=== PATIENT | female | born 1945 | race Caucasian/White ===

== ENCOUNTER → 2019-02-19 00:01 | Outpatient (RCR) | payer MEDICARE, MEDICAID, SELFPAY | LOC: ONCMED 01-22 06:12 | PROVIDERS: Family Provider Electrodiagnostic Medicine; Visit Provider Internal Medicine Medical Oncology | DX: Z51.12 Encounter for antineoplastic immunotherapy (principal); C50.812 Malignant neoplasm of overlapping sites of left female breast; C77.3 Secondary and unspecified malignant neoplasm of axilla and upper limb lymph nodes; D64.9 Anemia, unspecified; R91.1 Solitary pulmonary nodule; I26.99 Other pulmonary embolism without acute cor pulmonale; Z17.0 Estrogen receptor positive status [ER+]; I12.9 Hypertensive chronic kidney disease with stage 1 through stage 4 chronic kidney disease, or unspecified chronic kidney disease; N18.9 Chronic kidney disease, unspecified; J44.9 Chronic obstructive pulmonary disease, unspecified; K21.9 Gastro-esophageal reflux disease without esophagitis; E03.9 Hypothyroidism, unspecified; M19.90 Unspecified osteoarthritis, unspecified site; Z79.811 Long term (current) use of aromatase inhibitors; Z79.899 Other long term (current) drug therapy; Z87.442 Personal history of urinary calculi; Z87.891 Personal history of nicotine dependence | CPT/HCPCS: 80053; 85025 ×2; 93308; 96360; 96413 ×2; 99214; J1642 ×5; J7040 ×2; J7050 ×3; J9355 ×2 ==

== ENCOUNTER 2019-02-21 16:30 | Emergency (ER) | payer MEDICARE, MEDICAID, SELFPAY ==
[2019-02-21 17:45] VITALS: BP 145/68; PULSE 74; RESP 18; TEMP 36.8; O2SAT 91; BMI 44.8
[2019-02-21 19:27] VITALS: BP 151/82; PULSE 95; RESP 16; O2SAT 94
== END 2019-02-21 19:29 | disposition home or self-care (01) ==
LOC: ER 17:00
PROVIDERS: Emergency Provider Emergency Medicine; Family Provider Electrodiagnostic Medicine; PCP Electrodiagnostic Medicine
DX: Z53.21 Procedure and treatment not carried out due to patient leaving prior to being seen by health care provider (principal)
CPT/HCPCS: 99281

== ENCOUNTER 2019-03-18 10:00 | Outpatient (RCR) | payer MEDICARE, MEDICAID, SELFPAY ==
[2019-03-11 09:40] LABS: Basophils # 0.1 10^3/uL (0.0-0.1); Basophils % 0.4 %; Eosinophils # 0.5 10^3/uL (0.0-0.8); Eosinophils % 4.5 %; Hematocrit 33.3 % (37.0-47.0); Hemoglobin 10.1 g/dL (11.5-15.3); Lymphocytes % 17.4 %; Mean Corpuscular HGB Conc 30.3 g/dL (30.0-36.0); Mean Corpuscular Hemoglobin 24.8 pg (28.0-34.0); Mean Corpuscular Volume 81.8 fL (81-99); Mean Platelet Volume 9.8 fL (7.4-10.4); Monocytes # 0.8 10^3/uL (0.2-0.9); Monocytes % 6.5 %; Neutrophils # 8.3 10^3/uL (1.8-7.7); Neutrophils % 70.9 %; Nucleated Red Blood Cells % 0 %; Platelet Count 393 10^3/cmm (130-400); Red Blood Count 4.07 10^6/uL (4.1-5.3); Red Cell Distribution Width 16.1 % (12.1-15.1); White Blood Count 11.7 10^3/uL (4.0-10.0)
[2019-03-11 09:47] LABS: Alanine Aminotransferase 8 U/L (0-33); Albumin Level 3.9 g/dL (3.5-5.2); Alkaline Phosphatase 79 IU/L (35-105); Aspartate Amino Transferase 11 U/L (0-32); Blood Urea Nitrogen 27 mg/dL (8-23); Carbon Dioxide 29 mmol/L (22-29); Chloride 98 mmol/L (98-107); Glucose 105 mg/dL (74-106); Sodium 139 mmol/L (136-145); Total Bilirubin 0.4 mg/dL (0.15-1.2); Total Protein 6.9 g/dL (6.6-8.7)
[2019-03-11 10:02] LABS: Ferritin 130 ng/mL (15-150); Iron 52 ug/dL (37-145); Percent Saturation 23.5 % (20-50); Total Iron Binding Capacity 221 mg/dL; Unsaturated Iron Binding 169 ug/dL (112-347)
[2019-03-11] MEDS: diphenhydrAMINE 25 mg Capsule PO (11:05)
[2019-03-11] MEDS: sodium chloride 0.9% 250 ML 999 ML IV (11:05)
[2019-03-11] MEDS: acetaminophen 325 mg Tablet 650 MG PO (11:05)
--- NOTE | 2019-03-18 10:02 | CT_ITS ---
WS: [id number] CT CHEST WITHOUT INTRAVENOUS CONTRAST HISTORY: BREAST CANCER/PULMONARY NODULE TECHNIQUE: Contiguous 5 mm axial imaging performed on the thorax. Coronal and sagittal reformats are submitted. All CT scans at [facility] use at least one of these dose optimization techniq ues: automated exposure control; mA and/or kV adjustment per patient size (includes targeted exams wh ere dose is matched to clinical indication); or iterative reconstruction. CONTRAST: None DLP: 951.58 mGy.cm COMPARISON: 12/03/2018, 04/29/2015 and PET/CT 09/22/2018 Lungs and central airway: Continued increase in size of the part solid mass in the RIGHT upper lobe. The solid component is lobulated measuring 3.3 x 2.9 cm, increased from 2.3 x 2.2 cm on the prior fabio dy. There is adjacent groundglass and subsolid attenuation. Mass extends to abut the pleura and there is some spiculation and satellite nodules. There are additional scattered groundglass opacification within both lungs which have been present on prior studies. Pleura: No pleural effusions. Heart and pericardium: Moderately enlarged cardiac chambers. Mild atherosclerosis aorta and [place] ronary arteries. Mediastinum and oscar: Small mediastinal lymph nodes. No adenopathy or increase in size of lymph nodes . Vessels: Atherosclerosis aorta. No aneurysm. Chest wall and lower neck: Prior LEFT mastectomy. There is a fluid collection at the mastectomy site measuring 8.7 x 3.6 cm. Overlying soft tissue thickening and postsurgical clips. Patient has a Port-A -Cath with tip in the SVC. Upper abdomen: Large lobulated cystic mass associated with the upper pole of the RIGHT kidney. Incomp letely visualized but similar to the prior studies. Patient also has a known lobulated mass with calc ifications centered in the pancreatic head. This mass measures 5.6 x 5.2 cm and has not significantly increased in size. Osseous structures: Degenerative changes in thoracic spine. CT/CT chest wo con [id number] IMPRESSION: 1. Status post LEFT mastectomy. Fluid collection at the mastectomy site is pro bably a post-operative seroma. Post radiation changes at the surgical bed. 2. Continued slow increase in size of the mass in the RIGHT upper lobe and sma ll adjacent satellite lesions. Solid mass now measures 3.3 x 2.9 cm as compared to 2.3 x 2.1 cm on the prior study. Highly suspicious for neoplasm which is in creasing in size. 3. Stable multi lobar groundglass attenuation and no significant adenopathy. 4. Long-term stability of a large pancreatic head mass which is lobulated and contains calcifications. 5. Moderate cardiomegaly.
[2019-03-18] MEDS: alteplase 1 mg/mL SDV 2 mL 2 MG IV (11:35)
[2019-03-18] MEDS: sodium chloride 0.9% 100 ML 75 ML (12:07)
== END 2019-03-22 23:59 | disposition home or self-care (01) ==
LOC: RAD 10:00
PROVIDERS: Family Provider Electrodiagnostic Medicine; PCP Electrodiagnostic Medicine; Visit Provider Internal Medicine Medical Oncology
DX: D50.8 Other iron deficiency anemias (principal); C50.812 Malignant neoplasm of overlapping sites of left female breast; Z90.12 Acquired absence of left breast and nipple; K86.89 Other specified diseases of pancreas; I51.7 Cardiomegaly; R91.1 Solitary pulmonary nodule
CPT/HCPCS: 71250; 80053; 82728; 83540; 83550; 85025; 96365; 96367; 96375; 96413; 99214; J1439; J2997; J7050; J9355

== ENCOUNTER 2019-04-01 05:53 | Outpatient (RCR) | payer MEDICARE, MEDICAID, SELFPAY ==
[2019-04-01] MEDS: alteplase 1 mg/mL SDV 2 mL 2 MG IV ×2 (11:51→13:10)
[2019-04-01 12:10] LABS: Basophils % 0.3 %; Eosinophils # 0.5 10^3/uL (0.0-0.8); Eosinophils % 4.5 %; Hematocrit 34.9 % (37.0-47.0); Hemoglobin 10.6 g/dL (11.5-15.3); Lymphocytes # 2.1 10^3/uL (0.8-4.8); Lymphocytes % 17.9 %; Mean Corpuscular HGB Conc 30.4 g/dL (30.0-36.0); Mean Corpuscular Hemoglobin 26.6 pg (28.0-34.0); Mean Corpuscular Volume 87.7 fL (81-99); Mean Platelet Volume 10.1 fL (7.4-10.4); Monocytes # 0.7 10^3/uL (0.2-0.9); Monocytes % 6.1 %; Neutrophils # 8.4 10^3/uL (1.8-7.7); Neutrophils % 70.8 %; Nucleated Red Blood Cells % 0 %; Platelet Count 359 10^3/cmm (130-400); Red Blood Count 3.98 10^6/uL (4.1-5.3); Red Cell Distribution Width 18.9 % (12.1-15.1); White Blood Count 11.9 10^3/uL (4.0-10.0)
[2019-04-01 12:30] LABS: Alanine Aminotransferase 7 U/L (0-33); Albumin Level 3.6 g/dL (3.5-5.2); Alkaline Phosphatase 84 IU/L (35-105); Anion Gap 16.1 (5-19); Aspartate Amino Transferase 13 U/L (0-32); Blood Urea Nitrogen 21 mg/dL (8-23); Calcium 9.5 mg/dL (8.5-10.5); Carbon Dioxide 29 mmol/L (22-29); Chloride 100 mmol/L (98-107); Globulin 2.7 g/dL (1.3-4.6); Glucose 106 mg/dL (65-115); Potassium 4.1 mmol/L (3.5-5.1); Sodium 141 mmol/L (136-145); Total Bilirubin 0.3 mg/dL (0.15-1.2); Total Protein 6.3 g/dL (6.6-8.7)
[2019-04-01] MEDS: iohexol 300 mg/mL 50 mL Btl IV (14:42)
--- NOTE | 2019-04-01 14:53 | IR_ITS ---
WS: [id number] INDICATION: Right Port-A-Cath flushes but with no blood return. Fluoroscopy time 0.6 minutes TECHNIQUE: Fluoroscopic guided Port-A-Cath injection. 10 cc Omnipaque utilized. FINDINGS: Fluoroscopic guided right Port-A-Cath injection. Normal opacification of the superior vena cava. No filling defects to indicate SVC thrombus. However, there is a small contrast jet at the tip of the catheter on the fluoroscopic cine imaging suggesting a small amount of thrombus or thrombin sh eath at the catheter tip with partial occlusion. Tortuous course of the right central venous catheter in the lower neck is unchanged in appearance sin ce 2019. Notified Hue Vargas NP at 04/01/2019 3:57 PM. IR/[place] [id number] IMPRESSION: 1. Suspected partial thrombus or fibrin sheath at the tip of the catheter wit h partial occlusion with small contrast jet. 2. Normal filling of the superior vena cava. No evidence of SVC thrombus. Cath eter otherwise appears patent.
[2019-04-01] MEDS: diphenhydrAMINE 25 mg Capsule PO (15:53)
[2019-04-01] MEDS: acetaminophen 325 mg Tablet 650 MG PO (15:53)
[2019-04-01] MEDS: sodium chloride 0.9% 250 ML 600 ML IV (16:08)
--- NOTE | 2019-04-05 08:06 | ONC FU_ITS ---
Heidy Vargas Patient Note Patient: Deneen Mendoza Unit #: [id number]: 1945 Dictated By: Eulalio CrookDate of Visit: Apr 01, 2019 Onc MED Follow-Up/Prog Note Chief Complaint: Breast cancer. History of Present Illness: Mrs Mendoza is a 73 year-old woman with multifocal infiltrating ductal carcinoma of the left breast, grade 3, ER positive/OR negative and HER-2/vickie positive. By clinical evaluation her disease appeared to be at least stage IIB (T2, N1, M0). Her PET/CT also showed FDG avid right apical pulmonary nodule, consistent with solitary metastasis, stage IV (M1), versus second primary malignancy. She had presented with a lump in the lateral aspect of the left breast, first noticed in early March. Bilateral diagnostic mammogram on 04/05/2018 showed a large spiculated mass in the upper outer left breast deep to the area of palpable concern. Measured 2.2 x 1.4 cm with associated surrounding architectural distortion and associated pleomorphic calcifications. Also noted was adjacent enlarged pathologic appearing lymph nodes/masses with pleomorphic calcifications measuring 1.7 x 1.7 cm an enlarged partially visualized lymph nodes in the left axilla with microcalcifications measuring 2.8 x 2.1 cm. Ultrasound of the left breast showed numerous hypoechoic irregular lesions at the 2:00 in 3 clock position suspicious for multifocal disease. Also noted were 2 additional hypoechoic irregular masses at the 2:00 position which were suspicious for additional foci of disease. An enlarged axillary lymph node measuring 1.1 cm also appeared suspicious for malignancy. On 04/25/2018 she underwent ultrasound-guided needle biopsies at 3 different sites in the left breast and ultrasound guided needle biopsy of a left axillary lymph node. Pathology of the biopsy at 2:00, 6 cm from the nipple, showed extensive infiltrating ductal carcinoma, grade 3 of 3. Biopsy at the 2:00 position 8 cm from the nipple and at the 3 clock position 5 cm from the nipple both also showed infiltrating ductal carcinoma. The breast prognostic profile showed ER positive at 62% and OR negative at less than 1%. It was positive for overexpression of HER-2/vickie, 3+ by IHC, with amplification ratio by FISH of 2.1 with 7.3 HER-2 copies/cell. The Ki-67 was high at 41%. ]Dr Feldman had seen her initially on 05/21/2018. As her disease appeared to at least locally advanced, she had a staging PET/CT on 05/26/2018. It showed a 1.7 cm soft tissue lesion within the left breast with SUV 6.5. There were several FDG positive axillary lymph nodes, the most prominent being a 1.5 cm node with SUV 14.1. A solid nodule in the right lung apex measured 1.9 x 1.6 cm with SUV 17.7, felt to most likely represent metastatic disease, though primary lung carcinoma was noted to also be possible. Multiple other bilateral pulmonary nodules were either too small to characterize or of groundglass opacity with negligible FDG activity. Given those findings, she was recommended to begin neoadjuvant chemotherapy with TCH-P. Her medical history is also significant that she had previously been evaluated by Dr. Tran for multiple pulmonary nodules which included a more dominant right upper lobe nodule measuring 2.9 x 1.7 cm. Bronchoscopy on 05/27/2013 was unremarkable except for a small polyp at the distal aspect of the posterior trachea. It was removed in entirety. Pathology showed no evidence of malignancy. Bronchial washings from the right upper lobe were also negative for malignancy. A follow-up chest CT on 04/29/2015 showed slight enlargement of an anterior segmental left upper lobe nodule measuring 7.3 mm. Multiple other upper lobe nodules bilaterally as well as right middle lobe and right lower lobe nodules appeared stable. She also has a history of pancreatitis with associated pancreatic cyst. She has had yearly follow-up at [facility] for the cyst, which has been drained on multiple occasions, most recently in February 2017. Her other medical illnesses include hypertension, COPD, GERD, hypothyroidism, and degenerative arthritis. She has a history of nephrolithiasis and she also has renal cysts. She has a history of smoking 1 pack of cigarettes daily for more than 30 years. She quit smoking approximately 1991. She does not drink alcohol. INTERIM HISTORY: She began cycle 1 of TCH-P on 06/12/2018. She had no acute toxicity with the chemotherapy. At approximately day 5 she began having diarrhea. She also had some nausea/vomiting. She required IV hydration on multiple occasions. She had a significant decline in her renal function. She became severely neutropenic, but that resolved uneventfully. She had a very prolonged recovery. She eventually was able to proceed with her 2nd cycle of chemotherapy on 07/17/2018. The Perjeta was omitted from the regimen beginning with that cycle. She tolerated much better, though she continued to have nausea and diarrhea, requiring frequent hydration. Her renal function are fully recovered, but it remained adequate with dehydration. She then proceeded with cycle 3 on 08/07/2018 and with cycle 4 on 08/27/2018. Restaging PET/CT on 09/22/2018 showed resolution of the left breast and axillary lesions. The right upper lobe lung nodule appeared stable at 1.6 cm, but with increased in FDG uptake, SUV 21.1. There were no other areas of abnormal uptake noted. With those findings, her case was reviewed at tumor board, and the decision was made to proceed with resection of the lung nodule first and to then address surgical management of the breast. She was referred to Dr. Camp for the lung surgery. In the meantime, she continued treatment with single agent Herceptin. On 11/20/2018 she underwent left modified radical mastectomy. She tolerated the procedure well. Pathology on the breast showed fibrocystic changes and a 1 mm focus of atypical ductal hyperplasia. There was no malignancy identified. There was no involvement in 14 lymph nodes. Following surgery she continued single agent Herceptin at the 3-week dosing schedule. She completed her 9th cycle of treatment on 03/11/2019. We reviewed her CT of the chest from March 18, 2019. There has been a continued increase in the size of the solid mass in the right upper lobe. The solid component is lobulated measuring 3.3 x 2.9 cm increased from 2.3 x 2.2 cm on the prior study. There is adjacent groundglass and sub-solid attenuation. The mass extends to abut the pleura and there is some spiculation and satellite nodules. There are additional scattered ground glass opacification within both lungs which has been present on prior studies. There are no pleural effusions. She has moderately enlarged cardiac chambers with mild arterial sclerosis aorta and [place] coronary arteries there is a lobulated cystic mass associated with the upper pole of the right kidney incompletely visualized but similar to prior studies she has a known lobulated mass with calcifications centered in the pancreatic head this measures 5.6 x 5.2 and has not significantly increased in size she has degenerative changes in thoracic spine. Dr. Feldman has recommended that we refer her to Dr. Camp for further evaluation of the mass in the right upper lobe. Mrs. Mendoza remains on anticoagulation with Xarelto 20 mg daily for documented nonocclusive pulmonary embolism in the right lung lower lobe segmental branch diagnosed 0n December 03, 2018. Mrs. Mendoza is here today for follow-up. She is due for 3-week Herceptin. She has now completed 2 doses of Injectafer for iron deficiency anemia as well. Her last dose was on March 18, 2019. She states overall she is doing good. She has no new concerns today. She denies any nausea or vomiting. She is had no new shortness of breath orthopnea. She denies any lower extremity edema. She denies fever or chills. She states her energy is fair and her appetite is good. She denies diarrhea or constipation. Her ECOG is 1. Past Medical History: Chronic obstructive pulmonary disease Chronic pancreatitis with pancreatic cyst Gastroesophageal reflux disease Hypertension Hypothyroidism Lung nodules Nephrolithiasis Past Surgical History: Caesarean section Carpal tunnel release on the left Left uretroscopy with stent placement Pancreatic cyst drainage 8 years ago, in 2015, and in February 2017. Tonsillectomy Left mastectomy in 2019 Port placement in 2019 - dr oviedo-left ij Allergies: Codeine Sulfate, egg, NSAIDS, Penicillin G Benzathine, prednisoLONE, and Tetracycline HCl. Medications: Anastrozole 1 Tablet (of 1 mg) Oral daily Atenolol-Chlorthalidone 1 Tablet (of 50-25 mg) Oral daily Cetirizine HCl 1 Tablet (of 10 mg) Oral daily Fluticasone Propionate 2 [place](s) Suspension Nasal daily Levothyroxine Sodium 1 Tablet (of 125 mcg) Oral daily Montelukast Sodium 1 Tablet (of 10 mg) Oral at bedtime Ventolin HFA 1 (108 (90 base) mcg/act) Aerosol, solution Inhalation PRN Xarelto 1 (20 mg) Tablet Oral daily Family History: Family history is unknown, as the patient was adopted. Social History: Ms. Mendoza is and she is retired. Ms. Mendoza quit smoking 26 years ago but had smoked 0.5 packs/day for 35 years. She has no history of drinking. She has a history of smoking 1 pack of cigarettes daily for 34 years. She quit smoking approximately 1991. She does not drink alcohol. Review Of Symptoms: Constitutional Denies fevers, chills, night sweats, excessive fatigue or weight loss. Eyes Denies significant visual changes. No diplopia. No amaurosis. ENMT Denies changes in hearing, sore throat, mouth sores, difficulty or changes in swallowing ability, and/or sinus drainage. Endocrine No diabetes, thyroid disease or hormone replacement. Denies hot flashes or night sweats. Hematologic/Lymphatic Denies easy bruising or bleeding. The patient denies any tender or palpable lymph nodes. Breasts unremarkable-healing well. Respiratory Shortness of breath persistent, but no worse than normal . Cardiovascular Denies anginal chest pain, palpitations or orthopnea. Gastrointestinal Denies nausea, vomiting, diarrhea, GI bleeding, or constipation. Denies change in bowel habits and/or stool color, no heartburn or early satiety. Genitourinary (F) No hematuria, hesitancy, incontinence, vaginal bleeding, discharge or other problems with urination. Musculoskeletal Denies joint pain, swelling or redness. No decreased range of motion. Integumentary Denies chronic rashes, inflammation, ulcerations or skin changes. Neurologic Denies headache, blurred vision, and no areas of focal weakness or numbness. Normal gait. No sensory problems. Psychiatric Denies insomnia, depression, corby or mood swings. Vital Signs: Performed on Apr 01, 2019 13:00 Height - 62.00 in Weight - 251.0 lbs BSA - 2.11 sq.m BMI - 45.91 (HIGH) Temperature - 98.0 F (LOW) Pulse - 65 /min Respiration - 26 /min BP - 162/72 mm(hg) (HIGH) O2 Sat - 95 % (LOW) Pain - 0,1 - No physically strenuous activity, but ambulatory and able to carry out light or sedentary work (e.g. office work, light house work). (ECOG) Physical Examination: Constitutional Alert, oriented, no acute distress. Skin pink, warm and dry. Head Normocephalic; atraumatic. Eyes Conjunctivae and sclerae are clear and without icterus. Pupils are reactive and equal. ENMT No oral exudates, ulcers, masses, thrush or mucositis. Oropharynx clear. Tongue normal. Neck Supple without masses or thyromegaly. No jugular venous distension. Hematologic/Lymphatic No petechiae or purpura. No tender or palpable lymph nodes in the cervical or supraclavicular areas. Respiratory Lungs are clear to auscultation without rhonchi or wheezing. Cardiovascular Regular rate and rhythm of heart without murmurs,clicks, gallops or rubs. Chest Right chest wall venous access device is unremarkable. Breasts Left mastectomy site has healed well. Abdomen Non-tender, non-distended, no masses, ascites. No guarding or rebound tenderness. No pulsatile masses. Back/Spine Non-tender to palpation. Extremities No visible deformities, no cyanosis, clubbing or edema. Musculoskeletal No tenderness or swelling, normal range of motion without obvious weakness. Integumentary No rashes or lesions. Neurologic No sensory or motor deficits, normal cerebellar function, normal gait. Psychiatric Alert and oriented times three. Coherent speech. Verbalizes understanding of our discussions today. Laboratory:Test performed on Apr 01, 2019 11:55 WBC 11.9 10 3/uL RBC 3.98 10 6/uL HGB 10.6 g/dL HCT 34.9 % MCV 87.7 fL MCH 26.6 pg MCHC 30.4 g/dL RDW 18.9 % Platelet Count 359 10 3/cmm MPV 10.1 fL Neutrophils 8.4 10 3/uL Lymphocytes 2.1 10 3/uL Monocytes 0.7 10 3/uL Eosinophils 0.5 10 3/uL Basophils 0.0 10 3/uL Neutrophil % 70.8 % Lymphocyte % 17.9 % Monocyte % 6.1 % Eosinophil % 4.5 % Basophils % 0.3 % Impression: 1. Patient with multifocal infiltrating ductal carcinoma of the left breast, grade 3, ER positive/OR negative and HER-2/vickie positive. By clinical evaluation her disease appears to be at least stage IIB (T2, N1, M0). Her PET/CT also showed FDG avid right apical pulmonary nodule, consistent with solitary metastasis, stage IV (M1), versus second primary malignancy. 2. She has a history of multiple pulmonary nodules with negative bronchoscopy in 2013. 3. She is known to have a pancreatic cyst associated with previous pancreatitis. Her other medical illnesses include: 4. Hypertension. 5. COPD. 6. GERD. 7. Hypothyroidism. 8. Degenerative arthritis. 9. She has a history of nephrolithiasis and history of renal cysts. She began cycle 1 of neoadjuvant TCH-P on 06/12/2018. She had no acute toxicity with the initial infusions. She subsequently developed severe diarrhea, and she also had some nausea/vomiting. She required IV hydration on multiple occasions. During that time she did show significant decline in her renal function. She became severely neutropenic, but that resolved uneventfully. During subsequent follow-up she had gradual recovery, though her renal function still did not return to baseline. She eventually was able to continue with cycle 2 of chemotherapy on 07/17/2018. Beginning with that cycle, the Perjeta was omitted from the regimen. She was able to tolerate it with acceptable toxicity, though she continued to have nausea and diarrhea, and she required frequent IV hydration. She completed her 3rd cycle on 08/07/2018 and her 4th cycle on 08/27/2018. Her restaging PET/CT on 09/22/2018 showed complete resolution of left breast and left axillary lesions. The right upper lobe pulmonary nodule appeared stable in size at 1.6 cm, but with increased FDG activity, SUV 21.1. By PET/CT she has had a very significant response to the neoadjuvant chemotherapy. The increased FDG activity in the right upper lobe pulmonary nodule is worrisome for malignancy, possibly a second primary malignancy. Given those findings, she was recommended to proceed first with resection of the lung nodule and to then address surgical management of the breast. She has seen Dr. Camp for the lung surgery. In the meantime, she has continued treatment with single agent Herceptin, which she tolerated well. At her follow-up visit on 11/05/2018 she appeared to have developed a new nodule in the left breast. There was concern that her disease was progressing locally. As such, she underwent left modified radical mastectomy on 11/20/2018. Pathology showed no residual tumor in the breast and no involvement in 14 axillary lymph nodes, consistent with complete pathologic response to the neoadjuvant therapy. She had no complications with the surgery, and she then continued single agent Herceptin at the 3-week dosing interval. As of her follow-up visit on 01/29/2019, she restarted adjuvant hormonal therapy with anastrozole 1 mg daily. Thus far she has been tolerating the Herceptin very well, and during that time she has been showing gradual improvement in her performance status. She remains mildly anemic with borderline low transferrin saturation. She did receive iron supplementation with Injectafer with two doses-the last one on 03/18/2019. Her followup CT of the chest from March 18, 2019 reported there has been a continued increase in the size of the solid mass in the right upper lobe. The solid component is lobulated measuring 3.3 x 2.9 cm increased from 2.3 x 2.2 cm on the prior study. There is adjacent groundglass and sub-solid attenuation. The mass extends to abut the pleura and there is some spiculation and satellite nodules. There are additional scattered ground glass opacification within both lungs which has been present on prior studies. There are no pleural effusions. She has moderately enlarged cardiac chambers with mild arterial sclerosis aorta and [place] coronary arteries there is a lobulated cystic mass associated with the upper pole of the right kidney incompletely visualized but similar to prior studies she has a known lobulated mass with calcifications centered in the pancreatic head this measures 5.6 x 5.2 and has not significantly increased in size she has degenerative changes in thoracic spine. Dr. Feldman has recommended that we refer her to Dr. Camp for further evaluation of the mass in the right upper lobe. Mrs. Mendoza remains on anticoagulation with Xarelto 20 mg daily for documented nonocclusive pulmonary embolism in the right lung lower lobe segmental branch diagnosed on December 03, 2018. Plan: 1. Proceed with cycle 10 Herceptin. She began TCH-P on 06/12/2018. 2. We reviewed her labs from today in detail and a copy was given to her. WBC 11.9, hemoglobin 10.6, platelets 359,000 ANC is 8400. 3. We will refer her to Dr. Camp for further assessment/management of the right lung mass. 4. She continues on Xarelto 20 mg daily for nonocclusive pulmonary embolism of the right lower lobe segmental branch diagnosed December 03, 2018. She will continue Xarelto for now until we know when she is seen Dr. Camp and what his plan will be. 5. We will plan to see her back in 3 weeks with CBC CMP and followup iron studies for consideration of her next cycle of Herceptin. 6. Mrs. Mendoza was instructed to contact us in the interim should questions or problems arise. 7. Mrs. Mendoza did have a flow study done on reported A day as we are having difficulty obtaining blood return. Dr. Schreiber called to state that there was slight sluggish flow towards the end of the catheter which could indicate slight thrombosis or sheath. There was no occlusive clot within the catheter or vein. We were able to administer her Herceptin without any difficulty. She had 2 doses of Cathflo and the catheter was discharged with heparin within the catheter. She remains on the Xarelto as well. She did not have any discomfort or abnormal findings during the administration of the Herceptin around the Port-A-Cath. Signed By: Eulalio Crook-, AOCNP Wes Feldman MD <<Signature on File>>
== END 2019-04-20 23:59 | disposition home or self-care (01) ==
LOC: ONCMED 05:53
PROVIDERS: Absent Provider Internal Medicine Medical Oncology; Family Provider Electrodiagnostic Medicine; PCP Electrodiagnostic Medicine; Visit Provider Nurse Practitioner
DX: Z51.12 Encounter for antineoplastic immunotherapy (principal); C50.812 Malignant neoplasm of overlapping sites of left female breast; C77.3 Secondary and unspecified malignant neoplasm of axilla and upper limb lymph nodes; T82.594A Other mechanical complication of infusion catheter, initial encounter; Y80.1 Therapeutic (nonsurgical) and rehabilitative physical medicine devices associated with adverse incidents; D64.9 Anemia, unspecified; I10 Essential (primary) hypertension; J44.9 Chronic obstructive pulmonary disease, unspecified; K21.9 Gastro-esophageal reflux disease without esophagitis; E03.9 Hypothyroidism, unspecified; M19.90 Unspecified osteoarthritis, unspecified site; R91.8 Other nonspecific abnormal finding of lung field; Z79.01 Long term (current) use of anticoagulants; Z17.0 Estrogen receptor positive status [ER+]; Z79.811 Long term (current) use of aromatase inhibitors; Z87.442 Personal history of urinary calculi; Z87.891 Personal history of nicotine dependence; Z86.711 Personal history of pulmonary embolism; Z90.12 Acquired absence of left breast and nipple
CPT/HCPCS: 36415; 36593; 36598; 80053; 85025; 96375; 96413; 99214; J2997; J7050; J9355; Q9967

== ENCOUNTER 2019-04-17 10:19 | Outpatient (CLI) | payer MEDICARE, MEDICAID, SELFPAY ==
--- NOTE | 2019-04-17 15:34 | PFTS_ITS ---
Date of Study:04/17/2019 Date of Dictation: MECHANICS: Forced vital capacity (FVC) is reduced. Forced expiratory volume in one second (FEV1) is reduced. FEV1/FVC is normal. FLOW VOLUME LOOP: Narrow with scooping. LUNG VOLUMES: Total lung capacity (TLC) is reduced. Residual volume (RV) is normal. DIFFUSING CAPACITY FOR CARBON MONOXIDE: Normal. INTERPRETATION: The pulmonary function tests are consistent with moderate restriction. There is no significant postbronchodilator response. The total lung capacity is minimally diminished. The combination of preserved inspiratory capacity and significantly reduced expiratory reserve volume is consistent with extrapulmonary restriction. Possibly secondary to obesity. Gas exchange (DLCO) is normal. MTDD
== END 2019-04-17 10:20 | disposition home or self-care (01) ==
LOC: RT 10:23
PROVIDERS: Family Provider Electrodiagnostic Medicine; PCP Electrodiagnostic Medicine; Visit Provider Thoracic Surgery (Cardiothoracic Vascular Surgery)
DX: R91.8 Other nonspecific abnormal finding of lung field (principal)
CPT/HCPCS: 94060; 94726; 94729; J7611

== ENCOUNTER 2019-04-22 05:51 | Outpatient (RCR) | payer MEDICARE, MEDICAID, SELFPAY ==
[2019-04-22 12:04] LABS: Basophils # 0.1 10^3/uL (0.0-0.1); Basophils % 0.4 %; Eosinophils # 0.5 10^3/uL (0.0-0.8); Eosinophils % 3.8 %; Hematocrit 36.7 % (37.0-47.0); Hemoglobin 11.2 g/dL (11.5-15.3); Lymphocytes # 1.8 10^3/uL (0.8-4.8); Lymphocytes % 15.3 %; Mean Corpuscular HGB Conc 30.5 g/dL (30.0-36.0); Mean Corpuscular Hemoglobin 26.6 pg (28.0-34.0); Mean Corpuscular Volume 87.2 fL (81-99); Mean Platelet Volume 10.2 fL (7.4-10.4); Monocytes # 0.6 10^3/uL (0.2-0.9); Monocytes % 5.3 %; Neutrophils % 74.9 %; Nucleated Red Blood Cells % 0 %; Platelet Count 336 10^3/cmm (130-400); Red Blood Count 4.21 10^6/uL (4.1-5.3)
[2019-04-22 12:21] LABS: Alanine Aminotransferase 9 U/L (0-33); Albumin Level 3.8 g/dL (3.5-5.2); Alkaline Phosphatase 84 IU/L (35-105); Anion Gap 17.7 (5-19); Aspartate Amino Transferase 12 U/L (0-32); Blood Urea Nitrogen 31 mg/dL (8-23); Calcium 9.8 mg/dL (8.5-10.5); Carbon Dioxide 26 mmol/L (22-29); Chloride 100 mmol/L (98-107); Globulin 2.9 g/dL (1.3-4.6); Glucose 133 mg/dL (65-115); Potassium 3.7 mmol/L (3.5-5.1); Sodium 140 mmol/L (136-145); Total Bilirubin 0.3 mg/dL (0.15-1.2); Total Protein 6.7 g/dL (6.6-8.7)
[2019-04-22 13:05] LABS: Ferritin 802 ng/mL (15-150); Iron 44 ug/dL (37-145); Percent Saturation 23.6 % (20-50); Total Iron Binding Capacity 186 mcg/dl; Unsaturated Iron Binding 142 ug/dL (112-347)
[2019-04-22] MEDS: sodium chloride 0.9% 250 ML 300 ML IV (13:55)
[2019-04-22] MEDS: acetaminophen 325 mg Tablet 650 MG PO (13:55)
[2019-04-22] MEDS: diphenhydrAMINE 25 mg Capsule PO (13:59)
[2019-04-22 14:21] LABS: Thyroid Stimulating Hormone 0.76 uIU/mL (0.27-4.20)
--- NOTE | 2019-04-27 17:31 | ONC FU_ITS ---
[facility] Patient Note Patient: Deneen Mendoza Unit #: [id number]: 1945 Dictated By: Eulalio CrookDate of Visit: Apr 22, 2019 Onc MED Follow-Up/Prog Note Chief Complaint: Breast cancer. History of Present Illness: Mrs Mendoza is a 73 year-old woman with multifocal infiltrating ductal carcinoma of the left breast, grade 3, ER positive/IN negative and HER-2/vickie positive. By clinical evaluation her disease appeared to be at least stage IIB (T2, N1, M0). Her PET/CT also showed FDG avid right apical pulmonary nodule, consistent with solitary metastasis, stage IV (M1), versus second primary malignancy. She had presented with a lump in the lateral aspect of the left breast, first noticed in early March. Bilateral diagnostic mammogram on 04/05/2018 showed a large spiculated mass in the upper outer left breast deep to the area of palpable concern. Measured 2.2 x 1.4 cm with associated surrounding architectural distortion and associated pleomorphic calcifications. Also noted was adjacent enlarged pathologic appearing lymph nodes/masses with pleomorphic calcifications measuring 1.7 x 1.7 cm an enlarged partially visualized lymph nodes in the left axilla with microcalcifications measuring 2.8 x 2.1 cm. Ultrasound of the left breast showed numerous hypoechoic irregular lesions at the 2:00 in 3 clock position suspicious for multifocal disease. Also noted were 2 additional hypoechoic irregular masses at the 2:00 position which were suspicious for additional foci of disease. An enlarged axillary lymph node measuring 1.1 cm also appeared suspicious for malignancy. On 04/25/2018 she underwent ultrasound-guided needle biopsies at 3 different sites in the left breast and ultrasound guided needle biopsy of a left axillary lymph node. Pathology of the biopsy at 2:00, 6 cm from the nipple, showed extensive infiltrating ductal carcinoma, grade 3 of 3. Biopsy at the 2:00 position 8 cm from the nipple and at the 3 clock position 5 cm from the nipple both also showed infiltrating ductal carcinoma. The breast prognostic profile showed ER positive at 62% and IN negative at less than 1%. It was positive for overexpression of HER-2/vickie, 3+ by IHC, with amplification ratio by FISH of 2.1 with 7.3 HER-2 copies/cell. The Ki-67 was high at 41%. ]Dr Feldman had seen her initially on 05/21/2018. As her disease appeared to at least locally advanced, she had a staging PET/CT on 05/26/2018. It showed a 1.7 cm soft tissue lesion within the left breast with SUV 6.5. There were several FDG positive axillary lymph nodes, the most prominent being a 1.5 cm node with SUV 14.1. A solid nodule in the right lung apex measured 1.9 x 1.6 cm with SUV 17.7, felt to most likely represent metastatic disease, though primary lung carcinoma was noted to also be possible. Multiple other bilateral pulmonary nodules were either too small to characterize or of groundglass opacity with negligible FDG activity. Given those findings, she was recommended to begin neoadjuvant chemotherapy with TCH-P. Her medical history is also significant that she had previously been evaluated by Dr. Tran for multiple pulmonary nodules which included a more dominant right upper lobe nodule measuring 2.9 x 1.7 cm. Bronchoscopy on 05/27/2013 was unremarkable except for a small polyp at the distal aspect of the posterior trachea. It was removed in entirety. Pathology showed no evidence of malignancy. Bronchial washings from the right upper lobe were also negative for malignancy. A follow-up chest CT on 04/29/2015 showed slight enlargement of an anterior segmental left upper lobe nodule measuring 7.3 mm. Multiple other upper lobe nodules bilaterally as well as right middle lobe and right lower lobe nodules appeared stable. She also has a history of pancreatitis with associated pancreatic cyst. She has had yearly follow-up at [facility] for the cyst, which has been drained on multiple occasions, most recently in February 2017. Her other medical illnesses include hypertension, COPD, GERD, hypothyroidism, and degenerative arthritis. She has a history of nephrolithiasis and she also has renal cysts. She has a history of smoking 1 pack of cigarettes daily for more than 30 years. She quit smoking approximately 1991. She does not drink alcohol. INTERIM HISTORY: She began cycle 1 of TCH-P on 06/12/2018. She had no acute toxicity with the chemotherapy. At approximately day 5 she began having diarrhea. She also had some nausea/vomiting. She required IV hydration on multiple occasions. She had a significant decline in her renal function. She became severely neutropenic, but that resolved uneventfully. She had a very prolonged recovery. She eventually was able to proceed with her 2nd cycle of chemotherapy on 07/17/2018. The Perjeta was omitted from the regimen beginning with that cycle. She tolerated much better, though she continued to have nausea and diarrhea, requiring frequent hydration. Her renal function are fully recovered, but it remained adequate with dehydration. She then proceeded with cycle 3 on 08/07/2018 and with cycle 4 on 08/27/2018. Restaging PET/CT on 09/22/2018 showed resolution of the left breast and axillary lesions. The right upper lobe lung nodule appeared stable at 1.6 cm, but with increased in FDG uptake, SUV 21.1. There were no other areas of abnormal uptake noted. With those findings, her case was reviewed at tumor board, and the decision was made to proceed with resection of the lung nodule first and to then address surgical management of the breast. She was referred to Dr. Camp for the lung surgery. In the meantime, she continued treatment with single agent Herceptin. On 11/20/2018 she underwent left modified radical mastectomy. She tolerated the procedure well. Pathology on the breast showed fibrocystic changes and a 1 mm focus of atypical ductal hyperplasia. There was no malignancy identified. There was no involvement in 14 lymph nodes. Following surgery she continued single agent Herceptin at the 3-week dosing schedule. She completed her 9th cycle of treatment on 03/11/2019. We reviewed her CT of the chest from March 18, 2019. There has been a continued increase in the size of the solid mass in the right upper lobe. The solid component is lobulated measuring 3.3 x 2.9 cm increased from 2.3 x 2.2 cm on the prior study. There is adjacent groundglass and sub-solid attenuation. The mass extends to abut the pleura and there is some spiculation and satellite nodules. There are additional scattered ground glass opacification within both lungs which has been present on prior studies. There are no pleural effusions. She has moderately enlarged cardiac chambers with mild arterial sclerosis aorta and [place] coronary arteries there is a lobulated cystic mass associated with the upper pole of the right kidney incompletely visualized but similar to prior studies she has a known lobulated mass with calcifications centered in the pancreatic head this measures 5.6 x 5.2 and has not significantly increased in size she has degenerative changes in thoracic spine. Dr. Feldman has recommended that we refer her to Dr. Camp for further evaluation of the mass in the right upper lobe. Mrs. Mendoza remains on anticoagulation with Xarelto 20 mg daily for documented nonocclusive pulmonary embolism in the right lung lower lobe segmental branch diagnosed 0n December 03, 2018. Mrs Mendoza completed Injectafer for iron deficiency anemia on 03/18/2019. Mrs. Mendoza is here today for follow-up. She is due for 3-week Herceptin. She states overall she is doing good. She states her only complaint today is that she has had a rash on her abdomen. She states it comes and goes and itches like crazy. She states it is better currently. She states when it does come there is really no red raised areas it just cannot itchy. She states is on her abdomen and some on her back. She states again it is gone today but it may be back tomorrow. She states the rash started about 1 week after her last Herceptin. She denies any new medication. She denies any new lotions, soaps or laundry detergents. She states she is tried to think of several things that could cause arrest and thus far is come up with nothing. She states overall she is had a little bit more fatigue and little more draggy today but states it is not bothering her activities of daily living. She states her appetite is good. She denies any fever or chills. She is had no diarrhea or constipation. She denies any mouth sores sore throat or difficulty swallowing. She denies any shortness of breath or lower extremity edema. She states her bowels are normal. She states at times are loose but that is well controlled she states at times her constipated and that is well controlled with stool softeners. Her ECOG is 1. Past Medical History: Chronic obstructive pulmonary disease Chronic pancreatitis with pancreatic cyst Gastroesophageal reflux disease Hypertension Hypothyroidism Lung nodules Nephrolithiasis Past Surgical History: Caesarean section Carpal tunnel release on the left Left uretroscopy with stent placement Pancreatic cyst drainage 8 years ago, in 2016, and in February 2017. Tonsillectomy Left mastectomy in 2019 Port placement in 2019 - dr oviedo-left ij Allergies: Codeine Sulfate, egg, NSAIDS, Penicillin G Benzathine, prednisoLONE, and Tetracycline HCl. Medications: Anastrozole 1 Tablet (of 1 mg) Oral daily Atenolol-Chlorthalidone 1 Tablet (of 50-25 mg) Oral daily Cetirizine HCl 1 Tablet (of 10 mg) Oral daily Fluticasone Propionate 2 Pick[place](s) Suspension Nasal daily Levothyroxine Sodium 1 Tablet (of 125 mcg) Oral daily Montelukast Sodium 1 Tablet (of 10 mg) Oral at bedtime Ventolin HFA 1 (108 (90 base) mcg/act) Aerosol, solution Inhalation PRN Xarelto 1 (20 mg) Tablet Oral daily Family History: Family history is unknown, as the patient was adopted. Social History: Ms. Mendoza is and she is retired. Ms. Mendoza quit smoking 26 years ago but had smoked 0.5 packs/day for 35 years. She has no history of drinking. She has a history of smoking 1 pack of cigarettes daily for 34 years. She quit smoking approximately 1991. She does not drink alcohol. Review Of Symptoms: Constitutional Denies fevers, chills, night sweats, excessive fatigue or weight loss. Allergic/Immunologic intermittent rash-see above. Eyes Denies significant visual changes. No diplopia. No amaurosis. ENMT Denies changes in hearing, sore throat, mouth sores, difficulty or changes in swallowing ability, and/or sinus drainage. Endocrine No diabetes, thyroid disease or hormone replacement. Denies hot flashes or night sweats. Hematologic/Lymphatic Denies easy bruising or bleeding. The patient denies any tender or palpable lymph nodes. Breasts unremarkable-healing well. Respiratory Shortness of breath persistent, but no worse than normal . Cardiovascular Denies anginal chest pain, palpitations or orthopnea. Gastrointestinal Denies nausea, vomiting, diarrhea, GI bleeding, or constipation. Denies change in bowel habits and/or stool color, no heartburn or early satiety. Genitourinary (F) No hematuria, hesitancy, incontinence, vaginal bleeding, discharge or other problems with urination. Musculoskeletal Denies joint pain, swelling or redness. No decreased range of motion. Integumentary Itchy rash that developed about 1 week after last treatment. No rash today. See above. Neurologic Denies headache, blurred vision, and no areas of focal weakness or numbness. Normal gait. No sensory problems. Psychiatric Denies insomnia, depression, corby or mood swings. Vital Signs: Performed on Apr 22, 2019 16:20 Height - 62.00 in Temperature - 96.8 F (LOW) Pulse - 64 /min Respiration - 18 /min BP - 120/79 mm(hg) O2 Sat - 95 % (LOW) Pain - 0 Fatigue - 0 Performed on Apr 22, 2019 13:18 Height - 62.00 in Weight - 251 lbs BSA - 2.11 sq.m BMI - 45.91 (HIGH) Temperature - 98.0 F (LOW) Pulse - 78 /min Respiration - 22 /min BP - 132/86 mm(hg) O2 Sat - 94 % (LOW) Pain - 3,1 - No physically strenuous activity, but ambulatory and able to carry out light or sedentary work (e.g. office work, light house work). (ECOG) Physical Examination: Constitutional Alert, oriented, no acute distress. Skin pink, warm and dry. Head Normocephalic; atraumatic. Eyes Conjunctivae and sclerae are clear and without icterus. Pupils are reactive and equal. Neck Supple without masses or thyromegaly. No jugular venous distension. Hematologic/Lymphatic No petechiae or purpura. No tender or palpable lymph nodes in the cervical or supraclavicular areas. Respiratory Lungs are clear to auscultation without rhonchi or wheezing. Cardiovascular Regular rate and rhythm of heart without murmurs,clicks, gallops or rubs. Chest Right chest wall venous access device is unremarkable. Abdomen Non-tender, non-distended, no masses, ascites. No guarding or rebound tenderness. No pulsatile masses. Back/Spine Non-tender to palpation. Extremities No visible deformities, no cyanosis, clubbing or edema. Musculoskeletal No tenderness or swelling, normal range of motion without obvious weakness. Integumentary No rashes or lesions. Neurologic No sensory or motor deficits, normal cerebellar function, normal gait. Psychiatric Alert and oriented times three. Coherent speech. Verbalizes understanding of our discussions today. Laboratory:Test performed on Apr 22, 2019 11:48 Ferritin 802 ng/mL Iron 44 ug/dL Sodium 140 mmol/L TSH 0.76 uIU/mL Potassium 3.7 mmol/L Chloride 100 mmol/L CO2 26 mmol/L UIBC 142 ug/dL Anion Gap 17.7 BUN 31 mg/dL Creatinine 1.5 mg/dL Cr Clearance (Est) 55.2300 mL/min Glucose 133 mg/dL Calcium 9.8 mg/dL Protein, Total 6.7 g/dL Albumin 3.8 g/dL Globulin 2.9 g/dL Bilirubin, Total 0.3 mg/dL ALT (SGPT) 9 U/L AST (SGOT) 12 U/L Alkaline Phosphatase 84 IU/L WBC 12.0 10 3/uL RBC 4.21 10 6/uL HGB 11.2 g/dL HCT 36.7 % MCV 87.2 fL MCH 26.6 pg MCHC 30.5 g/dL RDW 18.0 % Platelet Count 336 10 3/cmm MPV 10.2 fL Neutrophils 9.0 10 3/uL Lymphocytes 1.8 10 3/uL Monocytes 0.6 10 3/uL Eosinophils 0.5 10 3/uL Basophils 0.1 10 3/uL Neutrophil % 74.9 % Lymphocyte % 15.3 % Monocyte % 5.3 % Eosinophil % 3.8 % Basophils % 0.4 % Impression: 1. Patient with multifocal infiltrating ductal carcinoma of the left breast, grade 3, ER positive/IN negative and HER-2/vickie positive. By clinical evaluation her disease appears to be at least stage IIB (T2, N1, M0). Her PET/CT also showed FDG avid right apical pulmonary nodule, consistent with solitary metastasis, stage IV (M1), versus second primary malignancy. 2. She has a history of multiple pulmonary nodules with negative bronchoscopy in 2013. 3. She is known to have a pancreatic cyst associated with previous pancreatitis. Her other medical illnesses include: 4. Hypertension. 5. COPD. 6. GERD. 7. Hypothyroidism. 8. Degenerative arthritis. 9. She has a history of nephrolithiasis and history of renal cysts. She began cycle 1 of neoadjuvant TCH-P on 06/12/2018. She had no acute toxicity with the initial infusions. She subsequently developed severe diarrhea, and she also had some nausea/vomiting. She required IV hydration on multiple occasions. During that time she did show significant decline in her renal function. She became severely neutropenic, but that resolved uneventfully. During subsequent follow-up she had gradual recovery, though her renal function still did not return to baseline. She eventually was able to continue with cycle 2 of chemotherapy on 07/17/2018. Beginning with that cycle, the Perjeta was omitted from the regimen. She was able to tolerate it with acceptable toxicity, though she continued to have nausea and diarrhea, and she required frequent IV hydration. She completed her 3rd cycle on 08/07/2018 and her 4th cycle on 08/27/2018. Her restaging PET/CT on 09/22/2018 showed complete resolution of left breast and left axillary lesions. The right upper lobe pulmonary nodule appeared stable in size at 1.6 cm, but with increased FDG activity, SUV 21.1. By PET/CT she has had a very significant response to the neoadjuvant chemotherapy. The increased FDG activity in the right upper lobe pulmonary nodule is worrisome for malignancy, possibly a second primary malignancy. Given those findings, she was recommended to proceed first with resection of the lung nodule and to then address surgical management of the breast. She has seen Dr. Camp for the lung surgery. In the meantime, she has continued treatment with single agent Herceptin, which she tolerated well. At her follow-up visit on 11/05/2018 she appeared to have developed a new nodule in the left breast. There was concern that her disease was progressing locally. As such, she underwent left modified radical mastectomy on 11/20/2018. Pathology showed no residual tumor in the breast and no involvement in 14 axillary lymph nodes, consistent with complete pathologic response to the neoadjuvant therapy. She had no complications with the surgery, and she then continued single agent Herceptin at the 3-week dosing interval. As of her follow-up visit on 01/29/2019, she restarted adjuvant hormonal therapy with anastrozole 1 mg daily. Thus far she has been tolerating the Herceptin very well, and during that time she has been showing gradual improvement in her performance status. She remains mildly anemic with borderline low transferrin saturation. She did receive iron supplementation with Injectafer with two doses-the last one on 03/18/2019. Her followup CT of the chest from March 18, 2019 reported there has been a continued increase in the size of the solid mass in the right upper lobe. The solid component is lobulated measuring 3.3 x 2.9 cm increased from 2.3 x 2.2 cm on the prior study. There is adjacent groundglass and sub-solid attenuation. The mass extends to abut the pleura and there is some spiculation and satellite nodules. There are additional scattered ground glass opacification within both lungs which has been present on prior studies. There are no pleural effusions. She has moderately enlarged cardiac chambers with mild arterial sclerosis aorta and [place] coronary arteries there is a lobulated cystic mass associated with the upper pole of the right kidney incompletely visualized but similar to prior studies she has a known lobulated mass with calcifications centered in the pancreatic head this measures 5.6 x 5.2 and has not significantly increased in size she has degenerative changes in thoracic spine. Dr. Feldman has recommended that we refer her to Dr. Camp for further evaluation of the mass in the right upper lobe. Mrs. Mendoza remains on anticoagulation with Xarelto 20 mg daily for documented nonocclusive pulmonary embolism in the right lung lower lobe segmental branch diagnosed on December 03, 2018. Plan: 1. Proceed with cycle 11 Herceptin. She began TCH-P on 06/12/2018. 2. We reviewed her labs from today in detail and a copy was given to her. WBC 12.0, hemoglobin 11.2, platelets 336,000 ANC is 9000. 3. We is following with Dr. Camp for further assessment/management of the right lung mass. She states that she had a PET scan recently and is awaiting the results from Dr. Camp's office. 4. She continues on Xarelto 20 mg daily for nonocclusive pulmonary embolism of the right lower lobe segmental branch diagnosed December 03, 2018. She will continue Xarelto for now until we know what Dr. Camp's plan will be. 5. We will plan to see her back in 3 weeks with CBC CMP for consideration of her next cycle of Herceptin. 6. Mrs. Mendoza was instructed to contact us in the interim should questions or problems arise. 7. Mrs. Mendoza did have a flow study done on reported A day as we are having difficulty obtaining blood return. Dr. Schreiber called to state that there was slight sluggish flow towards the end of the catheter which could indicate slight thrombosis or sheath. There was no occlusive clot within the catheter or vein. We were able to administer her Herceptin without any difficulty. She had 2 doses of Cathflo and the catheter was discharged with heparin within the catheter. She remains on the Xarelto as well. She did not have any discomfort or abnormal findings during the administration of the Herceptin around the Port-A-Cath. She continues to have no return blood flow, but the port flushes easily and without discomfort or swelling. She states that she had a PET scan recently and is awaiting the results from Dr. Camp's office. 8. She is due for follow-up echocardiogram???limited views???Herceptin monitoring. I would like to coordinate this with [address] Camp's office if at all possible. Signed By: Eulalio Crook -, AOCNP Wes Feldman MD <<Signature on File>>
== END 2019-04-22 23:59 | disposition home or self-care (01) ==
LOC: ONCMED 05:51
PROVIDERS: Absent Provider Internal Medicine Medical Oncology; Family Provider Electrodiagnostic Medicine; PCP Electrodiagnostic Medicine; Visit Provider Nurse Practitioner
DX: Z51.12 Encounter for antineoplastic immunotherapy (principal); C50.812 Malignant neoplasm of overlapping sites of left female breast; Z17.0 Estrogen receptor positive status [ER+]; C77.3 Secondary and unspecified malignant neoplasm of axilla and upper limb lymph nodes; R91.8 Other nonspecific abnormal finding of lung field; D50.9 Iron deficiency anemia, unspecified; I10 Essential (primary) hypertension; J44.9 Chronic obstructive pulmonary disease, unspecified; K21.9 Gastro-esophageal reflux disease without esophagitis; E03.9 Hypothyroidism, unspecified; M19.90 Unspecified osteoarthritis, unspecified site; Z79.811 Long term (current) use of aromatase inhibitors; Z79.01 Long term (current) use of anticoagulants; Z87.442 Personal history of urinary calculi; Z87.891 Personal history of nicotine dependence; Z90.12 Acquired absence of left breast and nipple; Z86.711 Personal history of pulmonary embolism
CPT/HCPCS: 36415; 80053; 82728; 83540; 83550; 84443; 85025; 96413; 99214; J7050; J9355

== ENCOUNTER 2019-05-06 04:41 | Day surgery (SDC) | payer MEDICARE, MEDICAID, SELFPAY ==
[2019-05-01 09:47] VITALS: BMI 45.7
--- NOTE | 2019-05-01 10:39 | ANES.PREANE2 ---
Pre-Anesthetic Assessment Pre-Anesthetic Assessment: Height/Weight: Height 1.57 m Weight 113.398 kg Preop Diagnosis: Right upper lobe lung mass Proposed Procedure: Operation Date: 05/06/19 07:00 Proposed Procedures p Bronchoscopy(Not Applicable) - Marquez Camp MD Was Beta Sandy taken within 24 hours: Yes Social: Social History: No alcohol and No tobacco Exam: Pre-Anes Outpt Exam: alert, oriented x 3, clear to auscultation bilaterally and regular rate & rhythm Airway: Submandibular: WNL Cervical ROM: WNL MP: 2 Additional comments: missing #10 otherwise good Pulmonary: Pulmonary: Asthma and Cough CV/HEM: CV/HEM: Arrythmia Comments: DVT : : None reported Hepatic: Hepatic: None reported GI: GI: None reported Metabolic: Metabolic: Morbid obesity and Thyroid Musc/skel: Musc/skel: None reported Neuropsych: Neuropsych: None reported Anesthetic Plan: ASA status: 3 Anesthesia: General Other Pertinent Information: Lung mass PFSH Anesthesia PFSH: Medical History (Updated 05/01/19 @ 09:36 by Evie Byrnes) Lung mass Family History (Updated 04/11/19 @ 14:58 by Hue Alba LPN) Denies family history of Diabetes CAD (coronary artery disease) Cancer Social History (Updated 04/11/19 @ 14:58 by Hue Alba LPN) Smoking and tobacco status: former smoker Alcohol intake: former Data Anesthesia Cardiac Studies: No Data to Display
[2019-05-01 11:12] LABS: Basophils # 0.1 10^3/uL (0.0-0.1); Basophils % 0.5 %; Eosinophils # 0.5 10^3/uL (0.0-0.8); Eosinophils % 4.3 %; Hematocrit 39.2 % (37.0-47.0); Hemoglobin 11.9 g/dL (11.5-15.3); INR 1.05 (0.8-1.2); Lymphocytes # 1.8 10^3/uL (0.8-4.8); Lymphocytes % 15.9 %; Mean Corpuscular HGB Conc 30.4 g/dL (30.0-36.0); Mean Corpuscular Hemoglobin 26.4 pg (28.0-34.0); Mean Corpuscular Volume 87.1 fL (81-99); Mean Platelet Volume 10.3 fL (7.4-10.4); Monocytes # 0.7 10^3/uL (0.2-0.9); Neutrophils # 8.2 10^3/uL (1.8-7.7); Neutrophils % 72.9 %; Nucleated Red Blood Cells % 0 %; Platelet Count 330 10^3/cmm (130-400); Red Cell Distribution Width 17.8 % (12.1-15.1); White Blood Count 11.2 10^3/uL (4.0-10.0)
[2019-05-01 11:13] LABS: Add Urine Microscopic? NO; Bilirubin Urine Neg (NEGATIVE); Blood Urine Neg (Negative); Glucose Urine UA Norm (Normal); Ketones Urine Negative (Negative); Leukocyte Esterase Urine Negative (Negative); Nitrate Urine Negative (Negative); Protein Urine Neg (Negative); Urine Appearance Clear (CLEAR); Urine Color Yellow (Yellow); Urobilinogen Urine Norm (Negative)
[2019-05-01 11:22] LABS: Anion Gap 14.6 (5-19); Blood Urea Nitrogen 25 mg/dL (8-23); Carbon Dioxide 31 mmol/L (22-29); Chloride 99 mmol/L (98-107); Glucose 121 mg/dL (65-115); Osmolality Calculated 290 mOsm/kg (285-295); Potassium 3.6 mmol/L (3.5-5.1); Sodium 141 mmol/L (136-145)
[2019-05-06] VITALS (18 sets, daily range): BP systolic 153–212; BP diastolic 66–95; PULSE 59–79; RESP 13–23; TEMP 36.2–36.7; O2SAT 90–98
[2019-05-06] MEDS: sodium chloride 0.9% 500 ML 999 ML IV (06:28)
--- NOTE | 2019-05-06 06:28 | W.PM.OPSUD ---
Surgery/Procedure H&P Update DATE OF PROCEDURE: May 06, 2019 DATE H&P PERFORMED: 04/11/19 H&P UPDATE INFORMATION: I have reviewed H&P completed within last 30 days, I have examined patient prior to procedure and Changes to prior documentation as noted here (PET scan of April 13 reveals increased activity in the suspicious right upper lobe lesion as well as in the right paratracheal node.) CHANGES TO PREVIOUS DOCUMENTATION: Based on the PET scan as well as increased activity in this right paratracheal lymph node, we will plan for bronchoscopy with mediastinoscopy and biopsy. Rationale was carefully and frankly discussed with Ms. Mendoza. She wishes to proceed. She is scheduled to follow-up with Dr. Feldman next week as she is currently on a 3-week cycle of Herceptin PREOP DIAGNOSIS: Right upper lobe lung mass PLANNED PROCEDURE: Operation Date: 05/06/19 07:00 Proposed Procedures p Bronchoscopy(Not Applicable) - Marquez Camp MD s Mediastinoscopy(Right) - Marquez Camp MD
--- NOTE | 2019-05-06 06:43 | P.ANESASSM_ITS ---
Pre-Anesthetic Assessment Pre-Anesthetic Assessment: Height/Weight: Height 1.57 m Weight 113.398 kg Temp Pulse Resp BP Pulse Ox 98.1 F 59 L 18 163/86 95 05/06/19 06:06 05/06/19 06:06 05/06/19 06:06 05/06/19 06:06 05/06/19 06:06 Preop Diagnosis: Right upper lobe lung mass Proposed Procedure: Operation Date: 05/06/19 07:00 Proposed Procedures p Bronchoscopy(Not Applicable) - Marquez Camp MD s Mediastinoscopy(Right) - Marquez Camp MD Last intake: Intake Last Liquid Date 05/05/19 Last Liquid Time 20:00 Last Solid Date 05/06/19 Last Solid Time 03:30 Social: Social History: Tobacco (quit) and No alcohol Exam: Pre-Anes Outpt Exam: alert, oriented x 3, clear to auscultation bilaterally and regular rate & rhythm Airway: Submandibular: WNL Cervical ROM: WNL MP: 2 Dentition: Other (poor) History/ROS: No significant history except as noted Pulmonary: Pulmonary: COPD and JONES CV/HEM: CV/HEM: HTN : : None reported Hepatic: Hepatic: None reported GI: GI: GERD Metabolic: Metabolic: Morbid obesity and Thyroid Musc/skel: Musc/skel: OA/DJD Neuropsych: Neuropsych: None reported Anesthetic Plan: ASA status: 3 Anesthesia: Anesthesia Evaluation and Gene ral Risk of > 500 ml blood loss (7ml/kg in children): No Meds/Allergies Current Medications: Current Medications Generic Name Dose Route Start Last Admin Trade Name Freq PRN Reason Stop Dose Admin Sodium Chloride 500 mls @ 999 mls /hr 05/06/19 05:57 05/06/19 06:28 Sodium Chloride 0.9% IV 999 mls/hr .Q31M PRN Administration HYPOTENSION PFSH Anesthesia 2 PFSH: Medical History Breast cancer COPD (chronic obstructive pulmonary disease) Degenerative arthritis GERD (gastroesophageal reflux disease) Hypertension Hypothyroidism (acquired) Lung mass Pancreatic cyst Renal cyst Surgical History H/O cataract removal with insertion of prosthetic lens H/O mastectomy Family History Denies family history of Diabetes CAD (coronary artery disease) Cancer Social History Smoking and tobacco status: former smoker Alcohol intake: former Data Anesthesia CBC & Chem 7: 05/01/19 10:13 05/01/19 10:13 Other Labs: Laboratory Results - last 48 hr 05/01/19 10:13 Blood Type O Positive Rho(D) Type Positive Antibody Screen Negative Crossmatch See Detail Cardiac Studies: No Data to Display
[2019-05-06] MEDS: vancomycin 1,000 MG SDV 1000 MG IRRIGATION (07:54)
[2019-05-06] MEDS: cetacaine Spray 5 gm Can 1 SPRAY TOPICAL (08:08)
--- NOTE | 2019-05-06 08:54 | PM.OP ---
Operative Report Date of procedure: May 06, 2019 Pre-op Diagnosis: Right upper lobe lung mass Post-op diagnosis: same Post-op Findings: Metastatic carcinoma right paratracheal lymph node Specimens removed/disposition: Lymph node at station 4R Surgeon: Marquez Camp Anesthesia: General Condition: stable Disposition: PACU Brief History: Pleasant 73-year-old female with infiltrating ductal carcinoma of the left breast status post modified radical mastectomy and currently undergoing chemotherapy at the direction of Dr. Feldman. She has a right upper lobe lung lesion which has increased in size and also has paratracheal adenopathy, both which are active on PET scan. I have recommended bronchoscopy and mediastinoscopy. Rationale and details of the procedure were carefully and frankly discussed as well as the risk. Proper consents have been reviewed and signed. Procedure: Bronchoscopy: Procedure: Ms. Mendoza underwent general endotracheal anesthesia with an 8.0 endotracheal tube. With adequate anesthesia, flexible bronchoscope was inserted through the endotracheal tube. In a methodical fashion the trachea, anna, right main bronchus and associated lobar bronchi were inspected. In a similar fashion the left side was inspected. Secretions were cleared as needed to allow for adequate inspection. Secretions were light. Findings: Main anna and secondary anna were sharp. Branching anatomy was normal. There is no evidence for submucosal infiltration or extrinsic compression. Mucosa was not friable. There were no endobronchial lesions seen on either side. Particular attention and scope advancement was made in the right upper lobe, however, no abnormalities were identified. Once completed, the scope was withdrawn under direct visualization confirming cleared secretions and no substantial bleeding. Endoscopic photos were taken as required to document pathology. We separately repositioned and prepared for mediastinoscopy. Mediastinoscopy: PROCEDURE: After positioning over protective padding, the patient was sterilely prepped and draped. A transverse incision was made above the sternal notch and carried down through the platysma. Cautery was utilized and large bridging veins were secured with clips and ligature prior to division. The pretracheal space was reached and enhanced the surgeon's finger. Mediastinoscope was inserted by direct vision and carefully advanced along the anterior plane of the trachea. Utilizing blunt dissection with suction, prominent lymph nodes at stations 4R were dissected free. Aspiration was then carefully performed followed by biopsy under direct vision. Appropriate cultures were taken on the operative field. Specimens were sent to pathology for frozen analysis. I have spoken with Dr. Dill by phone. Preliminary frozen section analysis is metastatic carcinoma, cell type to be further identified later. After adequate biopsy and tissue sampling, the patient was placed in reverse Trendelenburg position. Hemostasis was confirmed with the use of cautery, packing, and Surgicel. After confirmation of hemostasis, the scope was withdrawn under direct vision. The wound was then carefully irrigated and closed with 3-0 and 4-0 Vicryl suture. The skin was reapproximated in a subcuticular manner. Sterile dressing was applied. With equal breath sounds bilaterally, the patient was then awakened from anesthesia, extubated, and taken to the Postoperative Care Unit. Chest x-ray is currently pending. I have counseled patient and family.
[2019-05-06] MEDS: fentaNYL 50 mcg/mL INJ 2mL IVP ×2 (09:03→09:08)
[2019-05-06] MEDS: ondansetron 2 mg/ML SDV 2 mL 4 MG IVP ×2 (09:03→09:22)
--- NOTE | 2019-05-06 09:14 | XR_ITS ---
WS: [id number] XR chest 1V portable [id number] REASON FOR EXAM: POST OP MEDIASTINOSCOPY FINDINGS: Cardiomegaly. There is cephalization perihilar congestion. There is no pneumothorax seen. A Mediport is noted the tip is at the upper aspects of the apex of the right lung similar to the prev ious exam 12/03/2018. XR/XR chest 1V portable [id number] IMPRESSION: Mild congestive heart failure.
[2019-05-06] MEDS: metoclopramide 5 mg/mL SDV 2 mL 10 MG IVP ×2 (09:28→09:37)
[2019-05-06] MEDS: hyDRALAzine 20 mg/mL INJ 1 mL 5 MG IVP ×3 (09:30→10:00)
[2019-05-06] MEDS: morphine 4 mg/mL SDV 1 mL 2 MG IVP (09:48)
[2019-05-06] MEDS: dexamethasone 4 mg/mL INJ IVP (09:56)
== END 2019-05-06 11:20 | disposition home or self-care (01) ==
PROVIDERS: Family Provider Electrodiagnostic Medicine; PCP Electrodiagnostic Medicine; Visit Provider Thoracic Surgery (Cardiothoracic Vascular Surgery)
PROC: 0BJ08ZZ Inspection of Tracheobronchial Tree, Via Natural or Artificial Opening Endoscopic (ICD-10-PCS; CPT 31622; principal; 2019-05-06 07:00)
PROC: 0WJC4ZZ Inspection of Mediastinum, Percutaneous Endoscopic Approach (ICD-10-PCS; CPT 39401; 2019-05-06 07:00)
DX: C96.9 Malignant neoplasm of lymphoid, hematopoietic and related tissue, unspecified (principal); C50.912 Malignant neoplasm of unspecified site of left female breast; J44.9 Chronic obstructive pulmonary disease, unspecified; I10 Essential (primary) hypertension; K21.9 Gastro-esophageal reflux disease without esophagitis; E66.01 Morbid (severe) obesity due to excess calories; Z68.42 Body mass index [BMI] 45.0-49.9, adult; M19.90 Unspecified osteoarthritis, unspecified site; E03.9 Hypothyroidism, unspecified; Z90.10 Acquired absence of unspecified breast and nipple; Z87.891 Personal history of nicotine dependence; Z86.718 Personal history of other venous thrombosis and embolism
CPT/HCPCS: 31622; 39402; 12345; 71045; 80048; 81003; 85025; 85610; 86850; 86900; 86920; 88305; J0360; J0690; J1100; J2001; J2270; J2370; J2405; J2704; J2765; J3010; J3370; J3490; J7040

== ENCOUNTER 2019-05-16 05:59 | Outpatient (RCR) | payer MEDICARE, MEDICAID, SELFPAY ==
[2019-05-13 11:39] LABS: Basophils # 0.1 10^3/uL (0.0-0.1); Basophils % 0.5 %; Eosinophils # 0.5 10^3/uL (0.0-0.8); Hematocrit 39.3 % (37.0-47.0); Hemoglobin 12.2 g/dL (11.5-15.3); Lymphocytes # 2.1 10^3/uL (0.8-4.8); Lymphocytes % 16.5 %; Mean Corpuscular Hemoglobin 27.5 pg (28.0-34.0); Mean Corpuscular Volume 88.5 fL (81-99); Mean Platelet Volume 10.4 fL (7.4-10.4); Monocytes # 0.8 10^3/uL (0.2-0.9); Monocytes % 6.4 %; Neutrophils # 9.2 10^3/uL (1.8-7.7); Neutrophils % 72.1 %; Nucleated Red Blood Cells % 0 %; Platelet Count 395 10^3/cmm (130-400); Red Blood Count 4.44 10^6/uL (4.1-5.3); Red Cell Distribution Width 16.8 % (12.1-15.1); White Blood Count 12.8 10^3/uL (4.0-10.0)
[2019-05-13 12:00] LABS: Alanine Aminotransferase 7 U/L (0-33); Albumin Level 3.9 g/dL (3.5-5.2); Alkaline Phosphatase 80 IU/L (35-105); Anion Gap 12.1 (5-19); Aspartate Amino Transferase 14 U/L (0-32); Blood Urea Nitrogen 20 mg/dL (8-23); Calcium 10.2 mg/dL (8.5-10.5); Carbon Dioxide 32 mmol/L (22-29); Chloride 99 mmol/L (98-107); Globulin 3.4 g/dL (1.3-4.6); Glucose 116 mg/dL (65-115); Osmolality Calculated 286 mOsm/kg (285-295); Potassium 4.1 mmol/L (3.5-5.1); Sodium 139 mmol/L (136-145); Total Bilirubin 0.4 mg/dL (0.15-1.2); Total Protein 7.3 g/dL (6.6-8.7)
[2019-05-13] MEDS: acetaminophen 325 mg Tablet 650 MG PO (13:30)
[2019-05-13] MEDS: diphenhydrAMINE 25 mg Capsule PO (13:30)
[2019-05-13] MEDS: sodium chloride 0.9% 250 ML 75 ML IV (13:39)
--- NOTE | 2019-05-13 18:37 | ONC FU_ITS ---
Dr. Feldman Patient Follow-Up Note Patient: Deneen Mendoza Unit #: [id number]: 1945 Dicatated By: Wes Feldman M.D.Date of Visit:May 13, 2019 Onc Med Follow-up/Prog Note Chief Complaint: Breast cancer. History of Present Illness: This is a 73 year-old woman with multifocal infiltrating ductal carcinoma of the left breast, grade 3, ER positive/NM negative and HER-2/vickie positive. By clinical evaluation her disease appeared to be at least stage IIB (T2, N1, M0). Her PET/CT also showed FDG avid right apical pulmonary nodule, consistent with solitary metastasis, stage IV (M1), versus second primary malignancy. She had presented with a lump in the lateral aspect of the left breast, first noticed in early March. Bilateral diagnostic mammogram on 04/05/2018 showed a large spiculated mass in the upper outer left breast deep to the area of palpable concern. Measured 2.2 x 1.4 cm with associated surrounding architectural distortion and associated pleomorphic calcifications. Also noted was adjacent enlarged pathologic appearing lymph nodes/masses with pleomorphic calcifications measuring 1.7 x 1.7 cm an enlarged partially visualized lymph nodes in the left axilla with microcalcifications measuring 2.8 x 2.1 cm. Ultrasound of the left breast showed numerous hypoechoic irregular lesions at the 2:00 in 3 clock position suspicious for multifocal disease. Also noted were 2 additional hypoechoic irregular masses at the 2:00 position which were suspicious for additional foci of disease. An enlarged axillary lymph node measuring 1.1 cm also appeared suspicious for malignancy. On 04/25/2018 she underwent ultrasound-guided needle biopsies at 3 different sites in the left breast and ultrasound guided needle biopsy of a left axillary lymph node. Pathology of the biopsy at 2:00, 6 cm from the nipple, showed extensive infiltrating ductal carcinoma, grade 3 of 3. Biopsy at the 2:00 position 8 cm from the nipple and at the 3 clock position 5 cm from the nipple both also showed infiltrating ductal carcinoma. The breast prognostic profile showed ER positive at 62% and NM negative at less than 1%. It was positive for overexpression of HER-2/vickie, 3+ by IHC, with amplification ratio by FISH of 2.1 with 7.3 HER-2 copies/cell. The Ki-67 was high at 41%. I had seen her initially on 05/21/2018. As her disease appeared to at least locally advanced, she had a staging PET/CT on 05/26/2018. It showed a 1.7 cm soft tissue lesion within the left breast with SUV 6.5. There were several FDG positive axillary lymph nodes, the most prominent being a 1.5 cm node with SUV 14.1. A solid nodule in the right lung apex measured 1.9 x 1.6 cm with SUV 17.7, felt to most likely represent metastatic disease, though primary lung carcinoma was noted to also be possible. Multiple other bilateral pulmonary nodules were either too small to characterize or of groundglass opacity with negligible FDG activity. Given those findings, she was recommended to begin neoadjuvant chemotherapy with TCH-P. Her medical history is also significant that she had previously been evaluated by Dr. Tran for multiple pulmonary nodules which included a more dominant right upper lobe nodule measuring 2.9 x 1.7 cm. Bronchoscopy on 05/27/2013 was unremarkable except for a small polyp at the distal aspect of the posterior trachea. It was removed in entirety. Pathology showed no evidence of malignancy. Bronchial washings from the right upper lobe were also negative for malignancy. A follow-up chest CT on 04/29/2015 showed slight enlargement of an anterior segmental left upper lobe nodule measuring 7.3 mm. Multiple other upper lobe nodules bilaterally as well as right middle lobe and right lower lobe nodules appeared stable. She also has a history of pancreatitis with associated pancreatic cyst. She has had yearly follow-up at [facility] for the cyst, which has been drained on multiple occasions, most recently in February 2017. Her other medical illnesses include hypertension, COPD, GERD, hypothyroidism, and degenerative arthritis. She has a history of nephrolithiasis and she also has renal cysts. She has a history of smoking 1 pack of cigarettes daily for more than 30 years. She quit smoking approximately 1991. She does not drink alcohol. INTERIM HISTORY: She began cycle 1 of TCH-P on 06/12/2018. She had no acute toxicity with the chemotherapy. At approximately day 5 she began having diarrhea. She also had some nausea/vomiting. She required IV hydration on multiple occasions. She had a significant decline in her renal function. She became severely neutropenic, but that resolved uneventfully. She had a very prolonged recovery. She eventually was able to proceed with her 2nd cycle of chemotherapy on 07/17/2018. The Perjeta was omitted from the regimen beginning with that cycle. She tolerated much better, though she continued to have nausea and diarrhea, requiring frequent hydration. Her renal function are fully recovered, but it remained adequate with dehydration. She then proceeded with cycle 3 on 08/07/2018 and with cycle 4 on 08/27/2018. Restaging PET/CT on 09/22/2018 showed resolution of the left breast and axillary lesions. The right upper lobe lung nodule appeared stable at 1.6 cm, but with increased in FDG uptake, SUV 21.1. There were no other areas of abnormal uptake noted. With those findings, her case was reviewed at tumor board, and the decision was made to proceed with resection of the lung nodule first and to then address surgical management of the breast. She was referred to Dr. Camp for the lung surgery. In the meantime, she continued treatment with single agent Herceptin. On 11/20/2018 she underwent left modified radical mastectomy. She tolerated the procedure well. Pathology on the breast showed fibrocystic changes and a 1 mm focus of atypical ductal hyperplasia. There was no malignancy identified. There was no involvement in 14 lymph nodes. Following surgery she continued single agent Herceptin at the 3-week dosing schedule. She completed her 9th cycle of treatment on 03/11/2019. A repeat chest CT on 03/18/2019 showed continued slow increase in the right upper lobe lung mass, at that point measuring 3.3 x 2.9 cm. The appearance was highly suspicious for neoplasm. There was no significant adenopathy noted. Multiolobar groundglass attenuation appeared stable. A large pancreatic head mass also appeared stable. With those findings she was referred back to Dr. Camp, but she also continue with her Herceptin infusions. On PET/CT there was uptake in the right upper lobe lung mass and in the right paratracheal lymph node. On 05/06/2019 she underwent bronchoscopy and mediastinoscopy. The bronchoscopy showed no endobronchial lesion. The mediastinoscopy showed prominent lymph nodes at station 4R. Biopsy showed metastatic carcinoma of the lung, favoring high-grade neuroendocrine carcinoma. The tumor was TTF-1 positive, and the neuroendocrine markers were strongly positive. Poorly differentiated adenocarcinoma with neuroendocrine features was also noted to be possible. She is seen for a follow-up visit. She has been feeling is good. Her energy has been down following her recent surgery. She is still doing light work at home. Her ECOG score is 1. Her appetite is good. She has no fever or night sweats. She has a little bit of sinus drainage. She has cough. It was productive of yellow sputum, but is now mostly nonproductive. She has shortness of breath. She does not complain of chest pain. She has had a little bit of nausea. She has no other GI or complaints. She has no significant joint or bone pain. She does not complain of headache. She has a little bit of dizziness. She has numbness in her right thumb and index finger. She has no other focal neurologic symptoms. Medications: Anastrozole 1 Tablet (of 1 mg) Oral daily, Atenolol-Chlorthalidone 1 Tablet (of 50-25 mg) Oral daily, Cetirizine HCl 1 Tablet (of 10 mg) Oral daily, Fluticasone Propionate 2 [place](s) Suspension Nasal daily, Levothyroxine Sodium 1 Tablet (of 125 mcg) Oral daily, Montelukast Sodium 1 Tablet (of 10 mg) Oral at bedtime, Ventolin HFA 1 (108 (90 base) mcg/act) Aerosol, solution Inhalation PRN, Xarelto 1 (20 mg) Tablet Oral daily Allergies: Codeine Sulfate, egg, NSAIDS, Penicillin G Benzathine, prednisoLONE, and Tetracycline HCl. Review of Systems: Constitutional - Her energy level has been lower since her recent surgery. She is able to do all her normal activities at home. Her appetite is good and weight is up a few pounds. No fever, chills, hot flashes, or night sweats. ECOG score is 1, ENMT - She has sinus congestion/drainage. No mouth sores. No sore throat or difficulty swallowing, Hematologic/Lymphatic - No abnormal bruising or bleeding, Respiratory - No shortness of breath. She has a cough that is producing yellow phlegm. No pleuritic pain or hemoptysis, Cardiovascular - No angina pain. No palpitations, Gastrointestinal - She has had some nausea today. No vomiting. No heartburn or acid reflux. No diarrhea or constipation. No blood in the stool or black stools, Genitourinary (F) - No dysuria or hematuria. No urinary frequency. No urgency or incontinence, Musculoskeletal - No joint or bone pain, Integumentary - She has a surgical incision to her anterior neck, no redness, warmth or drainage is noted. She has a slight lump to incisional site, Neurologic - No headache. She has had some dizziness today. She continues to have some numbness and tingling to her right hand, Psychiatric - No anxiety or depression. No insomnia. Vital Signs: Performed on May 13, 2019 12:44 Height - 62.00 in Weight - 254.2 lbs (HIGH) BSA - 2.12 sq.m BMI - 46.49 (HIGH) Temperature - 98.5 F Pulse - 69 /min Respiration - 24 /min BP - 130/68 mm(hg) O2 Sat - 96 % Pain - 0 Physical Examination: Constitutional - She looks pretty good generally, though she does appear short of breath with effort, Eyes - Sclerae nonicteric. Conjunctivae clear, ENMT - No lesions noted in the oral cavity, Neck - The recent lower neck/upper chest incision looks okay. There is an underlying palpable nodule which to me feels like her normal cartilage, Hematologic/Lymphatic - No cervical, clavicular, or axillary adenopathy, Respiratory - Lungs are clear some decrease in air movement bilaterally, Cardiovascular - Heart rhythm is regular. There is no murmur, gallop, or rub noted, Abdomen - Moderately distended but soft. Liver and spleen are not enlarged. There is no abdominal mass or ascites noted and there is no inguinal adenopathy, Extremities - No edema, Neurologic - No focal neurologic deficits noted. Lab/Imaging: Test performed on May 13, 2019 11:10 Sodium 139 mmol/L Potassium 4.1 mmol/L Chloride 99 mmol/L CO2 32 mmol/L Anion Gap 12.1 BUN 20 mg/dL Creatinine 1.1 mg/dL Cr Clearance (Est) 75.3100 mL/min Glucose 116 mg/dL Calcium 10.2 mg/dL Protein, Total 7.3 g/dL Albumin 3.9 g/dL Globulin 3.4 g/dL Bilirubin, Total 0.4 mg/dL ALT (SGPT) 7 U/L AST (SGOT) 14 U/L Alkaline Phosphatase 80 IU/L WBC 12.8 10 3/uL RBC 4.44 10 6/uL HGB 12.2 g/dL HCT 39.3 % MCV 88.5 fL MCH 27.5 pg MCHC 31.0 g/dL RDW 16.8 % Platelet Count 395 10 3/cmm MPV 10.4 fL Neutrophils 9.2 10 3/uL Lymphocytes 2.1 10 3/uL Monocytes 0.8 10 3/uL Eosinophils 0.5 10 3/uL Basophils 0.1 10 3/uL Neutrophil % 72.1 % Lymphocyte % 16.5 % Monocyte % 6.4 % Eosinophil % 4.0 % Basophils % 0.5 % Impression: 1. Patient with multifocal infiltrating ductal carcinoma of the left breast, grade 3, ER positive/NM negative and HER-2/vickie positive. By clinical evaluation her disease appears to be at least stage IIB (T2, N1, M0). Her PET/CT also showed FDG avid right apical pulmonary nodule, consistent with solitary metastasis, stage IV (M1), versus second primary malignancy. 2. She has a history of multiple pulmonary nodules with negative bronchoscopy in 2013. 3. She is known to have a pancreatic cyst associated with previous pancreatitis. Her other medical illnesses include: 4. Hypertension. 5. COPD. 6. GERD. 7. Hypothyroidism. 8. Degenerative arthritis. 9. She has a history of nephrolithiasis and history of renal cysts. She began cycle 1 of neoadjuvant TCH-P on 06/12/2018. She had no acute toxicity with the initial infusions. She subsequently developed severe diarrhea, and she also had some nausea/vomiting. She required IV hydration on multiple occasions. During that time she did show significant decline in her renal function. She became severely neutropenic, but that resolved uneventfully. During subsequent follow-up she had gradual recovery, though her renal function still did not return to baseline. She eventually was able to continue with cycle 2 of chemotherapy on 07/17/2018. Beginning with that cycle, the Perjeta was omitted from the regimen. She was able to tolerate it with acceptable toxicity, though she continued to have nausea and diarrhea, and she required frequent IV hydration. She completed her 3rd cycle on 08/07/2018 and her 4th cycle on 08/27/2018. Her restaging PET/CT on 09/22/2018 showed complete resolution of left breast and left axillary lesions. The right upper lobe pulmonary nodule appeared stable in size at 1.6 cm, but with increased FDG activity, SUV 21.1. By PET/CT she has had a very significant response to the neoadjuvant chemotherapy. The increased FDG activity in the right upper lobe pulmonary nodule is worrisome for malignancy, possibly a second primary malignancy. Given those findings, she was recommended to proceed first with resection of the lung nodule and to then address surgical management of the breast. She has seen Dr. Camp for the lung surgery. In the meantime, she has continued treatment with single agent Herceptin, which she tolerated well. At her follow-up visit on 11/05/2018 she appeared to have developed a new nodule in the left breast. There was concern that her disease was progressing locally. As such, she underwent left modified radical mastectomy on 11/20/2018. Pathology showed no residual tumor in the breast and no involvement in 14 axillary lymph nodes, consistent with complete pathologic response to the neoadjuvant therapy. She had no complications with the surgery, and she then continued single agent Herceptin at the 3-week dosing interval. As of her follow-up visit on 01/29/2019, she restarted adjuvant hormonal therapy with anastrozole 1 mg daily. Her repeat chest CT on 03/18/2019 showed further enlargement of the right upper lobe lung mass, consistent with slowly progressive malignancy. She was referred back to Dr. Camp. Her PET/CT showed uptake in the right upper lobe lung mass and in a right paratracheal lymph node. She underwent bronchoscopy and mediastinoscopy on 05/06/2019. The right paratracheal lymph node biopsy was positive for metastatic lung cancer, consistent with high-grade neuroendocrine carcinoma or possibly adenocarcinoma with neuroendocrine features. By clinical evaluation her disease is stage IIIA (T2a, N2, M0). During this time, she also has continued Herceptin at the 3-week dosing schedule, which she has tolerated well. Plan: She will continue with cycle 12 of single agent Herceptin at 6 mg/kg by IV infusion, and she continues adjuvant hormonal therapy with anastrozole 1 mg daily. She will be scheduled to return in 3 weeks for her 13th and final infusion of Herceptin. In the meantime, she will be referred to radiation oncology for treatment of the lung cancer, as she is not an operable candidate and I also feel that she is not going to be a good candidate for any further chemotherapy. Signed By: Wes Feldman M.D. <<Signature on File>>
--- NOTE | 2019-05-16 15:50 | N.ONRAD NP_ITS ---
Radiation Oncology New Patient Visit Patient: Deneen Mendoza MR#: [id number] : 1945> Age: 73> Sex: Female> Dictated by: Dr. Dimas Reyna Date of Service: 05/16/2019 Referring Physician(s) : Dr. 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 Radiotherapy to date: Summary > No prior radiation therapy. Chief Complaint / History of Present Illness: Mrs. Mendoza is a 73-year-old lady who has been discovered to have a non-small cell carcinoma of the lung. She has a recent history of left breast cancer that is ER positive, UT negative and HER-2 positive. She received neoadjuvant systemic therapy for the breast. She underwent a mastectomy 11/20/2018 and her pathology revealed no residual disease in the breast or in 14 lymph nodes. In about 3 weeks she will complete Herceptin. Imaging for the breast cancer revealed a nodule in the right lung apex. The patient gives a history of a work-up for a nodule in this general area several years ago. Records indicate she underwent a bronchoscopy 05/27/2013 and there was no evidence of malignancy at that time. The patient's original PET scan for the breast cancer 05/26/2018 showed a nodule in the right lung apex measuring 1.9 x 1.6 cm with an SUV of 17.7. The nodule was felt to likely represent a metastasis. A restaging PET 09/22/2018 showed the nodule to be stable in size but the uptake it increased to 21.1. By 03/18/[address] showed the right lung mass to measure 3.3 x 2.9 cm. Bronchoscopy was performed 05/06/2019. No endobronchial lesion was encountered but mediastinoscopy showed prominent lymph nodes at station 4R. A biopsy showed lung cancer, favor high-grade neuroendocrine carcinoma, although poorly differentiated adenocarcinoma with neuroendocrine features was also considered possible. Her most recent PET imaging shows continued intense uptake in the right upper lobe nodule and a right paratracheal lymph node. Dr. Feldman has referred Mrs. Mendoza for external beam radiation. He does not feel she should receive additional systemic therapy and she is not considered a candidate for surgery. Current Medications: Acetaminophen, acyclovir, anastrozole, anastrozole, atenolol-Chlorthalidone, bactrim DS, cathflo Activase, cetirizine HCl, dexamethasone, diphenhydrAMINE HCl, fluticasone Propionate, levothyroxine Sodium, lomotil, lORazepam, magnesium Oxide, metoclopramide HCl, montelukast Sodium, potassium Chloride ER, prochlorperazine Maleate, protonix, rivaroxaban, singulair, sodium Chloride, trastuzumab, ventolin HFA, xarelto, xarelto. Allergies: Penicillin G Benzathine, Codeine Sulfate, Tetracycline HCl, prednisoLONE, egg and NSAIDS. Medical History: - Chronic obstructive pulmonary disease, - chronic pancreatitis with pancreatic cyst, - gastroesophageal reflux disease, - hypertension, - hypothyroidism, - lung nodules, - nephrolithiasis. No history of collagen vascular disease. No previous radiation therapy. Surgical History: Caesarean section, carpal tunnel release on the left, left mastectomy in 11/2018, left uretroscopy with stent placement, lung biopsy, pancreatic cyst drainage 8 years ago, in 2015, and in February 2017., port placement on 06/05/2018 (dr oviedo-left ij) and tonsillectomy. Family History: Family history is unknown, as the patient was adopted. Social History: Last screened on 05/16/2019 - Yes - but has quit for 26 years. Smoked 0.5 packs/day for 35 years (17.5 pack years). Last screened on 05/16/2019 - Never drank. Current Complaints / Review of Systems: . No current problems with dyspnea, cough, sputum production, hemoptysis, or chest discomfort. No unusual bone pain. No troublesome neurologic symptoms. Normal appetite with no nutritional complaints. Vital Signs: Performed on 05/16/2019 11:14 AM BMI - 46.128 kg/m2 (high), Height - 62.00 in, Weight - 252.2 lbs, Temperature - 97.7 f, Pulse - 22, Respiration - 20, O2 Sat - 95 % (low), Pain - 0 and BP - 141/ 51 mm(hg)(high/low). Physical Exam: Alert, oriented, no acute distress. Neck supple. No cervical or supraclavicular lymphadenopathy. Lungs clear to percussion. On auscultation breath sounds are diminished. No rales, rhonchi, or wheezes. Heart sounds are very distant and difficult to characterize. Abdomen: no distention. No organomegaly or mass or tenderness. Musculoskeletal: normal gait without assistance. No bone tenderness. Performance Status: 1 - No physically strenuous activity, but ambulatory and able to carry out light or sedentary work (e.g. office work, light house work). (ECOG) Pathology: Primary, c34.11 - malignant neoplasm of upper lobe, right bronchus or lung, Diagnosed 05/13/2019 (active) stage iiia, t2a, n2, m0, Primary, d50.8 - other iron deficiency anemias, Diagnosed 12/18/2018 (active) and Primary, c50.812 - malignant neoplasm of overlapping sites of left female breast, Diagnosed 04/25/2018 (active) stage iib, t2, n1, m0, g3. Lab: Test performed on 03/11/2019 9:14 AM TIBC - 221 mcg/dl (low), Test performed on 04/22/2019 11:48 AM Ferritin - 802 ng/ml (high), Test performed on 05/13/2019 11:10 AM WBC - 12.8 10 3/ul (high), MCH - 27.5 pg (low), RDW - 16.8 % (high), Neutrophils - 9.2 10 3/ul (high), CO2 - 32 mmol/l (high), Creatinine - 1.1 mg/dl (high) and Glucose - 116 mg/dl (high). Imaging: See HPI Impression: Non-small cell carcinoma of the lung diagnosed while undergoing treatment for breast cancer. The patient is almost completed therapy for the breast cancer. She is not considered a candidate for surgery or additional chemotherapy. I discussed that with her. She understands that radiation is the best option at this point. I discussed a 7-week course of external beam radiation. I discussed that we cannot predict the outcome, but the she does have small volume disease and that gives us a better chance of obtaining control. I reviewed side effects such as fatigue, loss of appetite, weight loss, skin reaction, esophagitis, cough, hemoptysis, and dyspnea. I discussed that there is a small risk of injury to the esophagus that could require that she be dilated multiple times. Also discussed the rare risk of debilitating lung or heart injury. Mrs. Mendoza wishes to proceed with radiation as recommended. Plan: Simulation will be scheduled. Signed by: 05/16/2019 3:48:16 PM <<Signature on File>> Time spent with patient: CPT Code: CPT Code:
== END 2019-05-21 23:59 | disposition home or self-care (01) ==
LOC: ONCMED 05:59
PROVIDERS: Absent Provider Internal Medicine Medical Oncology; Family Provider Electrodiagnostic Medicine; PCP Electrodiagnostic Medicine; Visit Provider Specialist
DX: Z51.12 Encounter for antineoplastic immunotherapy (principal); C50.812 Malignant neoplasm of overlapping sites of left female breast; C34.11 Malignant neoplasm of upper lobe, right bronchus or lung; Z17.0 Estrogen receptor positive status [ER+]; D50.8 Other iron deficiency anemias; I10 Essential (primary) hypertension; J44.9 Chronic obstructive pulmonary disease, unspecified; K21.9 Gastro-esophageal reflux disease without esophagitis; E03.9 Hypothyroidism, unspecified; M19.90 Unspecified osteoarthritis, unspecified site; K86.1 Other chronic pancreatitis; Z79.811 Long term (current) use of aromatase inhibitors; Z79.899 Other long term (current) drug therapy; Z87.442 Personal history of urinary calculi; Z87.891 Personal history of nicotine dependence; Z90.12 Acquired absence of left breast and nipple; Z79.01 Long term (current) use of anticoagulants
CPT/HCPCS: 80053; 85025; 96413; 99204; 99214; J7050; J9355

== ENCOUNTER 2019-06-04 08:30 | Outpatient (CLI) | payer MEDICARE, MEDICAID, SELFPAY ==
--- NOTE | 2019-06-04 | US_ITS ---
WS: [id number] ULTRASOUND RENAL TECHNIQUE: Ultrasound examination of both kidneys. CLINICAL INFORMATION: CHRONIC KIDNEY DISEASE STAGE III COMPARISON: Ultrasound August 10, 2018 FINDINGS: RIGHT: Multiple right renal cortical cysts. Echogenicity: Normal. Cortical thickness: 1.0 cm; Normal. Hydronephrosis: None. Perinephric fluid: None. Right kidney measures: 13.8 cm x 5.5 cm x 5.5 cm. LEFT: Left renal atrophy.. Complex left lower pole cystic mass is not significantly changed measuring 7.5 x 4.3 x 6.5 cm Echogenicity: Normal. Cortical thickness: 0.8 cm; atrophy Hydronephrosis: None. Perinephric fluid: None. Left kidney measures: 10.5 cm x 3.6 cm x 4.0 cm. Normal visualized aorta. Normal bladder US/US renal BI* [id number] IMPRESSION: 1. Multiple bilateral renal cysts. Largest right renal cyst measures 5.7 x 6.3 x 4.7 cm 2. Left renal atrophy. 3. Left lower pole complex cystic mass measuring approximately 7.5 x 4.3 x 6.5 cm has not significantly changed.
== END 2019-06-04 08:31 | disposition home or self-care (01) ==
PROVIDERS: Family Provider Electrodiagnostic Medicine; PCP Electrodiagnostic Medicine; Visit Provider Internal Medicine Nephrology
DX: N18.3 Chronic kidney disease, stage 3 (moderate) (principal); Q61.02 Congenital multiple renal cysts; N26.1 Atrophy of kidney (terminal)
CPT/HCPCS: 76770

== ENCOUNTER 2019-06-20 06:50 | Outpatient (RCR) | payer MEDICARE, MEDICAID, SELFPAY ==
--- NOTE | 2019-05-29 | CT_ITS ---
Radiation Therapy Planning CT images; total exam DLP: 1649.71 mGy-cm MTDD
[2019-06-03] MEDS: sodium chloride 0.9% 250 ML 75 ML IV (13:50)
[2019-06-03] MEDS: diphenhydrAMINE 25 mg Capsule PO (13:50)
[2019-06-03] MEDS: acetaminophen 325 mg Tablet 650 MG PO (13:50)
--- NOTE | 2019-06-13 11:36 | ONCRAD TMN_ITS ---
Radiation Oncology Weekly Treatment Management Patient: Deneen Mendoza MR#: [id number] : 1945> Age: 73> Sex: Female Dictated by: Dr. Remi Costello Date of Service: 06/13/2019 Referring Physician(s) : Dr. Feldman Primary Diagnosis: C34.11 - Malignant neoplasm of upper lobe, right bronchus or lung, Diagnosed 05/13/2019 (Active) Stage IIIA, T2a, N2, M0 D50.8 - Other iron deficiency anemias, Diagnosed 12/18/2018 (Active) C50.812 - Malignant neoplasm of overlapping sites of left female breast, Diagnosed 04/25/2018 (Active) Stage IIB, T2, N1, M0, G3 Radiotherapy to date: Course: RT Lung, Treatment Site: RT [id number], Ref. ID: [id number], Energy: 6X, Dose/Fx (cGy): 200, #Fx: , Dose Correction (cGy): 0, Total Dose (cGy): 800, Start Date: 06/10/2019, Elapsed Days: 3 Current Complaints/Interval History: No significant symptomatic changes noted since beginning treatment. Mild nausea. Some chronic decreased energy level. Breathing short chronically with cough related to post nasal drip. Living independently with . No smoking for years. Constitutional Complains of mild fatigue. Denies lack of appetite, fever, night sweats and change in weight. ENMT Denies dysphagia. Cardiovascular Denies arrhythmias, chest pain and edema. Respiratory Complains of a mild cough which is productive. Complains of chronic dyspnea associated with normal activity. Denies hemoptysis and wheezing. Current Medications: Acetaminophen, acyclovir, anastrozole, anastrozole, atenolol-Chlorthalidone, bactrim DS, cathflo Activase, cetirizine HCl, dexamethasone, diphenhydrAMINE HCl, fluticasone Propionate, levothyroxine Sodium, lomotil, lORazepam, magnesium Oxide, metoclopramide HCl, montelukast Sodium, potassium Chloride ER, prochlorperazine Maleate, protonix, rivaroxaban, singulair, sodium Chloride, trastuzumab, ventolin HFA, xarelto, xarelto. Allergies: Penicillin G Benzathine, Codeine Sulfate, Tetracycline HCl, prednisoLONE, egg and NSAIDS. Vital Signs: Physical Exam: Appears stable, no skin erythema or desquamation. Performance Status: 1 - No physically strenuous activity, but ambulatory and able to carry out light or sedentary work (e.g. office work, light house work). (ECOG) Lab: None pending in Radiation Oncology. Test performed on 03/11/2019 9:14 AM TIBC - 221 mcg/dl (low), Test performed on 04/22/2019 11:48 AM Ferritin - 802 ng/ml (high), Test performed on 05/13/2019 11:10 AM WBC - 12.8 10 3/ul (high), MCH - 27.5 pg (low), RDW - 16.8 % (high), Neutrophils - 9.2 10 3/ul (high), CO2 - 32 mmol/l (high), Creatinine - 1.1 mg/dl (high) and Glucose - 116 mg/dl (high). Imaging: No new diagnostic imaging was performed since the last weekly treatment visit. All radiation therapy related imaging (including but not limited to kV, MV, and CBCT generated images) was reviewed. Appropriate changes, if any, were made to assure accurate target localization. Impression/Plan: Tolerating treatment well with expected side effects. Continue treatment as planned. CPT: 16958 Signed by: Dr. Remi Costello>06/13/2019 11:35:47 AM <<Signature on File>>
--- NOTE | 2019-06-18 14:09 | ONCRAD TMN_ITS ---
Radiation Oncology Weekly Treatment Management Patient: Deneen Mendoza MR#: [id number] : 1945> Age: 73> Sex: Female Dictated by: Dr. Remi Costello Date of Service: 06/18/2019 Referring Physician(s) : Wes Feldman M.D. Primary Diagnosis: C34.11 - Malignant neoplasm of upper lobe, right bronchus or lung, Diagnosed 05/13/2019 (Active) Stage IIIA, T2a, N2, M0 D50.8 - Other iron deficiency anemias, Diagnosed 12/18/2018 (Active) C50.812 - Malignant neoplasm of overlapping sites of left female breast, Diagnosed 04/25/2018 (Active) Stage IIB, T2, N1, M0, G3 Radiotherapy to date: Course: RT Lung, Treatment Site: RT [id number], Ref. ID: [id number], Energy: 6X, Dose/Fx (cGy): 200, #Fx: 7 / 35, Dose Correction (cGy): 0, Total Dose (cGy): 1,400, Start Date: 06/10/2019, Elapsed Days: 8 Current Complaints/Interval History: Mild cough which is stable. Eating and swallowing ok. A bit of nausea from time to time. Energy and activity stable. Constitutional Complains of mild fatigue. Denies lack of appetite, fever, night sweats and change in weight. ENMT Denies dysphagia. Cardiovascular Denies arrhythmias, chest pain and edema. Respiratory Complains of a mild cough related to sinus drainage. Complains of chronic dyspnea associated with normal activity. Denies wheezing. Current Medications: Acetaminophen, acyclovir, anastrozole, anastrozole, atenolol-Chlorthalidone, bactrim DS, cathflo Activase, cetirizine HCl, dexamethasone, diphenhydrAMINE HCl, fluticasone Propionate, levothyroxine Sodium, lomotil, lORazepam, magnesium Oxide, metoclopramide HCl, montelukast Sodium, potassium Chloride ER, prochlorperazine Maleate, protonix, rivaroxaban, singulair, sodium Chloride, trastuzumab, ventolin HFA, xarelto, xarelto. Allergies: Penicillin G Benzathine, Codeine Sulfate, Tetracycline HCl, prednisoLONE, egg and NSAIDS. Vital Signs: Performed on 06/18/2019 11:00 AM BMI - 46.531 kg/m2 (high), Height - 62.00 in, Weight - 254.4 lbs, Temperature - 97.7 f, Pulse - 78, Respiration - 20, O2 Sat - 94 % (low), Pain - 0, Fatigue - 0 and BP - 133/ 89 mm(hg). Physical Exam: Appears stable, no skin erythema or desquamation. Performance Status: 1 - No physically strenuous activity, but ambulatory and able to carry out light or sedentary work (e.g. office work, light house work). (ECOG) Lab: None pending in Radiation Oncology. Test performed on 03/11/2019 9:14 AM TIBC - 221 mcg/dl (low), Test performed on 04/22/2019 11:48 AM Ferritin - 802 ng/ml (high), Test performed on 05/13/2019 11:10 AM WBC - 12.8 10 3/ul (high), MCH - 27.5 pg (low), RDW - 16.8 % (high), Neutrophils - 9.2 10 3/ul (high), CO2 - 32 mmol/l (high), Creatinine - 1.1 mg/dl (high) and Glucose - 116 mg/dl (high). Imaging: No new diagnostic imaging was performed since the last weekly treatment visit. All radiation therapy related imaging (including but not limited to kV, MV, and CBCT generated images) was reviewed. Appropriate changes, if any, were made to assure accurate target localization. Impression/Plan: Tolerating treatment well with expected side effects. Continue treatment as planned. CPT: 35495 Signed by: Dr. Remi Costello>06/18/2019 2:07:39 PM <<Signature on File>>
== END 2019-06-20 23:59 | disposition home or self-care (01) ==
LOC: ONCMED 06:50
PROVIDERS: Absent Provider Internal Medicine Medical Oncology; Family Provider Electrodiagnostic Medicine; PCP Electrodiagnostic Medicine; Visit Provider Radiology Radiation Oncology
DX: Z51.0 Encounter for antineoplastic radiation therapy (principal); Z51.12 Encounter for antineoplastic immunotherapy; C34.11 Malignant neoplasm of upper lobe, right bronchus or lung; C50.812 Malignant neoplasm of overlapping sites of left female breast; D50.8 Other iron deficiency anemias; Z79.811 Long term (current) use of aromatase inhibitors; Z17.0 Estrogen receptor positive status [ER+]
CPT/HCPCS: 77334; 77336; 77386; 96413; J7050; J9355

== ENCOUNTER 2019-07-19 06:49 | Outpatient (RCR) | payer MEDICARE, MEDICAID, SELFPAY ==
--- NOTE | 2019-06-26 14:15 | ONCRAD TMN_ITS ---
Radiation Oncology Weekly Treatment Management Patient: Deneen Mendoza MR#: [id number] : 1945> Age: 73> Sex: Female Dictated by: Dr. Remi Costello Date of Service: 06/26/2019 Referring Physician(s) : Wes Feldman M.D. Primary Diagnosis: C34.11 - Malignant neoplasm of upper lobe, right bronchus or lung, Diagnosed 05/13/2019 (Active) Stage IIIA, T2a, N2, M0 D50.8 - Other iron deficiency anemias, Diagnosed 12/18/2018 (Active) C50.812 - Malignant neoplasm of overlapping sites of left female breast, Diagnosed 04/25/2018 (Active) Stage IIB, T2, N1, M0, G3 Radiotherapy to date: Course: RT Lung, Treatment Site: RT [id number], Ref. ID: [id number], Energy: 6X, Dose/Fx (cGy): 200, #Fx: 13 / 35, Dose Correction (cGy): 0, Total Dose (cGy): 2,600, Start Date: 06/10/2019, Elapsed Days: 16 Current Complaints/Interval History: Some stable ongoing fatigue. Active with usual activities. Stable ongoing cough with no hemoptysis. No sore throat. Eating ok. Constitutional Complains of mild fatigue. Denies fever and night sweats. ENMT Denies dysphagia. Cardiovascular Denies chest pain. Respiratory Complains of a moderate cough which is productive. Complains of chronic dyspnea. Complains of wheezing. Denies hemoptysis. Current Medications: Acetaminophen, acyclovir, anastrozole, anastrozole, atenolol-Chlorthalidone, bactrim DS, cathflo Activase, cetirizine HCl, dexamethasone, diphenhydrAMINE HCl, fluticasone Propionate, levothyroxine Sodium, lomotil, lORazepam, magnesium Oxide, metoclopramide HCl, montelukast Sodium, potassium Chloride ER, prochlorperazine Maleate, protonix, rivaroxaban, singulair, sodium Chloride, trastuzumab, ventolin HFA, xarelto, xarelto. Allergies: Penicillin G Benzathine, Codeine Sulfate, Tetracycline HCl, prednisoLONE, egg and NSAIDS. Vital Signs: Performed on 06/26/2019 11:10 AM BMI - 46.787 kg/m2 (high), Height - 62.00 in, Weight - 255.8 lbs, Temperature - 98.9 f, Pulse - 65, Respiration - 22, O2 Sat - 92 % (low), Pain - 0 and BP - 146/ 59 mm(hg)(high/low). Performance Status: 1 - No physically strenuous activity, but ambulatory and able to carry out light or sedentary work (e.g. office work, light house work). (ECOG) Lab: None pending in Radiation Oncology. Test performed on 03/11/2019 9:14 AM TIBC - 221 mcg/dl (low), Test performed on 04/22/2019 11:48 AM Ferritin - 802 ng/ml (high), Test performed on 05/13/2019 11:10 AM WBC - 12.8 10 3/ul (high), MCH - 27.5 pg (low), RDW - 16.8 % (high), Neutrophils - 9.2 10 3/ul (high), CO2 - 32 mmol/l (high), Creatinine - 1.1 mg/dl (high) and Glucose - 116 mg/dl (high). Imaging: No new diagnostic imaging was performed since the last weekly treatment visit. All radiation therapy related imaging (including but not limited to kV, MV, and CBCT generated images) was reviewed. Appropriate changes, if any, were made to assure accurate target localization. Impression/Plan: Tolerating treatment well with expected side effects. Continue treatment as planned. CPT: 66778 Signed by: Dr. Remi Costello>06/26/2019 2:13:13 PM <<Signature on File>>
--- NOTE | 2019-07-02 13:45 | ONCRAD TMN_ITS ---
Radiation Oncology Weekly Treatment Management Patient: Deneen Mendoza MR#: [id number] : 1945> Age: 73> Sex: Female Dictated by: Dr. Remi Costello Date of Service: 07/02/2019 Referring Physician(s) : Wes Feldman M.D. Primary Diagnosis: C34.11 - Malignant neoplasm of upper lobe, right bronchus or lung, Diagnosed 05/13/2019 (Active) Stage IIIA, T2a, N2, M0 D50.8 - Other iron deficiency anemias, Diagnosed 12/18/2018 (Active) C50.812 - Malignant neoplasm of overlapping sites of left female breast, Diagnosed 04/25/2018 (Active) Stage IIB, T2, N1, M0, G3 Radiotherapy to date: Course: RT Lung, Treatment Site: RT [id number], Ref. ID: [id number], Energy: 6X, Dose/Fx (cGy): 200, #Fx: 17 / 35, Dose Correction (cGy): 0, Total Dose (cGy): 3,400, Start Date: 06/10/2019, Elapsed Days: 22 Current Complaints/Interval History: Overall she is doing well. Energy level is good she is eating well. She has no headaches nausea vomiting or sore throat. Shortness of breath and mild fatigue are stable. She did notice an oral cavity soreness occurring after biting on a sharp object she has been treated with antibiotics for similar event in the past. Constitutional Complains of mild fatigue. Denies lack of appetite, fever and night sweats. ENMT Denies dysphagia. Cardiovascular Denies chest pain. Respiratory Complains of a mild cough. Complains of chronic dyspnea. Denies hemoptysis and wheezing. Current Medications: Acetaminophen, acyclovir, anastrozole, anastrozole, atenolol-Chlorthalidone, bactrim DS, cathflo Activase, cetirizine HCl, dexamethasone, diphenhydrAMINE HCl, fluticasone Propionate, levothyroxine Sodium, lomotil, lORazepam, magnesium Oxide, metoclopramide HCl, montelukast Sodium, potassium Chloride ER, prochlorperazine Maleate, protonix, rivaroxaban, singulair, sodium Chloride, trastuzumab, ventolin HFA, xarelto, xarelto. Allergies: Penicillin G Benzathine, Codeine Sulfate, Tetracycline HCl, prednisoLONE, egg and NSAIDS. Vital Signs: Performed on 07/02/2019 11:19 AM BMI - 46.896 kg/m2 (high), Height - 62.00 in, Weight - 256.4 lbs, Temperature - 98.2 f, Pulse - 61, Respiration - 22, O2 Sat - 94 % (low), Pain - 0 and BP - 125/ 61 mm(hg)(/low). Physical Exam: Exam revealed a violaceous appearing mucosal condyle along her floor mouth in her mandibular region on the right side. There was a palpable perimandibular soft mass consistent with perimandibular lymph node. Performance Status: 1 - No physically strenuous activity, but ambulatory and able to carry out light or sedentary work (e.g. office work, light house work). (ECOG) Lab: None pending in Radiation Oncology. Test performed on 03/11/2019 9:14 AM TIBC - 221 mcg/dl (low), Test performed on 04/22/2019 11:48 AM Ferritin - 802 ng/ml (high), Test performed on 05/13/2019 11:10 AM WBC - 12.8 10 3/ul (high), MCH - 27.5 pg (low), RDW - 16.8 % (high), Neutrophils - 9.2 10 3/ul (high), CO2 - 32 mmol/l (high), Creatinine - 1.1 mg/dl (high) and Glucose - 116 mg/dl (high). Imaging: No new diagnostic imaging was performed since the last weekly treatment visit. All radiation therapy related imaging (including but not limited to kV, MV, and CBCT generated images) was reviewed. Appropriate changes, if any, were made to assure accurate target localization. Impression/Plan: Tolerating treatment well with expected side effects. Continue treatment as planned. Possible oral cavity inflammation or infection. She desired antibiotics for this. She does not tolerate penicillins at her request we did prescribe a Z-Chuck which she has used in the past for bronchitis. CPT: 16193 Signed by: Dr. Remi Costello>07/02/2019 1:00:38 PM <<Signature on File>>
--- NOTE | 2019-07-10 14:32 | ONCRAD TMN_ITS ---
Radiation Oncology Weekly Treatment Management Patient: Deneen Mendoza MR#: [id number] : 1945> Age: 73> Sex: Female Dictated by: Dr. Remi Costello Date of Service: 07/10/2019 Referring Physician(s) : Wes Feldman M.D. 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 ID: [id number], Energy: 6X, Dose/Fx (cGy): 200, #Fx: , Dose Correction (cGy): 0, Total Dose (cGy): 4,600, Start Date: 06/10/2019, Elapsed Days: 30 Current Complaints/Interval History: She notes ongoing frontal sinus headaches. She notes persistent soreness in her floor of mouth and notes a persistent enlarged lymph node adjacent to the right mandible. She notes some cough is productive of yellow sputum. She did complete the Z-Chuck Zithromax antibiotic with no incremental change in symptoms she is breathing well and swallowing well. Constitutional Complains of moderate fatigue. Denies lack of appetite, fever and night sweats. ENMT Denies dysphagia. Cardiovascular Denies chest pain. Respiratory Complains of a severe cough which is productive. Complains of chronic dyspnea. Complains of wheezing. Denies hemoptysis. Current Medications: Acetaminophen, acyclovir, anastrozole, anastrozole, atenolol-Chlorthalidone, bactrim DS, cathflo Activase, cetirizine HCl, dexamethasone, diphenhydrAMINE HCl, fluticasone Propionate, levothyroxine Sodium, lomotil, lORazepam, magnesium Oxide, metoclopramide HCl, montelukast Sodium, potassium Chloride ER, prochlorperazine Maleate, protonix, rivaroxaban, singulair, sodium Chloride, trastuzumab, ventolin HFA, xarelto, xarelto, zithromax Z-Chuck. Allergies: Penicillin G Benzathine, Codeine Sulfate, Tetracycline HCl, prednisoLONE, egg and NSAIDS. Vital Signs: Performed on 07/10/2019 10:56 AM BMI - 47.061 kg/m2 (high), Height - 62.00 in, Weight - 257.3 lbs, Temperature - 98.6 f, Pulse - 73, Respiration - 24, O2 Sat - 93 % (low), Pain - 6 and BP - 131/ 87 mm(hg). 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 office work, light house work). (ECOG) Lab: None pending in Radiation Oncology. Test performed on 03/11/2019 9:14 AM TIBC - 221 mcg/dl (low), Test performed on 04/22/2019 11:48 AM Ferritin - 802 ng/ml (high), Test performed on 05/13/2019 11:10 AM WBC - 12.8 10 3/ul (high), MCH - 27.5 pg (low), RDW - 16.8 % (high), Neutrophils - 9.2 10 3/ul (high), CO2 - 32 mmol/l (high), Creatinine - 1.1 mg/dl (high) and Glucose - 116 mg/dl (high). Imaging: No new diagnostic imaging was performed since the last weekly treatment visit. All radiation therapy related imaging (including but not limited to kV, MV, and CBCT generated images) was reviewed. Appropriate changes, if any, were made to assure accurate target localization. Impression/Plan: Tolerating treatment well with expected side effects. . She has what appears to be an oral cavity mucosal inflammation associated with perimandibular adenopathy. It did not respond to azithromycin as yet. I advised and she is interested in having her primary physician look at her oral cavity as well for further assessment and advice We will continue treatment as planned CPT: 44906 Signed by: Dr. Remi Costello>07/10/2019 2:31:36 PM <<Signature on File>>
--- NOTE | 2019-07-16 14:47 | ONCRAD TMN_ITS ---
Radiation Oncology Weekly Treatment Management Patient: Deneen Mendoza MR#: [id number] : 1945> Age: 73> Sex: Female Dictated by: Dr. Remi Costello Date of Service: 07/16/2019 Referring Physician(s) : Wes Feldman M.D. 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 ID: [id number], Energy: 6X, Dose/Fx (cGy): 200, #Fx: , Dose Correction (cGy): 0, Total Dose (cGy): 5,200, Start Date: 06/10/2019, Elapsed Days: 36 Current Complaints/Interval History: Currently doing well with no interval changes. She continues to have mild sinus headaches with some drainage. She has been on a 10-day course of antibiotics from her primary physician and has 5 more days to go. The lump in her floor mouth is unchanged. She has no treatment related sore throat. Current Medications: Acetaminophen, acyclovir, anastrozole, anastrozole, atenolol-Chlorthalidone, bactrim DS, cathflo Activase, cetirizine HCl, dexamethasone, diphenhydrAMINE HCl, fluticasone Propionate, levothyroxine Sodium, lomotil, lORazepam, magnesium Oxide, metoclopramide HCl, montelukast Sodium, potassium Chloride ER, prochlorperazine Maleate, protonix, rivaroxaban, singulair, sodium Chloride, trastuzumab, ventolin HFA, xarelto, xarelto, zithromax Z-Chuck. Allergies: Penicillin G Benzathine, Codeine Sulfate, Tetracycline HCl, prednisoLONE, egg and NSAIDS. Vital Signs: Physical Exam: Appears stable, no skin erythema or desquamation. Performance Status: 1 - No physically strenuous activity, but ambulatory and able to carry out light or sedentary work (e.g. office work, light house work). (ECOG) Lab: None pending in Radiation Oncology. Test performed on 03/11/2019 9:14 AM TIBC - 221 mcg/dl (low), Test performed on 04/22/2019 11:48 AM Ferritin - 802 ng/ml (high), Test performed on 05/13/2019 11:10 AM WBC - 12.8 10 3/ul (high), MCH - 27.5 pg (low), RDW - 16.8 % (high), Neutrophils - 9.2 10 3/ul (high), CO2 - 32 mmol/l (high), Creatinine - 1.1 mg/dl (high) and Glucose - 116 mg/dl (high). Imaging: No new diagnostic imaging was performed since the last weekly treatment visit. All radiation therapy related imaging (including but not limited to kV, MV, and CBCT generated images) was reviewed. Appropriate changes, if any, were made to assure accurate target localization. Impression/Plan: Tolerating treatment well with expected side effects. Continue treatment as planned. She has a erythematous smooth region of mucosal change in the right floor of mouth she may require further evaluation of this by an oral surgeon. It does not have a malignant appearance on our exam here. CPT: 20816 Signed by: Dr. Remi Cosetllo>07/16/2019 2:46:28 PM <<Signature on File>>
== END 2019-07-21 23:59 | disposition home or self-care (01) ==
LOC: ONCMED 06:49
PROVIDERS: Absent Provider Radiology Radiation Oncology; PCP Electrodiagnostic Medicine; Visit Provider Radiology Radiation Oncology
DX: Z51.0 Encounter for antineoplastic radiation therapy (principal); Z45.2 Encounter for adjustment and management of vascular access device; C34.11 Malignant neoplasm of upper lobe, right bronchus or lung; C50.812 Malignant neoplasm of overlapping sites of left female breast; D50.8 Other iron deficiency anemias; L53.9 Erythematous condition, unspecified; Z79.811 Long term (current) use of aromatase inhibitors
CPT/HCPCS: 77336; 77386; 96523

== ENCOUNTER 2019-08-13 06:05 | Day surgery (SDC) | payer MEDICARE, MEDICAID, SELFPAY ==
[2019-08-12 12:11] VITALS: BMI 46.6
[2019-08-13 06:43] VITALS: BP 174/92; PULSE 69; RESP 18; TEMP 36.6; O2SAT 93
--- NOTE | 2019-08-13 06:48 | ANES.PREANE2 ---
Pre-Anesthetic Assessment Pre-Anesthetic Assessment: Height/Weight: Height 1.57 m Weight 115.666 kg Temp Pulse Resp BP Pulse Ox 98 F 69 18 174/92 93 08/13/19 06:43 08/13/19 06:43 08/13/19 06:43 08/13/19 06:43 08/13/19 06:43 Preop Diagnosis: Right upper lobe lung mass Proposed Procedure: Operation Date: 08/13/19 07:00 Proposed Procedures p Transoral Biopsy of Mandible(Not Applicable) - Hugo Velazquez MD Last intake: Intake Last Liquid Date 08/12/19 Last Liquid Time 21:00 Last Solid Date 08/12/19 Last Solid Time 21:00 Social: Social History: Tobacco (quit 28 years ago) and No alcohol Exam: Pre-Anes Outpt Exam: alert, oriented x 3, clear to auscultation bilaterally and regular rate & rhythm Airway: Submandibular: WNL Cervical ROM: WNL MP: 3 Dentition: Other (very poor dentation) History/ROS: No significant history except as noted Pulmonary: Pulmonary: COPD and JONES CV/HEM: CV/HEM: HTN : : Chronic renal Insufficiency Hepatic: Hepatic: None reported GI: GI: None reported Metabolic: Metabolic: DM and Morbid obesity Musc/skel: Musc/skel: Lower Back Pain and OA/DJD Neuropsych: Neuropsych: None reported Anesthetic Plan: ASA status: 3 Anesthesia: Anesthesia Evaluation and General Risk of > 500 ml blood loss (7ml/kg in children): No PFSH Anesthesia PFSH: Medical History Breast cancer COPD (chronic obstructive pulmonary disease) Degenerative arthritis GERD (gastroesophageal reflux disease) Hypertension Hypothyroidism (acquired) Lung mass Pancreatic cyst Renal cyst Surgical History H/O cataract removal with insertion of prosthetic lens H/O mastectomy Family History Denies family history of Diabetes CAD (coronary artery disease) Cancer Social History Smoking and tobacco status: former smoker Alcohol intake: former Data Anesthesia Cardiac Studies: No Data to Display
--- NOTE | 2019-08-13 06:54 | W.PM.OPSUD ---
Surgery/Procedure H&P Update DATE OF PROCEDURE: August 13, 2019 DATE H&P PERFORMED: 04/11/19 H&P UPDATE INFORMATION: I have reviewed H&P completed within last 30 days, I have examined patient prior to procedure and No changes to prior documentation PREOP DIAGNOSIS: Right Mandibular Torus Enlargement PLANNED PROCEDURE: Operation Date: 08/13/19 07:00 Proposed Procedures p Transoral Biopsy of Mandible(Not Applicable) - Hugo Velazquez MD
[2019-08-13] MEDS: sodium chloride 0.9% 1,000 ML 30 ML IV (07:02)
[2019-08-13] MEDS: EPINEPHrine 1 mg/mL INJ XX (07:50)
[2019-08-13] MEDS: fluorescein 1 mg Strip EYE-BOTH (07:57)
[2019-08-13 08:17] VITALS: BP 179/74; PULSE 77; RESP 16; TEMP 36.5; O2SAT 97
--- NOTE | 2019-08-13 08:18 | P.OP_ITS ---
Operative Report Date of procedure: August 13, 2019 Pre-op Diagnosis: Right Mandibular Torus Enlargement/Right Mandibular Mass Post-op diagnosis: same Post-op Findings: 2 cm soft fleshy mass on the lingual surface of the right antererolateral mandible Procedure Done: Open/Excisional biopsy of right mandibular mass Specimens removed/disposition: Right mandibular mass Surgeon: Hugo Velazquez Assemblies And Installations Inspector: Mercy Eddy Anesthesia: General Estimated blood loss (mL): 10 IV fluids (mL): 500 Complications: None Findings: Soft, fleshy 2 cm submucosal mass on the lingual surface of the right anterior surface of the mandible. Condition: stable Disposition: PACU Brief History: The patient is a 73 yo wf with a h/o breast cancer with recent enlargement of a right mandibular torus. The patient was referred for biopsy of this lesion. Procedure: The patient was identified in the preoperative holding area and was taken to the operating room where she was placed on the operating table in the supine position. Anesthesia was obtained with general nasotracheal anesthesia and the table was turned 120 degrees the patient's right. A Denhart retractor was placed in the patient's left oral cavity and the patient's oral cavity was retracted open. The mass was inspected and injected with local anesthesia. An incision was made on the free edge of the mass with a 15 blade. The mass was found to be soft and fleshy and a pair of Rongeur forceps was used to biopsy and remove the entire mass from the submucosal space. There was some irregular mottling of the lingual surface the mandible underlying the mass, but the mandibular cortex appeared to be intact. Hemostasis was then achieved with direct application of 02/999 epinephrine and FloSeal. Once hemostasis had been achieved, the wound was closed with interrupted 4-0 Vicryl sutures. At this point the procedure was terminated and control of the patient was returned to anesthesia where she underwent an uneventful reversal of anesthesia and extubation and was taken to the recovery room in stable condition. There were no operative or anesthetic complications.
--- NOTE | 2019-08-13 08:24 | SUR.PHASEI ---
0817 PATIENT TO PACU AT THIS TIME FROM OR. NO DISTRESS. RR EVEN AND UNLABORED. PLACED ON SIMPLE MASK AT 8L, SPO2 97%.
[2019-08-13 08:25] VITALS: BP 160/75; PULSE 76; RESP 25; O2SAT 93
[2019-08-13 08:30] VITALS: BP 152/83; PULSE 71; RESP 23; TEMP 36.6; O2SAT 96
--- NOTE | 2019-08-13 08:36 | SUR.PHASEI ---
0832 PATIENT TO OPS AT THIS TIME. DENIES PAIN OR NAUSEA, TOLERATING ICE CHIPS.
[2019-08-13 08:57] VITALS: BP 151/69; PULSE 70; RESP 18; TEMP 36.1; O2SAT 94
[2019-08-13 09:10] VITALS: BP 148/66; PULSE 63; RESP 18; O2SAT 94
== END 2019-08-13 09:30 | disposition home or self-care (01) ==
PROVIDERS: PCP Electrodiagnostic Medicine; Visit Provider Specialist
PROC: (CPT 21044; principal; 2019-08-13 07:00)
DX: C41.1 Malignant neoplasm of mandible (principal); Z87.891 Personal history of nicotine dependence; J44.9 Chronic obstructive pulmonary disease, unspecified; I10 Essential (primary) hypertension; E11.9 Type 2 diabetes mellitus without complications; E66.01 Morbid (severe) obesity due to excess calories; Z68.42 Body mass index [BMI] 45.0-49.9, adult; M19.90 Unspecified osteoarthritis, unspecified site; E03.9 Hypothyroidism, unspecified
CPT/HCPCS: 21044; 12345; 88309; J0171; J2001; J2405; J2704; J2710; J2765; J3010; J3490; J7030

== ENCOUNTER 2019-08-20 08:30 | Outpatient (RCR) | payer MEDICARE, MEDICAID, SELFPAY ==
--- NOTE | 2019-07-23 13:55 | ONCRAD TMN_ITS ---
Radiation Oncology Weekly Treatment Management Patient: Deneen Mendoza MR#: [id number] : 1945 Age: 73 Sex: Female Dictated by: Dr. Remi Costello Date of Service: 07/23/2019 Referring Physician(s) : Wes Feldman M.D. 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 ID: [id number], Energy: 6X, Dose/Fx (cGy): 200, #Fx: 31 / 35, Dose Correction (cGy): 0, Total Dose (cGy): 6,200, Start Date: 06/10/2019, Elapsed Days: 43 Current Complaints/Interval History: She is doing well in general. She has had no interval change in the last week. She is eating well and swallowing well. Her energy level is good. She was given a different antibiotic for her mouth soreness her mouth now feels better. This soft tissue swelling along the right mandible has resolved. Constitutional Complains of mild fatigue. Denies lack of appetite, fever, night sweats and change in weight. ENMT Denies dysphagia. Cardiovascular Denies arrhythmias, chest pain and edema. Respiratory Complains of a mild cough which is productive. Denies hemoptysis and wheezing. Current Medications: Acetaminophen, acyclovir, anastrozole, anastrozole, atenolol-Chlorthalidone, bactrim DS, cathflo Activase, cetirizine HCl, dexamethasone, diphenhydrAMINE HCl, fluticasone Propionate, levothyroxine Sodium, lomotil, lORazepam, magnesium Oxide, metoclopramide HCl, montelukast Sodium, potassium Chloride ER, prochlorperazine Maleate, protonix, rivaroxaban, singulair, sodium Chloride, sulfaSALAzine, trastuzumab, ventolin HFA, xarelto, xarelto, zithromax Z-Chuck. Allergies: Penicillin G Benzathine, Codeine Sulfate, Tetracycline HCl, prednisoLONE, egg and NSAIDS. Vital Signs: Performed on 07/23/2019 10:54 AM BMI - 46.97 kg/m2 (high), Height - 62.00 in, Weight - 256.8 lbs, Temperature - 98.9 f, Pulse - 58, Respiration - 20, O2 Sat - 95 % (low), Pain - 0 and BP - 139/ 58 mm(hg)(/low). Physical Exam: Appears stable, no skin erythema or desquamation. Oral cavity reveals mandibular turbid tubercle is less erythematous and nontender to palpation Performance Status: 1 - No physically strenuous activity, but ambulatory and able to carry out light or sedentary work (e.g. office work, light house work). (ECOG) Lab: None pending in Radiation Oncology. Imaging: No new diagnostic imaging was performed since the last weekly treatment visit. All radiation therapy related imaging (including but not limited to kV, MV, and CBCT generated images) was reviewed. Appropriate changes, if any, were made to assure accurate target localization. Impression/Plan: Tolerating treatment well with expected side effects. Continue treatment as planned. CPT: 40131 Signed by: Dr. Remi Costello>07/23/2019 1:53:59 PM <<Signature on File>>
--- NOTE | 2019-08-15 16:09 | ONCRAD EPV_ITS ---
Radiation Oncology Established Patient Visit Patient: Nate MR#: [id number] : 1945> Age: 73> Sex: Female> Dictated by: Dr. Wally Reyna Date of Service: 08/15/2019 Referring Physician(s) : Wes Feldman M.D. 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 ID: [id number], Energy: 6X, Dose/Fx (cGy): 200, #Fx: 35 / 35, Dose Correction (cGy): 0, Total Dose (cGy): 7,000, Start Date: 06/10/2019, End Date: 07/29/2019, Elapsed Days: 49 Chief Complaint / History of Present Illness: Mrs. Mendoza has a history of both breast and lung cancer. Prior radiation is noted above. She just completed full course external beam radiation for carcinoma of the lung on 07/29/2019. Late in treatment she noticed irritation on the right anterior floor of mouth associated with a small amount of swelling. She showed this area to Dr. Feldman and he immediately referred her to Dr. Velazquez for a biopsy. The biopsy has been performed and shows metastatic carcinoma of the lung. Mrs. Mendoza is referred for palliative radiation. Current Medications: Acetaminophen, acyclovir, anastrozole, anastrozole, atenolol-Chlorthalidone, bactrim DS, cathflo Activase, cetirizine HCl, dexamethasone, diphenhydrAMINE HCl, fluticasone Propionate, levothyroxine Sodium, lomotil, lORazepam, magnesium Oxide, metoclopramide HCl, montelukast Sodium, potassium Chloride ER, prochlorperazine Maleate, protonix, rivaroxaban, singulair, sodium Chloride, sulfaSALAzine, trastuzumab, ventolin HFA, xarelto, xarelto, zithromax Z-Chuck. Allergies: Penicillin G Benzathine, Codeine Sulfate, Tetracycline HCl, prednisoLONE, egg and NSAIDS. Current Complaints / Review of Systems: Constitutional - Complains of change in weight in which her weight is up 10.4 lbs. since last seen on 07/23/2019. Denies lack of appetite, fatigue, fever and night sweats. Eyes - Denies blurred vision and double vision. ENMT - Complains of ear pain in the left ear, mouth dryness and stomatitis on the right bottom jaw where she had a lump removed. Denies dysphagia, problems with hearing, altered taste and tinnitus. Neck - Denies neck pain and decreased range of motion. Integumentary - Denies rash. Breasts - Denies pain and also does not have any chest wall pain on the left. Cardiovascular - Denies arrhythmias, chest pain and edema. Respiratory - Complains of chronic dyspnea associated with normal activity. Complains of hiccoughs. Denies wheezing. Gastrointestinal - Complains of constipation from the antibiotic and heartburn / dyspepsia from taking an antibiotic. Denies abdominal pain, diarrhea, hemorrhoids, melena / GI bleeding, nausea and vomiting. Genitourinary (F) - Complains of nocturia more than 4 times/night. Denies dysuria, frequency, hematuria, urgency, vaginal discharge / bleeding and vaginal spotting. Musculoskeletal - Complains of joint pain in the right wrist. Denies bone pain and muscle weakness. Neurologic - Denies dizziness, abnormal gait and headaches. Endocrine - Complains of thyroid disease. Denies diabetes. Hematologic/Lymphatic - Denies tender or enlarged lymph nodes.. Vital Signs: Performed on 08/15/2019 3:12 PM BMI - 48.908 kg/m2 (high), Height - 62.00 in, Weight - 267.4 lbs, Temperature - 98.3 f, Pulse - 63, Respiration - 24, O2 Sat - 94 % (low), Pain - 10 and BP - 127/ 86 mm(hg). Physical Exam: General: Alert and oriented x 3. No acute distress. HEENT: On the right floor of mouth she has a biopsy site. There is mild edema. There is no breakdown of the mucosa. Palpation reveals the area of edema to be smooth without nodularity. Palpation of the mandible reveals the induration to bulge slightly into the floor of mouth. There is no tenderness to palpation of the mandible and it is difficult to podiatric assistant from physical exam whether this may represent invasion of the bone or not. Palpation of the in inferior alveolus in this area reveals no tenderness. The inferior border of the mandible has no tenderness and there is no lateral tenderness. The neck is free of masses or lymphadenopathy. No supraclavicular lymphadenopathy. Lab: None pending. Test performed on 03/11/2019 9:14 AM TIBC - 221 mcg/dl (low), Test performed on 04/22/2019 11:48 AM Ferritin - 802 ng/ml (high), Test performed on 05/13/2019 11:10 AM WBC - 12.8 10 3/ul (high), MCH - 27.5 pg (low), RDW - 16.8 % (high), Neutrophils - 9.2 10 3/ul (high), CO2 - 32 mmol/l (high), Creatinine - 1.1 mg/dl (high) and Glucose - 116 mg/dl (high). Pathology: Primary, c34.11 - malignant neoplasm of upper lobe, right bronchus or lung, Diagnosed 05/13/2019 (active) stage iiia, t2a, n2, m0, Primary, d50.8 - other iron deficiency anemias, Diagnosed 12/18/2018 (active) and Primary, c50.812 - malignant neoplasm of overlapping sites of left female breast, Diagnosed 04/25/2018 (active) stage iib, t2, n1, m0, g3. Imaging: See HPI Impression: Metastatic lung cancer involving the floor of mouth and possibly the mandible. There is no significant tenderness of the mandible so I do not believe that we need to obtain a CT or MRI. I discussed that with the patient and her . I discussed a course of palliative radiation. I described simulation with a mask. She has some claustrophobia and anxiety. She was given a prescription for Xanax to use prior to placement of the mask. 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 I discussed the field is localized but she almost certainly will have a severe sore mouth, substantial skin reaction, some temporary loss of taste and some temporary dry mouth. She wishes to proceed with palliative radiation. Simulation will be arranged. Signed by: 08/15/2019 4:08:02 PM <<Signature on File>> Time spent with patient: CPT Code: CPT Code:
--- NOTE | 2019-08-19 12:29 | ONCRAD EPV_ITS ---
Radiation Oncology Established Patient Visit Patient: Nate MR#: [id number] : 1945> Age: 73> Sex: Female> Dictated by: Dr. Dimas eRyna Date of Service: 08/19/2019 Referring Physician(s) : Wes Feldman M.D. 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 ID: [id number], , nergy: 6X, Dose/Fx (cGy): 200, #Fx: 35 / 35, Dose Correction (cGy): 0, Total Dose (cGy): 7,000, Elapsed Days: 49 Chief Complaint / History of Present Illness: Returns for simulation. She says she has noticed a lump in the area of her jaw near where the floor of mouth metastasis is located. It is not painful. Current Medications: Acetaminophen, acyclovir, aLPRAZolam, anastrozole, anastrozole, atenolol-Chlorthalidone, bactrim DS, cathflo Activase, cetirizine HCl, dexamethasone, diphenhydrAMINE HCl, fluticasone Propionate, levothyroxine Sodium, lomotil, lORazepam, magnesium Oxide, metoclopramide HCl, montelukast Sodium, potassium Chloride ER, prochlorperazine Maleate, protonix, rivaroxaban, singulair, sodium Chloride, sulfaSALAzine, trastuzumab, ventolin HFA, xarelto, xarelto, zithromax Z-Chuck. Allergies: Penicillin G Benzathine, Codeine Sulfate, Tetracycline HCl, prednisoLONE, egg and Physical Exam: General: Alert and oriented x 3. No acute distress. Oral cavity exam reveals the metastasis to be stable in appearance on the right anterior floor of mouth. The mandible is nontender to palpation. Slight bulge in its contour is noted just posterior to where the floor of mouth metastasis is. No tenderness detected. I cannot detect any lymphadenopathy in the neck. Performance Status: Lab: None pending. Test performed on 03/11/2019 9:14 AM TIBC - 221 mcg/dl (low), Test performed on 04/22/2019 11:48 AM Ferritin - 802 ng/ml (high), Test performed on 05/13/2019 11:10 AM WBC - 12.8 10 3/ul (high), MCH - 27.5 pg (low), RDW - 16.8 % (high), Neutrophils - 9.2 10 3/ul (high), CO2 - 32 mmol/l (high), Creatinine - 1.1 mg/dl (high) and Glucose - 116 mg/dl (high). Pathology: Primary, c34.11 - malignant neoplasm of upper lobe, right bronchus or lung, Diagnosed 05/13/2019 (active) stage iiia, t2a, n2, m0, Primary, d50.8 - other iron deficiency anemias, Diagnosed 12/18/2018 (active) and Primary, c50.812 - malignant neoplasm of overlapping sites of left female breast, Diagnosed 04/25/2018 (active) stage iib, t2, n1, m0, g3. Assessment: The abnormality of the contour of the mandible raises the possibility that there is more extensive disease than is apparent on physical examination. I suggested that we get a CT of the mandible and neck for further evaluation. Mrs. Mendoza is in agreement. We will cancel the simulation today and go ahead with a CT scan. Signed by: 08/19/2019 12:28:11 PM <<Signature on File>> Time spent with patient: CPT Code: CPT Code:
--- NOTE | 2019-08-20 07:38 | CT_ITS ---
WS: [id number] CT NECK TECHNIQUE: Contrast-enhanced CT of the neck with coronal and sagittal reformatted images. CLINICAL INFORMATION: LUNG METS TO MOUTH COMPARISON: PET/CT March 2019, September 2018, May 2018 DLP: 626.[address] scans at [facility] use at least one of these dose optimization techniques: automat ed exposure control; mA and/or kV adjustment per patient size (includes targeted exams where dose is matched to clinical indication); or iterative reconstruction. FINDINGS: No evidence of destructive mass or lesion involving the mandible to correspond to the floor of mouth lesion. Mandible appears unremarkable. Again seen is the FDG avid right upper lobe mass today measuring 3.5 x 1.3 cm similar in appearance t o the prior examinations. Stable right anterior mediastinal/peritracheal lymph node. Additional satel lite lobe nodules in the right upper lobe similar in appearance to prior chest CT March 13, 2019. F indings can be followed up with dedicated chest CT. Partially visualized intracranial contents are unremarkable. Frontal sinuses and mastoid air cells ar e well aerated. Retention cyst right maxillary sinus. No visualized mandibular metastatic lesions. Parotid glands are normal. Normal submandibular glands. Salivary glands are normal in appearance. No evidence of supraglottic or glottic mass. Normal epiglot tis and vallecula. Normal piriform sinuses. No cervical lymphadenopathy. Stable nodules left thyroid. Moderate spondylitic changes cervical spine CT/CT neck w con* [id number] IMPRESSION: 1. Neoplasm of the right lung apex appears similar to the prior examinations. Adjacent satellite nodules. Findings can be followed up with dedicated CT. 2. Salivary glands are normal in appearance. 3. No cervical lymphadenopathy. 4. No visualized metastatic lesions in the mandible. 5. No supraglottic or glottic mass.
[2019-08-20 09:13] LABS: Blood Urea Nitrogen 27 mg/dL (8-23)
[2019-08-20] MEDS: iodixanol 320 mg/mL 100mL Btl IV (09:23)
== END 2019-08-20 23:59 | disposition home or self-care (01) ==
LOC: RAD 08:30
PROVIDERS: Absent Provider Radiology Radiation Oncology; PCP Electrodiagnostic Medicine; Visit Provider Specialist
DX: Z51.0 Encounter for antineoplastic radiation therapy (principal); C34.11 Malignant neoplasm of upper lobe, right bronchus or lung; C50.812 Malignant neoplasm of overlapping sites of left female breast; D50.8 Other iron deficiency anemias; Z17.0 Estrogen receptor positive status [ER+]; Z79.811 Long term (current) use of aromatase inhibitors; Z79.899 Other long term (current) drug therapy
CPT/HCPCS: 36415; 70491; 77336; 77386; 82565; 84520; 96523; 99214; Q9967

== ENCOUNTER 2019-09-20 06:51 | Outpatient (RCR) | payer MEDICARE, MEDICAID, SELFPAY ==
--- NOTE | 2019-08-28 | CT_ITS ---
Radiation Therapy Planning CT images; total exam DLP: 850.16 mGy-cm MTDD
--- NOTE | 2019-08-28 13:40 | ONCRAD EPV_ITS ---
Radiation Oncology Established Patient Visit Patient: Nate MR#: [id number] : 1945 Age: 73 Sex: Female Dictated by: Dr. Dionicio Quinn Date of Service: 08/28/2019 Referring Physician(s) : Wes Feldman M.D. Diagnosis: C34.11 - Malignant neoplasm of upper lobe, right bronchus or lung, Diagnosed 05/13/2019 (Active) Stage IIIA, T2a, N2, M0 D50.8 - Other iron deficiency anemias, Diagnosed 12/18/2018 (Active) C50.812 - Malignant neoplasm of overlapping sites of left female breast, Diagnosed 04/25/2018 (Active) Stage IIB, T2, N1, M0, G3 Radiotherapy to Date: Course: RT Lung, Treatment Site: RT [id number], Ref. 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 Her most recent CT of the neck (08/20/2019) revealed no evidence of a destructive mass or lesion involving the mandible to correspond with the known floor of mouth lesion. Again seen is the FDG avid right upper lobe mass measuring 3.5 x 1.3 cm which is similar in appearance to the prior radiographic studies. On follow-up today, the patient reports mild to moderate irritation on her right floor of mouth, no progressive shortness of breath, or bone pain. Current Medications: Acetaminophen, advair Diskus, anastrozole, anastrozole, atenolol-Chlorthalidone, cathflo Activase, cetirizine HCl, diphenhydrAMINE HCl, fluticasone Propionate, fabiano Root, levothyroxine Sodium, lomotil, lORazepam, metoclopramide HCl, montelukast Sodium, potassium Chloride ER, prochlorperazine Maleate, rivaroxaban, singulair, sodium Chloride, sulfaSALAzine, trastuzumab, turmeric, ventolin HFA, xarelto, xarelto. Allergies: Penicillin G Benzathine, Codeine Sulfate, Tetracycline HCl, prednisoLONE, egg and NSAIDS. Current Complaints / Review of Systems: Constitutional - Complains of mild fatigue. Denies lack of appetite, fever, night sweats and change in weight. Eyes - Denies blurred vision and double vision. ENMT - Complains of mouth dryness since chemo. Denies dysphagia, ear pain, problems with hearing, stomatitis, altered taste and tinnitus. Neck - Complains of decreased range of motion. Denies neck masses, neck pain and swelling of the neck. Integumentary - Denies rash. Breasts - Denies pain in the right breast and no left chest wall pain. Cardiovascular - Denies arrhythmias, chest pain and edema. Respiratory - Complains of cough which is a dry cough. Complains of chronic dyspnea. Denies wheezing. Gastrointestinal - Denies abdominal pain, constipation, diarrhea, heartburn / dyspepsia, melena / GI bleeding, nausea and vomiting. Genitourinary (F) - Complains of nocturia gets up about every 2 to 3 hours. Denies dysuria, frequency, urgency, vaginal discharge / bleeding and vaginal spotting. Musculoskeletal - Complains of joint pain generalized all of them related to arthritis. Denies bone pain and muscle weakness. Neurologic - Denies dizziness, abnormal gait and headaches. Endocrine - Complains of thyroid disease. Denies diabetes. Hematologic/Lymphatic - Denies tender or enlarged lymph nodes.. Vital Signs: Performed on 08/28/2019 8:44 AM BMI - 47.994 kg/m2 (high), Height - 62.00 in, Weight - 262.4 lbs, Temperature - 98.4 f, Pulse - 71, Respiration - 22, O2 Sat - 94 % (low), Pain - 0 and BP - 147/ 84 mm(hg)(high/). Physical Exam: General: Alert and oriented x 3. No acute distress. HEENT: Normocephalic, atraumatic. Extraocular Movements Intact: Pupils Equal, Round, Reactive to Light and Accommodation: Sclerae anicteric. Oral cavity examination reveals mucosal irregularity in the right mandibular anterior gingiva measuring approximately 1 x 0.5 cm. NECK: Supple without supraclavicular or jugular lymphadenopathy. LUNGS: Clear to auscultation bilaterally without rales, rhonchi or wheeze. HEART: Regular rate and rhythm, normal S1 and S2 without murmur, gallop or rub. EXTREMITIES: No peripheral edema is identified. Limited motor and sensory examination are grossly intact and symmetric bilaterally. NEUROLOGIC: Cranial nerves II ???XII are grossly intact. Performance Status: 1 - No physically strenuous activity, but ambulatory and able to carry out light or sedentary work (e.g. office work, light house work). (ECOG) Lab: None pending. Test performed on 03/11/2019 9:14 AM TIBC - 221 mcg/dl (low), Test performed on 04/22/2019 11:48 AM Ferritin - 802 ng/ml (high), Test performed on 05/13/2019 11:10 AM WBC - 12.8 10 3/ul (high), MCH - 27.5 pg (low), RDW - 16.8 % (high), Neutrophils - 9.2 10 3/ul (high), CO2 - 32 mmol/l (high), Creatinine - 1.1 mg/dl (high) and Glucose - 116 mg/dl (high). Pathology: Primary, c34.11 - malignant neoplasm of upper lobe, right bronchus or lung, Diagnosed 05/13/2019 (active) stage iiia, t2a, n2, m0, Primary, d50.8 - other iron deficiency anemias, Diagnosed 12/18/2018 (active) and Primary, c50.812 - malignant neoplasm of overlapping sites of left female breast, Diagnosed 04/25/2018 (active) stage iib, t2, n1, m0, g3. Imaging: See HPI Impression: The patient is a 73-year-old female with 2 primaries: Non-small cell lung carcinoma and a left breast cancer. She recently completed definitive radiotherapy the right lung to a total dose of 70 Gy in 35 fractions (completed 07/29/2019). Unfortunately, she developed an irritating lesion on the mucosal surfaces of her right anterior mandibular gingiva which was biopsied and proven to be metastatic non-small cell lung carcinoma. A recent CT of the neck (08/20/2019) revealed no evidence of bony erosion. The patient was offered palliative radiation therapy to the floor of mouth lesion and she will begin treatment planning today. Due to body habitus, location, proximity to critical structures neighboring the mandibular mass, and the dose escalation needed to provide meaningful local control, she will require IMRT to a total dose of 50 Gy in 20 fractions. Signed by: 08/28/2019 1:38:56 PM <<Signature on File>> CPT Code: CPT Code:
--- NOTE | 2019-09-03 17:31 | ONCRAD TMN_ITS ---
Radiation Oncology Weekly Treatment Management Patient: Deneen Mendoza MR#: [id number] : 1945> Age: 73> Sex: Female Dictated by: Dr. Dionicio Quinn Date of Service: 09/03/2019 Referring Physician(s) : Wes Feldman M.D. Diagnosis: C34.11 - Malignant neoplasm of upper lobe, right bronchus or lung, Diagnosed 05/13/2019 (Active) Stage IIIA, T2a, N2, M0 D50.8 - Other iron deficiency anemias, Diagnosed 12/18/2018 (Active) C50.812 - Malignant neoplasm of overlapping sites of left female breast, Diagnosed 04/25/2018 (Active) Stage IIB, T2, N1, M0, G3 Radiotherapy to date: Course: Mouth 50Gy 20FX, Treatment Site: Mouth 20FX, Ref. ID: [id number], Energy: 15X/6X, Dose/Fx (cGy): 250, #Fx: , Dose Correction (cGy): 0, Total Dose (cGy): 500, Start Date: 09/02/2019, Elapsed Days: 1 Interim History: The patient requests a refill of alprazolam to manage her anxiety associated with treatment. This was completed. She reports mild fatigue, and a healthy appetite. Current Medications: Acetaminophen, advair Diskus, anastrozole, anastrozole, atenolol-Chlorthalidone, cathflo Activase, cetirizine HCl, cholecalciferol, diphenhydrAMINE HCl, fluticasone Propionate, fabiano Root, levothyroxine Sodium, lomotil, lORazepam, metoclopramide HCl, montelukast Sodium, potassium Chloride ER, prochlorperazine Maleate, rivaroxaban, singulair, sodium Chloride, sulfaSALAzine, trastuzumab, turmeric, turmeric, ventolin HFA, xarelto, xarelto. Allergies: Penicillin G Benzathine, Codeine Sulfate, Tetracycline HCl, prednisoLONE, egg and NSAIDS. Current Complaints/Review of Systems: Constitutional - Complains of moderate fatigue. Denies lack of appetite, fever, night sweats and change in weight. ENMT - Complains of mild mouth dryness since chemo. Denies dysphagia, ear pain, stomatitis, altered taste and tinnitus. Neck - Denies neck pain. Respiratory - Complains of hiccoughs. Vital Signs: Performed on 09/03/2019 11:16 AM BMI - 47.994 kg/m2 (high), Height - 62.00 in, Weight - 262.4 lbs, Temperature - 98.5 f, Pulse - 62, Respiration - 20, O2 Sat - 95 % (low), Pain - 0 and BP - 130/ 75 mm(hg). Physical Exam: Appears stable, no skin erythema or desquamation. No oral mucositis. Performance Status: 1 - No physically strenuous activity, but ambulatory and able to carry out light or sedentary work (e.g. office work, light house work). (ECOG) Lab: None pending in Radiation Oncology. Test performed on 03/11/2019 9:14 AM TIBC - 221 mcg/dl (low), Test performed on 04/22/2019 11:48 AM Ferritin - 802 ng/ml (high), Test performed on 05/13/2019 11:10 AM WBC - 12.8 10 3/ul (high), MCH - 27.5 pg (low), RDW - 16.8 % (high), Neutrophils - 9.2 10 3/ul (high), CO2 - 32 mmol/l (high), Creatinine - 1.1 mg/dl (high) and Glucose - 116 mg/dl (high). Imaging: All radiation therapy related imaging (including but not limited to kV, MV, and CBCT generated images) was reviewed. Appropriate changes, if any, were made to assure accurate target localization. Impression/Plan: Tolerating treatment well with expected side effects. Continue treatment as planned. CPT: 77674 Signed by: Dr. Dionicio Quinn>09/03/2019 5:30:17 PM <<Signature on File>>
--- NOTE | 2019-09-10 13:20 | ONCRAD TMN_ITS ---
Mandible/floor of mouthRadiation Oncology Weekly Treatment Management Patient: Deneen Mendoza MR#: [id number] : 1945 Age: 73 Sex: Female Dictated by: Dr. Dionicio Quinn Date of Service: 09/10/2019 Referring Physician(s) : Wes Feldman M.D. Diagnosis: C34.11 - Malignant neoplasm of upper lobe, right bronchus or lung, Diagnosed 05/13/2019 (Active) Stage IIIA, T2a, N2, M0 D50.8 - Other iron deficiency anemias, Diagnosed 12/18/2018 (Active) C50.812 - Malignant neoplasm of overlapping sites of left female breast, Diagnosed 04/25/2018 (Active) Stage IIB, T2, N1, M0, G3 Radiotherapy to date: Course: Mouth 50Gy 20FX, Treatment Site: Mouth 20FX, Ref. ID: [id number], Energy: 15X/6X, Dose/Fx (cGy): 250, #Fx: , Dose Correction (cGy): 0, Total Dose (cGy): 1,750, Start Date: 09/02/2019, End Date: 09/10/2019, Elapsed Days: 8 Current History: The patient reports moderate fatigue, her appetite is good, she reports no jaw pain, and no painful swallowing. Current Medications: Acetaminophen, advair Diskus, anastrozole, anastrozole, atenolol-Chlorthalidone, cathflo Activase, cetirizine HCl, cholecalciferol, fluticasone Propionate, fabiano Root, levothyroxine Sodium, lomotil, metoclopramide HCl, montelukast Sodium, potassium Chloride ER, prochlorperazine Maleate, rivaroxaban, singulair, sulfaSALAzine, trastuzumab, turmeric, turmeric, ventolin HFA, xarelto, xarelto. Allergies: Penicillin G Benzathine, Codeine Sulfate, Tetracycline HCl, prednisoLONE, egg and NSAIDS. Current Complaints/Review of Systems: Constitutional - Complains of moderate fatigue. Denies lack of appetite, fever and night sweats. ENMT - Complains of mouth dryness but has had it since chemo. Denies dysphagia, ear pain, stomatitis, altered taste and tinnitus. Has no jaw pain. Neck - Denies neck pain. Integumentary - Has no redness to the neck. Respiratory - . Vital Signs: Performed on 09/10/2019 9:39 AM BMI - 48.25 kg/m2 (high), Height - 62.00 in, Weight - 263.8 lbs, Temperature - 98.0 f, Pulse - 61, Respiration - 15, O2 Sat - 94 % (low), Pain - 0 and BP - 131/ 76 mm(hg). Physical Exam: Oral cavity examination reveals mucosal irregularity along the right gingiva/floor of mouth. Performance Status: 1 - No physically strenuous activity, but ambulatory and able to carry out light or sedentary work (e.g. office work, light house work). (ECOG) Lab: None pending in Radiation Oncology. Test performed on 03/11/2019 9:14 AM TIBC - 221 mcg/dl (low), Test performed on 04/22/2019 11:48 AM Ferritin - 802 ng/ml (high), Test performed on 05/13/2019 11:10 AM WBC - 12.8 10 3/ul (high), MCH - 27.5 pg (low), RDW - 16.8 % (high), Neutrophils - 9.2 10 3/ul (high), CO2 - 32 mmol/l (high), Creatinine - 1.1 mg/dl (high) and Glucose - 116 mg/dl (high). Imaging: All radiation therapy related imaging (including but not limited to kV, MV, and CBCT generated images) was reviewed. Appropriate changes, if any, were made to assure accurate target localization. Impression/Plan: Tolerating treatment well with expected side effects. Continue treatment as planned. CPT: 64471 Signed by: Dr. Dionicio Quinn>09/10/2019 1:18:16 PM <<Signature on File>>
--- NOTE | 2019-09-16 11:41 | ONCRAD TMN_ITS ---
Radiation Oncology Weekly Treatment Management Patient: Deneen Mendoza MR#: [id number] : 1945> Age: 73> Sex: Female Dictated by: Dr. Dionicio Quinn Date of Service: 09/16/2019 Referring Physician(s) : Wes Feldman M.D. Diagnosis: C34.11 - Malignant neoplasm of upper lobe, right bronchus or lung, Diagnosed 05/13/2019 (Active) Stage IIIA, T2a, N2, M0 D50.8 - Other iron deficiency anemias, Diagnosed 12/18/2018 (Active) C50.812 - Malignant neoplasm of overlapping sites of left female breast, Diagnosed 04/25/2018 (Active) Stage IIB, T2, N1, M0, G3 Radiotherapy to date: Course: Mouth 50Gy 20FX, Treatment Site: Mouth 20FX, Ref. ID: [id number], Energy: 15X/6X, Dose/Fx (cGy): 250, #Fx: , Dose Correction (cGy): 0, Total Dose (cGy): 2,750, Start Date: 09/02/2019, Elapsed Days: 14 Current History: The patient is seen today as part of her regularly scheduled weekly on treatment visits. The patient shares that she has oral mouth sore adjacent to metal in her molar teeth. Current Medications: Acetaminophen, advair Diskus, anastrozole, anastrozole, atenolol-Chlorthalidone, cathflo Activase, cetirizine HCl, cholecalciferol, fluticasone Propionate, fabiano Root, levothyroxine Sodium, lomotil, metoclopramide HCl, montelukast Sodium, potassium Chloride ER, prochlorperazine Maleate, rivaroxaban, singulair, sulfaSALAzine, trastuzumab, turmeric, turmeric, ventolin HFA, xarelto, xarelto. Allergies: Penicillin G Benzathine, Codeine Sulfate, Tetracycline HCl, prednisoLONE, egg and NSAIDS. Current Complaints/Review of Systems: Constitutional - Complains of lack of appetite off and on. Complains of moderate fatigue. Complains of change in weight which she is down 2.6 lbs. since last seen on 09/10/19.. Denies fever and night sweats. ENMT - Complains of ear pain on the left side. Complains of stomatitis in which she has left lower tongue pain and makes it hard to swallow. Denies dysphagia, mouth dryness, altered taste and tinnitus. Neck - Denies neck pain. Integumentary - No redness to the area of treatment. Vital Signs: Performed on 09/16/2019 9:47 AM BMI - 47.774 kg/m2 (high), Height - 62.00 in, Weight - 261.2 lbs, Temperature - 98.4 f, Pulse - 64, Respiration - 22, O2 Sat - 94 % (low), Pain - 10 and BP - 160/ 55 mm(hg)(high/low). Physical Exam: The patient has oral mucositis on her tongue within the irradiated field. Performance Status: 1 - No physically strenuous activity, but ambulatory and able to carry out light or sedentary work (e.g. office work, light house work). (ECOG) Lab: None pending in Radiation Oncology. Test performed on 03/11/2019 9:14 AM TIBC - 221 mcg/dl (low), Test performed on 04/22/2019 11:48 AM Ferritin - 802 ng/ml (high), Test performed on 05/13/2019 11:10 AM WBC - 12.8 10 3/ul (high), MCH - 27.5 pg (low), RDW - 16.8 % (high), Neutrophils - 9.2 10 3/ul (high), CO2 - 32 mmol/l (high), Creatinine - 1.1 mg/dl (high) and Glucose - 116 mg/dl (high). Imaging: No new diagnostic imaging was performed since the last weekly treatment visit. All radiation therapy related imaging (including but not limited to kV, MV, and CBCT generated images) was reviewed. Appropriate changes, if any, were made to assure accurate target localization. 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 Her prognosis is poor with respect to overall survival. The patient has oral mucositis on her oral tongue adjacent to metal dental work within the radiated field. I will adjust the plan in the hopes of reducing dose to this area while boosting microscopic disease within the oral cavity. She declined pain medication and opted instead for 2% viscous lidocaine swish and spit. CPT: 87508 Signed by: Dr. Dionicio Quinn>09/16/2019 11:39:13 AM <<Signature on File>>
[2019-09-19 10:16] LABS: Albumin Level 3.9 g/dL (3.5-5.2); Anion Gap 14.8 (5-19); Blood Urea Nitrogen 30 mg/dL (8-23); Calcium 9.2 mg/dL (8.5-10.5); Carbon Dioxide 27 mmol/L (22-29); Chloride 99 mmol/L (98-107); Glucose 109 mg/dL (65-115); Phosphorus 4.2 mg/dL (2.5-4.5); Potassium 3.8 mmol/L (3.5-5.1); Sodium 137 mmol/L (136-145)
== END 2019-09-20 23:59 | disposition home or self-care (01) ==
LOC: ONCMED 06:51
PROVIDERS: PCP Electrodiagnostic Medicine; Visit Provider Radiology Radiation Oncology
DX: Z51.0 Encounter for antineoplastic radiation therapy (principal); C34.11 Malignant neoplasm of upper lobe, right bronchus or lung; C50.812 Malignant neoplasm of overlapping sites of left female breast; Z45.2 Encounter for adjustment and management of vascular access device; D50.8 Other iron deficiency anemias; K12.31 Oral mucositis (ulcerative) due to antineoplastic therapy; Y84.2 Radiological procedure and radiotherapy as the cause of abnormal reaction of the patient, or of later complication, without mention of misadventure at the time of the procedure; Y78.1 Therapeutic (nonsurgical) and rehabilitative radiological devices associated with adverse incidents; Z79.811 Long term (current) use of aromatase inhibitors; Z79.01 Long term (current) use of anticoagulants
CPT/HCPCS: 77300; 77301; 77334; 77336; 77338; 77386; 80069; 96523

== ENCOUNTER 2019-09-27 05:40 | Outpatient (RCR) | payer MEDICARE, MEDICAID, SELFPAY ==
--- NOTE | 2019-09-23 18:20 | ONCRAD TMN_ITS ---
Radiation Oncology Weekly Treatment Management Patient: Deneen Mendoza MR#: [id number] : 1945> Age: 73> Sex: Female Dictated by: Dr. Dionicio Quinn Date of Service: 09/23/2019 Referring Physician(s) : Wes Feldman M.D. Diagnosis: C34.11 - Malignant neoplasm of upper lobe, right bronchus or lung, Diagnosed 05/13/2019 (Active) Stage IIIA, T2a, N2, M0 D50.8 - Other iron deficiency anemias, Diagnosed 12/18/2018 (Active) C50.812 - Malignant neoplasm of overlapping sites of left female breast, Diagnosed 04/25/2018 (Active) Stage IIB, T2, N1, M0, G3 Radiotherapy to date: Course: Mouth 50Gy 20FX, Treatment Site: Mouth 9FX, Ref. ID: [id number], Energy: 15X/6X, Dose/Fx (cGy): 300, #Fx: / 9, Dose Correction (cGy): 0, Total Dose (cGy): 1,500, Start Date: 09/02/2019, Elapsed Days: 21 Reason for visit: The patient is being seen today as part of their regularly scheduled weekly on treatment visits to assess for acute toxicities of radiotherapy. Interim History: The patient reports oral irritation but she declines offers for a pain medication prescription. Current Medications: Acetaminophen, advair Diskus, anastrozole, anastrozole, atenolol-Chlorthalidone, cathflo Activase, cetirizine HCl, cholecalciferol, fluticasone Propionate, fabiano Root, levothyroxine Sodium, lidocaine Viscous HCl, lomotil, metoclopramide HCl, montelukast Sodium, potassium Chloride ER, prochlorperazine Maleate, rivaroxaban, singulair, sulfaSALAzine, trastuzumab, turmeric, turmeric, ventolin HFA, xarelto, xarelto. Allergies: Penicillin G Benzathine, Codeine Sulfate, Tetracycline HCl, prednisoLONE, egg and NSAIDS. Current Complaints/Review of Systems: Constitutional - Complains of change in weight in which she is down 2 lbs. since last OTV on 09/16/19. Denies lack of appetite. ENMT - Complains of dysphagia. Complains of ear pain on the left side. Complains of mouth dryness. Complains of stomatitis. Complains of altered taste. Neck - Denies neck pain. Integumentary - No redness to the area of treatment. Vital Signs: Performed on 09/23/2019 9:47 AM BMI - 47.409 kg/m2 (high), Height - 62.00 in, Weight - 259.2 lbs, Temperature - 98.8 f, Pulse - 56, Respiration - 22, O2 Sat - 96 %, Pain - 4 and BP - 110/ 70 mm(hg). Physical Exam: Oral mucositis is appreciated, but there is no evidence of oral thrush. She does have clinical exam findings consistent with renaldo on her teeth/gingiva, but this could be managed with improved dental hygiene. Performance Status: 1 - No physically strenuous activity, but ambulatory and able to carry out light or sedentary work (e.g. office work, light house work). (ECOG) Lab: None pending in Radiation Oncology. Test performed on 04/22/2019 11:48 AM Ferritin - 802 ng/ml (high), Test performed on 05/13/2019 11:10 AM WBC - 12.8 10 3/ul (high), MCH - 27.5 pg (low), RDW - 16.8 % (high), Neutrophils - 9.2 10 3/ul (high), CO2 - 32 mmol/l (high), Creatinine - 1.1 mg/dl (high) and Glucose - 116 mg/dl (high). Imaging: Radiation therapy imaging related to accurate target localization (i.e. KV, MV and CBCT) was reviewed. Appropriate changes, if any, were made to ensure treatment accuracy. Plan: The patient is tolerating therapy reasonably well. Radiotherapy will continue as planned. She was instructed to use oral mouth rinse 5x/day as a swish and spit (salt, baking soda, and water). CPT: 66916 Signed by: Dr. Dionicio Quinn>09/23/2019 6:19:15 PM <<Signature on File>>
== END 2019-09-27 23:59 | disposition home or self-care (01) ==
LOC: ONCMED 05:40
PROVIDERS: PCP Electrodiagnostic Medicine; Visit Provider Radiology Radiation Oncology
DX: Z51.0 Encounter for antineoplastic radiation therapy (principal); C79.89 Secondary malignant neoplasm of other specified sites; C34.11 Malignant neoplasm of upper lobe, right bronchus or lung; C50.812 Malignant neoplasm of overlapping sites of left female breast; K12.33 Oral mucositis (ulcerative) due to radiation; Y84.2 Radiological procedure and radiotherapy as the cause of abnormal reaction of the patient, or of later complication, without mention of misadventure at the time of the procedure; D50.8 Other iron deficiency anemias; Z79.899 Other long term (current) drug therapy
CPT/HCPCS: 77336; 77386

== ENCOUNTER 2019-10-03 08:06 | Outpatient (CLI) | payer MEDICARE, MEDICAID, SELFPAY ==
--- NOTE | 2019-10-03 08:10 | MM_ITS ---
WS: [id number] Right breast diagnostic digital mammogram, 10/03/2019 Clinical Data: HX OF BREAST CA Comparison: 04/05/2018, 06/11/2009. Findings: The right breast shows fat replacement. No secondary signs of carcinoma are seen. There are no spicul ated masses or clustered calcifications. An infusion catheter port is overlying the right axilla. MM/[place] [id number] Impression: 1. Negative right breast mammogram unchanged. 2. Recommend annual right breast mammogram. BIRADS: 1-Negative FOLLOW UP: 1 Year Follow-up The CAD finished cloth checker was used.
== END 2019-10-03 08:07 | disposition home or self-care (01) ==
LOC: RADSHAW 08:08
PROVIDERS: PCP Electrodiagnostic Medicine; Visit Provider Electrodiagnostic Medicine
DX: Z85.3 Personal history of malignant neoplasm of breast (principal)
CPT/HCPCS: 77065

== ENCOUNTER 2019-10-03 08:10 | Outpatient (RCR) | payer MEDICARE, MEDICAID, SELFPAY | END 2019-10-21 23:59 | disposition home or self-care (01) | LOC: ONCMED 08:10 | PROVIDERS: Absent Provider Radiology Radiation Oncology; PCP Electrodiagnostic Medicine; Visit Provider Nurse Practitioner | DX: Z45.2 Encounter for adjustment and management of vascular access device (principal) | CPT/HCPCS: 96523 ==

== ENCOUNTER 2019-11-07 05:37 | Outpatient (RCR) | payer MEDICARE, MEDICAID, SELFPAY ==
--- NOTE | 2019-10-31 10:52 | ONCRAD EPV_ITS ---
Radiation Oncology Established Patient Visit Patient: Reji Brothers [id number] : 1945> Age: 73> Sex: Female> Dictated by: Dr. Dionicio Quinn Date of Service: 10/31/2019 Referring Physician(s) : Wes Feldman M.D. 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 ID: [id number], Energy: 15X/6X, Dose/Fx (cGy): 300, #Fx: 9 / 9, Dose Correction (cGy): 0, Total Dose (cGy): 2,700, Start Date: 09/02/2019, End Date: 09/27/2019, Elapsed Days: 25 Treatment Site: RT [id number], Ref. ID: [id number], Energy: 6X, Dose/Fx (cGy): 200, #Fx: 35 / 35, Dose Correction (cGy): 0, Total Dose (cGy): 7,000, Start Date: 06/10/2019, End Date: 07/29/2019, Elapsed Days: 49, Current History: The patient is seen in follow-up approximately 1 month after completing palliative radiation therapy to the oral cavity secondary to metastasis. The patient completed 50 Gy in 20 fractions on 09/27/2019. The patient reports that her acute side effects from treatment are resolving, she has moderate fatigue, and her odynophagia has improved. She reports that she still has a few mouth sores left. Physical exam today reveals resolution of malignancy in the oral cavity. Current Medications: Acetaminophen, advair Diskus, anastrozole, anastrozole, atenolol-Chlorthalidone, cathflo Activase, cetirizine HCl, cholecalciferol, fluticasone Propionate, fabiano Root, levothyroxine Sodium, lidocaine Viscous HCl, lomotil, metoclopramide HCl, montelukast Sodium, potassium Chloride ER, prochlorperazine Maleate, rivaroxaban, singulair, sulfaSALAzine, trastuzumab, turmeric, turmeric, ventolin HFA, xarelto, xarelto. Allergies: Penicillin G Benzathine, Codeine Sulfate, Tetracycline HCl, prednisoLONE, egg and NSAIDS. Current Complaints / Review of Systems: Constitutional - Complains of moderate fatigue. Complains of change in weight down 3.4 lbs. since last seen on 09/23/19. Denies lack of appetite, fever and night sweats. Eyes - Denies blurred vision and double vision. ENMT - Complains of mouth dryness, stomatitis and altered taste. Denies dysphagia and ear pain. Neck - Denies neck pain and decreased range of motion. Integumentary - Denies rash. Breasts - Denies pain. Cardiovascular - Denies arrhythmias, chest pain and edema. Respiratory - Complains of cough due to sinsus drainage. Complains of chronic dyspnea. Denies wheezing. Gastrointestinal - Complains of intermittent constipation. Complains of mild heartburn / dyspepsia occasionally. Denies abdominal pain, diarrhea, melena / GI bleeding, nausea and vomiting. Genitourinary (F) - Complains of nocturia gets up about 3 times per night. Denies dysuria, frequency, urgency, vaginal discharge / bleeding and vaginal spotting. Musculoskeletal - Complains of joint pain left thumb and both hands, knees, and hips. Neurologic - Complains of intermittent dizziness. Denies abnormal gait and headaches. Endocrine - Complains of thyroid disease. Denies diabetes. Hematologic/Lymphatic - Denies tender or enlarged lymph nodes.. Vital Signs: Performed on 10/31/2019 10:13 AM BMI - 46.787 kg/m2 (high), Height - 62.00 in, Weight - 255.8 lbs, Temperature - 98.9 f, Pulse - 57, Respiration - 20, O2 Sat - 94 % (low), Pain - 0 and BP - 137/ 82 mm(hg). Physical Exam: General: Alert and oriented x 3. No acute distress. HEENT: Normocephalic, atraumatic. Extraocular Movements Intact: Pupils Equal, Round, Reactive to Light and Accommodation: Sclerae anicteric. Oral cavity is clear without lesions, masses or ulcers. NECK: Supple without supraclavicular or jugular lymphadenopathy. LUNGS: Clear to auscultation bilaterally without rales, rhonchi or wheeze. HEART: Regular rate and rhythm, normal S1 and S2 without murmur, gallop or rub. MUSCULOSKELETAL: No tenderness or percussion pain over the axial skeleton, scapulae or pelvis. ABDOMEN: Soft, nontender, nondistended without masses or organomegaly. Bowell sounds are present. EXTREMITIES: No peripheral edema is identified. Limited motor and sensory examination are grossly intact and symmetric bilaterally. NEUROLOGIC: Cranial nerves II ???XII are grossly intact. Normal sensation, strength 5/5 in all extremities, normal gait, no ataxia. Performance Status: 1 - No physically strenuous activity, but ambulatory and able to carry out light or sedentary work (e.g. office work, light house work). (ECOG) Lab: None pending. Test performed on 04/22/2019 11:48 AM Ferritin - 802 ng/ml (high), Test performed on 05/13/2019 11:10 AM WBC - 12.8 10 3/ul (high), MCH - 27.5 pg (low), RDW - 16.8 % (high), Neutrophils - 9.2 10 3/ul (high), CO2 - 32 mmol/l (high), Creatinine - 1.1 mg/dl (high) and Glucose - 116 mg/dl (high). Pathology: Primary, c34.11 - malignant neoplasm of upper lobe, right bronchus or lung, Diagnosed 05/13/2019 (active) stage iiia, t2a, n2, m0, Primary, d50.8 - other iron deficiency anemias, Diagnosed 12/18/2018 (active) and Primary, c50.812 - malignant neoplasm of overlapping sites of left female breast, Diagnosed 04/25/2018 (active) stage iib, t2, n1, m0, g3. 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 She completed palliative radiation therapy to a total dose of 50 Gy in 20 fractions on 09/27/2019 to the oral cavity. Her acute side effects from radiation therapy are resolving well, and physical exam today reveals no visual concern for malignancy in the oral cavity. The patient was recommended to continue following with Dr. Feldman. She may follow-up with us on an as-needed basis. Signed by: 10/31/2019 10:51:30 AM <<Signature on File>> Time spent with patient: CPT Code: CPT Code:
[2019-11-07 11:13] LABS: Basophils % 0.4 %; Eosinophils # 0.4 10^3/uL (0.0-0.8); Eosinophils % 3.4 %; Hematocrit 38.9 % (37.0-47.0); Hemoglobin 12.2 g/dL (11.5-15.3); Lymphocytes # 0.8 10^3/uL (0.8-4.8); Lymphocytes % 6.9 %; Mean Corpuscular HGB Conc 31.4 g/dL (30.0-36.0); Mean Corpuscular Hemoglobin 29.6 pg (28.0-34.0); Mean Corpuscular Volume 94.4 fL (81-99); Mean Platelet Volume 10.4 fL (7.4-10.4); Monocytes # 0.6 10^3/uL (0.2-0.9); Monocytes % 5.5 %; Neutrophils # 9.35 10^3/uL (1.8-7.7); Neutrophils % 83.4 %; Nucleated Red Blood Cells % 0 %; Platelet Count 329 10^3/cmm (130-400); Red Blood Count 4.12 10^6/uL (4.1-5.3); White Blood Count 11.2 10^3/uL (4.0-10.0)
[2019-11-07 11:37] LABS: Alanine Aminotransferase 7 U/L (0-33); Albumin Level 3.7 g/dL (3.5-5.2); Alkaline Phosphatase 76 IU/L (35-105); Aspartate Amino Transferase 11 U/L (0-32); Blood Urea Nitrogen 18 mg/dL (8-23); Calcium 9.5 mg/dL (8.5-10.5); Carbon Dioxide 28 mmol/L (22-29); Chloride 99 mmol/L (98-107); Globulin 3.1 g/dL (1.3-4.6); Glucose 110 mg/dL (65-115); Osmolality Calculated 289 mOsm/kg (285-295); Sodium 138 mmol/L (136-145); Thyroid Stimulating Hormone 3.93 uIU/mL (0.27-4.20); Total Bilirubin 0.4 mg/dL (0.15-1.2); Total Protein 6.8 g/dL (6.6-8.7)
[2019-11-07 11:51] LABS: Anion Gap 14.7 (5-19); Potassium 3.7 mmol/L (3.5-5.1)
--- NOTE | 2019-11-08 11:34 | ONC FU_ITS ---
Dr. Feldman Patient Follow-Up Note Patient: Deneen Mendoza Unit #: [id number]: 1945 Dicatated By: Wes Feldman M.D.Date of Visit:Nov 07, 2019 Onc Med Follow-up/Prog Note Chief Complaint: Breast cancer/lung cancer. 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 By clinical evaluation her disease appeared to be at least stage IIB (T2, N1, M0). Her PET/CT also showed FDG avid right apical pulmonary nodule, ultimately determined to be a primary non-small cell lung cancer, stage IIIA (T2a, N2, M0). She has had subsequent progression to stage MARQUIS (M1b). She had presented with a lump in the lateral aspect of the left breast, first noticed in early March. Bilateral diagnostic mammogram on 04/05/2018 showed a large spiculated mass in the upper outer left breast deep to the area of palpable concern. Measured 2.2 x 1.4 cm with associated surrounding architectural distortion and associated pleomorphic calcifications. Also noted was adjacent enlarged pathologic appearing lymph nodes/masses with pleomorphic calcifications measuring 1.7 x 1.7 cm an enlarged partially visualized lymph nodes in the left axilla with microcalcifications measuring 2.8 x 2.1 cm. Ultrasound of the left breast showed numerous hypoechoic irregular lesions at the 2:00 in 3 clock position suspicious for multifocal disease. Also noted were 2 additional hypoechoic irregular masses at the 2:00 position which were suspicious for additional foci of disease. An enlarged axillary lymph node measuring 1.1 cm also appeared suspicious for malignancy. On 04/25/2018 she underwent ultrasound-guided needle biopsies at 3 different sites in the left breast and ultrasound guided needle biopsy of a left axillary lymph node. Pathology of the biopsy at 2:00, 6 cm from the nipple, showed extensive infiltrating ductal carcinoma, grade 3 of 3. Biopsy at the 2:00 position 8 cm from the nipple and at the 3 clock position 5 cm from the nipple both also showed infiltrating ductal carcinoma. The breast prognostic profile showed ER positive at 62% and AZ negative at less than 1%. It was positive for overexpression of HER-2/vickie, 3+ by IHC, with amplification ratio by FISH of 2.1 with 7.3 HER-2 copies/cell. The Ki-67 was high at 41%. I had seen her initially on 05/21/2018. As her disease appeared to at least locally advanced, she had a staging PET/CT on 05/26/2018. It showed a 1.7 cm soft tissue lesion within the left breast with SUV 6.5. There were several FDG positive axillary lymph nodes, the most prominent being a 1.5 cm node with SUV 14.1. A solid nodule in the right lung apex measured 1.9 x 1.6 cm with SUV 17.7, felt to most likely represent metastatic disease, though primary lung carcinoma was noted to also be possible. Multiple other bilateral pulmonary nodules were either too small to characterize or of groundglass opacity with negligible FDG activity. Given those findings, she was recommended to begin neoadjuvant chemotherapy with TCH-P. Her medical history was also significant for having previously been evaluated by Dr. Tran for multiple pulmonary nodules which included a more dominant right upper lobe nodule measuring 2.9 x 1.7 cm. Bronchoscopy on 05/27/2013 was unremarkable except for a small polyp at the distal aspect of the posterior trachea. It was removed in entirety. Pathology showed no evidence of malignancy. Bronchial washings from the right upper lobe were also negative for malignancy. A follow-up chest CT on 04/29/2015 showed slight enlargement of an anterior segmental left upper lobe nodule measuring 7.3 mm. Multiple other upper lobe nodules bilaterally as well as right middle lobe and right lower lobe nodules appeared stable. She began cycle 1 of TCH-P on 06/12/2018. She had no acute toxicity with the chemotherapy. At approximately day 5 she began having diarrhea. She also had some nausea/vomiting. She required IV hydration on multiple occasions. She had a significant decline in her renal function. She became severely neutropenic, but that resolved uneventfully. She had a very prolonged recovery. She eventually was able to proceed with her 2nd cycle of chemotherapy on 07/17/2018. The Perjeta was omitted from the regimen beginning with that cycle. She tolerated much better, though she continued to have nausea and diarrhea, requiring frequent hydration. Her renal function are fully recovered, but it remained adequate with dehydration. She then proceeded with cycle 3 on 08/07/2018 and with cycle 4 on 08/27/2018. Restaging PET/CT on 09/22/2018 showed resolution of the left breast and axillary lesions. The right upper lobe lung nodule appeared stable at 1.6 cm, but with increased in FDG uptake, SUV 21.1. There were no other areas of abnormal uptake noted. With those findings, her case was reviewed at tumor board, and the decision was made to proceed with resection of the lung nodule first and to then address surgical management of the breast. She was referred to Dr. Cmap for the lung surgery. In the meantime, she continued treatment with single agent Herceptin. On 11/20/2018 she underwent left modified radical mastectomy. She tolerated the procedure well. Pathology on the breast showed fibrocystic changes and a 1 mm focus of atypical ductal hyperplasia. There was no malignancy identified. There was no involvement in 14 lymph nodes. Following surgery she continued single agent Herceptin at the 3-week dosing schedule. She completed her 9th cycle of treatment on 03/11/2019. A repeat chest CT on 03/18/2019 showed continued slow increase in the right upper lobe lung mass, at that point measuring 3.3 x 2.9 cm. The appearance was highly suspicious for neoplasm. There was no significant adenopathy noted. Multiolobar groundglass attenuation appeared stable. A large pancreatic head mass also appeared stable. With those findings she was referred back to Dr. Camp, but she also continue with her Herceptin infusions. On PET/CT there was uptake in the right upper lobe lung mass and in the right paratracheal lymph node. On 05/06/2019 she underwent bronchoscopy and mediastinoscopy. The bronchoscopy showed no endobronchial lesion. The mediastinoscopy showed prominent lymph nodes at station 4R. Biopsy showed metastatic carcinoma of the lung, favoring high-grade neuroendocrine carcinoma. The tumor was TTF-1 positive, and the neuroendocrine markers were strongly positive. Poorly differentiated adenocarcinoma with neuroendocrine features was also noted to be possible. Due to her marginal performance status and to the decline in her renal function, treatment for the lung cancer was limited to definitive radiation as a single modality. She completed treatment to the right lung/mediastinum on 07/29/2019, total dose 7000 cGy. Shortly after completing the radiation, she had presented with a mass in the area of the right mandibular torus. 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 Her neck CT on 08/20/2019 showed persistence of right upper lobe lung mass measuring 3.5 x 1.3 cm. There was no cervical lymphadenopathy noted. There were no visualized metastatic lesions in the mandible. With those findings, she underwent palliative radiation to the oral cavity. She completed treatment on 09/27/2019 to a total dose of 5000 cGy. She developed pretty sore mouth during the radiation, but she otherwise tolerated the treatment well. Her other medical illnesses include hypertension, COPD, GERD, hypothyroidism, and degenerative arthritis. She has a history of nephrolithiasis and she also has renal cysts. She has a history of pancreatitis with associated pancreatic cyst. She had yearly follow-up at [facility] for the cyst, which had been drained on multiple occasions, most recently in February 2017. She has a history of smoking 1 pack of cigarettes daily for more than 30 years. She quit smoking approximately 1991. She does not drink alcohol. INTERIM HISTORY: She is seen for a follow-up visit. She has been feeling pretty good generally. She says she is still a little tired, but she is able to do light work. ECOG score is 1. Her appetite is pretty good, though she still has altered taste buds. Her weight is stable. She does not have fever or night sweats. She still has 1 sore spot under her tongue, but her mouth otherwise has healed. She has no difficulty swallowing. She has some shortness of breath and she has nonproductive cough, but she says her breathing is about the same. She does not complain of chest pain. She has no GI or complaints. She is having joint pain, mainly in the knees and hips. She is also having problems with pain in her her left thumb. It also is having a tendency to lock up. She has just occasional headache. She has no focal neurologic symptoms. She is having difficulty sleeping. Medications: Anastrozole 1 Tablet (of 1 mg) Oral daily, Atenolol-Chlorthalidone 1 Tablet (of 50-25 mg) Oral daily, Cetirizine HCl 1 Tablet (of 10 mg) Oral daily, Cholecalciferol 1 (20 MCG ) Tablet Oral daily, Fluticasone Propionate 2 [place](s) Suspension Nasal daily, Levothyroxine Sodium 1 Tablet (of 125 mcg) Oral daily, Montelukast Sodium 1 Tablet (of 10 mg) Oral at bedtime, Ventolin HFA 1 (108 (90 base) mcg/act) Aerosol, solution Inhalation PRN, Xarelto 1 (20 mg) Tablet Oral daily Allergies: Codeine Sulfate, egg, NSAIDS, Penicillin G Benzathine, prednisoLONE, and Tetracycline HCl. Review of Systems: Constitutional - She is still feeling a little tired, but her energy is pretty good. She is able to do light work. Appetite is also pretty good, though she still has altered taste. She has no fever, night sweats, or hot flashes. ECOG score is 1, ENMT - She has sinus drainage. There is one spot under her tongue that is still sore. No sore throat or difficulty swallowing, Hematologic/Lymphatic - No abnormal bruising or bleeding, Respiratory - She has some shortness of breath, but her breathing is about the same. She has nonproductive cough. No pleuritic pain or hemoptysis, Cardiovascular - No angina pain. No palpitations, Gastrointestinal - No nausea or vomiting. No heartburn or acid reflux. No diarrhea or constipation. No blood in the stool or black stools, Genitourinary (F) - No dysuria or hematuria. No urinary frequency. No urgency or incontinence, Musculoskeletal - She has pain in her hips and knees. She is also been having pain in her left thumb, Integumentary - No skin rash, Neurologic - She has occasional headache. No dizziness. No numbness or tingling. No other focal neurologic symptoms, Psychiatric - No anxiety or depression. She is having difficulty sleeping at night. Vital Signs: Performed on Nov 07, 2019 10:04 Height - 62.00 in Weight - 255.4 lbs (LOW) BSA - 2.12 sq.m BMI - 46.71 (HIGH) Temperature - 99.1 F (HIGH) Pulse - 59 /min (LOW) Respiration - 26 /min BP - 183/78 mm(hg) (HIGH) O2 Sat - 96 % Pain - 0 Physical Examination: Constitutional - She looks pretty good generally, Eyes - Sclerae nonicteric. Conjunctivae clear, ENMT - There is a small ulceration in the right buccal mucosa. There are no other lesions noted in the oral cavity, Hematologic/Lymphatic - No cervical or clavicular adenopathy, Respiratory - Lungs are clear some decrease in air movement bilaterally, Cardiovascular - Heart rhythm is regular. There is no murmur, gallop, or rub noted, Breasts - There are no lesions noted in the left chest wall. There is no axillary adenopathy, Abdomen - Soft. Liver and spleen are not enlarged. There is no abdominal mass or ascites noted and there is no inguinal adenopathy, Extremities - No edema, Neurologic - No focal neurologic deficits noted. Impression: 1. 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 By clinical evaluation her disease appears to be at least stage IIB (T2, N1, M0). 2. Her PET/CT also showed FDG avid right apical pulmonary nodule, ultimately determined to be a primary non-small cell lung cancer, stage IIIA (T2a, N2, M0). She had subsequent progression to stage MARQUIS (M1b). 3. She is known to have a pancreatic cyst associated with previous pancreatitis. Her other medical illnesses include: 4. Hypertension. 5. COPD. 6. GERD. 7. Hypothyroidism. 8. Degenerative arthritis. 9. She has a history of nephrolithiasis and history of renal cysts. She began cycle 1 of neoadjuvant TCH-P on 06/12/2018. She had no acute toxicity with the initial infusions. She subsequently developed severe diarrhea, and she also had some nausea/vomiting. She required IV hydration on multiple occasions. During that time she did show significant decline in her renal function. She became severely neutropenic, but that resolved uneventfully. During subsequent follow-up she had gradual recovery, though her renal function still did not return to baseline. She eventually was able to continue with cycle 2 of chemotherapy on 07/17/2018. Beginning with that cycle, the Perjeta was omitted from the regimen. She was able to tolerate it with acceptable toxicity, though she continued to have nausea and diarrhea, and she required frequent IV hydration. She completed her 3rd cycle on 08/07/2018 and her 4th cycle on 08/27/2018. Her restaging PET/CT on 09/22/2018 showed complete resolution of left breast and left axillary lesions. The right upper lobe pulmonary nodule appeared stable in size at 1.6 cm, but with increased FDG activity, SUV 21.1. Given those findings, she was recommended to proceed first with resection of the lung nodule and to then address surgical management of the breast. She was seen Dr. Camp for the lung surgery. In the meantime, she had continued treatment with single agent Herceptin. At her follow-up visit on 11/05/2018 she appeared to have developed a new nodule in the left breast. There was concern that her disease was progressing locally. As such, she underwent left modified radical mastectomy on 11/20/2018. Pathology showed no residual tumor in the breast and no involvement in 14 axillary lymph nodes, consistent with complete pathologic response to the neoadjuvant therapy. She had no complications with the surgery, and she then continued single agent Herceptin at the 3-week dosing interval. As of her follow-up visit on 01/29/2019, she restarted adjuvant hormonal therapy with anastrozole 1 mg daily. Her repeat chest CT on 03/18/2019 showed further enlargement of the right upper lobe lung mass, consistent with slowly progressive malignancy. She was referred back to Dr. Camp. Her PET/CT showed uptake in the right upper lobe lung mass and in a right paratracheal lymph node. She underwent bronchoscopy and mediastinoscopy on 05/06/2019. The right paratracheal lymph node biopsy was positive for metastatic lung cancer, consistent with high-grade neuroendocrine carcinoma or possibly adenocarcinoma with neuroendocrine features. By clinical evaluation her disease was stage IIIA (T2a, N2, M0). Due to her marginal performance status and to the decline in her renal function, treatment for the lung cancer was limited to definitive radiation as a single modality. She completed treatment to the right lung/mediastinum on 07/29/2019, total dose 7000 cGy. Shortly after completing the radiation, she had presented with a mass in the area of the right mandibular torus. 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 By clinical evaluation, her disease appears to be localized, and she was treated with palliative radiation, completed on 09/27/2019 to a total dose of 5000 cGy. She developed pretty sore mouth during the radiation, but she otherwise tolerated the treatment well. Plan: She has now completed palliative radiation to a single site of metastatic disease in the right floor of mouth. During the radiation therapy to her lung and to the oral cavity she has been showing gradual improvement in her performance status. At this point she appears to be doing pretty well clinically, though she now has metastatic non-small cell lung cancer, and we discussed the fact that her disease is not curable and that her further treatment will be palliative. For further treatment planning, she will now be scheduled for restaging PET/CT, and I also will request a next generation sequencing study on the oral cavity biopsy. Signed By: Wes Feldman M.D. <<Signature on File>>
== END 2019-11-20 23:59 | disposition home or self-care (01) ==
LOC: ONCMED 05:37
PROVIDERS: PCP Electrodiagnostic Medicine; Visit Provider Internal Medicine Medical Oncology
DX: C34.11 Malignant neoplasm of upper lobe, right bronchus or lung (principal); C50.812 Malignant neoplasm of overlapping sites of left female breast; C7B.8 Other secondary neuroendocrine tumors; I10 Essential (primary) hypertension; K21.9 Gastro-esophageal reflux disease without esophagitis; J44.9 Chronic obstructive pulmonary disease, unspecified; E03.9 Hypothyroidism, unspecified; M19.90 Unspecified osteoarthritis, unspecified site; Z87.442 Personal history of urinary calculi; Z87.448 Personal history of other diseases of urinary system; Z90.12 Acquired absence of left breast and nipple; Z92.3 Personal history of irradiation
CPT/HCPCS: 36415; 80053; 84443; 85025; 96523; 99214

== ENCOUNTER 2019-12-12 05:40 | Outpatient (RCR) | payer MEDICARE, MEDICAID, SELFPAY ==
[2019-12-11 11:08] LABS: Basophils # 0.1 10^3/uL (0.0-0.1); Basophils % 0.5 %; Eosinophils # 0.4 10^3/uL (0.0-0.8); Hematocrit 38.9 % (37.0-47.0); Hemoglobin 12.2 g/dL (11.5-15.3); Lymphocytes # 0.9 10^3/uL (0.8-4.8); Mean Corpuscular HGB Conc 31.4 g/dL (30.0-36.0); Mean Corpuscular Hemoglobin 29.4 pg (28.0-34.0); Mean Corpuscular Volume 93.7 fL (81-99); Mean Platelet Volume 10.6 fL (7.4-10.4); Monocytes # 0.6 10^3/uL (0.2-0.9); Monocytes % 5.5 %; Neutrophils # 7.98 10^3/uL (1.8-7.7); Neutrophils % 80.6 %; Nucleated Red Blood Cells % 0 %; Platelet Count 332 10^3/cmm (130-400); Red Blood Count 4.15 10^6/uL (4.1-5.3); Red Cell Distribution Width 13.4 % (12.1-15.1); White Blood Count 9.9 10^3/uL (4.0-10.0)
[2019-12-11 11:40] LABS: Alanine Aminotransferase 8 U/L (0-33); Albumin Level 3.9 g/dL (3.5-5.2); Alkaline Phosphatase 77 IU/L (35-105); Aspartate Amino Transferase 11 U/L (0-32); Blood Urea Nitrogen 24 mg/dL (8-23); Calcium 9.2 mg/dL (8.5-10.5); Carbon Dioxide 29 mmol/L (22-29); Chloride 101 mmol/L (98-107); Globulin 2.7 g/dL (1.3-4.6); Glucose 137 mg/dL (65-115); Osmolality Calculated 300 mOsm/kg (285-295); Sodium 142 mmol/L (136-145); Thyroid Stimulating Hormone 0.46 uIU/mL (0.27-4.20); Total Bilirubin 0.5 mg/dL (0.15-1.2); Total Protein 6.6 g/dL (6.6-8.7)
[2019-12-11 11:49] LABS: Anion Gap 15.6 (5-19); Potassium 3.6 mmol/L (3.5-5.1)
--- NOTE | 2019-12-14 16:48 | ONC FU_ITS ---
[facility] Patient Note Patient: Deneen Mendoza Unit #: [id number]: [id number] Dictated By: Eulalio CrookDate of Visit: Dec 12, 2019 Onc MED Follow-Up/Prog Note Chief Complaint: Breast cancer/lung cancer. 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 By clinical evaluation her disease appeared to be at least stage IIB (T2, N1, M0). Her PET/CT also showed FDG avid right apical pulmonary nodule, ultimately determined to be a primary non-small cell lung cancer, stage IIIA (T2a, N2, M0). She has had subsequent progression to stage MARQUIS (M1b). She had presented with a lump in the lateral aspect of the left breast, first noticed in early March. Bilateral diagnostic mammogram on 04/05/2018 showed a large spiculated mass in the upper outer left breast deep to the area of palpable concern. Measured 2.2 x 1.4 cm with associated surrounding architectural distortion and associated pleomorphic calcifications. Also noted was adjacent enlarged pathologic appearing lymph nodes/masses with pleomorphic calcifications measuring 1.7 x 1.7 cm an enlarged partially visualized lymph nodes in the left axilla with microcalcifications measuring 2.8 x 2.1 cm. Ultrasound of the left breast showed numerous hypoechoic irregular lesions at the 2:00 in 3 clock position suspicious for multifocal disease. Also noted were 2 additional hypoechoic irregular masses at the 2:00 position which were suspicious for additional foci of disease. An enlarged axillary lymph node measuring 1.1 cm also appeared suspicious for malignancy. On 04/25/2018 she underwent ultrasound-guided needle biopsies at 3 different sites in the left breast and ultrasound guided needle biopsy of a left axillary lymph node. Pathology of the biopsy at 2:00, 6 cm from the nipple, showed extensive infiltrating ductal carcinoma, grade 3 of 3. Biopsy at the 2:00 position 8 cm from the nipple and at the 3 clock position 5 cm from the nipple both also showed infiltrating ductal carcinoma. The breast prognostic profile showed ER positive at 62% and LA negative at less than 1%. It was positive for overexpression of HER-2/vickie, 3+ by IHC, with amplification ratio by FISH of 2.1 with 7.3 HER-2 copies/cell. The Ki-67 was high at 41%. Dr Feldman had seen her initially on 05/21/2018. As her disease appeared to at least locally advanced, she had a staging PET/CT on 05/26/2018. It showed a 1.7 cm soft tissue lesion within the left breast with SUV 6.5. There were several FDG positive axillary lymph nodes, the most prominent being a 1.5 cm node with SUV 14.1. A solid nodule in the right lung apex measured 1.9 x 1.6 cm with SUV 17.7, felt to most likely represent metastatic disease, though primary lung carcinoma was noted to also be possible. Multiple other bilateral pulmonary nodules were either too small to characterize or of groundglass opacity with negligible FDG activity. Given those findings, she was recommended to begin neoadjuvant chemotherapy with TCH-P. Her medical history was also significant for having previously been evaluated by Dr. Tran for multiple pulmonary nodules which included a more dominant right upper lobe nodule measuring 2.9 x 1.7 cm. Bronchoscopy on 05/27/2013 was unremarkable except for a small polyp at the distal aspect of the posterior trachea. It was removed in entirety. Pathology showed no evidence of malignancy. Bronchial washings from the right upper lobe were also negative for malignancy. A follow-up chest CT on 04/29/2015 showed slight enlargement of an anterior segmental left upper lobe nodule measuring 7.3 mm. Multiple other upper lobe nodules bilaterally as well as right middle lobe and right lower lobe nodules appeared stable. She began cycle 1 of TCH-P on 06/12/2018. She had no acute toxicity with the chemotherapy. At approximately day 5 she began having diarrhea. She also had some nausea/vomiting. She required IV hydration on multiple occasions. She had a significant decline in her renal function. She became severely neutropenic, but that resolved uneventfully. She had a very prolonged recovery. She eventually was able to proceed with her 2nd cycle of chemotherapy on 07/17/2018. The Perjeta was omitted from the regimen beginning with that cycle. She tolerated much better, though she continued to have nausea and diarrhea, requiring frequent hydration. Her renal function are fully recovered, but it remained adequate with dehydration. She then proceeded with cycle 3 on 08/07/2018 and with cycle 4 on 08/27/2018. Restaging PET/CT on 09/22/2018 showed resolution of the left breast and axillary lesions. The right upper lobe lung nodule appeared stable at 1.6 cm, but with increased in FDG uptake, SUV 21.1. There were no other areas of abnormal uptake noted. With those findings, her case was reviewed at tumor board, and the decision was made to proceed with resection of the lung nodule first and to then address surgical management of the breast. She was referred to Dr. Camp for the lung surgery. In the meantime, she continued treatment with single agent Herceptin. On 11/20/2018 she underwent left modified radical mastectomy. She tolerated the procedure well. Pathology on the breast showed fibrocystic changes and a 1 mm focus of atypical ductal hyperplasia. There was no malignancy identified. There was no involvement in 14 lymph nodes. Following surgery she continued single agent Herceptin at the 3-week dosing schedule. She completed her 9th cycle of treatment on 03/11/2019. A repeat chest CT on 03/18/2019 showed continued slow increase in the right upper lobe lung mass, at that point measuring 3.3 x 2.9 cm. The appearance was highly suspicious for neoplasm. There was no significant adenopathy noted. Multiolobar groundglass attenuation appeared stable. A large pancreatic head mass also appeared stable. With those findings she was referred back to Dr. Camp, but she also continue with her Herceptin infusions. On PET/CT there was uptake in the right upper lobe lung mass and in the right paratracheal lymph node. On 05/06/2019 she underwent bronchoscopy and mediastinoscopy. The bronchoscopy showed no endobronchial lesion. The mediastinoscopy showed prominent lymph nodes at station 4R. Biopsy showed metastatic carcinoma of the lung, favoring high-grade neuroendocrine carcinoma. The tumor was TTF-1 positive, and the neuroendocrine markers were strongly positive. Poorly differentiated adenocarcinoma with neuroendocrine features was also noted to be possible. Due to her marginal performance status and to the decline in her renal function, treatment for the lung cancer was limited to definitive radiation as a single modality. She completed treatment to the right lung/mediastinum on 07/29/2019, total dose 7000 cGy. Shortly after completing the radiation, she had presented with a mass in the area of the right mandibular torus. 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 Her neck CT on 08/20/2019 showed persistence of right upper lobe lung mass measuring 3.5 x 1.3 cm. There was no cervical lymphadenopathy noted. There were no visualized metastatic lesions in the mandible. With those findings, she underwent palliative radiation to the oral cavity. She completed treatment on 09/27/2019 to a total dose of 5000 cGy. She developed pretty sore mouth during the radiation, but she otherwise tolerated the treatment well. She has completed palliative radiation to a single site of metastatic disease in the right floor of mouth. During the radiation therapy to her lung and to the oral cavity she has been showing gradual improvement in her performance status. At this point she appears to be doing pretty well clinically, though she now has metastatic non-small cell lung cancer, and we discussed the fact that her disease is not curable and that her further treatment will be palliative. Her other medical illnesses include hypertension, COPD, GERD, hypothyroidism, and degenerative arthritis. She has a history of nephrolithiasis and she also has renal cysts. She has a history of pancreatitis with associated pancreatic cyst. She had yearly follow-up at [facility] for the cyst, which had been drained on multiple occasions, most recently in February 2017. She has a history of smoking 1 pack of cigarettes daily for more than 30 years. She quit smoking approximately 1991. She does not drink alcohol. INTERIM HISTORY: Ms. Mendoza did have restaging PET imaging on 11/30/2019. He reported improvement in the right upper lobe mass with measure main 3.5 x 2.2 cm with SUV of 6.1 which was down from 3.5 x 2.9 cm with an SUV of 28.9. The previously right seen paratracheal node was subcentimeter in size and FDG negative. Other nodes in the right and upper lobes were unchanged and without significant FDG uptake. There has been development of new abnormal activity in a 1.4 cm right adrenal nodule with an SUV of 8.4 consistent with new metastatic disease. Additionally there was a new FDG positive subcutaneous solids soft tissue nodule overlying the anterior right lower quadrant of the abdomen measuring 1.9 cm with an SUV of 18.6, suspicious for malignant implant. A similar subcentimeter lesion was noted in the subcutaneous fat over the right gluteal muscles. Her next gene sequencing assay is pending at this time. She has been offered further treatment with immunotherapy. She is here today to begin her first dose. She states she is ready to try the new treatment however she has been waking up with nausea pretty much every morning. She states that if she gets up and tries deviating it gets worse but she will take a nausea medication that does seem to settle down for time being. She has had no reports of heartburn. She denies any headaches or vision changes. She states that when she does take the nausea meds they do seem to help some but she is still waking up with the nausea for the last 2 weeks. She also states that she has been having some soreness in the right side her inside jaw. She states that it has been irritated somewhat since radiation therapy but no actual sores. She states it just feels rough. However it is tender and burning sensation. She states is just uncomfortable. She denies any fever or chills. She denies any diarrhea or constipation at present. She has had no new lower extremity edema. She denies any peripheral neuropathy. Her ECOG is 2. Past Medical History: Chronic obstructive pulmonary disease Chronic pancreatitis with pancreatic cyst Gastroesophageal reflux disease Hypertension Hypothyroidism Lung nodules Nephrolithiasis Past Surgical History: Caesarean section Carpal tunnel release on the left Left uretroscopy with stent placement Lung biopsy Pancreatic cyst drainage 8 years ago, in 2015, and in February 2017. Tonsillectomy Cataracts in 2019 Left mastectomy in 2019 Port placement in 2019 - dr oviedo-left ij Allergies: Codeine Sulfate, egg, NSAIDS, Penicillin G Benzathine, prednisoLONE, and Tetracycline HCl. Medications: ALPRAZolam 1 Tablet (of 0.25 mg) Oral at bedtime Anastrozole 1 Tablet (of 1 mg) Oral daily Atenolol-Chlorthalidone 1 Tablet (of 50-25 mg) Oral daily Cetirizine HCl 1 Tablet (of 10 mg) Oral daily Cholecalciferol 1 (20 MCG ) Tablet Oral daily Fluticasone Propionate 2 King(s) Suspension Nasal daily Levothyroxine Sodium 1 Tablet (of 125 mcg) Oral daily Montelukast Sodium 1 Tablet (of 10 mg) Oral at bedtime Ventolin HFA 1 (108 (90 base) mcg/act) Aerosol, solution Inhalation PRN Xarelto 1 (20 mg) Tablet Oral daily Family History: Family history is unknown, as the patient was adopted. Social History: Ms. Mendoza is and she is retired. Ms. Mendoza quit smoking 27 years ago but had smoked 0.5 packs/day for 35 years. She has no history of drinking. She has a history of smoking 1 pack of cigarettes daily for 34 years. She quit smoking approximately 1991. She does not drink alcohol. Review Of Symptoms: Constitutional Denies fevers, chills, night sweats, excessive fatigue or weight loss. waking up with nausea. Eyes Denies significant visual changes. No diplopia. No amaurosis. ENMT She states she has tenderness/soreness/irritation on the inside of her jaw on the opposite side of her radiation therapy was. She states has been there for several months but is does not seem to be healing. She states she cannot feel actual lesions but feels its roughness and it is graphite pan drier tender. She has tried baking soda salt water rinses. Endocrine No diabetes, thyroid disease or hormone replacement. Denies hot flashes or night sweats. Hematologic/Lymphatic Denies easy bruising or bleeding. The patient denies any tender or palpable lymph nodes. Respiratory Shortness of breath persistent, but no worse than normal . Cardiovascular Denies anginal chest pain, palpitations or orthopnea. Gastrointestinal Denies diarrhea, GI bleeding, or constipation. Denies change in bowel habits and/or stool color, no heartburn or early satiety. Waking up with nausea and has had dry heaves off and on. Genitourinary (F) No hematuria, hesitancy, incontinence, vaginal bleeding, discharge or other problems with urination. Musculoskeletal Denies joint pain, swelling or redness. No decreased range of motion. Integumentary Denies chronic rashes, inflammation, ulcerations or skin changes. Neurologic Denies headache, blurred vision, and no areas of focal weakness or numbness. Normal gait. No sensory problems. Psychiatric Denies insomnia, depression, corby or mood swings. Vital Signs: Performed on Dec 12, 2019 13:04 Height - 62.00 in Weight - 257.4 lbs (HIGH) BSA - 2.13 sq.m BMI - 47.08 (HIGH) Temperature - 99.3 F (HIGH) Pulse - 66 /min Respiration - 26 /min BP - 135/57 mm(hg) O2 Sat - 94 % (LOW) Pain - 0,2 - Ambulatory/capable of all self-care, unable to perform any work activities. Up and about more than 50% of waking hours. (ECOG) Physical Examination: Constitutional Alert, oriented, no acute distress. Skin pink, warm and dry. Head Normocephalic; atraumatic. Eyes Conjunctivae and sclerae are clear and without icterus. Pupils are reactive and equal. ENMT No oral exudates, ulcers, masses, thrush or mucositis. Oropharynx clear. Tongue normal. Slight increased redness on Left side inside jaw area but no lesions or abrasions. Neck Supple without masses or thyromegaly. No jugular venous distension. Hematologic/Lymphatic No petechiae or purpura. No tender or palpable lymph nodes in the cervical or supraclavicular areas. Respiratory Lungs are clear to auscultation without rhonchi or wheezing. Cardiovascular Regular rate and rhythm of heart without murmurs,clicks, gallops or rubs. Chest Right chest wall venous access device is unremarkable. Abdomen Non-tender, non-distended, no masses, ascites. No guarding or rebound tenderness. No pulsatile masses. Back/Spine Non-tender to palpation. Extremities No visible deformities, no cyanosis, clubbing or edema. Musculoskeletal No tenderness or swelling, normal range of motion without obvious weakness. Integumentary No rashes or lesions. Neurologic No sensory or motor deficits, normal cerebellar function, normal-slow gait. Psychiatric Alert and oriented times three. Coherent speech. Verbalizes understanding of our discussions today. Laboratory:Test performed on Dec 11, 2019 10:50 Sodium 142 mmol/L TSH 0.46 uIU/mL Potassium 3.6 mmol/L Chloride 101 mmol/L CO2 29 mmol/L Anion Gap 15.6 BUN 24 mg/dL Creatinine 1.2 mg/dL Cr Clearance (Est) 74.0800 mL/min Glucose 137 mg/dL Osmolality - Calculated 300 mOsm/kg Calcium 9.2 mg/dL Protein, Total 6.6 g/dL Albumin 3.9 g/dL Globulin 2.7 g/dL Bilirubin, Total 0.5 mg/dL ALT (SGPT) 8 U/L AST (SGOT) 11 U/L Alkaline Phosphatase 77 IU/L WBC 9.9 10 3/uL RBC 4.15 10 6/uL HGB 12.2 g/dL HCT 38.9 % MCV 93.7 fL MCH 29.4 pg MCHC 31.4 g/dL RDW 13.4 % Platelet Count 332 10 3/cmm MPV 10.6 fL Neutrophils 7.98 10 3/uL Lymphocytes 0.9 10 3/uL Monocytes 0.6 10 3/uL Eosinophils 0.4 10 3/uL Basophils 0.1 10 3/uL Neutrophil % 80.6 % Lymphocyte % 9.0 % Monocyte % 5.5 % Eosinophil % 4.0 % Basophils % 0.5 % NRBC % 0 % Impression: 1. Patient with multifocal infiltrating ductal carcinoma of the left breast, grade 3, ER positive/LA negative and HER-2/vickie positive. By clinical evaluation her disease appears to be at least stage IIB (T2, N1, M0). 2. Her PET/CT also showed FDG avid right apical pulmonary nodule, ultimately determined to be a primary non-small cell lung cancer, stage IIIA (T2a, N2, M0). She had subsequent progression to stage MARQUIS (M1b). 3. She is known to have a pancreatic cyst associated with previous pancreatitis. Her other medical illnesses include: 4. Hypertension. 5. COPD. 6. GERD. 7. Hypothyroidism. 8. Degenerative arthritis. 9. She has a history of nephrolithiasis and history of renal cysts. She began cycle 1 of neoadjuvant TCH-P on 06/12/2018. She had no acute toxicity with the initial infusions. She subsequently developed severe diarrhea, and she also had some nausea/vomiting. She required IV hydration on multiple occasions. During that time she did show significant decline in her renal function. She became severely neutropenic, but that resolved uneventfully. During subsequent follow-up she had gradual recovery, though her renal function still did not return to baseline. She eventually was able to continue with cycle 2 of chemotherapy on 07/17/2018. Beginning with that cycle, the Perjeta was omitted from the regimen. She was able to tolerate it with acceptable toxicity, though she continued to have nausea and diarrhea, and she required frequent IV hydration. She completed her 3rd cycle on 08/07/2018 and her 4th cycle on 08/27/2018. Her restaging PET/CT on 09/22/2018 showed complete resolution of left breast and left axillary lesions. The right upper lobe pulmonary nodule appeared stable in size at 1.6 cm, but with increased FDG activity, SUV 21.1. Given those findings, she was recommended to proceed first with resection of the lung nodule and to then address surgical management of the breast. She was seen Dr. Camp for the lung surgery. In the meantime, she had continued treatment with single agent Herceptin. At her follow-up visit on 11/05/2018 she appeared to have developed a new nodule in the left breast. There was concern that her disease was progressing locally. As such, she underwent left modified radical mastectomy on 11/20/2018. Pathology showed no residual tumor in the breast and no involvement in 14 axillary lymph nodes, consistent with complete pathologic response to the neoadjuvant therapy. She had no complications with the surgery, and she then continued single agent Herceptin at the 3-week dosing interval. As of her follow-up visit on 01/29/2019, she restarted adjuvant hormonal therapy with anastrozole 1 mg daily. Her repeat chest CT on 03/18/2019 showed further enlargement of the right upper lobe lung mass, consistent with slowly progressive malignancy. She was referred back to Dr. Camp. Her PET/CT showed uptake in the right upper lobe lung mass and in a right paratracheal lymph node. She underwent bronchoscopy and mediastinoscopy on 05/06/2019. The right paratracheal lymph node biopsy was positive for metastatic lung cancer, consistent with high-grade neuroendocrine carcinoma or possibly adenocarcinoma with neuroendocrine features. By clinical evaluation her disease was stage IIIA (T2a, N2, M0). Due to her marginal performance status and to the decline in her renal function, treatment for the lung cancer was limited to definitive radiation as a single modality. She completed treatment to the right lung/mediastinum on 07/29/2019, total dose 7000 cGy. Shortly after completing the radiation, she had presented with a mass in the area of the right mandibular torus. 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 By clinical evaluation, her disease appears to be localized, and she was treated with palliative radiation, completed on 09/27/2019 to a total dose of 5000 cGy. She developed pretty sore mouth during the radiation, but she otherwise tolerated the treatment well. She did complete stagingPET imaging on 11/30/2019. He reported improvement in the right upper lobe mass with measure main 3.5 x 2.2 cm with SUV of 6.1 which was down from 3.5 x 2.9 cm with an SUV of 28.9. The previously right seen paratracheal node was subcentimeter in size and FDG negative. Other nodes in the right and upper lobes were unchanged and without significant FDG uptake. There has been development of new abnormal activity in a 1.4 cm right adrenal nodule with an SUV of 8.4 consistent with new metastatic disease. Additionally there was a new FDG positive subcutaneous solids soft tissue nodule overlying the anterior right lower quadrant of the abdomen measuring 1.9 cm with an SUV of 18.6, suspicious for malignant implant. A similar subcentimeter lesion was noted in the subcutaneous fat over the right gluteal muscles. Her next gene sequencing assay is pending at this time. She has been offered further treatment with immunotherapy. She is here today to begin her first dose. She has now completed palliative radiation to a single site of metastatic disease in the right floor of mouth. During the radiation therapy to her lung and to the oral cavity she has been showing gradual improvement in her performance status. At this point she appears to be doing pretty well clinically, though she now has metastatic non-small cell lung cancer, and we discussed the fact that her disease is not curable and that her further treatment will be palliative. She will pursue treatment with immunotherapy. The next generation sequencing studies are pending. Plan: 1. Proceed with cycle 1 day 1 pembrolizumab. 2. Antiemetics and supportive care as needed. 3. Labs from December 11, 2019 were reviewed in detail and discussed with Ms. Mendoza and a copy was given to her. WBC is 9.9, hemoglobin 12.2 platelets 3 and 32,000 ANC is 8000. Potassium 3.6, random glucose 136. Creatinine is improved at 1.2 and her LFTs are normal. Her TSH is 0.46. 4. I have also requested a CT of the brain with and without contrast. She cannot tolerate an MRI study due to claustrophobia. She states she has NOT tolerated the MRI well in the past, even with antianxiety medicine beforehand. 5. We will plan to follow-up visit in 3 weeks with CBC CMP TSH. We will certainly have a CT of the head by then. 6. and Mrs. Mendoza were encouraged to contact us in the interim should questions or problems arise. 7. Specific side effects of immunotherapy discussed included but not limited to: ??? pneumonitis: new or worsening cough; chest pain; and shortness of breath. ??? Colitis: diarrhea or more bowel movements than usual; blood in stools or dark, tarry, sticky stools; and severe stomach area (abdomen) pain or tenderness. ??? hepatitis: jaundice; severe nausea or vomiting; pain on the right side of the abdomen; drowsiness; dark urine; bleeding or bruise more easily than normal. ??? nephritis and kidney failure: including decrease in the amount of urine; hematuria; lower extremity edema; and loss of appetite. ??? thyroid and pituitary changes that may include: headaches that will not go away or unusual headaches; extreme tiredness, weight gain or weight loss; changes in mood or behavior, such as decreased sex drive, irritability, or forgetfulness; dizziness or fainting; hair loss; feeling cold; constipation; and voice gets deeper. ???rash; changes in eyesight; severe or persistent muscle or joint pains; and severe muscle weakness. Signed By: Eulalio Crook-, AOCNP Wes Feldman MD <<Signature on File>>
== END 2019-12-21 23:59 | disposition home or self-care (01) ==
LOC: ONCMED 05:40
PROVIDERS: Internal Medicine Medical Oncology; PCP Electrodiagnostic Medicine; Visit Provider Nurse Practitioner
DX: Z51.12 Encounter for antineoplastic immunotherapy (principal); C34.11 Malignant neoplasm of upper lobe, right bronchus or lung; C50.812 Malignant neoplasm of overlapping sites of left female breast; C77.1 Secondary and unspecified malignant neoplasm of intrathoracic lymph nodes; C79.89 Secondary malignant neoplasm of other specified sites; Z17.0 Estrogen receptor positive status [ER+]; I10 Essential (primary) hypertension; J44.9 Chronic obstructive pulmonary disease, unspecified; K21.9 Gastro-esophageal reflux disease without esophagitis; E03.9 Hypothyroidism, unspecified; M19.90 Unspecified osteoarthritis, unspecified site; Z87.442 Personal history of urinary calculi; Z90.12 Acquired absence of left breast and nipple; Z92.3 Personal history of irradiation
CPT/HCPCS: 36415; 80053; 84443; 85025; 96413; 96523; 99214; J7050; J9271

== ENCOUNTER 2019-12-24 08:40 | Outpatient (CLI) | payer MEDICARE, MEDICAID, SELFPAY ==
--- NOTE | 2019-12-24 08:47 | CT_ITS ---
WS: [id number] CT scan of the head, with and without IV contrast, 12/24/2019 Clinical Data: INTRACTABLE NAUSEA, VOMITING, LUNG CA, BREAST CA Comparison: None. DLP: 1719.[address] scans at [facility] use at least one of these dose optimization techniques: automat ed exposure control; mA and/or kV adjustment per patient size (includes targeted exams where dose is matched to clinical indication); or iterative reconstruction. Findings: The ventricular system is normal without shift. No recent infarct or hemorrhage is seen. No aneurysms are seen. There are no abnormal intracerebral masses. The cerebellum and brainstem are not remarkabl e. Bony windows of the skull and skull base show no fractures or erosions. The mastoid air cells, cad intern al auditory canals, sella turcica, intraorbital contents, and paranasal sinuses are unremarkable. No abnormal contrast enhancement of any structures occur. CT/CT head wo/w con [id number] Impression: Negative CT scan of the head with and without IV contrast.
[2019-12-24] MEDS: iodixanol 320 mg/mL 100mL Btl IV (09:12)
== END 2019-12-24 08:41 | disposition home or self-care (01) ==
LOC: RADWPI 08:45
PROVIDERS: PCP Electrodiagnostic Medicine; Visit Provider Nurse Practitioner
DX: C34.11 Malignant neoplasm of upper lobe, right bronchus or lung (principal); Z85.3 Personal history of malignant neoplasm of breast; R11.2 Nausea with vomiting, unspecified
CPT/HCPCS: 70470; Q9967

== ENCOUNTER 2020-01-02 05:49 | Outpatient (RCR) | payer MEDICARE, MEDICAID, SELFPAY ==
[2020-01-02 08:31] LABS: Basophils # 0.1 10^3/uL (0.0-0.1); Basophils % 0.7 %; Eosinophils # 0.5 10^3/uL (0.0-0.8); Eosinophils % 5.4 %; Hemoglobin 12.4 g/dL (11.5-15.3); Lymphocytes # 0.9 10^3/uL (0.8-4.8); Lymphocytes % 9.7 %; Mean Corpuscular HGB Conc 31.8 g/dL (30.0-36.0); Mean Corpuscular Hemoglobin 29.7 pg (28.0-34.0); Mean Corpuscular Volume 93.3 fL (81-99); Mean Platelet Volume 10.2 fL (7.4-10.4); Monocytes # 0.6 10^3/uL (0.2-0.9); Monocytes % 6.3 %; Neutrophils # 7.38 10^3/uL (1.8-7.7); Neutrophils % 77.5 %; Nucleated Red Blood Cells % 0 %; Platelet Count 345 10^3/cmm (130-400); Red Blood Count 4.18 10^6/uL (4.1-5.3); Red Cell Distribution Width 13.2 % (12.1-15.1); White Blood Count 9.5 10^3/uL (4.0-10.0)
[2020-01-02 08:59] LABS: Alanine Aminotransferase 9 U/L (0-33); Albumin Level 3.7 g/dL (3.5-5.2); Alkaline Phosphatase 80 IU/L (35-105); Anion Gap 14.1 (5-19); Aspartate Amino Transferase 11 U/L (0-32); Blood Urea Nitrogen 25 mg/dL (8-23); Calcium 9.8 mg/dL (8.5-10.5); Carbon Dioxide 29 mmol/L (22-29); Chloride 101 mmol/L (98-107); Globulin 2.8 g/dL (1.3-4.6); Glucose 104 mg/dL (65-115); Osmolality Calculated 295 mOsm/kg (285-295); Potassium 4.1 mmol/L (3.5-5.1); Sodium 140 mmol/L (136-145); Thyroid Stimulating Hormone 1.28 uIU/mL (0.27-4.20); Total Bilirubin 0.3 mg/dL (0.15-1.2); Total Protein 6.5 g/dL (6.6-8.7)
--- NOTE | 2020-01-09 22:48 | ONC FU_ITS ---
[facility] Patient Note Patient: Deneen Mendoza Unit #: [id number]: 1945 Dictated By: Eulalio CrookDate of Visit: Jan 02, 2020 Onc MED Follow-Up/Prog Note Chief Complaint: Breast cancer/lung cancer. 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 By clinical evaluation her disease appeared to be at least stage IIB (T2, N1, M0). Her PET/CT also showed FDG avid right apical pulmonary nodule, ultimately determined to be a primary non-small cell lung cancer, stage IIIA (T2a, N2, M0). She has had subsequent progression to stage MARQUIS (M1b). She had presented with a lump in the lateral aspect of the left breast, first noticed in early March. Bilateral diagnostic mammogram on 04/05/2018 showed a large spiculated mass in the upper outer left breast deep to the area of palpable concern. Measured 2.2 x 1.4 cm with associated surrounding architectural distortion and associated pleomorphic calcifications. Also noted was adjacent enlarged pathologic appearing lymph nodes/masses with pleomorphic calcifications measuring 1.7 x 1.7 cm an enlarged partially visualized lymph nodes in the left axilla with microcalcifications measuring 2.8 x 2.1 cm. Ultrasound of the left breast showed numerous hypoechoic irregular lesions at the 2:00 in 3 clock position suspicious for multifocal disease. Also noted were 2 additional hypoechoic irregular masses at the 2:00 position which were suspicious for additional foci of disease. An enlarged axillary lymph node measuring 1.1 cm also appeared suspicious for malignancy. On 04/25/2018 she underwent ultrasound-guided needle biopsies at 3 different sites in the left breast and ultrasound guided needle biopsy of a left axillary lymph node. Pathology of the biopsy at 2:00, 6 cm from the nipple, showed extensive infiltrating ductal carcinoma, grade 3 of 3. Biopsy at the 2:00 position 8 cm from the nipple and at the 3 clock position 5 cm from the nipple both also showed infiltrating ductal carcinoma. The breast prognostic profile showed ER positive at 62% and NC negative at less than 1%. It was positive for overexpression of HER-2/vickie, 3+ by IHC, with amplification ratio by FISH of 2.1 with 7.3 HER-2 copies/cell. The Ki-67 was high at 41%. Dr Feldman had seen her initially on 05/21/2018. As her disease appeared to at least locally advanced, she had a staging PET/CT on 05/26/2018. It showed a 1.7 cm soft tissue lesion within the left breast with SUV 6.5. There were several FDG positive axillary lymph nodes, the most prominent being a 1.5 cm node with SUV 14.1. A solid nodule in the right lung apex measured 1.9 x 1.6 cm with SUV 17.7, felt to most likely represent metastatic disease, though primary lung carcinoma was noted to also be possible. Multiple other bilateral pulmonary nodules were either too small to characterize or of groundglass opacity with negligible FDG activity. Given those findings, she was recommended to begin neoadjuvant chemotherapy with TCH-P. Her medical history was also significant for having previously been evaluated by Dr. Tran for multiple pulmonary nodules which included a more dominant right upper lobe nodule measuring 2.9 x 1.7 cm. Bronchoscopy on 05/27/2013 was unremarkable except for a small polyp at the distal aspect of the posterior trachea. It was removed in entirety. Pathology showed no evidence of malignancy. Bronchial washings from the right upper lobe were also negative for malignancy. A follow-up chest CT on 04/29/2015 showed slight enlargement of an anterior segmental left upper lobe nodule measuring 7.3 mm. Multiple other upper lobe nodules bilaterally as well as right middle lobe and right lower lobe nodules appeared stable. She began cycle 1 of TCH-P on 06/12/2018. She had no acute toxicity with the chemotherapy. At approximately day 5 she began having diarrhea. She also had some nausea/vomiting. She required IV hydration on multiple occasions. She had a significant decline in her renal function. She became severely neutropenic, but that resolved uneventfully. She had a very prolonged recovery. She eventually was able to proceed with her 2nd cycle of chemotherapy on 07/17/2018. The Perjeta was omitted from the regimen beginning with that cycle. She tolerated much better, though she continued to have nausea and diarrhea, requiring frequent hydration. Her renal function are fully recovered, but it remained adequate with dehydration. She then proceeded with cycle 3 on 08/07/2018 and with cycle 4 on 08/27/2018. Restaging PET/CT on 09/22/2018 showed resolution of the left breast and axillary lesions. The right upper lobe lung nodule appeared stable at 1.6 cm, but with increased in FDG uptake, SUV 21.1. There were no other areas of abnormal uptake noted. With those findings, her case was reviewed at tumor board, and the decision was made to proceed with resection of the lung nodule first and to then address surgical management of the breast. She was referred to Dr. Camp for the lung surgery. In the meantime, she continued treatment with single agent Herceptin. On 11/20/2018 she underwent left modified radical mastectomy. She tolerated the procedure well. Pathology on the breast showed fibrocystic changes and a 1 mm focus of atypical ductal hyperplasia. There was no malignancy identified. There was no involvement in 14 lymph nodes. Following surgery she continued single agent Herceptin at the 3-week dosing schedule. She completed her 9th cycle of treatment on 03/11/2019. A repeat chest CT on 03/18/2019 showed continued slow increase in the right upper lobe lung mass, at that point measuring 3.3 x 2.9 cm. The appearance was highly suspicious for neoplasm. There was no significant adenopathy noted. Multiolobar groundglass attenuation appeared stable. A large pancreatic head mass also appeared stable. With those findings she was referred back to Dr. Camp, but she also continue with her Herceptin infusions. On PET/CT there was uptake in the right upper lobe lung mass and in the right paratracheal lymph node. On 05/06/2019 she underwent bronchoscopy and mediastinoscopy. The bronchoscopy showed no endobronchial lesion. The mediastinoscopy showed prominent lymph nodes at station 4R. Biopsy showed metastatic carcinoma of the lung, favoring high-grade neuroendocrine carcinoma. The tumor was TTF-1 positive, and the neuroendocrine markers were strongly positive. Poorly differentiated adenocarcinoma with neuroendocrine features was also noted to be possible. Due to her marginal performance status and to the decline in her renal function, treatment for the lung cancer was limited to definitive radiation as a single modality. She completed treatment to the right lung/mediastinum on 07/29/2019, total dose 7000 cGy. Shortly after completing the radiation, she had presented with a mass in the area of the right mandibular torus. 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 Her neck CT on 08/20/2019 showed persistence of right upper lobe lung mass measuring 3.5 x 1.3 cm. There was no cervical lymphadenopathy noted. There were no visualized metastatic lesions in the mandible. With those findings, she underwent palliative radiation to the oral cavity. She completed treatment on 09/27/2019 to a total dose of 5000 cGy. She developed pretty sore mouth during the radiation, but she otherwise tolerated the treatment well. She has completed palliative radiation to a single site of metastatic disease in the right floor of mouth. During the radiation therapy to her lung and to the oral cavity she has been showing gradual improvement in her performance status. At this point she appears to be doing pretty well clinically, though she now has metastatic non-small cell lung cancer, and we discussed the fact that her disease is not curable and that her further treatment will be palliative. Her other medical illnesses include hypertension, COPD, GERD, hypothyroidism, and degenerative arthritis. She has a history of nephrolithiasis and she also has renal cysts. She has a history of pancreatitis with associated pancreatic cyst. She had yearly follow-up at [facility] for the cyst, which had been drained on multiple occasions, most recently in February 2017. She has a history of smoking 1 pack of cigarettes daily for more than 30 years. She quit smoking approximately 1991. She does not drink alcohol. INTERIM HISTORY: Ms. Mendoza did have restaging PET imaging on 11/30/2019. He reported improvement in the right upper lobe mass with measure main 3.5 x 2.2 cm with SUV of 6.1 which was down from 3.5 x 2.9 cm with an SUV of 28.9. The previously right seen paratracheal node was subcentimeter in size and FDG negative. Other nodes in the right and upper lobes were unchanged and without significant FDG uptake. There has been development of new abnormal activity in a 1.4 cm right adrenal nodule with an SUV of 8.4 consistent with new metastatic disease. Additionally there was a new FDG positive subcutaneous solids soft tissue nodule overlying the anterior right lower quadrant of the abdomen measuring 1.9 cm with an SUV of 18.6, suspicious for malignant implant. A similar subcentimeter lesion was noted in the subcutaneous fat over the right gluteal muscles. Her next gene sequencing assay is pending at this time. She has been offered further treatment with immunotherapy. She began her first dose Pembrolizumab on December 12, 2019. She has tolerated it well thus far. She did have a CT of the head with and without contrast for persistent nausea vomiting. (She could not tolerate MRI due to claustrophobia). The CT with and without IV contrast was obtained on December 24, 2019. There was no evidence of metastatic disease in the overall impression was negative CT scan of the head with and without IV contrast . Ms. Mendoza is here today for follow-up. She is due for cycle 2 pembrolizumab. She states overall she is feeling some better. She did have a flare of her eczema but that seems to be settling down now. The nausea is better overall. She denies any new shortness of breath orthopnea. She has had no cough. She denies any hemoptysis. She denies any diarrhea or abdominal pain. She reports no headaches or vision changes. Her denies that she has had any confusion or hallucinations. He has not noticed any change in her mental status. She states that the soreness in her jaw is somewhat better. It is not as prominent as before. She denies any lower extremity edema. She denies any peripheral neuropathy. Her ECOG is 2 although she states she is having some increase in her energy and able to do a few more things around the house. Past Medical History: Chronic obstructive pulmonary disease Chronic pancreatitis with pancreatic cyst Gastroesophageal reflux disease Hypertension Hypothyroidism Lung nodules Nephrolithiasis Past Surgical History: Caesarean section Carpal tunnel release on the left Left uretroscopy with stent placement Lung biopsy Pancreatic cyst drainage 8 years ago, in 2015, and in February 2017. Tonsillectomy Cataracts in 2019 Left mastectomy in 2019 Port placement in 2019 - dr oviedo-left ij Allergies: Codeine Sulfate, egg, NSAIDS, Penicillin G Benzathine, prednisoLONE, and Tetracycline HCl. Medications: ALPRAZolam 1 Tablet (of 0.25 mg) Oral at bedtime ALPRAZolam 1 Tablet (of 0.25 mg) Oral PRN Anastrozole 1 Tablet (of 1 mg) Oral daily Atenolol-Chlorthalidone 1 Tablet (of 50-25 mg) Oral daily Ativan 1 Tablet (of 1 mg) Oral at bedtime Cetirizine HCl 1 Tablet (of 10 mg) Oral daily Cholecalciferol 1 (20 MCG ) Tablet Oral daily Fluticasone Propionate 2 [place](s) Suspension Nasal daily Levothyroxine Sodium 1 Tablet (of 125 mcg) Oral daily Montelukast Sodium 1 Tablet (of 10 mg) Oral at bedtime Multivitamin 1 Tablet Oral daily Probiotic 1 Capsule Oral daily Ventolin HFA 1 (108 (90 base) mcg/act) Aerosol, solution Inhalation PRN Xarelto 1 (20 mg) Tablet Oral daily Family History: Family history is unknown, as the patient was adopted. Social History: Ms. Mendoza is and she is retired. Ms. Mendoza quit smoking 27 years ago but had smoked 0.5 packs/day for 35 years. She has no history of drinking. She has a history of smoking 1 pack of cigarettes daily for 34 years. She quit smoking approximately 1991. She does not drink alcohol. Review Of Symptoms: Constitutional Denies fevers, chills, night sweats, excessive fatigue or weight loss. waking up with nausea. Allergic/Immunologic intermittent rash-see above. Eyes Denies significant visual changes. No diplopia. No amaurosis. Endocrine No diabetes, thyroid disease or hormone replacement. Denies hot flashes or night sweats. Hematologic/Lymphatic Denies easy bruising or bleeding. The patient denies any tender or palpable lymph nodes. Breasts unremarkable-healing well. Respiratory Shortness of breath persistent, but no worse than normal . Cardiovascular Denies anginal chest pain, palpitations or orthopnea. Gastrointestinal Denies diarrhea, GI bleeding, or constipation. Denies change in bowel habits and/or stool color, no heartburn or early satiety. Nausea better. Genitourinary (F) No hematuria, hesitancy, incontinence, vaginal bleeding, discharge or other problems with urination. Musculoskeletal Denies joint pain, swelling or redness. No decreased range of motion. Integumentary Denies chronic rashes, inflammation, ulcerations or skin changes. Flare of eczema but gone now . Neurologic Denies headache, blurred vision, and no areas of focal weakness or numbness. Normal gait. No sensory problems. Psychiatric Denies insomnia, depression, corby or mood swings. Vital Signs: Performed on Jan 02, 2020 09:58 Height - 62.00 in Weight - 259.2 lbs (HIGH) BSA - 2.13 sq.m BMI - 47.41 (HIGH) Temperature - 98.2 F (LOW) Pulse - 63 /min Respiration - 30 /min (HIGH) BP - 157/79 mm(hg) (HIGH) O2 Sat - 94 % (LOW) Pain - 0,2 - Ambulatory/capable of all self-care, unable to perform any work activities. Up and about more than 50% of waking hours. (ECOG) Physical Examination: Constitutional Alert, oriented, no acute distress. Skin pink, warm and dry. Head Normocephalic; atraumatic. Eyes Conjunctivae and sclerae are clear and without icterus. Pupils are reactive and equal. Neck Supple without masses or thyromegaly. No jugular venous distension. Hematologic/Lymphatic No petechiae or purpura. No tender or palpable lymph nodes in the cervical or supraclavicular areas. Respiratory Lungs are clear to auscultation without rhonchi or wheezing. Cardiovascular Regular rate and rhythm of heart without murmurs,clicks, gallops or rubs. Chest Right chest wall venous access device is unremarkable. Abdomen Non-tender, non-distended, no masses, ascites. No guarding or rebound tenderness. No pulsatile masses. Back/Spine Non-tender to palpation. Extremities No visible deformities, no cyanosis, clubbing or edema. Musculoskeletal No tenderness or swelling, normal range of motion without obvious weakness. Integumentary No rashes or lesions. Neurologic No sensory or motor deficits, normal cerebellar function, normal-slow gait. Psychiatric Alert and oriented times three. Coherent speech. Verbalizes understanding of our discussions today. Laboratory:Test performed on Jan 02, 2020 08:13 Sodium 140 mmol/L TSH 1.28 uIU/mL Potassium 4.1 mmol/L Chloride 101 mmol/L CO2 29 mmol/L Anion Gap 14.1 BUN 25 mg/dL Creatinine 1.2 mg/dL Cr Clearance (Est) 75.18 mL/min Glucose 104 mg/dL Osmolality - Calculated 295 mOsm/kg Calcium 9.8 mg/dL Protein, Total 6.5 g/dL Albumin 3.7 g/dL Globulin 2.8 g/dL Bilirubin, Total 0.3 mg/dL ALT (SGPT) 9 U/L AST (SGOT) 11 U/L Alkaline Phosphatase 80 IU/L WBC 9.5 10 3/uL RBC 4.18 10 6/uL HGB 12.4 g/dL HCT 39.0 % MCV 93.3 fL MCH 29.7 pg MCHC 31.8 g/dL RDW 13.2 % Platelet Count 345 10 3/cmm MPV 10.2 fL Neutrophils 7.38 10 3/uL Lymphocytes 0.9 10 3/uL Monocytes 0.6 10 3/uL Eosinophils 0.5 10 3/uL Basophils 0.1 10 3/uL Neutrophil % 77.5 % Lymphocyte % 9.7 % Monocyte % 6.3 % Eosinophil % 5.4 % Basophils % 0.7 % NRBC % 0 % Impression: 1. Patient with multifocal infiltrating ductal carcinoma of the left breast, grade 3, ER positive/NC negative and HER-2/vickie positive. By clinical evaluation her disease appears to be at least stage IIB (T2, N1, M0). 2. Her PET/CT also showed FDG avid right apical pulmonary nodule, ultimately determined to be a primary non-small cell lung cancer, stage IIIA (T2a, N2, M0). She had subsequent progression to stage MARQUIS (M1b). 3. She is known to have a pancreatic cyst associated with previous pancreatitis. Her other medical illnesses include: 4. Hypertension. 5. COPD. 6. GERD. 7. Hypothyroidism. 8. Degenerative arthritis. 9. She has a history of nephrolithiasis and history of renal cysts. She began cycle 1 of neoadjuvant TCH-P on 06/12/2018. She had no acute toxicity with the initial infusions. She subsequently developed severe diarrhea, and she also had some nausea/vomiting. She required IV hydration on multiple occasions. During that time she did show significant decline in her renal function. She became severely neutropenic, but that resolved uneventfully. During subsequent follow-up she had gradual recovery, though her renal function still did not return to baseline. She eventually was able to continue with cycle 2 of chemotherapy on 07/17/2018. Beginning with that cycle, the Perjeta was omitted from the regimen. She was able to tolerate it with acceptable toxicity, though she continued to have nausea and diarrhea, and she required frequent IV hydration. She completed her 3rd cycle on 08/07/2018 and her 4th cycle on 08/27/2018. Her restaging PET/CT on 09/22/2018 showed complete resolution of left breast and left axillary lesions. The right upper lobe pulmonary nodule appeared stable in size at 1.6 cm, but with increased FDG activity, SUV 21.1. Given those findings, she was recommended to proceed first with resection of the lung nodule and to then address surgical management of the breast. She was seen Dr. Camp for the lung surgery. In the meantime, she had continued treatment with single agent Herceptin. At her follow-up visit on 11/05/2018 she appeared to have developed a new nodule in the left breast. There was concern that her disease was progressing locally. As such, she underwent left modified radical mastectomy on 11/20/2018. Pathology showed no residual tumor in the breast and no involvement in 14 axillary lymph nodes, consistent with complete pathologic response to the neoadjuvant therapy. She had no complications with the surgery, and she then continued single agent Herceptin at the 3-week dosing interval. As of her follow-up visit on 01/29/2019, she restarted adjuvant hormonal therapy with anastrozole 1 mg daily. Her repeat chest CT on 03/18/2019 showed further enlargement of the right upper lobe lung mass, consistent with slowly progressive malignancy. She was referred back to Dr. Camp. Her PET/CT showed uptake in the right upper lobe lung mass and in a right paratracheal lymph node. She underwent bronchoscopy and mediastinoscopy on 05/06/2019. The right paratracheal lymph node biopsy was positive for metastatic lung cancer, consistent with high-grade neuroendocrine carcinoma or possibly adenocarcinoma with neuroendocrine features. By clinical evaluation her disease was stage IIIA (T2a, N2, M0). Due to her marginal performance status and to the decline in her renal function, treatment for the lung cancer was limited to definitive radiation as a single modality. She completed treatment to the right lung/mediastinum on 07/29/2019, total dose 7000 cGy. Shortly after completing the radiation, she had presented with a mass in the area of the right mandibular torus. 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 By clinical evaluation, her disease appears to be localized, and she was treated with palliative radiation, completed on 09/27/2019 to a total dose of 5000 cGy. She developed pretty sore mouth during the radiation, but she otherwise tolerated the treatment well. She did complete stagingPET imaging on 11/30/2019. He reported improvement in the right upper lobe mass with measure main 3.5 x 2.2 cm with SUV of 6.1 which was down from 3.5 x 2.9 cm with an SUV of 28.9. The previously right seen paratracheal node was subcentimeter in size and FDG negative. Other nodes in the right and upper lobes were unchanged and without significant FDG uptake. There has been development of new abnormal activity in a 1.4 cm right adrenal nodule with an SUV of 8.4 consistent with new metastatic disease. Additionally there was a new FDG positive subcutaneous solids soft tissue nodule overlying the anterior right lower quadrant of the abdomen measuring 1.9 cm with an SUV of 18.6, suspicious for malignant implant. A similar subcentimeter lesion was noted in the subcutaneous fat over the right gluteal muscles. Her next gene sequencing assay is pending at this time. She has been offered further treatment with immunotherapy. She is here today to begin her first dose. She completed palliative radiation to a single site of metastatic disease in the right floor of mouth. During the radiation therapy to her lung and to the oral cavity she has been showing gradual improvement in her performance status. At this point she appears to be doing pretty well clinically, though she now has metastatic non-small cell lung cancer, and we discussed the fact that her disease is not curable and that her further treatment will be palliative. She began treatment with pembrolizumab on 12/12/2019. The next generation sequencing studies are pending. Plan: 1. Proceed with cycle 1 day 2 pembrolizumab. 2. Antiemetics and supportive care as needed. 3. Labs from December 11, 2019 were reviewed in detail and discussed with Michelle Reji and a copy was given to her. WBC 9.5, hemoglobin 12.4, platelets 245,000 ANC is 7400. Potassium 4.1 random glucose 104 creatinine 1.2 LFTs were normal. Her TSH is 1.28. 4. CT of the brain with and without contrast from 12/24/2019 was negative. She cannot tolerate an MRI study due to claustrophobia. She states she has NOT tolerated the MRI well in the past, even with antianxiety medicine beforehand. 5. We will plan to follow-up visit in 3 weeks with CBC CMP TSH. 6. and Mrs. Mendoza were encouraged to contact us in the interim should questions or problems arise. 7. Specific side effects of immunotherapy discussed included but not limited to: ??? pneumonitis: new or worsening cough; chest pain; and shortness of breath. ??? Colitis: diarrhea or more bowel movements than usual; blood in stools or dark, tarry, sticky stools; and severe stomach area (abdomen) pain or tenderness. encephalopathy: mental status changes, confusion, hallucinations, headache, vision changes. ??? hepatitis: jaundice; severe nausea or vomiting; pain on the right side of the abdomen; drowsiness; dark urine; bleeding or bruise more easily than normal. ??? nephritis and kidney failure: including decrease in the amount of urine; hematuria; lower extremity edema; and loss of appetite. ??? thyroid and pituitary changes that may include: headaches that will not go away or unusual headaches; extreme tiredness, weight gain or weight loss; changes in mood or behavior, such as decreased sex drive, irritability, or forgetfulness; dizziness or fainting; hair loss; feeling cold; constipation; and voice gets deeper. ???rash; changes in eyesight; severe or persistent muscle or joint pains; and severe muscle weakness. Signed By: Eulalio Crook-AOCNP Wes Feldman MD <<Signature on File>>
== END 2020-01-20 23:59 | disposition home or self-care (01) ==
LOC: ONCMED 05:49
PROVIDERS: PCP Electrodiagnostic Medicine; Visit Provider Nurse Practitioner
DX: Z51.12 Encounter for antineoplastic immunotherapy (principal); C50.812 Malignant neoplasm of overlapping sites of left female breast; Z17.0 Estrogen receptor positive status [ER+]; C34.11 Malignant neoplasm of upper lobe, right bronchus or lung; D50.9 Iron deficiency anemia, unspecified; K86.1 Other chronic pancreatitis; I10 Essential (primary) hypertension; J44.9 Chronic obstructive pulmonary disease, unspecified; K21.9 Gastro-esophageal reflux disease without esophagitis; E03.9 Hypothyroidism, unspecified; M19.90 Unspecified osteoarthritis, unspecified site; Z79.899 Other long term (current) drug therapy
CPT/HCPCS: 36415; 80053; 84443; 85025; 96413; 99214; J7050; J9271

== ENCOUNTER 2020-02-19 05:33 | Outpatient (RCR) | payer MEDICARE, MEDICAID, SELFPAY ==
[2020-01-23 09:48] LABS: Basophils # 0.1 10^3/uL (0.0-0.1); Basophils % 0.6 %; Eosinophils # 0.7 10^3/uL (0.0-0.8); Eosinophils % 5.6 %; Hematocrit 39.6 % (37.0-47.0); Hemoglobin 12.8 g/dL (11.5-15.3); Lymphocytes % 8.3 %; Mean Corpuscular HGB Conc 32.3 g/dL (30.0-36.0); Mean Corpuscular Hemoglobin 29.4 pg (28.0-34.0); Mean Platelet Volume 10.5 fL (7.4-10.4); Monocytes # 0.7 10^3/uL (0.2-0.9); Monocytes % 5.9 %; Neutrophils # 9.15 10^3/uL (1.8-7.7); Neutrophils % 79.3 %; Nucleated Red Blood Cells % 0 %; Platelet Count 364 10^3/cmm (130-400); Red Blood Count 4.35 10^6/uL (4.1-5.3); Red Cell Distribution Width 13.2 % (12.1-15.1); White Blood Count 11.6 10^3/uL (4.0-10.0)
[2020-01-23 10:12] LABS: Alanine Aminotransferase 12 U/L (0-33); Albumin Level 4.1 g/dL (3.5-5.2); Alkaline Phosphatase 83 IU/L (35-105); Anion Gap 15.7 (5-19); Aspartate Amino Transferase 12 U/L (0-32); Blood Urea Nitrogen 29 mg/dL (8-23); Carbon Dioxide 29 mmol/L (22-29); Chloride 98 mmol/L (98-107); Globulin 2.7 g/dL (1.3-4.6); Glucose 148 mg/dL (65-115); Osmolality Calculated 297 mOsm/kg (285-295); Potassium 3.7 mmol/L (3.5-5.1); Sodium 139 mmol/L (136-145); Thyroid Stimulating Hormone 0.52 uIU/mL (0.27-4.20); Total Bilirubin 0.4 mg/dL (0.15-1.2); Total Protein 6.8 g/dL (6.6-8.7)
[2020-01-23] MEDS: sodium chloride 0.9% 250 ML 125 ML IV (12:05)
--- NOTE | 2020-01-26 15:31 | ONC FU_ITS ---
Dr. Feldman Patient Follow-Up Note Patient: Deneen Mendoza Unit #: [id number]: [id number] Dicatated By: Wes Feldman M.D.Date of Visit:Jan 23, 2020 Onc Med Follow-up/Prog Note Chief Complaint: Breast cancer/lung cancer. History of Present Illness: This is a 74 year-old woman with multifocal infiltrating ductal carcinoma of the left breast, grade 3, ER positive/OH negative and HER-2/vickie positive. By clinical evaluation her disease appeared to be at least stage IIB (T2, N1, M0). Her PET/CT also showed FDG avid right apical pulmonary nodule, ultimately determined to be a primary non-small cell lung cancer, stage IIIA (T2a, N2, M0). She has had subsequent progression to stage MARQUIS (M1b). She had presented with a lump in the lateral aspect of the left breast, first noticed in early March. Bilateral diagnostic mammogram on 04/05/2018 showed a large spiculated mass in the upper outer left breast deep to the area of palpable concern. Measured 2.2 x 1.4 cm with associated surrounding architectural distortion and associated pleomorphic calcifications. Also noted was adjacent enlarged pathologic appearing lymph nodes/masses with pleomorphic calcifications measuring 1.7 x 1.7 cm an enlarged partially visualized lymph nodes in the left axilla with microcalcifications measuring 2.8 x 2.1 cm. Ultrasound of the left breast showed numerous hypoechoic irregular lesions at the 2:00 in 3 clock position suspicious for multifocal disease. Also noted were 2 additional hypoechoic irregular masses at the 2:00 position which were suspicious for additional foci of disease. An enlarged axillary lymph node measuring 1.1 cm also appeared suspicious for malignancy. On 04/25/2018 she underwent ultrasound-guided needle biopsies at 3 different sites in the left breast and ultrasound guided needle biopsy of a left axillary lymph node. Pathology of the biopsy at 2:00, 6 cm from the nipple, showed extensive infiltrating ductal carcinoma, grade 3 of 3. Biopsy at the 2:00 position 8 cm from the nipple and at the 3 clock position 5 cm from the nipple both also showed infiltrating ductal carcinoma. The breast prognostic profile showed ER positive at 62% and OH negative at less than 1%. It was positive for overexpression of HER-2/vickie, 3+ by IHC, with amplification ratio by FISH of 2.1 with 7.3 HER-2 copies/cell. The Ki-67 was high at 41%. I had seen her initially on 05/21/2018. As her disease appeared to at least locally advanced, she had a staging PET/CT on 05/26/2018. It showed a 1.7 cm soft tissue lesion within the left breast with SUV 6.5. There were several FDG positive axillary lymph nodes, the most prominent being a 1.5 cm node with SUV 14.1. A solid nodule in the right lung apex measured 1.9 x 1.6 cm with SUV 17.7, felt to most likely represent metastatic disease, though primary lung carcinoma was noted to also be possible. Multiple other bilateral pulmonary nodules were either too small to characterize or of groundglass opacity with negligible FDG activity. Given those findings, she was recommended to begin neoadjuvant chemotherapy with TCH-P. Her medical history was also significant for having previously been evaluated by Dr. Tran for multiple pulmonary nodules which included a more dominant right upper lobe nodule measuring 2.9 x 1.7 cm. Bronchoscopy on 05/27/2013 was unremarkable except for a small polyp at the distal aspect of the posterior trachea. It was removed in entirety. Pathology showed no evidence of malignancy. Bronchial washings from the right upper lobe were also negative for malignancy. A follow-up chest CT on 04/29/2015 showed slight enlargement of an anterior segmental left upper lobe nodule measuring 7.3 mm. Multiple other upper lobe nodules bilaterally as well as right middle lobe and right lower lobe nodules appeared stable. She began cycle 1 of TCH-P on 06/12/2018. She had no acute toxicity with the chemotherapy. At approximately day 5 she began having diarrhea. She also had some nausea/vomiting. She required IV hydration on multiple occasions. She had a significant decline in her renal function. She became severely neutropenic, but that resolved uneventfully. She had a very prolonged recovery. She eventually was able to proceed with her 2nd cycle of chemotherapy on 07/17/2018. The Perjeta was omitted from the regimen beginning with that cycle. She tolerated much better, though she continued to have nausea and diarrhea, requiring frequent hydration. Her renal function are fully recovered, but it remained adequate with dehydration. She then proceeded with cycle 3 on 08/07/2018 and with cycle 4 on 08/27/2018. Restaging PET/CT on 09/22/2018 showed resolution of the left breast and axillary lesions. The right upper lobe lung nodule appeared stable at 1.6 cm, but with increased in FDG uptake, SUV 21.1. There were no other areas of abnormal uptake noted. With those findings, her case was reviewed at tumor board, and the decision was made to proceed with resection of the lung nodule first and to then address surgical management of the breast. She was referred to Dr. Camp for the lung surgery. In the meantime, she continued treatment with single agent Herceptin. On 11/20/2018 she underwent left modified radical mastectomy. She tolerated the procedure well. Pathology on the breast showed fibrocystic changes and a 1 mm focus of atypical ductal hyperplasia. There was no malignancy identified. There was no involvement in 14 lymph nodes. Following surgery she continued single agent Herceptin at the 3-week dosing schedule. She completed her 9th cycle of treatment on 03/11/2019. A repeat chest CT on 03/18/2019 showed continued slow increase in the right upper lobe lung mass, at that point measuring 3.3 x 2.9 cm. The appearance was highly suspicious for neoplasm. There was no significant adenopathy noted. Multiolobar groundglass attenuation appeared stable. A large pancreatic head mass also appeared stable. With those findings she was referred back to Dr. Camp, but she also continue with her Herceptin infusions. On PET/CT there was uptake in the right upper lobe lung mass and in the right paratracheal lymph node. On 05/06/2019 she underwent bronchoscopy and mediastinoscopy. The bronchoscopy showed no endobronchial lesion. The mediastinoscopy showed prominent lymph nodes at station 4R. Biopsy showed metastatic carcinoma of the lung, favoring high-grade neuroendocrine carcinoma. The tumor was TTF-1 positive, and the neuroendocrine markers were strongly positive. Poorly differentiated adenocarcinoma with neuroendocrine features was also noted to be possible. Due to her marginal performance status and to the decline in her renal function, treatment for the lung cancer was limited to definitive radiation as a single modality. She completed treatment to the right lung/mediastinum on 07/29/2019, total dose 7000 cGy. Shortly after completing the radiation, she had presented with a mass in the area of the right mandibular torus. 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 Her neck CT on 08/20/2019 showed persistence of right upper lobe lung mass measuring 3.5 x 1.3 cm. There was no cervical lymphadenopathy noted. There were no visualized metastatic lesions in the mandible. With those findings, she underwent palliative radiation to the oral cavity. She completed treatment on 09/27/2019 to a total dose of 5000 cGy. She developed pretty sore mouth during the radiation, but she otherwise tolerated the treatment well. Her other medical illnesses include hypertension, COPD, GERD, hypothyroidism, and degenerative arthritis. She has a history of nephrolithiasis and she also has renal cysts. She has a history of pancreatitis with associated pancreatic cyst. She had yearly follow-up at [facility] for the cyst, which had been drained on multiple occasions, most recently in February 2017. She has a history of smoking 1 pack of cigarettes daily for more than 30 years. She quit smoking approximately 1991. She does not drink alcohol. INTERIM HISTORY: Restaging PET/CT on 11/30/2019 showed slight improvement in the size of the right lung apex mass, but significant decrease in the FDG activity. There was evidence of a new right adrenal metastasis measuring 1.4 cm, SUV 8.4. Also noted was a new FDG positive subcutaneous soft tissue nodule overlying the anterior right lower quadrant of the abdomen measuring 1.9 cm, SUV 18.6, suspicious for malignant implant. A similar subcutaneous lesion was noted within the subcutaneous fat over the right gluteal muscles. With those findings, she was recommended to proceed with second line immunotherapy. She then began cycle 1 of pembrolizumab on 12/11/2019. She tolerated it without acute toxicity, and she continued with cycle 2 on 01/02/2020. She is seen for a follow-up visit. She is still feeling pretty good generally, though she says she is more tired and she has been taking more naps. She is able to do light work. ECOG score is 1. She has good appetite. She has no fever or night sweats. Her main complaint is that she has had worsening eczema in multiple areas including the area under her breasts, her back, abdomen, and ankles. She has been using a steroid ointment. She says her breathing is about the same. She does get short of breath with activity. She has nonproductive cough. She does not complain of chest pain. She has no GI complaints. She has urinary frequency and urgency. She is having a little more joint pain, but not bad. She has no focal neurologic symptoms. Medications: ALPRAZolam 1 Tablet (of 0.25 mg) Oral at bedtime, ALPRAZolam 1 Tablet (of 0.25 mg) Oral PRN, Anastrozole 1 Tablet (of 1 mg) Oral daily, Atenolol-Chlorthalidone 1 Tablet (of 50-25 mg) Oral daily, Ativan 1 Tablet (of 1 mg) Oral at bedtime, Cholecalciferol 1 (20 MCG ) Tablet Oral daily, Levothyroxine Sodium 1 Tablet (of 125 mcg) Oral daily, Montelukast Sodium 1 Tablet (of 10 mg) Oral at bedtime, Multivitamin 1 Tablet Oral daily, Probiotic 1 Capsule Oral daily, Ventolin HFA 1 (108 (90 base) mcg/act) Aerosol, solution Inhalation PRN, Xarelto 1 (20 mg) Tablet Oral daily Allergies: Codeine Sulfate, egg, NSAIDS, Penicillin G Benzathine, prednisoLONE, and Tetracycline HCl. Review of Systems: Constitutional - She is feeling a little more tired and she has limited activity. Appetite is good and weight is stable. No fever, night sweats, or hot flashes. ECOG score is 2, ENMT - She has sinus drainage. No mouth sores. No sore throat or difficulty swallowing, Hematologic/Lymphatic - No abnormal bruising or bleeding, Respiratory - She has shortness of breath, but her breathing is about the same. She has cough associated with postnasal drip. No pleuritic pain or hemoptysis, Cardiovascular - No angina pain. No palpitations, Gastrointestinal - No nausea or vomiting. No heartburn or acid reflux. No diarrhea or constipation. No blood in the stool or black stools, Genitourinary (F) - No dysuria or hematuria. She has urinary frequency and nocturia. No urgency or incontinence, Musculoskeletal - She has been having a little more joint pain, but not severe, Integumentary - She says her eczema has been getting worse, mainly in the breast and abdominal areas, back, and ankles, Neurologic - No headache or dizziness. No numbness or tingling. No other focal neurologic symptoms, Psychiatric - No anxiety or depression. She has difficulty sleeping. Vital Signs: Performed on Jan 23, 2020 11:07 Height - 62.00 in Weight - 256.8 lbs (LOW) BSA - 2.13 sq.m BMI - 46.97 (HIGH) Temperature - 98.5 F Pulse - 65 /min Respiration - 22 /min BP - 159/73 mm(hg) (HIGH) O2 Sat - 97 % Pain - 0 Physical Examination: Constitutional - She looks pretty good generally, Eyes - Sclerae nonicteric. Conjunctivae clear, ENMT - There are no lesions noted in the oral cavity, Hematologic/Lymphatic - No cervical, clavicular, or axillary adenopathy, Respiratory - Lungs are clear with diminished air movement bilaterally, Cardiovascular - Heart rhythm is regular. There is no murmur, gallop, or rub noted, Abdomen - Soft. Liver and spleen are not enlarged. There is no abdominal mass or ascites noted and there is no inguinal adenopathy, Extremities - No edema, Integumentary - There is some mild erythematous skin eruption, mainly involving intertriginous areas, Neurologic - No focal neurologic deficits noted. Lab/Imaging: Test performed on Jan 23, 2020 09:33 Sodium 139 mmol/L TSH 0.52 uIU/mL Potassium 3.7 mmol/L Chloride 98 mmol/L CO2 29 mmol/L Anion Gap 15.7 BUN 29 mg/dL Creatinine 1.3 mg/dL Cr Clearance (Est) 68.76 mL/min Glucose 148 mg/dL Osmolality - Calculated 297 mOsm/kg Calcium 10.0 mg/dL Protein, Total 6.8 g/dL Albumin 4.1 g/dL Globulin 2.7 g/dL Bilirubin, Total 0.4 mg/dL ALT (SGPT) 12 U/L AST (SGOT) 12 U/L Alkaline Phosphatase 83 IU/L WBC 11.6 10 3/uL RBC 4.35 10 6/uL HGB 12.8 g/dL HCT 39.6 % MCV 91.0 fL MCH 29.4 pg MCHC 32.3 g/dL RDW 13.2 % Platelet Count 364 10 3/cmm MPV 10.5 fL Neutrophils 9.15 10 3/uL Lymphocytes 1.0 10 3/uL Monocytes 0.7 10 3/uL Eosinophils 0.7 10 3/uL Basophils 0.1 10 3/uL Neutrophil % 79.3 % Lymphocyte % 8.3 % Monocyte % 5.9 % Eosinophil % 5.6 % Basophils % 0.6 % NRBC % 0 % Impression: 1. Patient with multifocal infiltrating ductal carcinoma of the left breast, grade 3, ER positive/OH negative and HER-2/vickie positive. By clinical evaluation her disease appears to be at least stage IIB (T2, N1, M0). 2. Her PET/CT also showed FDG avid right apical pulmonary nodule, ultimately determined to be a primary non-small cell lung cancer, stage IIIA (T2a, N2, M0). She had subsequent progression to stage MARQUIS (M1b). 3. She is known to have a pancreatic cyst associated with previous pancreatitis. Her other medical illnesses include: 4. Hypertension. 5. COPD. 6. GERD. 7. Hypothyroidism. 8. Degenerative arthritis. 9. She has a history of nephrolithiasis and history of renal cysts. She began cycle 1 of neoadjuvant TCH-P on 06/12/2018. She had no acute toxicity with the initial infusions. She subsequently developed severe diarrhea, and she also had some nausea/vomiting. She required IV hydration on multiple occasions. During that time she did show significant decline in her renal function. She became severely neutropenic, but that resolved uneventfully. During subsequent follow-up she had gradual recovery, though her renal function still did not return to baseline. She eventually was able to continue with cycle 2 of chemotherapy on 07/17/2018. Beginning with that cycle, the Perjeta was omitted from the regimen. She was able to tolerate it with acceptable toxicity, though she continued to have nausea and diarrhea, and she required frequent IV hydration. She completed her 3rd cycle on 08/07/2018 and her 4th cycle on 08/27/2018. Her restaging PET/CT on 09/22/2018 showed complete resolution of left breast and left axillary lesions. The right upper lobe pulmonary nodule appeared stable in size at 1.6 cm, but with increased FDG activity, SUV 21.1. Given those findings, she was recommended to proceed first with resection of the lung nodule and to then address surgical management of the breast. She was seen Dr. Camp for the lung surgery. In the meantime, she had continued treatment with single agent Herceptin. At her follow-up visit on 11/05/2018 she appeared to have developed a new nodule in the left breast. There was concern that her disease was progressing locally. As such, she underwent left modified radical mastectomy on 11/20/2018. Pathology showed no residual tumor in the breast and no involvement in 14 axillary lymph nodes, consistent with complete pathologic response to the neoadjuvant therapy. She had no complications with the surgery, and she then continued single agent Herceptin at the 3-week dosing interval. As of her follow-up visit on 01/29/2019, she restarted adjuvant hormonal therapy with anastrozole 1 mg daily. Her repeat chest CT on 03/18/2019 showed further enlargement of the right upper lobe lung mass, consistent with slowly progressive malignancy. She was referred back to Dr. Camp. Her PET/CT showed uptake in the right upper lobe lung mass and in a right paratracheal lymph node. She underwent bronchoscopy and mediastinoscopy on 05/06/2019. The right paratracheal lymph node biopsy was positive for metastatic lung cancer, consistent with high-grade neuroendocrine carcinoma or possibly adenocarcinoma with neuroendocrine features. By clinical evaluation her disease was stage IIIA (T2a, N2, M0). Due to her marginal performance status and to the decline in her renal function, treatment for the lung cancer was limited to definitive radiation as a single modality. She completed treatment to the right lung/mediastinum on 07/29/2019, total dose 7000 cGy. Shortly after completing the radiation, she had presented with a mass in the area of the right mandibular torus. 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 By clinical evaluation, her disease appears to be localized, and she was treated with palliative radiation, completed on 09/27/2019 to a total dose of 5000 cGy. She developed pretty sore mouth during the radiation, but she otherwise tolerated the treatment well. Her restaging PET/CT on 11/30/2019 showed some improvement in the right lung mass. There was new metastatic involvement in the right adrenal gland as well as to sites of suspected metastatic involvement in the subcutaneous tissue. With that finding, she was advised to proceed with second line immunotherapy with pembrolizumab. She has completed 2 cycles of treatment. She has tolerated reasonably well, though she is having some fatigue and she also has experienced some worsening of eczema. Plan: She will continue cycle 3 of pembrolizumab at 200 mg by IV infusion. She will start oral steroid therapy with prednisone 10 mg twice daily for 3 days and then continuing with 10 mg daily. She returns in 3 weeks. Signed By: Wes Feldman M.D. <<Signature on File>>
[2020-02-11] MEDS: fluconazole premix 200 MG/100 ML PREMIX 100 MG IV (11:30)
[2020-02-11] MEDS: acyclovir 800 MG in sodium chloride 0.9% (100 ml) 100 ML 120 MG IV (11:30)
[2020-02-11] MEDS: sodium chloride 0.9% (100 ml) 100 ML 75 ML (11:30)
--- NOTE | 2020-02-16 20:02 | ONC FU_ITS ---
[facility] Patient Note Patient: Deneen Mendoza Unit #: [id number]: [id number] Dictated By: Eulalio CrookDate of Visit: Feb 11, 2020 Onc MED Follow-Up/Prog Note Chief Complaint: Breast cancer/lung cancer. 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 By clinical evaluation her disease appeared to be at least stage IIB (T2, N1, M0). Her PET/CT also showed FDG avid right apical pulmonary nodule, ultimately determined to be a primary non-small cell lung cancer, stage IIIA (T2a, N2, M0). She has had subsequent progression to stage MARQUIS (M1b). She had presented with a lump in the lateral aspect of the left breast, first noticed in early March. Bilateral diagnostic mammogram on 04/05/2018 showed a large spiculated mass in the upper outer left breast deep to the area of palpable concern. Measured 2.2 x 1.4 cm with associated surrounding architectural distortion and associated pleomorphic calcifications. Also noted was adjacent enlarged pathologic appearing lymph nodes/masses with pleomorphic calcifications measuring 1.7 x 1.7 cm an enlarged partially visualized lymph nodes in the left axilla with microcalcifications measuring 2.8 x 2.1 cm. Ultrasound of the left breast showed numerous hypoechoic irregular lesions at the 2:00 in 3 clock position suspicious for multifocal disease. Also noted were 2 additional hypoechoic irregular masses at the 2:00 position which were suspicious for additional foci of disease. An enlarged axillary lymph node measuring 1.1 cm also appeared suspicious for malignancy. On 04/25/2018 she underwent ultrasound-guided needle biopsies at 3 different sites in the left breast and ultrasound guided needle biopsy of a left axillary lymph node. Pathology of the biopsy at 2:00, 6 cm from the nipple, showed extensive infiltrating ductal carcinoma, grade 3 of 3. Biopsy at the 2:00 position 8 cm from the nipple and at the 3 clock position 5 cm from the nipple both also showed infiltrating ductal carcinoma. The breast prognostic profile showed ER positive at 62% and OR negative at less than 1%. It was positive for overexpression of HER-2/vickie, 3+ by IHC, with amplification ratio by FISH of 2.1 with 7.3 HER-2 copies/cell. The Ki-67 was high at 41%. Dr Feldman had seen her initially on 05/21/2018. As her disease appeared to at least locally advanced, she had a staging PET/CT on 05/26/2018. It showed a 1.7 cm soft tissue lesion within the left breast with SUV 6.5. There were several FDG positive axillary lymph nodes, the most prominent being a 1.5 cm node with SUV 14.1. A solid nodule in the right lung apex measured 1.9 x 1.6 cm with SUV 17.7, felt to most likely represent metastatic disease, though primary lung carcinoma was noted to also be possible. Multiple other bilateral pulmonary nodules were either too small to characterize or of groundglass opacity with negligible FDG activity. Given those findings, she was recommended to begin neoadjuvant chemotherapy with TCH-P. Her medical history was also significant for having previously been evaluated by Dr. Tran for multiple pulmonary nodules which included a more dominant right upper lobe nodule measuring 2.9 x 1.7 cm. Bronchoscopy on 05/27/2013 was unremarkable except for a small polyp at the distal aspect of the posterior trachea. It was removed in entirety. Pathology showed no evidence of malignancy. Bronchial washings from the right upper lobe were also negative for malignancy. A follow-up chest CT on 04/29/2015 showed slight enlargement of an anterior segmental left upper lobe nodule measuring 7.3 mm. Multiple other upper lobe nodules bilaterally as well as right middle lobe and right lower lobe nodules appeared stable. She began cycle 1 of TCH-P on 06/12/2018. She had no acute toxicity with the chemotherapy. At approximately day 5 she began having diarrhea. She also had some nausea/vomiting. She required IV hydration on multiple occasions. She had a significant decline in her renal function. She became severely neutropenic, but that resolved uneventfully. She had a very prolonged recovery. She eventually was able to proceed with her 2nd cycle of chemotherapy on 07/17/2018. The Perjeta was omitted from the regimen beginning with that cycle. She tolerated much better, though she continued to have nausea and diarrhea, requiring frequent hydration. Her renal function are fully recovered, but it remained adequate with dehydration. She then proceeded with cycle 3 on 08/07/2018 and with cycle 4 on 08/27/2018. Restaging PET/CT on 09/22/2018 showed resolution of the left breast and axillary lesions. The right upper lobe lung nodule appeared stable at 1.6 cm, but with increased in FDG uptake, SUV 21.1. There were no other areas of abnormal uptake noted. With those findings, her case was reviewed at tumor board, and the decision was made to proceed with resection of the lung nodule first and to then address surgical management of the breast. She was referred to Dr. Camp for the lung surgery. In the meantime, she continued treatment with single agent Herceptin. On 11/20/2018 she underwent left modified radical mastectomy. She tolerated the procedure well. Pathology on the breast showed fibrocystic changes and a 1 mm focus of atypical ductal hyperplasia. There was no malignancy identified. There was no involvement in 14 lymph nodes. Following surgery she continued single agent Herceptin at the 3-week dosing schedule. She completed her 9th cycle of treatment on 03/11/2019. A repeat chest CT on 03/18/2019 showed continued slow increase in the right upper lobe lung mass, at that point measuring 3.3 x 2.9 cm. The appearance was highly suspicious for neoplasm. There was no significant adenopathy noted. Multiolobar groundglass attenuation appeared stable. A large pancreatic head mass also appeared stable. With those findings she was referred back to Dr. Camp, but she also continue with her Herceptin infusions. On PET/CT there was uptake in the right upper lobe lung mass and in the right paratracheal lymph node. On 05/06/2019 she underwent bronchoscopy and mediastinoscopy. The bronchoscopy showed no endobronchial lesion. The mediastinoscopy showed prominent lymph nodes at station 4R. Biopsy showed metastatic carcinoma of the lung, favoring high-grade neuroendocrine carcinoma. The tumor was TTF-1 positive, and the neuroendocrine markers were strongly positive. Poorly differentiated adenocarcinoma with neuroendocrine features was also noted to be possible. Due to her marginal performance status and to the decline in her renal function, treatment for the lung cancer was limited to definitive radiation as a single modality. She completed treatment to the right lung/mediastinum on 07/29/2019, total dose 7000 cGy. Shortly after completing the radiation, she had presented with a mass in the area of the right mandibular torus. 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 Her neck CT on 08/20/2019 showed persistence of right upper lobe lung mass measuring 3.5 x 1.3 cm. There was no cervical lymphadenopathy noted. There were no visualized metastatic lesions in the mandible. With those findings, she underwent palliative radiation to the oral cavity. She completed treatment on 09/27/2019 to a total dose of 5000 cGy. She developed pretty sore mouth during the radiation, but she otherwise tolerated the treatment well. Her other medical illnesses include hypertension, COPD, GERD, hypothyroidism, and degenerative arthritis. She has a history of nephrolithiasis and she also has renal cysts. She has a history of pancreatitis with associated pancreatic cyst. She had yearly follow-up at [facility] for the cyst, which had been drained on multiple occasions, most recently in February 2017. She has a history of smoking 1 pack of cigarettes daily for more than 30 years. She quit smoking approximately 1991. She does not drink alcohol. INTERIM HISTORY: Restaging PET/CT on 11/30/2019 showed slight improvement in the size of the right lung apex mass, but significant decrease in the FDG activity. There was evidence of a new right adrenal metastasis measuring 1.4 cm, SUV 8.4. Also noted was a new FDG positive subcutaneous soft tissue nodule overlying the anterior right lower quadrant of the abdomen measuring 1.9 cm, SUV 18.6, suspicious for malignant implant. A similar subcutaneous lesion was noted within the subcutaneous fat over the right gluteal muscles. With those findings, she was recommended to proceed with second line immunotherapy. She then began cycle 1 of pembrolizumab on 12/11/2019. She tolerated it without acute toxicity, and she continued with cycle 2 on 01/02/2020. She states that after her last treatment she had a reaction in her mouth and throat. She states she had sores in her mouth but felt that her tongue was swelling a little pretty did not get significant but she states it was noticeably different. She states it finally went away a few days ago for the most part. She states she still has some small blisters on the back of her tongue. She states she has not had any trouble swallowing over the last few days. She denies any shortness of breath or orthopnea. She denies any rash. She did take the steroid taper after her last treatment and states that she was not bothered with a rash this time. She denies any fever or chills. She has had no nausea or vomiting. She states her energy is about the same may be a little better but not significant. No lower extremity edema. No changes with her bowel or bladder function. Her ECOG remains at 2. Past Medical History: Chronic obstructive pulmonary disease Chronic pancreatitis with pancreatic cyst Gastroesophageal reflux disease Hypertension Hypothyroidism Lung nodules Nephrolithiasis Past Surgical History: Caesarean section Carpal tunnel release on the left Left uretroscopy with stent placement Lung biopsy Pancreatic cyst drainage 8 years ago, in 2015, and in February 2017. Tonsillectomy Cataracts in 2019 Left mastectomy in 2019 Port placement in 2019 - dr oviedo-left ij Allergies: Codeine Sulfate, egg, NSAIDS, Penicillin G Benzathine, prednisoLONE, and Tetracycline HCl. Medications: ALPRAZolam 1 Tablet (of 0.25 mg) Oral at bedtime ALPRAZolam 1 Tablet (of 0.25 mg) Oral PRN Anastrozole 1 Tablet (of 1 mg) Oral daily Atenolol-Chlorthalidone 1 Tablet (of 50-25 mg) Oral daily Ativan 1 Tablet (of 1 mg) Oral at bedtime Cholecalciferol 1 (20 MCG ) Tablet Oral daily Levothyroxine Sodium 1 Tablet (of 125 mcg) Oral daily Montelukast Sodium 1 Tablet (of 10 mg) Oral at bedtime Multivitamin 1 Tablet Oral daily Probiotic 1 Capsule Oral daily Ventolin HFA 1 (108 (90 base) mcg/act) Aerosol, solution Inhalation PRN Xarelto 1 (20 mg) Tablet Oral daily Family History: Family history is unknown, as the patient was adopted. Social History: Ms. Mendoza is and she is retired. Ms. Mendoza quit smoking 27 years ago but had smoked 0.5 packs/day for 35 years. She has no history of drinking. She has a history of smoking 1 pack of cigarettes daily for 34 years. She quit smoking approximately 1991. She does not drink alcohol. Review Of Symptoms: Constitutional Denies fevers, chills, night sweats, excessive fatigue or weight loss. Eyes Denies significant visual changes. No diplopia. No amaurosis. ENMT She states her mouth/jaw is better. Sores on tongue since last treatment. Hematologic/Lymphatic Denies easy bruising or bleeding. The patient denies any tender or palpable lymph nodes. Breasts unremarkable-healing well. Respiratory Shortness of breath persistent, but no worse than normal . Cardiovascular Denies anginal chest pain, palpitations or orthopnea. Gastrointestinal Denies diarrhea, GI bleeding, or constipation. Denies change in bowel habits and/or stool color, no heartburn or early satiety. Nausea better. Genitourinary (F) No hematuria, hesitancy, incontinence, vaginal bleeding, discharge or other problems with urination. Musculoskeletal Denies joint pain, swelling or redness. No decreased range of motion. Integumentary Denies chronic rashes, inflammation, ulcerations or skin changes. Flare of eczema but gone now . Neurologic Denies headache, blurred vision, and no areas of focal weakness or numbness. Normal gait. No sensory problems. Psychiatric Denies insomnia, depression, corby or mood swings. Vital Signs: Performed on Feb 11, 2020 10:21 Height - 62.00 in Weight - 257.2 lbs (HIGH) BSA - 2.13 sq.m BMI - 47.04 (HIGH) Temperature - 99.0 F (HIGH) Pulse - 66 /min Respiration - 22 /min BP - 163/95 mm(hg) (HIGH) O2 Sat - 95 % (LOW) Pain - 8,2 - Ambulatory/capable of all self-care, unable to perform any work activities. Up and about more than 50% of waking hours. (ECOG) Physical Examination: Constitutional Alert, oriented, no acute distress. Skin pink, warm and dry. Head Normocephalic; atraumatic. Eyes Conjunctivae and sclerae are clear and without icterus. Pupils are reactive and equal. ENMT Multiple red raised vesicular appearing papules on the mid and to the back of her tongue. Faint white patchy areas noted on tongue and palate. Neck Supple without masses or thyromegaly. No jugular venous distension. Hematologic/Lymphatic No petechiae or purpura. No tender or palpable lymph nodes in the cervical or supraclavicular areas. Respiratory Lungs are clear to auscultation without rhonchi or wheezing. Cardiovascular Regular rate and rhythm of heart without murmurs,clicks, gallops or rubs. Chest Right chest wall venous access device is unremarkable. Abdomen Non-tender, non-distended, no masses, ascites. No guarding or rebound tenderness. No pulsatile masses. Back/Spine Non-tender to palpation. Extremities No visible deformities, no cyanosis, clubbing or edema. Musculoskeletal No tenderness or swelling, normal range of motion without obvious weakness. Integumentary No rashes or lesions. Neurologic No sensory or motor deficits, normal cerebellar function, normal-slow gait. Psychiatric Alert and oriented times three. Coherent speech. Verbalizes understanding of our discussions today. Laboratory:Test performed on Jan 23, 2020 09:33 Sodium 139 mmol/L TSH 0.52 uIU/mL Potassium 3.7 mmol/L Chloride 98 mmol/L CO2 29 mmol/L Anion Gap 15.7 BUN 29 mg/dL Creatinine 1.3 mg/dL Cr Clearance (Est) 68.76 mL/min Glucose 148 mg/dL Osmolality - Calculated 297 mOsm/kg Calcium 10.0 mg/dL Protein, Total 6.8 g/dL Albumin 4.1 g/dL Globulin 2.7 g/dL Bilirubin, Total 0.4 mg/dL ALT (SGPT) 12 U/L AST (SGOT) 12 U/L Alkaline Phosphatase 83 IU/L WBC 11.6 10 3/uL RBC 4.35 10 6/uL HGB 12.8 g/dL HCT 39.6 % MCV 91.0 fL MCH 29.4 pg MCHC 32.3 g/dL RDW 13.2 % Platelet Count 364 10 3/cmm MPV 10.5 fL Neutrophils 9.15 10 3/uL Lymphocytes 1.0 10 3/uL Monocytes 0.7 10 3/uL Eosinophils 0.7 10 3/uL Basophils 0.1 10 3/uL Neutrophil % 79.3 % Lymphocyte % 8.3 % Monocyte % 5.9 % Eosinophil % 5.6 % Basophils % 0.6 % NRBC % 0 % Impression: 1. Patient with multifocal infiltrating ductal carcinoma of the left breast, grade 3, ER positive/OR negative and HER-2/vickie positive. By clinical evaluation her disease appears to be at least stage IIB (T2, N1, M0). 2. Her PET/CT also showed FDG avid right apical pulmonary nodule, ultimately determined to be a primary non-small cell lung cancer, stage IIIA (T2a, N2, M0). She had subsequent progression to stage MARQUIS (M1b). 3. She is known to have a pancreatic cyst associated with previous pancreatitis. Her other medical illnesses include: 4. Hypertension. 5. COPD. 6. GERD. 7. Hypothyroidism. 8. Degenerative arthritis. 9. She has a history of nephrolithiasis and history of renal cysts. She began cycle 1 of neoadjuvant TCH-P on 06/12/2018. She had no acute toxicity with the initial infusions. She subsequently developed severe diarrhea, and she also had some nausea/vomiting. She required IV hydration on multiple occasions. During that time she did show significant decline in her renal function. She became severely neutropenic, but that resolved uneventfully. During subsequent follow-up she had gradual recovery, though her renal function still did not return to baseline. She eventually was able to continue with cycle 2 of chemotherapy on 07/17/2018. Beginning with that cycle, the Perjeta was omitted from the regimen. She was able to tolerate it with acceptable toxicity, though she continued to have nausea and diarrhea, and she required frequent IV hydration. She completed her 3rd cycle on 08/07/2018 and her 4th cycle on 08/27/2018. Her restaging PET/CT on 09/22/2018 showed complete resolution of left breast and left axillary lesions. The right upper lobe pulmonary nodule appeared stable in size at 1.6 cm, but with increased FDG activity, SUV 21.1. Given those findings, she was recommended to proceed first with resection of the lung nodule and to then address surgical management of the breast. She was seen Dr. Camp for the lung surgery. In the meantime, she had continued treatment with single agent Herceptin. At her follow-up visit on 11/05/2018 she appeared to have developed a new nodule in the left breast. There was concern that her disease was progressing locally. As such, she underwent left modified radical mastectomy on 11/20/2018. Pathology showed no residual tumor in the breast and no involvement in 14 axillary lymph nodes, consistent with complete pathologic response to the neoadjuvant therapy. She had no complications with the surgery, and she then continued single agent Herceptin at the 3-week dosing interval. As of her follow-up visit on 01/29/2019, she restarted adjuvant hormonal therapy with anastrozole 1 mg daily. Her repeat chest CT on 03/18/2019 showed further enlargement of the right upper lobe lung mass, consistent with slowly progressive malignancy. She was referred back to Dr. Camp. Her PET/CT showed uptake in the right upper lobe lung mass and in a right paratracheal lymph node. She underwent bronchoscopy and mediastinoscopy on 05/06/2019. The right paratracheal lymph node biopsy was positive for metastatic lung cancer, consistent with high-grade neuroendocrine carcinoma or possibly adenocarcinoma with neuroendocrine features. By clinical evaluation her disease was stage IIIA (T2a, N2, M0). Due to her marginal performance status and to the decline in her renal function, treatment for the lung cancer was limited to definitive radiation as a single modality. She completed treatment to the right lung/mediastinum on 07/29/2019, total dose 7000 cGy. Shortly after completing the radiation, she had presented with a mass in the area of the right mandibular torus. 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 By clinical evaluation, her disease appears to be localized, and she was treated with palliative radiation, completed on 09/27/2019 to a total dose of 5000 cGy. She developed pretty sore mouth during the radiation, but she otherwise tolerated the treatment well. Her restaging PET/CT on 11/30/2019 showed some improvement in the right lung mass. There was new metastatic involvement in the right adrenal gland as well as to sites of suspected metastatic involvement in the subcutaneous tissue. With that finding, she was advised to proceed with second line immunotherapy with pembrolizumab. She has completed 2 cycles of treatment. She has tolerated reasonably well, though she is having some fatigue and she also has experienced some worsening of eczema. The eczema has responded well to steroid taper. Is essentially gone at this point. She now has developed mouth sores and symptoms that are concerning for allergic reaction after her last pembrolizumab. Plan: 1. Hold planned cycle 4 pembrolizumab due to oral lesions/suspected allergic reaction. 2. We will start her on acyclovir and Diflucan. She will have first doses IV here today. 3. We will call in oral acyclovir or Famvir whichever insurance will cover as well as the fluconazole. 4. Labs were not ordered for today she was just due for follow-up due to recent problems with rash. 5. She states that the steroid taper has helped with her rash and she has no concerns at this time. 6. We will plan to see her back in 1 week and she will let us know if she has any further problems or the famciclovir and fluconazole are not helping with her oral lesions. 7. She is complaining of insomnia I have asked her to increase her Xanax 2.5 mg at bedtime and see how this works for sleep. She will let us know by next week if not before if this is not working for her insomnia. A. We will see her back in a week as indicated above. She has been encouraged to contact us in the interim should questions or problems arise. Signed By: Eulalio Crook-DIVINE, SHASTA?P Wes Feldman MD <<Signature on File>>
--- NOTE | 2020-02-25 16:12 | ONC FU_ITS ---
[facility] Patient Note Patient: Deneen Mendoza Unit #: [id number]: 1945 Dictated By: Eulalio CrookDate of Visit: Feb 19, 2020 Onc MED Follow-Up/Prog Note Chief Complaint: Breast cancer/lung cancer. History of Present Illness: Mrs Mendoza is a 74 year-old woman with multifocal infiltrating ductal carcinoma of the left breast, grade 3, ER positive/OK negative and HER-2/vickie positive. By clinical evaluation her disease appeared to be at least stage IIB (T2, N1, M0). Her PET/CT also showed FDG avid right apical pulmonary nodule, ultimately determined to be a primary non-small cell lung cancer, stage IIIA (T2a, N2, M0). She has had subsequent progression to stage MARQUIS (M1b). She had presented with a lump in the lateral aspect of the left breast, first noticed in early March. Bilateral diagnostic mammogram on 04/05/2018 showed a large spiculated mass in the upper outer left breast deep to the area of palpable concern. Measured 2.2 x 1.4 cm with associated surrounding architectural distortion and associated pleomorphic calcifications. Also noted was adjacent enlarged pathologic appearing lymph nodes/masses with pleomorphic calcifications measuring 1.7 x 1.7 cm an enlarged partially visualized lymph nodes in the left axilla with microcalcifications measuring 2.8 x 2.1 cm. Ultrasound of the left breast showed numerous hypoechoic irregular lesions at the 2:00 in 3 clock position suspicious for multifocal disease. Also noted were 2 additional hypoechoic irregular masses at the 2:00 position which were suspicious for additional foci of disease. An enlarged axillary lymph node measuring 1.1 cm also appeared suspicious for malignancy. On 04/25/2018 she underwent ultrasound-guided needle biopsies at 3 different sites in the left breast and ultrasound guided needle biopsy of a left axillary lymph node. Pathology of the biopsy at 2:00, 6 cm from the nipple, showed extensive infiltrating ductal carcinoma, grade 3 of 3. Biopsy at the 2:00 position 8 cm from the nipple and at the 3 clock position 5 cm from the nipple both also showed infiltrating ductal carcinoma. The breast prognostic profile showed ER positive at 62% and OK negative at less than 1%. It was positive for overexpression of HER-2/vickie, 3+ by IHC, with amplification ratio by FISH of 2.1 with 7.3 HER-2 copies/cell. The Ki-67 was high at 41%. Dr Feldman had seen her initially on 05/21/2018. As her disease appeared to at least locally advanced, she had a staging PET/CT on 05/26/2018. It showed a 1.7 cm soft tissue lesion within the left breast with SUV 6.5. There were several FDG positive axillary lymph nodes, the most prominent being a 1.5 cm node with SUV 14.1. A solid nodule in the right lung apex measured 1.9 x 1.6 cm with SUV 17.7, felt to most likely represent metastatic disease, though primary lung carcinoma was noted to also be possible. Multiple other bilateral pulmonary nodules were either too small to characterize or of groundglass opacity with negligible FDG activity. Given those findings, she was recommended to begin neoadjuvant chemotherapy with TCH-P. Her medical history was also significant for having previously been evaluated by Dr. Tran for multiple pulmonary nodules which included a more dominant right upper lobe nodule measuring 2.9 x 1.7 cm. Bronchoscopy on 05/27/2013 was unremarkable except for a small polyp at the distal aspect of the posterior trachea. It was removed in entirety. Pathology showed no evidence of malignancy. Bronchial washings from the right upper lobe were also negative for malignancy. A follow-up chest CT on 04/29/2015 showed slight enlargement of an anterior segmental left upper lobe nodule measuring 7.3 mm. Multiple other upper lobe nodules bilaterally as well as right middle lobe and right lower lobe nodules appeared stable. She began cycle 1 of TCH-P on 06/12/2018. She had no acute toxicity with the chemotherapy. At approximately day 5 she began having diarrhea. She also had some nausea/vomiting. She required IV hydration on multiple occasions. She had a significant decline in her renal function. She became severely neutropenic, but that resolved uneventfully. She had a very prolonged recovery. She eventually was able to proceed with her 2nd cycle of chemotherapy on 07/17/2018. The Perjeta was omitted from the regimen beginning with that cycle. She tolerated much better, though she continued to have nausea and diarrhea, requiring frequent hydration. Her renal function are fully recovered, but it remained adequate with dehydration. She then proceeded with cycle 3 on 08/07/2018 and with cycle 4 on 08/27/2018. Restaging PET/CT on 09/22/2018 showed resolution of the left breast and axillary lesions. The right upper lobe lung nodule appeared stable at 1.6 cm, but with increased in FDG uptake, SUV 21.1. There were no other areas of abnormal uptake noted. With those findings, her case was reviewed at tumor board, and the decision was made to proceed with resection of the lung nodule first and to then address surgical management of the breast. She was referred to Dr. Camp for the lung surgery. In the meantime, she continued treatment with single agent Herceptin. On 11/20/2018 she underwent left modified radical mastectomy. She tolerated the procedure well. Pathology on the breast showed fibrocystic changes and a 1 mm focus of atypical ductal hyperplasia. There was no malignancy identified. There was no involvement in 14 lymph nodes. Following surgery she continued single agent Herceptin at the 3-week dosing schedule. She completed her 9th cycle of treatment on 03/11/2019. A repeat chest CT on 03/18/2019 showed continued slow increase in the right upper lobe lung mass, at that point measuring 3.3 x 2.9 cm. The appearance was highly suspicious for neoplasm. There was no significant adenopathy noted. Multiolobar groundglass attenuation appeared stable. A large pancreatic head mass also appeared stable. With those findings she was referred back to Dr. Camp, but she also continue with her Herceptin infusions. On PET/CT there was uptake in the right upper lobe lung mass and in the right paratracheal lymph node. On 05/06/2019 she underwent bronchoscopy and mediastinoscopy. The bronchoscopy showed no endobronchial lesion. The mediastinoscopy showed prominent lymph nodes at station 4R. Biopsy showed metastatic carcinoma of the lung, favoring high-grade neuroendocrine carcinoma. The tumor was TTF-1 positive, and the neuroendocrine markers were strongly positive. Poorly differentiated adenocarcinoma with neuroendocrine features was also noted to be possible. Due to her marginal performance status and to the decline in her renal function, treatment for the lung cancer was limited to definitive radiation as a single modality. She completed treatment to the right lung/mediastinum on 07/29/2019, total dose 7000 cGy. Shortly after completing the radiation, she had presented with a mass in the area of the right mandibular torus. 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 Her neck CT on 08/20/2019 showed persistence of right upper lobe lung mass measuring 3.5 x 1.3 cm. There was no cervical lymphadenopathy noted. There were no visualized metastatic lesions in the mandible. With those findings, she underwent palliative radiation to the oral cavity. She completed treatment on 09/27/2019 to a total dose of 5000 cGy. She developed pretty sore mouth during the radiation, but she otherwise tolerated the treatment well. Her other medical illnesses include hypertension, COPD, GERD, hypothyroidism, and degenerative arthritis. She has a history of nephrolithiasis and she also has renal cysts. She has a history of pancreatitis with associated pancreatic cyst. She had yearly follow-up at [facility] for the cyst, which had been drained on multiple occasions, most recently in February 2017. She has a history of smoking 1 pack of cigarettes daily for more than 30 years. She quit smoking approximately 1991. She does not drink alcohol. INTERIM HISTORY: Restaging PET/CT on 11/30/2019 showed slight improvement in the size of the right lung apex mass, but significant decrease in the FDG activity. There was evidence of a new right adrenal metastasis measuring 1.4 cm, SUV 8.4. Also noted was a new FDG positive subcutaneous soft tissue nodule overlying the anterior right lower quadrant of the abdomen measuring 1.9 cm, SUV 18.6, suspicious for malignant implant. A similar subcutaneous lesion was noted within the subcutaneous fat over the right gluteal muscles. With those findings, she was recommended to proceed with second line immunotherapy. She then began cycle 1 of pembrolizumab on 12/11/2019. She tolerated it without acute toxicity, and she continued with cycle 2 on 01/02/2020. Ms. Mendoza is here today for follow-up. Her treatment was held last week as she had had a reaction in her mouth and throat after her last treatment . She states that her tongue felt like it was swelling bitten did not get significant. She did have oral lesions that were persistent last week. She was treated with antiviral and antifungal and is here today for reassessment. She reports that overall she is doing much better. The sores are gone. She has had no further swelling or trouble with my mouth . She states she is eating good. She denies any fever or chills. She states that she is concerned that she may have had a reaction to marshmallow whip and a recipe she was making when the swelling and sores appeared. She has had reactions to it before. She denies any new concerns. She denies any new pain. She denies diarrhea or constipation. Her ECOG is 1. Past Medical History: Chronic obstructive pulmonary disease Chronic pancreatitis with pancreatic cyst Gastroesophageal reflux disease Hypertension Hypothyroidism Lung nodules Nephrolithiasis Past Surgical History: Caesarean section Carpal tunnel release on the left Left uretroscopy with stent placement Lung biopsy Pancreatic cyst drainage 8 years ago, in 2015, and in February 2017. Tonsillectomy Cataracts in 2019 Left mastectomy in 2019 Port placement in 2019 - dr oviedo-left ij Allergies: Codeine Sulfate, egg, NSAIDS, Penicillin G Benzathine, prednisoLONE, and Tetracycline HCl. Medications: ALPRAZolam 1 Tablet (of 0.25 mg) Oral at bedtime PRN Anastrozole 1 Tablet (of 1 mg) Oral daily Atenolol-Chlorthalidone 1 Tablet (of 50-25 mg) Oral daily Ativan 1 Tablet (of 1 mg) Oral at bedtime Cholecalciferol 1 (20 MCG ) Tablet Oral daily Levothyroxine Sodium 1 Tablet (of 125 mcg) Oral daily Montelukast Sodium 1 Tablet (of 10 mg) Oral at bedtime Multivitamin 1 Tablet Oral daily Probiotic 1 Capsule Oral daily Ventolin HFA 1 (108 (90 base) mcg/act) Aerosol, solution Inhalation PRN Xarelto 1 (20 mg) Tablet Oral daily Family History: Family history is unknown, as the patient was adopted. Social History: Ms. Mendoza is and she is retired. Ms. Mendoza quit smoking 27 years ago but had smoked 0.5 packs/day for 35 years. She has no history of drinking. She has a history of smoking 1 pack of cigarettes daily for 34 years. She quit smoking approximately 1991. She does not drink alcohol. Review Of Symptoms: Constitutional Denies fevers, chills, night sweats, excessive fatigue or weight loss. Allergic/Immunologic intermittent rash-see above. Eyes Denies significant visual changes. No diplopia. No amaurosis. ENMT Sores and irritation in mouth are gone. Endocrine No diabetes, thyroid disease or hormone replacement. Denies hot flashes or night sweats. Hematologic/Lymphatic Denies easy bruising or bleeding. The patient denies any tender or palpable lymph nodes. Respiratory Shortness of breath persistent, but no worse than normal . Cardiovascular Denies anginal chest pain, palpitations or orthopnea. Gastrointestinal Denies diarrhea, GI bleeding, or constipation. Denies change in bowel habits and/or stool color, no heartburn or early satiety. Nausea better. Genitourinary (F) No hematuria, hesitancy, incontinence, vaginal bleeding, discharge or other problems with urination. Musculoskeletal Denies joint pain, swelling or redness. No decreased range of motion. Integumentary Denies chronic rashes, inflammation, ulcerations or skin changes. Neurologic Denies headache, blurred vision, and no areas of focal weakness or numbness. Normal gait. No sensory problems. Psychiatric Denies insomnia, depression, corby or mood swings. Vital Signs: Performed on Feb 19, 2020 14:12 Height - 62.00 in Weight - 264.6 lbs (HIGH) BSA - 2.15 sq.m BMI - 48.40 (HIGH) Temperature - 98.0 F (LOW) Pulse - 75 /min Respiration - 19 /min BP - 168/66 mm(hg) (HIGH) O2 Sat - 93 % (LOW) Pain - 0,0 - Fully active, able to carry on all predisease activities without restrictions. (ECOG) Physical Examination: Constitutional Alert, oriented, no acute distress. Skin pink, warm and dry. Head Normocephalic; atraumatic. Eyes Conjunctivae and sclerae are clear and without icterus. Pupils are reactive and equal. ENMT No oral exudates, ulcers, masses, thrush or mucositis. Oropharynx clear. Tongue normal. Neck Supple without masses or thyromegaly. No jugular venous distension. Hematologic/Lymphatic No petechiae or purpura. Back/Spine Non-tender to palpation. Extremities No visible deformities, no cyanosis, clubbing or edema. Musculoskeletal No tenderness or swelling, normal range of motion without obvious weakness. Integumentary No rashes or lesions. Neurologic No sensory or motor deficits, normal cerebellar function, normal-slow gait. Psychiatric Alert and oriented times three. Coherent speech. Verbalizes understanding of our discussions today. Laboratory:Test performed on Jan 23, 2020 09:33 Sodium 139 mmol/L TSH 0.52 uIU/mL Potassium 3.7 mmol/L Chloride 98 mmol/L CO2 29 mmol/L Anion Gap 15.7 BUN 29 mg/dL Creatinine 1.3 mg/dL Cr Clearance (Est) 68.76 mL/min Glucose 148 mg/dL Osmolality - Calculated 297 mOsm/kg Calcium 10.0 mg/dL Protein, Total 6.8 g/dL Albumin 4.1 g/dL Globulin 2.7 g/dL Bilirubin, Total 0.4 mg/dL ALT (SGPT) 12 U/L AST (SGOT) 12 U/L Alkaline Phosphatase 83 IU/L WBC 11.6 10 3/uL RBC 4.35 10 6/uL HGB 12.8 g/dL HCT 39.6 % MCV 91.0 fL MCH 29.4 pg MCHC 32.3 g/dL RDW 13.2 % Platelet Count 364 10 3/cmm MPV 10.5 fL Neutrophils 9.15 10 3/uL Lymphocytes 1.0 10 3/uL Monocytes 0.7 10 3/uL Eosinophils 0.7 10 3/uL Basophils 0.1 10 3/uL Neutrophil % 79.3 % Lymphocyte % 8.3 % Monocyte % 5.9 % Eosinophil % 5.6 % Basophils % 0.6 % NRBC % 0 % Impression: 1. Patient with multifocal infiltrating ductal carcinoma of the left breast, grade 3, ER positive/OK negative and HER-2/vickie positive. By clinical evaluation her disease appears to be at least stage IIB (T2, N1, M0). 2. Her PET/CT also showed FDG avid right apical pulmonary nodule, ultimately determined to be a primary non-small cell lung cancer, stage IIIA (T2a, N2, M0). She had subsequent progression to stage MARQUIS (M1b). 3. She is known to have a pancreatic cyst associated with previous pancreatitis. Her other medical illnesses include: 4. Hypertension. 5. COPD. 6. GERD. 7. Hypothyroidism. 8. Degenerative arthritis. 9. She has a history of nephrolithiasis and history of renal cysts. She began cycle 1 of neoadjuvant TCH-P on 06/12/2018. She had no acute toxicity with the initial infusions. She subsequently developed severe diarrhea, and she also had some nausea/vomiting. She required IV hydration on multiple occasions. During that time she did show significant decline in her renal function. She became severely neutropenic, but that resolved uneventfully. During subsequent follow-up she had gradual recovery, though her renal function still did not return to baseline. She eventually was able to continue with cycle 2 of chemotherapy on 07/17/2018. Beginning with that cycle, the Perjeta was omitted from the regimen. She was able to tolerate it with acceptable toxicity, though she continued to have nausea and diarrhea, and she required frequent IV hydration. She completed her 3rd cycle on 08/07/2018 and her 4th cycle on 08/27/2018. Her restaging PET/CT on 09/22/2018 showed complete resolution of left breast and left axillary lesions. The right upper lobe pulmonary nodule appeared stable in size at 1.6 cm, but with increased FDG activity, SUV 21.1. Given those findings, she was recommended to proceed first with resection of the lung nodule and to then address surgical management of the breast. She was seen Dr. Camp for the lung surgery. In the meantime, she had continued treatment with single agent Herceptin. At her follow-up visit on 11/05/2018 she appeared to have developed a new nodule in the left breast. There was concern that her disease was progressing locally. As such, she underwent left modified radical mastectomy on 11/20/2018. Pathology showed no residual tumor in the breast and no involvement in 14 axillary lymph nodes, consistent with complete pathologic response to the neoadjuvant therapy. She had no complications with the surgery, and she then continued single agent Herceptin at the 3-week dosing interval. As of her follow-up visit on 01/29/2019, she restarted adjuvant hormonal therapy with anastrozole 1 mg daily. Her repeat chest CT on 03/18/2019 showed further enlargement of the right upper lobe lung mass, consistent with slowly progressive malignancy. She was referred back to Dr. Camp. Her PET/CT showed uptake in the right upper lobe lung mass and in a right paratracheal lymph node. She underwent bronchoscopy and mediastinoscopy on 05/06/2019. The right paratracheal lymph node biopsy was positive for metastatic lung cancer, consistent with high-grade neuroendocrine carcinoma or possibly adenocarcinoma with neuroendocrine features. By clinical evaluation her disease was stage IIIA (T2a, N2, M0). Due to her marginal performance status and to the decline in her renal function, treatment for the lung cancer was limited to definitive radiation as a single modality. She completed treatment to the right lung/mediastinum on 07/29/2019, total dose 7000 cGy. Shortly after completing the radiation, she had presented with a mass in the area of the right mandibular torus. 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 By clinical evaluation, her disease appears to be localized, and she was treated with palliative radiation, completed on 09/27/2019 to a total dose of 5000 cGy. She developed pretty sore mouth during the radiation, but she otherwise tolerated the treatment well. Her restaging PET/CT on 11/30/2019 showed some improvement in the right lung mass. There was new metastatic involvement in the right adrenal gland as well as to sites of suspected metastatic involvement in the subcutaneous tissue. With that finding, she was advised to proceed with second line immunotherapy with pembrolizumab. She has completed 2 cycles of treatment. She has tolerated reasonably well, though she is having some fatigue and she also has experienced some worsening of eczema. The eczema has responded well to steroid taper. Is essentially gone at this point. Her last treatment with the pembrolizumab was on 01/23/2020. She had developed mouth sores and symptoms that are concerning for allergic reaction after her last pembrolizumab. Those symptoms have now resolved. Plan: 1. Proceed with planned cycle 4 pembrolizumab at 200 mg???standard 3-week dosing 2. She may resume the acyclovir and Diflucan should she have any oral reaction after this treatment. 4. Labs were not ordered for today she was just due for follow-up due to recent problems with rash. 5. She states that the steroid taper has helped with her rash and she has no concerns at this time. 6. We will plan to see her back in 3 weeks with CBC CMP TSH for consideration of cycle 5 pembrolizumab. 7. She had had insomnia but the recent increase her Xanax to 1 mg at bedtime has worked well and she has no hang over effect at present. A. We will see her back as indicated above. She has been encouraged to contact us in the interim should questions or problems arise. Signed By: Eulalio Crook-, [facility] Wes Feldman MD <<Signature on File>>
== END 2020-02-20 23:59 | disposition home or self-care (01) ==
LOC: ONCMED 05:33
PROVIDERS: Internal Medicine Medical Oncology; PCP Electrodiagnostic Medicine; Visit Provider Nurse Practitioner
DX: Z51.12 Encounter for antineoplastic immunotherapy (principal); Z51.11 Encounter for antineoplastic chemotherapy; C50.812 Malignant neoplasm of overlapping sites of left female breast; Z17.0 Estrogen receptor positive status [ER+]; C34.11 Malignant neoplasm of upper lobe, right bronchus or lung; C79.71 Secondary malignant neoplasm of right adrenal gland; D50.9 Iron deficiency anemia, unspecified; K85.90 Acute pancreatitis without necrosis or infection, unspecified; I10 Essential (primary) hypertension; J44.9 Chronic obstructive pulmonary disease, unspecified; K21.9 Gastro-esophageal reflux disease without esophagitis; E03.9 Hypothyroidism, unspecified; M19.90 Unspecified osteoarthritis, unspecified site; N20.0 Calculus of kidney; N28.1 Cyst of kidney, acquired; Z92.21 Personal history of antineoplastic chemotherapy; Z92.3 Personal history of irradiation; Z79.899 Other long term (current) drug therapy
CPT/HCPCS: 36415; 80053; 84443; 85025; 96365; 96368; 96413; 99214; J0133; J1450; J7050; J9271

== ENCOUNTER 2020-03-12 11:44 | Outpatient (RCR) | payer MEDICARE, MEDICAID, SELFPAY ==
[2020-03-12 12:15] LABS: Basophils # 0.1 10^3/uL (0.0-0.1); Basophils % 0.3 %; Eosinophils # 0.2 10^3/uL (0.0-0.8); Eosinophils % 0.9 %; Hematocrit 40.1 % (37.0-47.0); Hemoglobin 12.5 g/dL (11.5-15.3); Lymphocytes # 0.9 10^3/uL (0.8-4.8); Lymphocytes % 4.8 %; Mean Corpuscular HGB Conc 31.2 g/dL (30.0-36.0); Mean Corpuscular Hemoglobin 29.4 pg (28.0-34.0); Mean Corpuscular Volume 94.4 fL (81-99); Monocytes # 0.8 10^3/uL (0.2-0.9); Monocytes % 4.2 %; Neutrophils % 89.1 %; Nucleated Red Blood Cells % 0 %; Platelet Count 318 10^3/cmm (130-400); Red Blood Count 4.25 10^6/uL (4.1-5.3); Red Cell Distribution Width 14.4 % (12.1-15.1); White Blood Count 17.9 10^3/uL (4.0-10.0)
[2020-03-12 12:44] LABS: Alanine Aminotransferase 11 U/L (0-33); Albumin Level 3.5 g/dL (3.5-5.2); Alkaline Phosphatase 81 IU/L (35-105); Anion Gap 13.6 (5-19); Aspartate Amino Transferase 10 U/L (0-32); Blood Urea Nitrogen 32 mg/dL (8-23); Calcium 9.3 mg/dL (8.5-10.5); Carbon Dioxide 30 mmol/L (22-29); Chloride 101 mmol/L (98-107); Globulin 2.6 g/dL (1.3-4.6); Glucose 136 mg/dL (65-115); Osmolality Calculated 301 mOsm/kg (285-295); Potassium 3.6 mmol/L (3.5-5.1); Sodium 141 mmol/L (136-145); Thyroid Stimulating Hormone 1.02 uIU/mL (0.27-4.20); Total Bilirubin 0.3 mg/dL (0.15-1.2); Total Protein 6.1 g/dL (6.6-8.7)
--- NOTE | 2020-03-13 08:57 | ONC FU_ITS ---
Dr. Feldman Patient Follow-Up Note Patient: Deneen Mendoza Unit #: [id number]: 1945 Dicatated By: Wes Feldman M.D.Date of Visit:Mar 12, 2020 Onc Med Follow-up/Prog Note Chief Complaint: Breast cancer/lung cancer. 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 By clinical evaluation her disease appeared to be at least stage IIB (T2, N1, M0). Her PET/CT also showed FDG avid right apical pulmonary nodule, ultimately determined to be a primary non-small cell lung cancer, stage IIIA (T2a, N2, M0). She has had subsequent progression to stage MARQUIS (M1b). She had presented with a lump in the lateral aspect of the left breast, first noticed in early March. Bilateral diagnostic mammogram on 04/05/2018 showed a large spiculated mass in the upper outer left breast deep to the area of palpable concern. Measured 2.2 x 1.4 cm with associated surrounding architectural distortion and associated pleomorphic calcifications. Also noted was adjacent enlarged pathologic appearing lymph nodes/masses with pleomorphic calcifications measuring 1.7 x 1.7 cm an enlarged partially visualized lymph nodes in the left axilla with microcalcifications measuring 2.8 x 2.1 cm. Ultrasound of the left breast showed numerous hypoechoic irregular lesions at the 2:00 in 3 clock position suspicious for multifocal disease. Also noted were 2 additional hypoechoic irregular masses at the 2:00 position which were suspicious for additional foci of disease. An enlarged axillary lymph node measuring 1.1 cm also appeared suspicious for malignancy. On 04/25/2018 she underwent ultrasound-guided needle biopsies at 3 different sites in the left breast and ultrasound guided needle biopsy of a left axillary lymph node. Pathology of the biopsy at 2:00, 6 cm from the nipple, showed extensive infiltrating ductal carcinoma, grade 3 of 3. Biopsy at the 2:00 position 8 cm from the nipple and at the 3 clock position 5 cm from the nipple both also showed infiltrating ductal carcinoma. The breast prognostic profile showed ER positive at 62% and WV negative at less than 1%. It was positive for overexpression of HER-2/vickie, 3+ by IHC, with amplification ratio by FISH of 2.1 with 7.3 HER-2 copies/cell. The Ki-67 was high at 41%. I had seen her initially on 05/21/2018. As her disease appeared to at least locally advanced, she had a staging PET/CT on 05/26/2018. It showed a 1.7 cm soft tissue lesion within the left breast with SUV 6.5. There were several FDG positive axillary lymph nodes, the most prominent being a 1.5 cm node with SUV 14.1. A solid nodule in the right lung apex measured 1.9 x 1.6 cm with SUV 17.7, felt to most likely represent metastatic disease, though primary lung carcinoma was noted to also be possible. Multiple other bilateral pulmonary nodules were either too small to characterize or of groundglass opacity with negligible FDG activity. Given those findings, she was recommended to begin neoadjuvant chemotherapy with TCH-P. Her medical history was also significant for having previously been evaluated by Dr. Tran for multiple pulmonary nodules which included a more dominant right upper lobe nodule measuring 2.9 x 1.7 cm. Bronchoscopy on 05/27/2013 was unremarkable except for a small polyp at the distal aspect of the posterior trachea. It was removed in entirety. Pathology showed no evidence of malignancy. Bronchial washings from the right upper lobe were also negative for malignancy. A follow-up chest CT on 04/29/2015 showed slight enlargement of an anterior segmental left upper lobe nodule measuring 7.3 mm. Multiple other upper lobe nodules bilaterally as well as right middle lobe and right lower lobe nodules appeared stable. She began cycle 1 of TCH-P on 06/12/2018. She had no acute toxicity with the chemotherapy. At approximately day 5 she began having diarrhea. She also had some nausea/vomiting. She required IV hydration on multiple occasions. She had a significant decline in her renal function. She became severely neutropenic, but that resolved uneventfully. She had a very prolonged recovery. She eventually was able to proceed with her 2nd cycle of chemotherapy on 07/17/2018. The Perjeta was omitted from the regimen beginning with that cycle. She tolerated much better, though she continued to have nausea and diarrhea, requiring frequent hydration. Her renal function are fully recovered, but it remained adequate with dehydration. She then proceeded with cycle 3 on 08/07/2018 and with cycle 4 on 08/27/2018. Restaging PET/CT on 09/22/2018 showed resolution of the left breast and axillary lesions. The right upper lobe lung nodule appeared stable at 1.6 cm, but with increased in FDG uptake, SUV 21.1. There were no other areas of abnormal uptake noted. With those findings, her case was reviewed at tumor board, and the decision was made to proceed with resection of the lung nodule first and to then address surgical management of the breast. She was referred to Dr. Camp for the lung surgery. In the meantime, she continued treatment with single agent Herceptin. On 11/20/2018 she underwent left modified radical mastectomy. She tolerated the procedure well. Pathology on the breast showed fibrocystic changes and a 1 mm focus of atypical ductal hyperplasia. There was no malignancy identified. There was no involvement in 14 lymph nodes. Following surgery she continued single agent Herceptin at the 3-week dosing schedule. She completed her 9th cycle of treatment on 03/11/2019. A repeat chest CT on 03/18/2019 showed continued slow increase in the right upper lobe lung mass, at that point measuring 3.3 x 2.9 cm. The appearance was highly suspicious for neoplasm. There was no significant adenopathy noted. Multiolobar groundglass attenuation appeared stable. A large pancreatic head mass also appeared stable. With those findings she was referred back to Dr. Camp, but she also continue with her Herceptin infusions. On PET/CT there was uptake in the right upper lobe lung mass and in the right paratracheal lymph node. On 05/06/2019 she underwent bronchoscopy and mediastinoscopy. The bronchoscopy showed no endobronchial lesion. The mediastinoscopy showed prominent lymph nodes at station 4R. Biopsy showed metastatic carcinoma of the lung, favoring high-grade neuroendocrine carcinoma. The tumor was TTF-1 positive, and the neuroendocrine markers were strongly positive. Poorly differentiated adenocarcinoma with neuroendocrine features was also noted to be possible. Due to her marginal performance status and to the decline in her renal function, treatment for the lung cancer was limited to definitive radiation as a single modality. She completed treatment to the right lung/mediastinum on 07/29/2019, total dose 7000 cGy. Shortly after completing the radiation, she had presented with a mass in the area of the right mandibular torus. 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 Her neck CT on 08/20/2019 showed persistence of right upper lobe lung mass measuring 3.5 x 1.3 cm. There was no cervical lymphadenopathy noted. There were no visualized metastatic lesions in the mandible. With those findings, she underwent palliative radiation to the oral cavity. She completed treatment on 09/27/2019 to a total dose of 5000 cGy. She developed pretty sore mouth during the radiation, but she otherwise tolerated the treatment well. Restaging PET/CT on 11/30/2019 showed slight improvement in the size of the right lung apex mass, but significant decrease in the FDG activity. There was evidence of a new right adrenal metastasis measuring 1.4 cm, SUV 8.4. Also noted was a new FDG positive subcutaneous soft tissue nodule overlying the anterior right lower quadrant of the abdomen measuring 1.9 cm, SUV 18.6, suspicious for malignant implant. A similar subcutaneous lesion was noted within the subcutaneous fat over the right gluteal muscles. With those findings, she was recommended to proceed with second line immunotherapy with pembrolizumab. Her other medical illnesses include hypertension, COPD, GERD, hypothyroidism, and degenerative arthritis. She has a history of nephrolithiasis and she also has renal cysts. She has a history of pancreatitis with associated pancreatic cyst. She had yearly follow-up at [facility] for the cyst, which had been drained on multiple occasions, most recently in February 2017. She has a history of smoking 1 pack of cigarettes daily for more than 30 years. She quit smoking approximately 1991. She does not drink alcohol. INTERIM HISTORY: She began cycle 1 of pembrolizumab on 12/11/2019. She tolerated it without acute toxicity, and she then continued treatment at 3- week intervals. She is seen for a follow-up visit. She has been feeling pretty good generally. Her main complaint that she has had ongoing problems with sore mouth. Following her visit 3 weeks ago she was treated with acyclovir and fluconazole. Her mouth still feels sore. She sometimes feels small bumps in her mouth, but they come and go pretty quickly. Her energy has been pretty good, though she does have some fatigue. ECOG score is 1. She has good appetite. She has no fever or night sweats. She has not had sore throat or difficulty swallowing. She has shortness of breath with activity. She does not complain of cough or chest pain. She has no GI or complaints. She has been having a few more aches and pains, but those are tolerable. She does not complain of headache or dizziness. She has no focal neurologic symptoms. Medications: ALPRAZolam 1 Tablet (of 0.25 mg) Oral at bedtime PRN, Anastrozole 1 Tablet (of 1 mg) Oral daily, Atenolol-Chlorthalidone 1 Tablet (of 50-25 mg) Oral daily, Ativan 1 Tablet (of 1 mg) Oral at bedtime, Cholecalciferol 1 (20 MCG ) Tablet Oral daily, Levothyroxine Sodium 1 Tablet (of 125 mcg) Oral daily, Montelukast Sodium 1 Tablet (of 10 mg) Oral at bedtime, Multivitamin 1 Tablet Oral daily, Probiotic 1 Capsule Oral daily, Ventolin HFA 1 (108 (90 base) mcg/act) Aerosol, solution Inhalation PRN, Xarelto 1 (20 mg) Tablet Oral daily Allergies: Codeine Sulfate, egg, NSAIDS, Penicillin G Benzathine, prednisoLONE, and Tetracycline HCl. Vital Signs: Performed on Mar 12, 2020 13:37 Height - 62.00 in Weight - 271 lbs (HIGH) BSA - 2.17 sq.m BMI - 49.57 (HIGH) Temperature - 98.0 F (LOW) Pulse - 77 /min Respiration - 21 /min BP - 141/75 mm(hg) (HIGH) O2 Sat - 94 % (LOW) Pain - 0 Physical Examination: Constitutional - She looks pretty good generally, Eyes - Sclerae nonicteric. Conjunctivae clear, ENMT - There is no evidence of recurrence of the right mandibular lesion. The tongue appears dry and it has a slight brownish discoloration, Hematologic/Lymphatic - No cervical, clavicular, or axillary adenopathy, Respiratory - Lungs are clear with diminished air movement bilaterally, Cardiovascular - Heart rhythm is regular. There is no murmur, gallop, or rub noted, Abdomen - Moderately distended but soft. Liver and spleen are not enlarged. There is no abdominal mass or ascites noted and there is no inguinal adenopathy, Extremities - No edema, Neurologic - No focal neurologic deficits noted. Lab/Imaging: Test performed on Mar 12, 2020 11:59 Sodium 141 mmol/L TSH 1.02 uIU/mL Potassium 3.6 mmol/L Chloride 101 mmol/L CO2 30 mmol/L Anion Gap 13.6 BUN 32 mg/dL Creatinine 1.3 mg/dL Cr Clearance (Est) 72.56 mL/min Glucose 136 mg/dL Osmolality - Calculated 301 mOsm/kg Calcium 9.3 mg/dL Protein, Total 6.1 g/dL Albumin 3.5 g/dL Globulin 2.6 g/dL Bilirubin, Total 0.3 mg/dL ALT (SGPT) 11 U/L AST (SGOT) 10 U/L Alkaline Phosphatase 81 IU/L WBC 17.9 10 3/uL RBC 4.25 10 6/uL HGB 12.5 g/dL HCT 40.1 % MCV 94.4 fL MCH 29.4 pg MCHC 31.2 g/dL RDW 14.4 % Platelet Count 318 10 3/cmm MPV 10.0 fL Neutrophils 15.90 10 3/uL Lymphocytes 0.9 10 3/uL Monocytes 0.8 10 3/uL Eosinophils 0.2 10 3/uL Basophils 0.1 10 3/uL Neutrophil % 89.1 % Lymphocyte % 4.8 % Monocyte % 4.2 % Eosinophil % 0.9 % Basophils % 0.3 % NRBC % 0 % Problem List: 1. Multifocal infiltrating ductal carcinoma of the left breast, grade 3, ER positive/WV negative and HER-2/vickie positive. By clinical evaluation her disease appeared to be at least stage IIB (T2, N1, M0). 2. Her PET/CT also showed FDG avid right apical pulmonary nodule, ultimately determined to be a primary non-small cell lung cancer, stage IIIA (T2a, N2, M0). She had subsequent progression to stage IVB (M1c). 3. She is known to have a pancreatic cyst associated with previous pancreatitis. 4. Hypertension. 5. COPD. 6. GERD. 7. Hypothyroidism. 8. Degenerative arthritis. 9. She has a history of nephrolithiasis and history of renal cysts. Problems Addressed with this Encounter and Plan: 1. Multifocal infiltrating ductal carcinoma of the left breast, grade 3, ER positive/WV negative and HER-2/vickie positive, by clinical evaluation stage IIB (T2, N1, M0). She underwent neoadjuvant chemotherapy with 4 cycles of TCH-P, completed in August 2018 and complicated by a decline in renal function. She then continued Herceptin monotherapy for a full year of treatment. She underwent left modified radical mastectomy on 11/20/2018, and she subsequently began adjuvant hormonal therapy with anastrozole 1 mg daily. During follow-up there has been no evidence of recurrence of the breast cancer. She continues on anastrozole 1 mg daily. 2. Non-small cell lung carcinoma involving the upper lobe of the right lung, stage IIIA (T2a, N2, M0). She completed definitive radiation on 07/29/2019, total dose 7000 cGy. She had subsequent progression to stage IVB (M1c) with biopsy-proven metastatic involvement in the right mandibular lesion and with subsequent PET/CT evidence of metastatic involvement in the right adrenal gland and in multiple subcutaneous sites. She began a trial of immunotherapy with pembrolizumab in November 2019. She has completed 4 cycles of treatment. During treatment she required steroid therapy for an exacerbation of eczema. She has otherwise tolerated the treatment well. She has not yet been evaluated for response. She will continue with cycle 5 of pembrolizumab at 200 mg by IV infusion. She will return for treatment again in 3 weeks and for a follow-up visit in 6 weeks. She will have restaging CT scans prior to that visit. 3. She has had ongoing problems with sore mouth following palliative radiation for the right mandibular lesion. She is using Magic Mouthwash. She will be given a prescription for Myclelex troches. She will also try tapering off prednisone. Signed By: eWs Feldman M.D. <<Signature on File>>
== END 2020-03-22 23:59 | disposition home or self-care (01) ==
LOC: ONCMED 11:44
PROVIDERS: PCP Electrodiagnostic Medicine; Visit Provider Internal Medicine Medical Oncology
DX: Z51.12 Encounter for antineoplastic immunotherapy (principal); C50.812 Malignant neoplasm of overlapping sites of left female breast; Z17.0 Estrogen receptor positive status [ER+]; C34.11 Malignant neoplasm of upper lobe, right bronchus or lung; C79.71 Secondary malignant neoplasm of right adrenal gland; D50.9 Iron deficiency anemia, unspecified; K85.90 Acute pancreatitis without necrosis or infection, unspecified; I10 Essential (primary) hypertension; J44.9 Chronic obstructive pulmonary disease, unspecified; K21.9 Gastro-esophageal reflux disease without esophagitis; E03.9 Hypothyroidism, unspecified; M19.90 Unspecified osteoarthritis, unspecified site; Z87.442 Personal history of urinary calculi; Z79.899 Other long term (current) drug therapy
CPT/HCPCS: 80053; 84443; 85025; 96413; 99215; J7050; J9271

== ENCOUNTER 2020-04-02 06:21 | Outpatient (RCR) | payer MEDICARE, MEDICAID, SELFPAY | END 2020-04-19 23:59 | disposition home or self-care (01) | LOC: ONCMED 06:21 | PROVIDERS: PCP Electrodiagnostic Medicine; Visit Provider Nurse Practitioner | DX: Z51.12 Encounter for antineoplastic immunotherapy (principal); C50.812 Malignant neoplasm of overlapping sites of left female breast; Z17.0 Estrogen receptor positive status [ER+]; C34.11 Malignant neoplasm of upper lobe, right bronchus or lung; C79.71 Secondary malignant neoplasm of right adrenal gland; D50.9 Iron deficiency anemia, unspecified | CPT/HCPCS: 96413; J7050; J9271 ==

== ENCOUNTER 2020-04-21 05:57 | Outpatient (CLI) | payer MEDICARE, MEDICAID, SELFPAY ==
--- NOTE | 2020-04-21 11:56 | CT_ITS ---
WS: [id number] CT CHEST, ABDOMEN AND PELVIS WITH CONTRAST HISTORY: LUNG CANCER TECHNIQUE: Contiguous 5 mm axial imaging performed through the chest, abdomen and pelvis with IV cont rast, oral contrast has been provided. Coronal and sagittal reformats chest. Coronal and sagittal ref ormats through the abdomen and pelvis. All CT scans at [facility] use at least one of the se dose optimization techniques: automated exposure control; mA and/or kV adjustment per patient size (includes targeted exams where dose is matched to clinical indication); or iterative reconstruction. CONTRAST: Visipaque 320; 95 mL IV. DLP: 2613.01 mGy.cm COMPARISON: 03/18/2019, 12/03/2018 08/09/[address]: RIGHT apical enlarging pulmonary mass has slightly decreased in size since 03/18/2019. The s olid component now measures 1.8 x 2.7 cm. There are a few adjacent scattered nodular opacifications. New interstitial thickening in the medial RIGHT upper lung is probably post radiation change. There a re additional scattered small opacifications and groundglass opacifications bilaterally. Some of thes e were present on the prior study. Some these opacifications have improved while others are new. Roun ded groundglass consolidation measuring 2.6 x 1.8 cm in the RIGHT lower lobe. Small mediastinal and h ilar lymph nodes. No enlarged lymph nodes. No new lymph nodes identified. Mild atherosclerosis aorta. Pulmonary artery size is slightly prominent. Heart size is normal. No pericardial or pleural effusio n. Prior LEFT mastectomy. Fluid collection at the mastectomy site is no longer present. Abdomen CT: Normal size liver. Gallbladder and spleen are normal. No duct dilatation. Patient has a k nown pancreatic mass. Mass is of low-attenuation with areas of enhancement and the margins are lobula pino. Mass arising at the junction of the body and head of the pancreas. This mass now measures 6.5 x 6.2 cm and has not significantly increased in size over the last few years. Distal pancreatic duct is dilated. Pancreatic tail is becoming atrophied. Mass abuts but does not encase the LEFT gastric james ry. Mild atherosclerosis aorta. Bilateral renal atrophy and multiple cystic masses associated with each kidney. Some of these cysts c ontain septations. Some are too small to characterize. Some of the cysts are increased density as com pared to normal fluid. Complex cyst or early neoplasm measuring 6.1 x 7.1 cm from the lower pole of t he LEFT kidney. This mass is noted to undergo hemorrhage on prior studies and probably a hemorrhagic cyst. No adenopathy or ascites. Mild constipation. No GI tract obstruction. There are a few scattered diverticula without diverticuli tis. Pelvic CT: Nondistended urinary bladder. No free fluid or adenopathy in the pelvis. No osteoblastic or osteolytic bone disease. Very mild thoracolumbar scoliosis. CT/CT chest abd pel w con* IMPRESSION: 1. Moderate decrease in size of the known RIGHT apical pulmonary neoplasm. Mas s now measures 1.8 x 2.7 cm with adjacent postradiation changes. 2. Scattered groundglass opacifications throughout both lungs. Some of these o pacifications have progressed. These may be related to pneumonitis but neoplast ic disease/metastatic lesions and low-grade adenocarcinoma may appear similar. 3. No mediastinal or hilar adenopathy. 4. Resolved fluid collection at the LEFT mastectomy site. 5. Continued increase in size of the large pancreatic mass highly suspicious f or pancreatic neoplasm. Mass now measures 6.5 x 6.2 cm. Distal pancreas is atro phied and the pancreatic duct is dilated. 6. Bilateral renal cysts and complex cysts not significantly changed. 7. No ascites.
[2020-04-21 12:10] LABS: Basophils # 0.1 10^3/uL (0.0-0.1); Basophils % 0.4 %; Eosinophils # 0.5 10^3/uL (0.0-0.8); Eosinophils % 3.9 %; Hematocrit 40.5 % (37.0-47.0); Hemoglobin 12.7 g/dL (11.5-15.3); Lymphocytes # 0.8 10^3/uL (0.8-4.8); Lymphocytes % 7.1 %; Mean Corpuscular HGB Conc 31.4 g/dL (30.0-36.0); Mean Corpuscular Hemoglobin 29.4 pg (28.0-34.0); Mean Corpuscular Volume 93.8 fL (81-99); Mean Platelet Volume 10.2 fL (7.4-10.4); Monocytes # 0.7 10^3/uL (0.2-0.9); Monocytes % 6.3 %; Neutrophils # 9.65 10^3/uL (1.8-7.7); Neutrophils % 81.6 %; Nucleated Red Blood Cells % 0 %; Platelet Count 379 10^3/cmm (130-400); Red Blood Count 4.32 10^6/uL (4.1-5.3); Red Cell Distribution Width 13.3 % (12.1-15.1); White Blood Count 11.8 10^3/uL (4.0-10.0)
[2020-04-21 12:36] LABS: Alanine Aminotransferase 7 U/L (0-33); Albumin Level 3.9 g/dL (3.5-5.2); Alkaline Phosphatase 71 IU/L (35-105); Anion Gap 13.7 (5-19); Aspartate Amino Transferase 11 U/L (0-32); Blood Urea Nitrogen 22 mg/dL (8-23); Calcium 9.3 mg/dL (8.5-10.5); Carbon Dioxide 31 mmol/L (22-29); Chloride 96 mmol/L (98-107); Globulin 2.7 g/dL (1.3-4.6); Glucose 93 mg/dL (65-115); Osmolality Calculated 287 mOsm/kg (285-295); Potassium 3.7 mmol/L (3.5-5.1); Sodium 137 mmol/L (136-145); Thyroid Stimulating Hormone 0.47 uIU/mL (0.27-4.20); Total Bilirubin 0.5 mg/dL (0.15-1.2); Total Protein 6.6 g/dL (6.6-8.7)
[2020-04-21] MEDS: iohexol 300 mg/mL 100 mL Btl IV (13:45)
[2020-04-21] MEDS: iohexol 300 mg/mL 50 mL Btl PO (13:47)
== END 2020-04-21 05:58 | disposition home or self-care (01) ==
LOC: ONCMED 05:58
PROVIDERS: PCP Electrodiagnostic Medicine; Visit Provider Internal Medicine Medical Oncology
DX: C34.11 Malignant neoplasm of upper lobe, right bronchus or lung (principal); E03.9 Hypothyroidism, unspecified; K86.9 Disease of pancreas, unspecified; R91.8 Other nonspecific abnormal finding of lung field; Z92.3 Personal history of irradiation; Z90.12 Acquired absence of left breast and nipple
CPT/HCPCS: 36415; 71260; 74177; 80053; 84443; 85025; Q9967

== ENCOUNTER 2020-05-14 05:37 | Outpatient (RCR) | payer MEDICARE, MEDICAID, SELFPAY ==
--- NOTE | 2020-04-23 18:57 | ONC FU_ITS ---
Dr. Feldman Patient Follow-Up Note Patient: Deneen Mendoza Unit #: [id number]: 1945 Dicatated By: Wes Feldman M.D.Date of Visit:Apr 23, 2020 Onc Med Follow-up/Prog Note Chief Complaint: Breast cancer/lung cancer. 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 By clinical evaluation her disease appeared to be at least stage IIB (T2, N1, M0). Her PET/CT also showed FDG avid right apical pulmonary nodule, ultimately determined to be a primary non-small cell lung cancer, stage IIIA (T2a, N2, M0). She had subsequent progression to stage MARQUIS (M1b). She had presented with a lump in the lateral aspect of the left breast, first noticed in early March. Bilateral diagnostic mammogram on 04/05/2018 showed a large spiculated mass in the upper outer left breast deep to the area of palpable concern. Measured 2.2 x 1.4 cm with associated surrounding architectural distortion and associated pleomorphic calcifications. Also noted was adjacent enlarged pathologic appearing lymph nodes/masses with pleomorphic calcifications measuring 1.7 x 1.7 cm an enlarged partially visualized lymph nodes in the left axilla with microcalcifications measuring 2.8 x 2.1 cm. Ultrasound of the left breast showed numerous hypoechoic irregular lesions at the 2:00 in 3 clock position suspicious for multifocal disease. Also noted were 2 additional hypoechoic irregular masses at the 2:00 position which were suspicious for additional foci of disease. An enlarged axillary lymph node measuring 1.1 cm also appeared suspicious for malignancy. On 04/25/2018 she underwent ultrasound-guided needle biopsies at 3 different sites in the left breast and ultrasound guided needle biopsy of a left axillary lymph node. Pathology of the biopsy at 2:00, 6 cm from the nipple, showed extensive infiltrating ductal carcinoma, grade 3 of 3. Biopsy at the 2:00 position 8 cm from the nipple and at the 3 clock position 5 cm from the nipple both also showed infiltrating ductal carcinoma. The breast prognostic profile showed ER positive at 62% and FL negative at less than 1%. It was positive for overexpression of HER-2/vickie, 3+ by IHC, with amplification ratio by FISH of 2.1 with 7.3 HER-2 copies/cell. The Ki-67 was high at 41%. I had seen her initially on 05/21/2018. As her disease appeared to at least locally advanced, she had a staging PET/CT on 05/26/2018. It showed a 1.7 cm soft tissue lesion within the left breast with SUV 6.5. There were several FDG positive axillary lymph nodes, the most prominent being a 1.5 cm node with SUV 14.1. A solid nodule in the right lung apex measured 1.9 x 1.6 cm with SUV 17.7, felt to most likely represent metastatic disease, though primary lung carcinoma was noted to also be possible. Multiple other bilateral pulmonary nodules were either too small to characterize or of groundglass opacity with negligible FDG activity. Given those findings, she was recommended to begin neoadjuvant chemotherapy with TCH-P. She began cycle 1 of TCH-P on 06/12/2018. She had no acute toxicity with the chemotherapy. At approximately day 5 she began having diarrhea. She also had some nausea/vomiting. She required IV hydration on multiple occasions. She had a significant decline in her renal function. She became severely neutropenic, but that resolved uneventfully. She had a very prolonged recovery. She eventually was able to proceed with her 2nd cycle of chemotherapy on 07/17/2018. The Perjeta was omitted from the regimen beginning with that cycle. She tolerated much better, though she continued to have nausea and diarrhea, requiring frequent hydration. Her renal function are fully recovered, but it remained adequate with dehydration. She then proceeded with cycle 3 on 08/07/2018 and with cycle 4 on 08/27/2018. Restaging PET/CT on 09/22/2018 showed resolution of the left breast and axillary lesions. The right upper lobe lung nodule appeared stable at 1.6 cm, but with increased in FDG uptake, SUV 21.1. There were no other areas of abnormal uptake noted. With those findings, her case was reviewed at tumor board, and the decision was made to proceed with resection of the lung nodule first and to then address surgical management of the breast. She was referred to Dr. Camp for the lung surgery. In the meantime, she continued treatment with single agent Herceptin. On 11/20/2018 she underwent left modified radical mastectomy. She tolerated the procedure well. Pathology on the breast showed fibrocystic changes and a 1 mm focus of atypical ductal hyperplasia. There was no malignancy identified. There was no involvement in 14 lymph nodes. Following surgery she continued single agent Herceptin at the 3-week dosing schedule. She completed her 9th cycle of treatment on 03/11/2019. A repeat chest CT on 03/18/2019 showed continued slow increase in the right upper lobe lung mass, at that point measuring 3.3 x 2.9 cm. The appearance was highly suspicious for neoplasm. There was no significant adenopathy noted. Multiolobar groundglass attenuation appeared stable. A large pancreatic head mass also appeared stable. With those findings she was referred back to Dr. Camp, but she also continue with her Herceptin infusions. On PET/CT there was uptake in the right upper lobe lung mass and in the right paratracheal lymph node. On 05/06/2019 she underwent bronchoscopy and mediastinoscopy. The bronchoscopy showed no endobronchial lesion. The mediastinoscopy showed prominent lymph nodes at station 4R. Biopsy showed metastatic carcinoma of the lung, favoring high-grade neuroendocrine carcinoma. The tumor was TTF-1 positive, and the neuroendocrine markers were strongly positive. Poorly differentiated adenocarcinoma with neuroendocrine features was also noted to be possible. Due to her marginal performance status and to the decline in her renal function, treatment for the lung cancer was limited to definitive radiation as a single modality. She completed treatment to the right lung/mediastinum on 07/29/2019, total dose 7000 cGy. Shortly after completing the radiation, she had presented with a mass in the area of the right mandibular torus. 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 Her neck CT on 08/20/2019 showed persistence of right upper lobe lung mass measuring 3.5 x 1.3 cm. There was no cervical lymphadenopathy noted. There were no visualized metastatic lesions in the mandible. With those findings, she underwent palliative radiation to the oral cavity. She completed treatment on 09/27/2019 to a total dose of 5000 cGy. She developed pretty sore mouth during the radiation, but she otherwise tolerated the treatment well. Restaging PET/CT on 11/30/2019 showed slight improvement in the size of the right lung apex mass, but significant decrease in the FDG activity. There was evidence of a new right adrenal metastasis measuring 1.4 cm, SUV 8.4. Also noted was a new FDG positive subcutaneous soft tissue nodule overlying the anterior right lower quadrant of the abdomen measuring 1.9 cm, SUV 18.6, suspicious for malignant implant. A similar subcutaneous lesion was noted within the subcutaneous fat over the right gluteal muscles. With those findings, she was recommended to proceed with second line immunotherapy with pembrolizumab. Her other medical illnesses include hypertension, COPD, GERD, hypothyroidism, and degenerative arthritis. She has a history of nephrolithiasis and she also has renal cysts. She has a history of pancreatitis with associated pancreatic cyst. She had yearly follow-up at [facility] for the cyst, which had been drained on multiple occasions, most recently in February 2017. She has a history of smoking 1 pack of cigarettes daily for more than 30 years. She quit smoking approximately 1991. She does not drink alcohol. INTERIM HISTORY: She began cycle 1 of pembrolizumab on 12/11/2019. She tolerated it without acute toxicity, and she then continued treatment at 3- week intervals. Her restaging CT scans on 04/21/2020 showed slight decrease in the right pulmonary mass measuring 1.8 x 2.7 cm. Additional scattered small opacifications and groundglass opacifications were noted bilaterally, some of which were noted to improved while others were noted to be new. There was a rounded groundglass consolidation in the right lower lobe measuring 2.6 x 1.8 cm. Small mediastinal and hilar lymph nodes were present. There was no new or progressed adenopathy. The abdomen showed continued increase in the pancreatic mass measuring 6.5 x 6.2 cm. A complex cyst or early neoplasm measuring 6.1 x 7.1 cm was noted in the lower pole of the left kidney. It was felt to most likely represent a hemorrhagic cyst. She is seen for a follow-up visit. She reports that she has been feeling tired, though she is still pretty active. Her ECOG score is 1. She has good appetite. She does not have fever or night sweats. She has a little bit of sinus drainage and cough. Her mouth is still a little sore since the radiation. She does have shortness of breath with activity. She does not complain of chest pain. She has no GI or complaints. She has had arthritis pain for years, especially in her back. She thinks it is getting somewhat worse. She does not complain of headache or dizziness, and she has no focal neurologic symptoms. Medications: ALPRAZolam 1 Tablet (of 0.25 mg) Oral at bedtime PRN, Anastrozole 1 Tablet (of 1 mg) Oral daily, Atenolol-Chlorthalidone 1 Tablet (of 50-25 mg) Oral daily, Ativan 1 Tablet (of 1 mg) Oral at bedtime, Cholecalciferol 1 (20 MCG ) Tablet Oral daily, Levothyroxine Sodium 1 Tablet (of 125 mcg) Oral daily, Montelukast Sodium 1 Tablet (of 10 mg) Oral at bedtime, Multivitamin 1 Tablet Oral daily, Probiotic 1 Capsule Oral daily, Ventolin HFA 1 (108 (90 base) mcg/act) Aerosol, solution Inhalation PRN, Xarelto 1 (20 mg) Tablet Oral daily Allergies: Codeine Sulfate, egg, NSAIDS, Penicillin G Benzathine, prednisoLONE, and Tetracycline HCl. Vital Signs: Performed on Apr 23, 2020 14:51 Height - 62.00 in Temperature - 99.2 F (HIGH) Pulse - 69 /min Respiration - 22 /min BP - 131/51 mm(hg) O2 Sat - 95 % (LOW) Performed on Apr 23, 2020 13:10 Height - 62.00 in Weight - 270.8 lbs (LOW) BSA - 2.17 sq.m BMI - 49.53 (HIGH) Temperature - 99.2 F (HIGH) Pulse - 74 /min Respiration - 20 /min BP - 139/77 mm(hg) O2 Sat - 94 % (LOW) Pain - 0 Fatigue - 5 Physical Examination: Constitutional - She looks pretty good generally, Eyes - Sclerae nonicteric. Conjunctivae clear, ENMT - There is no evidence of recurrence of the right mandibular lesion, Hematologic/Lymphatic - No cervical, clavicular, or axillary adenopathy, Respiratory - Lungs are clear with diminished air movement bilaterally, Cardiovascular - Heart rhythm is regular. There is no murmur, gallop, or rub noted, Abdomen - Moderately distended but soft. Liver and spleen are not enlarged. There is no abdominal mass or ascites noted and there is no inguinal adenopathy, Extremities - No edema, Neurologic - No focal neurologic deficits noted. Lab/Imaging: CBC shows hemoglobin 12.7 g, white blood cell count 11,800, and platelet count 379,000. Comprehensive metabolic profile shows stable renal function with BUN 22 and creatinine 1.4 mg/dL. The bilirubin and liver enzymes are normal. TSH is normal at 0.47 ???IU/mL. Problem List: 1. Multifocal infiltrating ductal carcinoma of the left breast, grade 3, ER positive/FL negative and HER-2/vickie positive. By clinical evaluation her disease appeared to be at least stage IIB (T2, N1, M0). 2. Her PET/CT also showed FDG avid right apical pulmonary nodule, ultimately determined to be a primary non-small cell lung cancer, stage IIIA (T2a, N2, M0). She had subsequent progression to stage IVB (M1c). 3. She is known to have a pancreatic cyst associated with previous pancreatitis. 4. Hypertension. 5. COPD. 6. GERD. 7. Hypothyroidism. 8. Degenerative arthritis. 9. She has a history of nephrolithiasis and history of renal cysts. Problems Addressed with this Encounter and Plan: 1. Multifocal infiltrating ductal carcinoma of the left breast, grade 3, ER positive/FL negative and HER-2/vickie positive, by clinical evaluation stage IIB (T2, N1, M0). She underwent neoadjuvant chemotherapy with 4 cycles of TCH-P, completed in August 2018 and complicated by a decline in renal function. She then continued Herceptin monotherapy for a full year of treatment. She underwent left modified radical mastectomy on 11/20/2018, and she subsequently began adjuvant hormonal therapy with anastrozole 1 mg daily. During follow-up there has been no evidence of recurrence of the breast cancer. She continues on anastrozole 1 mg daily. 2. Non-small cell lung carcinoma involving the upper lobe of the right lung, stage IIIA (T2a, N2, M0). She completed definitive radiation on 07/29/2019, total dose 7000 cGy. She had subsequent progression to stage IVB (M1c) with biopsy-proven metastatic involvement in the right mandibular lesion and with subsequent PET/CT evidence of metastatic involvement in the right adrenal gland and in multiple subcutaneous sites. She began a trial of immunotherapy with pembrolizumab in November 2019. She has completed 4 cycles of treatment. During treatment she required steroid therapy for an exacerbation of eczema. She has otherwise tolerated the treatment well. She has completed 6 cycles of treatment. She does appear to be showing some response by follow-up CT scan. As such, she will proceed now with cycle 7 of pembrolizumab at 200 mg by IV infusion. She will return for treatment in 3 weeks and for a follow-up visit in 6 weeks. 3. She is known to have a pancreatic cyst associated with previous pancreatitis. The cyst has previously been drained on numerous occasions at [facility]. Her schedule was interrupted, though, when she was found to have the breast cancer. The cyst has been showing progressive enlargement by CT scan, and she is long overdue to have it drained. At least for now, as long as it is not symptomatic, it will be followed expectantly. Signed By: Wse Feldman M.D. <<Signature on File>>
== END 2020-05-20 23:59 | disposition home or self-care (01) ==
LOC: ONCMED 05:37
PROVIDERS: PCP Electrodiagnostic Medicine; Visit Provider Nurse Practitioner
DX: Z51.12 Encounter for antineoplastic immunotherapy (principal); C50.812 Malignant neoplasm of overlapping sites of left female breast; Z17.0 Estrogen receptor positive status [ER+]; C78.02 Secondary malignant neoplasm of left lung; C79.71 Secondary malignant neoplasm of right adrenal gland; D50.9 Iron deficiency anemia, unspecified; K86.1 Other chronic pancreatitis; I10 Essential (primary) hypertension; J44.9 Chronic obstructive pulmonary disease, unspecified; K21.9 Gastro-esophageal reflux disease without esophagitis; E03.9 Hypothyroidism, unspecified; M19.90 Unspecified osteoarthritis, unspecified site; Z79.899 Other long term (current) drug therapy
CPT/HCPCS: 96413; 99214; J7050; J9271

== ENCOUNTER 2020-06-04 06:02 | Outpatient (RCR) | payer MEDICARE, MEDICAID, SELFPAY ==
[2020-06-04 10:08] LABS: Basophils # 0.1 10^3/uL (0.0-0.1); Basophils % 0.4 %; Eosinophils # 0.4 10^3/uL (0.0-0.8); Eosinophils % 2.9 %; Hematocrit 41.2 % (37.0-47.0); Hemoglobin 12.9 g/dL (11.5-15.3); Mean Corpuscular HGB Conc 31.3 g/dL (30.0-36.0); Mean Corpuscular Hemoglobin 29.3 pg (28.0-34.0); Mean Corpuscular Volume 93.6 fL (81-99); Mean Platelet Volume 10.7 fL (7.4-10.4); Monocytes # 0.8 10^3/uL (0.2-0.9); Monocytes % 5.6 %; Neutrophils # 11.48 10^3/uL (1.8-7.7); Neutrophils % 83.7 %; Nucleated Red Blood Cells % 0 %; Platelet Count 349 10^3/cmm (130-400); Red Cell Distribution Width 13.3 % (12.1-15.1); White Blood Count 13.7 10^3/uL (4.0-10.0)
[2020-06-04 10:40] LABS: Alanine Aminotransferase 10 U/L (0-33); Albumin Level 4.1 g/dL (3.5-5.2); Alkaline Phosphatase 68 IU/L (35-105); Anion Gap 15.3 (5-19); Aspartate Amino Transferase 13 U/L (0-32); Blood Urea Nitrogen 20 mg/dL (8-23); Carbon Dioxide 31 mmol/L (22-29); Chloride 99 mmol/L (98-107); Globulin 2.7 g/dL (1.3-4.6); Glucose 136 mg/dL (65-115); Osmolality Calculated 299 mOsm/kg (285-295); Potassium 3.3 mmol/L (3.5-5.1); Sodium 142 mmol/L (136-145); Thyroid Stimulating Hormone 0.76 uIU/mL (0.27-4.20); Total Bilirubin 0.5 mg/dL (0.15-1.2); Total Protein 6.8 g/dL (6.6-8.7)
--- NOTE | 2020-06-18 00:31 | ONC FU_ITS ---
[facility] Patient Note Patient: Deneen Mendoza Unit #: [id number]: 1945 Dictated By: Eulalio CrookDate of Visit: Jun 04, 2020 Onc MED Follow-Up/Prog Note Chief Complaint: Breast cancer/lung cancer. 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 By clinical evaluation her disease appeared to be at least stage IIB (T2, N1, M0). Her PET/CT also showed FDG avid right apical pulmonary nodule, ultimately determined to be a primary non-small cell lung cancer, stage IIIA (T2a, N2, M0). She had subsequent progression to stage MARQUIS (M1b). She had presented with a lump in the lateral aspect of the left breast, first noticed in early March. Bilateral diagnostic mammogram on 04/05/2018 showed a large spiculated mass in the upper outer left breast deep to the area of palpable concern. Measured 2.2 x 1.4 cm with associated surrounding architectural distortion and associated pleomorphic calcifications. Also noted was adjacent enlarged pathologic appearing lymph nodes/masses with pleomorphic calcifications measuring 1.7 x 1.7 cm an enlarged partially visualized lymph nodes in the left axilla with microcalcifications measuring 2.8 x 2.1 cm. Ultrasound of the left breast showed numerous hypoechoic irregular lesions at the 2:00 in 3 clock position suspicious for multifocal disease. Also noted were 2 additional hypoechoic irregular masses at the 2:00 position which were suspicious for additional foci of disease. An enlarged axillary lymph node measuring 1.1 cm also appeared suspicious for malignancy. On 04/25/2018 she underwent ultrasound-guided needle biopsies at 3 different sites in the left breast and ultrasound guided needle biopsy of a left axillary lymph node. Pathology of the biopsy at 2:00, 6 cm from the nipple, showed extensive infiltrating ductal carcinoma, grade 3 of 3. Biopsy at the 2:00 position 8 cm from the nipple and at the 3 clock position 5 cm from the nipple both also showed infiltrating ductal carcinoma. The breast prognostic profile showed ER positive at 62% and TX negative at less than 1%. It was positive for overexpression of HER-2/vickie, 3+ by IHC, with amplification ratio by FISH of 2.1 with 7.3 HER-2 copies/cell. The Ki-67 was high at 41%. Dr Feldman had seen her initially on 05/21/2018. As her disease appeared to at least locally advanced, she had a staging PET/CT on 05/26/2018. It showed a 1.7 cm soft tissue lesion within the left breast with SUV 6.5. There were several FDG positive axillary lymph nodes, the most prominent being a 1.5 cm node with SUV 14.1. A solid nodule in the right lung apex measured 1.9 x 1.6 cm with SUV 17.7, felt to most likely represent metastatic disease, though primary lung carcinoma was noted to also be possible. Multiple other bilateral pulmonary nodules were either too small to characterize or of groundglass opacity with negligible FDG activity. Given those findings, she was recommended to begin neoadjuvant chemotherapy with TCH-P. She began cycle 1 of TCH-P on 06/12/2018. She had no acute toxicity with the chemotherapy. At approximately day 5 she began having diarrhea. She also had some nausea/vomiting. She required IV hydration on multiple occasions. She had a significant decline in her renal function. She became severely neutropenic, but that resolved uneventfully. She had a very prolonged recovery. She eventually was able to proceed with her 2nd cycle of chemotherapy on 07/17/2018. The Perjeta was omitted from the regimen beginning with that cycle. She tolerated much better, though she continued to have nausea and diarrhea, requiring frequent hydration. Her renal function are fully recovered, but it remained adequate with dehydration. She then proceeded with cycle 3 on 08/07/2018 and with cycle 4 on 08/27/2018. Restaging PET/CT on 09/22/2018 showed resolution of the left breast and axillary lesions. The right upper lobe lung nodule appeared stable at 1.6 cm, but with increased in FDG uptake, SUV 21.1. There were no other areas of abnormal uptake noted. With those findings, her case was reviewed at tumor board, and the decision was made to proceed with resection of the lung nodule first and to then address surgical management of the breast. She was referred to Dr. Camp for the lung surgery. In the meantime, she continued treatment with single agent Herceptin. On 11/20/2018 she underwent left modified radical mastectomy. She tolerated the procedure well. Pathology on the breast showed fibrocystic changes and a 1 mm focus of atypical ductal hyperplasia. There was no malignancy identified. There was no involvement in 14 lymph nodes. Following surgery she continued single agent Herceptin at the 3-week dosing schedule. She completed her 9th cycle of treatment on 03/11/2019. A repeat chest CT on 03/18/2019 showed continued slow increase in the right upper lobe lung mass, at that point measuring 3.3 x 2.9 cm. The appearance was highly suspicious for neoplasm. There was no significant adenopathy noted. Multiolobar groundglass attenuation appeared stable. A large pancreatic head mass also appeared stable. With those findings she was referred back to Dr. Camp, but she also continue with her Herceptin infusions. On PET/CT there was uptake in the right upper lobe lung mass and in the right paratracheal lymph node. On 05/06/2019 she underwent bronchoscopy and mediastinoscopy. The bronchoscopy showed no endobronchial lesion. The mediastinoscopy showed prominent lymph nodes at station 4R. Biopsy showed metastatic carcinoma of the lung, favoring high-grade neuroendocrine carcinoma. The tumor was TTF-1 positive, and the neuroendocrine markers were strongly positive. Poorly differentiated adenocarcinoma with neuroendocrine features was also noted to be possible. Due to her marginal performance status and to the decline in her renal function, treatment for the lung cancer was limited to definitive radiation as a single modality. She completed treatment to the right lung/mediastinum on 07/29/2019, total dose 7000 cGy. Shortly after completing the radiation, she had presented with a mass in the area of the right mandibular torus. 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 Her neck CT on 08/20/2019 showed persistence of right upper lobe lung mass measuring 3.5 x 1.3 cm. There was no cervical lymphadenopathy noted. There were no visualized metastatic lesions in the mandible. With those findings, she underwent palliative radiation to the oral cavity. She completed treatment on 09/27/2019 to a total dose of 5000 cGy. She developed a pretty sore mouth during the radiation, but she otherwise tolerated the treatment well. Restaging PET/CT on 11/30/2019 showed slight improvement in the size of the right lung apex mass, but significant decrease in the FDG activity. There was evidence of a new right adrenal metastasis measuring 1.4 cm, SUV 8.4. Also noted was a new FDG positive subcutaneous soft tissue nodule overlying the anterior right lower quadrant of the abdomen measuring 1.9 cm, SUV 18.6, suspicious for malignant implant. A similar subcutaneous lesion was noted within the subcutaneous fat over the right gluteal muscles. With those findings, she was recommended to proceed with second line immunotherapy with pembrolizumab. Her other medical illnesses include hypertension, COPD, GERD, hypothyroidism, and degenerative arthritis. She has a history of nephrolithiasis and she also has renal cysts. She has a history of pancreatitis with associated pancreatic cyst. She had yearly follow-up [place] [facility] [place] the [place], which had been drained on multiple occasions, most recently in February 2017. She has a history of smoking 1 pack of cigarettes daily for more than 30 years. She quit smoking approximately 1991. She does not drink alcohol. INTERIM HISTORY: She began cycle 1 of pembrolizumab on 12/11/2019. She tolerated it without acute toxicity, and she then continued treatment at 3- week intervals. Her restaging CT scans on 04/21/2020 showed slight decrease in the right pulmonary mass measuring 1.8 x 2.7 cm. Additional scattered small opacifications and groundglass opacifications were noted bilaterally, some of which were noted to improved while others were noted to be new. There was a rounded groundglass consolidation in the right lower lobe measuring 2.6 x 1.8 cm. Small mediastinal and hilar lymph nodes were present. There was no new or progressed adenopathy. The abdomen showed continued increase in the pancreatic mass measuring 6.5 x 6.2 cm. A complex cyst or early neoplasm measuring 6.1 x 7.1 cm was noted in the lower pole of the left kidney. It was felt to most likely represent a hemorrhagic cyst. Mrs. Mendoza is here today for follow-up. She continues with pembrolizumab every 3 weeks. Her last dose was May 14, 2020. She states overall she feels really good. She has been working in her garden and yard and tolerating this well. She states overall she is doing well. She states that she still has rash but it is not bothersome. She has not yet obtained any Covid 19 vaccinations that she is concerned about adding it to her system with her already having a rash. She states that she has been having some trouble sleeping and that lorazepam has helped significantly in the past. She states Xanax typically has worked wonders for her in the insomnia but her insurance would no longer cover it. She has had some intermittent nausea which the lorazepam helps as well. She denies any diarrhea or constipation. She denies any mouth sores, sore throat or difficulty swallowing. She has had no fever or chills. She states her energy is good she is not had a significant decline in her exercise tolerance. She denies any hemoptysis. She denies any hematic emesis. She states that her bladder has been normal. She denies any abdominal pain or cramping. She denies any cough. She states she does have occasional hot flashes but they are better overall. She denies any mood swings. Her ECOG is 0. Past Medical History: Chronic obstructive pulmonary disease Chronic pancreatitis with pancreatic cyst Gastroesophageal reflux disease Hypertension Hypothyroidism Lung nodules Nephrolithiasis Past Surgical History: Caesarean section Carpal tunnel release on the left Left uretroscopy with stent placement Lung biopsy Pancreatic cyst drainage 8 years ago, in 2015, and in February 2017. Tonsillectomy Cataracts in 2019 Left mastectomy in 2019 Port placement in 2019 - dr oviedo-left ij Allergies: Codeine Sulfate, egg, NSAIDS, Penicillin G Benzathine, prednisoLONE, and Tetracycline HCl. Medications: Anastrozole 1 Tablet (of 1 mg) Oral daily Atenolol-Chlorthalidone 1 Tablet (of 50-25 mg) Oral daily Cholecalciferol 1 (20 MCG ) Tablet Oral daily Levothyroxine Sodium 1 Tablet (of 125 mcg) Oral daily Multivitamin 1 Tablet Oral daily Probiotic 1 Capsule Oral daily Ventolin HFA 1 (108 (90 base) mcg/act) Aerosol, solution Inhalation PRN Xarelto 1 (20 mg) Tablet Oral daily Family History: Family history is unknown, as the patient was adopted. Social History: Ms. Mendoza is and she is retired. Ms. Mendoza quit smoking 27 years ago but had smoked 0.5 packs/day for 35 years. She has no history of drinking. She has a history of smoking 1 pack of cigarettes daily for 34 years. She quit smoking approximately 1991. She does not drink alcohol. Review Of Symptoms: Vital Signs: Performed on Jun 04, 2020 11:16 Height - 62.00 in Weight - 272.0 lbs (HIGH) BSA - 2.18 sq.m BMI - 49.75 (HIGH) Temperature - 98.1 F (LOW) Pulse - 63 /min Respiration - 18 /min BP - 122/78 mm(hg) O2 Sat - 95 % (LOW) Pain - 2,0 - Fully active, able to carry on all predisease activities without restrictions. (ECOG) Physical Examination: Constitutional Alert, oriented, no acute distress. Skin pink, warm and dry. Head Normocephalic; atraumatic. Eyes Conjunctivae and sclerae are clear and without icterus. Pupils are reactive and equal. ENMT No oral exudates, ulcers, masses, thrush or mucositis. Oropharynx clear. Tongue normal. Neck Supple without masses or thyromegaly. No jugular venous distension. Hematologic/Lymphatic No petechiae or purpura. Respiratory Lungs are clear to auscultation without rhonchi or wheezing. Cardiovascular Regular rate and rhythm of heart without murmurs,clicks, gallops or rubs. Chest Right chest wall venous access device is unremarkable. Abdomen Non-tender, non-distended, no masses, ascites. No guarding or rebound tenderness. No pulsatile masses. Back/Spine Non-tender to palpation. Extremities No visible deformities, no cyanosis, clubbing or edema. Musculoskeletal No tenderness or swelling, normal range of motion without obvious weakness. Integumentary No rashes or lesions. Neurologic No sensory or motor deficits, normal cerebellar function, normal-slow gait. Psychiatric Alert and oriented times three. Coherent speech. Verbalizes understanding of our discussions today. Laboratory:Test performed on Jun 04, 2020 09:41 Sodium 142 mmol/L TSH 0.76 uIU/mL Potassium 3.3 mmol/L Chloride 99 mmol/L CO2 31 mmol/L Anion Gap 15.3 BUN 20 mg/dL Creatinine 1.2 mg/dL Cr Clearance (Est) 78.90 mL/min Glucose 136 mg/dL Osmolality - Calculated 299 mOsm/kg Calcium 9.0 mg/dL Protein, Total 6.8 g/dL Albumin 4.1 g/dL Globulin 2.7 g/dL Bilirubin, Total 0.5 mg/dL ALT (SGPT) 10 U/L AST (SGOT) 13 U/L Alkaline Phosphatase 68 IU/L WBC 13.7 10 3/uL RBC 4.40 10 6/uL HGB 12.9 g/dL HCT 41.2 % MCV 93.6 fL MCH 29.3 pg MCHC 31.3 g/dL RDW 13.3 % Platelet Count 349 10 3/cmm MPV 10.7 fL Neutrophils 11.48 10 3/uL Lymphocytes 1.0 10 3/uL Monocytes 0.8 10 3/uL Eosinophils 0.4 10 3/uL Basophils 0.1 10 3/uL Neutrophil % 83.7 % Lymphocyte % 7.0 % Monocyte % 5.6 % Eosinophil % 2.9 % Basophils % 0.4 % NRBC % 0 % Test performed on Apr 23, 2020 00:00 Manual Diff Cancelled via OM: Cancelled in Connected System Impression: 1. Multifocal infiltrating ductal carcinoma of the left breast, grade 3, ER positive/TX negative and HER-2/vickie positive. By clinical evaluation her disease appeared to be at least stage IIB (T2, N1, M0). 2. Her PET/CT also showed FDG avid right apical pulmonary nodule, ultimately determined to be a primary non-small cell lung cancer, stage IIIA (T2a, N2, M0). She had subsequent progression to stage IVB (M1c). 3. She is known to have a pancreatic cyst associated with previous pancreatitis. 4. Hypertension. 5. COPD. 6. GERD. 7. Hypothyroidism. 8. Degenerative arthritis. 9. She has a history of nephrolithiasis and history of renal cysts. Plan: PROBLEMS ADDRESSED TODAY 1. Multifocal infiltrating ductal carcinoma of the left breast, grade 3, ER positive/TX negative and HER-2/vickie positive, by clinical evaluation stage IIB (T2, N1, M0). She underwent neoadjuvant chemotherapy with 4 cycles of TCH-P, completed in August 2018 and complicated by a decline in renal function. She then continued Herceptin monotherapy for a full year of treatment. She underwent left modified radical mastectomy on 11/20/2018, and she subsequently began adjuvant hormonal therapy with anastrozole 1 mg daily. During follow-up there has been no evidence of recurrence of the breast cancer. She continues on anastrozole 1 mg daily. A. Proceed with anastrozole 1 mg daily. She had right breast diagnostic digital mammogram on 10/03/2019. Is reported at [facility] 1???negative and plan for follow-up in 1 year. B. Her last DEXA scan was December 14, 2018. The L1-L4 bone mineral density corresponded to a T score of 0.2, the left femoral neck bone mineral density corresponded to a T score of -0.9 and at the right femoral neck bone mineral density corresponded to a T score of -0.8. The mean femoral neck bone mineral density corresponded to a T score of -0.9. She will be due for repeat bone density imaging on or after December 14, 2020. She has high risk of being on the anastrozole. She is also postmenopausal. C. She is hypothyroid and is on thyroid replacement and is on vitamin D replacement with cholecalciferol daily. 2. Non-small cell lung carcinoma involving the upper lobe of the right lung, stage IIIA (T2a, N2, M0). She completed definitive radiation on 07/29/2019, total dose 7000 cGy. She had subsequent progression to stage IVB (M1c) with biopsy-proven metastatic involvement in the right mandibular lesion and with subsequent PET/CT evidence of metastatic involvement in the right adrenal gland and in multiple subcutaneous sites. She began a trial of immunotherapy with pembrolizumab in November 2019. She has completed 4 cycles of treatment. During treatment she required steroid therapy for an exacerbation of eczema. She has otherwise tolerated the treatment well. She has completed 6 cycles of treatment. She does appear to be showing some response by follow-up CT scan. A. Proceed with cycle 9 pembrolizumab 200 mg. B. Today's labs reviewed in detail discussed with . Mrs. Mendoza and a copy was given to her. WBC 13.7, hemoglobin 12.9, platelets 349,000 ANC is 11,500. Potassium 3.3 she states she is not taking her potassium regularly. Random glucose 136 creatinine 1.2 calcium 9.0 and LFTs are normal. Her TSH today 0.76. 3. She is known to have a pancreatic cyst associated with previous pancreatitis. The cyst has previously been drained on numerous occasions at [facility]. Her schedule was interrupted, though, when she was found to have the breast cancer. The cyst has been showing progressive enlargement by CT scan, and (Per Dr. Feldman's last note) she is long overdue to have it drained. At least for now, as long as it is not symptomatic, it will be followed expectantly. 4. Hypothyroidism A. She is currently on thyroid replacement with 100 mcg of levothyroxine daily. B. She is monitored frequently with TSH for immunotherapy monitoring. C. Her TSH is currently stable at 0.76. 5. Situational insomnia A. We will have her try lorazepam 1 mg at bedtime. The max dosing is 2 mg at bedtime and we did discuss this and she is aware. B. Prescription was sent to [facility] outpatient pharmacy. C. Mrs. Mendoza has been encouraged to let us know if this is not helping her insomnia. 6. Follow-up plan. A. She will return in 3 weeks for pembrolizumab 200 mg IV. B. We will have her return for follow-up visit with CBC CMP TSH in 6 weeks she will be due for cycle 11 pembrolizumab at that time as well. C. Mrs. Mendoza was encouraged to contact us in interim should questions or problems arise. Signed By: Eulalio Crook-, AOCNP Wes Feldman MD <<Signature on File>>
== END 2020-06-19 23:59 | disposition home or self-care (01) ==
LOC: ONCMED 06:02
PROVIDERS: Internal Medicine Medical Oncology; PCP Electrodiagnostic Medicine; Visit Provider Nurse Practitioner
DX: Z51.12 Encounter for antineoplastic immunotherapy (principal); C50.812 Malignant neoplasm of overlapping sites of left female breast; Z17.0 Estrogen receptor positive status [ER+]; C78.01 Secondary malignant neoplasm of right lung; C79.71 Secondary malignant neoplasm of right adrenal gland; D50.9 Iron deficiency anemia, unspecified; K85.90 Acute pancreatitis without necrosis or infection, unspecified; I10 Essential (primary) hypertension; J44.9 Chronic obstructive pulmonary disease, unspecified; K21.9 Gastro-esophageal reflux disease without esophagitis; E03.9 Hypothyroidism, unspecified; M19.90 Unspecified osteoarthritis, unspecified site; N20.0 Calculus of kidney; N28.1 Cyst of kidney, acquired; Z79.899 Other long term (current) drug therapy
CPT/HCPCS: 36415; 80053; 84443; 85025; 96413; 99215; J7050; J9271

== ENCOUNTER 2020-07-01 06:16 | Outpatient (RCR) | payer MEDICARE, MEDICAID, SELFPAY | END 2020-07-20 23:59 | disposition home or self-care (01) | LOC: ONCMED 06:16 | PROVIDERS: PCP Electrodiagnostic Medicine; Visit Provider Nurse Practitioner | DX: Z51.12 Encounter for antineoplastic immunotherapy (principal); C50.812 Malignant neoplasm of overlapping sites of left female breast; Z17.0 Estrogen receptor positive status [ER+]; C34.11 Malignant neoplasm of upper lobe, right bronchus or lung; C79.71 Secondary malignant neoplasm of right adrenal gland; D50.9 Iron deficiency anemia, unspecified | CPT/HCPCS: 96413; J7050; J9271 ==

== ENCOUNTER 2020-08-13 05:48 | Outpatient (RCR) | payer MEDICARE, MEDICAID, SELFPAY ==
[2020-07-23 14:59] LABS: Basophils % 0.4 %; Eosinophils # 0.5 10^3/uL (0.0-0.8); Eosinophils % 4.1 %; Hematocrit 40.2 % (37.0-47.0); Hemoglobin 12.6 g/dL (11.5-15.3); Lymphocytes # 1.2 10^3/uL (0.8-4.8); Lymphocytes % 10.5 %; Mean Corpuscular HGB Conc 31.3 g/dL (30.0-36.0); Mean Corpuscular Hemoglobin 28.6 pg (28.0-34.0); Mean Corpuscular Volume 91.2 fL (81-99); Mean Platelet Volume 10.6 fL (7.4-10.4); Monocytes # 0.7 10^3/uL (0.2-0.9); Monocytes % 6.2 %; Neutrophils # 8.89 10^3/uL (1.8-7.7); Neutrophils % 78.2 %; Nucleated Red Blood Cells % 0 %; Platelet Count 333 10^3/cmm (130-400); Red Blood Count 4.41 10^6/uL (4.1-5.3); Red Cell Distribution Width 13.4 % (12.1-15.1); White Blood Count 11.4 10^3/uL (4.0-10.0)
[2020-07-23 15:31] LABS: Alanine Aminotransferase 9 U/L (0-33); Albumin Level 4.1 g/dL (3.5-5.2); Alkaline Phosphatase 73 IU/L (35-105); Anion Gap 15.4 (5-19); Aspartate Amino Transferase 12 U/L (0-32); Blood Urea Nitrogen 19 mg/dL (8-23); Calcium 9.1 mg/dL (8.5-10.5); Carbon Dioxide 29 mmol/L (22-29); Chloride 100 mmol/L (98-107); Globulin 2.4 g/dL (1.3-4.6); Glucose 112 mg/dL (65-115); Osmolality Calculated 295 mOsm/kg (285-295); Potassium 3.4 mmol/L (3.5-5.1); Sodium 141 mmol/L (136-145); Thyroid Stimulating Hormone 0.26 uIU/mL (0.27-4.20); Total Bilirubin 0.4 mg/dL (0.15-1.2); Total Protein 6.5 g/dL (6.6-8.7)
--- NOTE | 2020-07-26 09:39 | ONC FU_ITS ---
Dr. Feldman Patient Follow-Up Note Patient: Deneen Mendoza Unit #: [id number]: 1945 Dicatated By: Wes Feldman M.D.Date of Visit:Jul 23, 2020 Onc Med Follow-up/Prog Note Chief Complaint: Breast cancer/lung cancer. 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 By clinical evaluation her disease appeared to be at least stage IIB (T2, N1, M0). Her PET/CT also showed FDG avid right apical pulmonary nodule, ultimately determined to be a primary non-small cell lung cancer, stage IIIA (T2a, N2, M0). She had subsequent progression to stage MARQUIS (M1b). She had presented with a lump in the lateral aspect of the left breast, first noticed in early March. Bilateral diagnostic mammogram on 04/05/2018 showed a large spiculated mass in the upper outer left breast deep to the area of palpable concern. Measured 2.2 x 1.4 cm with associated surrounding architectural distortion and associated pleomorphic calcifications. Also noted was adjacent enlarged pathologic appearing lymph nodes/masses with pleomorphic calcifications measuring 1.7 x 1.7 cm an enlarged partially visualized lymph nodes in the left axilla with microcalcifications measuring 2.8 x 2.1 cm. Ultrasound of the left breast showed numerous hypoechoic irregular lesions at the 2:00 in 3 clock position suspicious for multifocal disease. Also noted were 2 additional hypoechoic irregular masses at the 2:00 position which were suspicious for additional foci of disease. An enlarged axillary lymph node measuring 1.1 cm also appeared suspicious for malignancy. On 04/25/2018 she underwent ultrasound-guided needle biopsies at 3 different sites in the left breast and ultrasound guided needle biopsy of a left axillary lymph node. Pathology of the biopsy at 2:00, 6 cm from the nipple, showed extensive infiltrating ductal carcinoma, grade 3 of 3. Biopsy at the 2:00 position 8 cm from the nipple and at the 3 clock position 5 cm from the nipple both also showed infiltrating ductal carcinoma. The breast prognostic profile showed ER positive at 62% and PA negative at less than 1%. It was positive for overexpression of HER-2/vickie, 3+ by IHC, with amplification ratio by FISH of 2.1 with 7.3 HER-2 copies/cell. The Ki-67 was high at 41%. I had seen her initially on 05/21/2018. As her disease appeared to at least locally advanced, she had a staging PET/CT on 05/26/2018. It showed a 1.7 cm soft tissue lesion within the left breast with SUV 6.5. There were several FDG positive axillary lymph nodes, the most prominent being a 1.5 cm node with SUV 14.1. A solid nodule in the right lung apex measured 1.9 x 1.6 cm with SUV 17.7, felt to most likely represent metastatic disease, though primary lung carcinoma was noted to also be possible. Multiple other bilateral pulmonary nodules were either too small to characterize or of groundglass opacity with negligible FDG activity. Given those findings, she was recommended to begin neoadjuvant chemotherapy with TCH-P. She began cycle 1 of TCH-P on 06/12/2018. She had no acute toxicity with the chemotherapy. At approximately day 5 she began having diarrhea. She also had some nausea/vomiting. She required IV hydration on multiple occasions. She had a significant decline in her renal function. She became severely neutropenic, but that resolved uneventfully. She had a very prolonged recovery. She eventually was able to proceed with her 2nd cycle of chemotherapy on 07/17/2018. The Perjeta was omitted from the regimen beginning with that cycle. She tolerated much better, though she continued to have nausea and diarrhea, requiring frequent hydration. Her renal function are fully recovered, but it remained adequate with dehydration. She then proceeded with cycle 3 on 08/07/2018 and with cycle 4 on 08/27/2018. Restaging PET/CT on 09/22/2018 showed resolution of the left breast and axillary lesions. The right upper lobe lung nodule appeared stable at 1.6 cm, but with increased in FDG uptake, SUV 21.1. There were no other areas of abnormal uptake noted. With those findings, her case was reviewed at tumor board, and the decision was made to proceed with resection of the lung nodule first and to then address surgical management of the breast. She was referred to Dr. Camp for the lung surgery. In the meantime, she continued treatment with single agent Herceptin. On 11/20/2018 she underwent left modified radical mastectomy. She tolerated the procedure well. Pathology on the breast showed fibrocystic changes and a 1 mm focus of atypical ductal hyperplasia. There was no malignancy identified. There was no involvement in 14 lymph nodes. Her postoperative course was complicated by right lower lobe segmental branch pulmonary embolism diagnosed by CT pulmonary angiogram on 12/03/2018. She began on anticoagulation with apixaban. She then continued single agent Herceptin at the 3-week dosing schedule. She completed her 9th cycle of treatment on 03/11/2019. A repeat chest CT on 03/18/2019 showed continued slow increase in the right upper lobe lung mass, at that point measuring 3.3 x 2.9 cm. The appearance was highly suspicious for neoplasm. There was no significant adenopathy noted. Multiolobar groundglass attenuation appeared stable. A large pancreatic head mass also appeared stable. With those findings she was referred back to Dr. Camp, but she also continue with her Herceptin infusions. On PET/CT there was uptake in the right upper lobe lung mass and in the right paratracheal lymph node. On 05/06/2019 she underwent bronchoscopy and mediastinoscopy. The bronchoscopy showed no endobronchial lesion. The mediastinoscopy showed prominent lymph nodes at station 4R. Biopsy showed metastatic carcinoma of the lung, favoring high-grade neuroendocrine carcinoma. The tumor was TTF-1 positive, and the neuroendocrine markers were strongly positive. Poorly differentiated adenocarcinoma with neuroendocrine features was also noted to be possible. Due to her marginal performance status and to the decline in her renal function, treatment for the lung cancer was limited to definitive radiation as a single modality. She completed treatment to the right lung/mediastinum on 07/29/2019, total dose 7000 cGy. Shortly after completing the radiation, she had presented with a mass in the area of the right mandibular torus. 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 Her neck CT on 08/20/2019 showed persistence of right upper lobe lung mass measuring 3.5 x 1.3 cm. There was no cervical lymphadenopathy noted. There were no visualized metastatic lesions in the mandible. With those findings, she underwent palliative radiation to the oral cavity. She completed treatment on 09/27/2019 to a total dose of 5000 cGy. She developed pretty sore mouth during the radiation, but she otherwise tolerated the treatment well. Restaging PET/CT on 11/30/2019 showed slight improvement in the size of the right lung apex mass, but significant decrease in the FDG activity. There was evidence of a new right adrenal metastasis measuring 1.4 cm, SUV 8.4. Also noted was a new FDG positive subcutaneous soft tissue nodule overlying the anterior right lower quadrant of the abdomen measuring 1.9 cm, SUV 18.6, suspicious for malignant implant. A similar subcutaneous lesion was noted within the subcutaneous fat over the right gluteal muscles. With those findings, she was recommended to proceed with second line immunotherapy with pembrolizumab. Her other medical illnesses include hypertension, COPD, GERD, hypothyroidism, and degenerative arthritis. She has a history of nephrolithiasis and she also has renal cysts. She has a history of pancreatitis with associated pancreatic cyst. She had yearly follow-up at [facility] for the cyst, which had been drained on multiple occasions, most recently in February 2017. She has a history of smoking 1 pack of cigarettes daily for more than 30 years. She quit smoking approximately 1991. She does not drink alcohol. INTERIM HISTORY: She began cycle 1 of pembrolizumab on 12/11/2019. She tolerated it without acute toxicity, and she then continued treatment at 3- week intervals. Her restaging CT scans on 04/21/2020 showed slight decrease in the right pulmonary mass measuring 1.8 x 2.7 cm. Additional scattered small opacifications and groundglass opacifications were noted bilaterally, some of which were noted to improved while others were noted to be new. There was a rounded groundglass consolidation in the right lower lobe measuring 2.6 x 1.8 cm. Small mediastinal and hilar lymph nodes were present. There was no new or progressed adenopathy. The abdomen showed continued increase in the pancreatic mass measuring 6.5 x 6.2 cm. A complex cyst or early neoplasm measuring 6.1 x 7.1 cm was noted in the lower pole of the left kidney. It was felt to most likely represent a hemorrhagic cyst. She is seen for a follow-up visit. She reports that she has been feeling tired, though she is still pretty active. Her ECOG score is 1. She has good appetite. She does not have fever or night sweats. She has a little bit of sinus drainage and cough. Her mouth is still a little sore since the radiation. She does have shortness of breath with activity. She does not complain of chest pain. She has no GI or complaints. She has had arthritis pain for years, especially in her back. She thinks it is getting somewhat worse. She does not complain of headache or dizziness, and she has no focal neurologic symptoms. Medications: Anastrozole 1 Tablet (of 1 mg) Oral daily, Atenolol-Chlorthalidone 1 Tablet (of 50-25 mg) Oral daily, Cholecalciferol 1 (20 MCG ) Tablet Oral daily, Levothyroxine Sodium 1 Tablet (of 125 mcg) Oral daily, Multivitamin 1 Tablet Oral daily, Probiotic 1 Capsule Oral daily, Ventolin HFA 1 (108 (90 base) mcg/act) Aerosol, solution Inhalation PRN, Xarelto 1 (20 mg) Tablet Oral daily Allergies: Codeine Sulfate, egg, NSAIDS, Penicillin G Benzathine, prednisoLONE, and Tetracycline HCl. Vital Signs: Performed on Jul 23, 2020 15:56 Height - 62.00 in Weight - 265.4 lbs (LOW) BSA - 2.16 sq.m BMI - 48.54 (HIGH) Temperature - 98.5 F Pulse - 71 /min Respiration - 18 /min BP - 149/82 mm(hg) (HIGH) O2 Sat - 93 % (LOW) Pain - 0 Fatigue - 6 Physical Examination: Constitutional - She looks pretty good generally, Eyes - Sclerae nonicteric. Conjunctivae clear, ENMT - There are no lesions noted in the oral cavity, Hematologic/Lymphatic - No cervical, clavicular, or axillary adenopathy, Respiratory - Lungs are clear with diminished air movement bilaterally, Cardiovascular - Heart rhythm is regular. There is no murmur, gallop, or rub noted, Abdomen - Moderately distended but soft. Liver and spleen are not enlarged. There is no abdominal mass or ascites noted and there is no inguinal adenopathy, Extremities - No edema, Neurologic - No focal neurologic deficits noted. Lab/Imaging: Test performed on Jul 23, 2020 14:30 Sodium 141 mmol/L TSH 0.26 uIU/mL Potassium 3.4 mmol/L Chloride 100 mmol/L CO2 29 mmol/L Anion Gap 15.4 BUN 19 mg/dL Creatinine 1.2 mg/dL Cr Clearance (Est) 76.98 mL/min Glucose 112 mg/dL Osmolality - Calculated 295 mOsm/kg Calcium 9.1 mg/dL Protein, Total 6.5 g/dL Albumin 4.1 g/dL Globulin 2.4 g/dL Bilirubin, Total 0.4 mg/dL ALT (SGPT) 9 U/L AST (SGOT) 12 U/L Alkaline Phosphatase 73 IU/L WBC 11.4 10 3/uL RBC 4.41 10 6/uL HGB 12.6 g/dL HCT 40.2 % MCV 91.2 fL MCH 28.6 pg MCHC 31.3 g/dL RDW 13.4 % Platelet Count 333 10 3/cmm MPV 10.6 fL Neutrophils 8.89 10 3/uL Lymphocytes 1.2 10 3/uL Monocytes 0.7 10 3/uL Eosinophils 0.5 10 3/uL Basophils 0.0 10 3/uL Neutrophil % 78.2 % Lymphocyte % 10.5 % Monocyte % 6.2 % Eosinophil % 4.1 % Basophils % 0.4 % NRBC % 0 % Problem List: 1. Multifocal infiltrating ductal carcinoma of the left breast, grade 3, ER positive/PA negative and HER-2/vickie positive. By clinical evaluation her disease appeared to be at least stage IIB (T2, N1, M0). 2. Her PET/CT also showed FDG avid right apical pulmonary nodule, ultimately determined to be a primary non-small cell lung cancer, stage IIIA (T2a, N2, M0). She had subsequent progression to stage IVB (M1c). 3. She is known to have a pancreatic cyst associated with previous pancreatitis. 4. Hypertension. 5. COPD. 6. GERD. 7. Hypothyroidism. 8. Degenerative arthritis. 9. She has a history of nephrolithiasis and history of renal cysts. 10. History of pulmonary embolism. Problems Addressed with this Encounter and Plan: 1. Multifocal infiltrating ductal carcinoma of the left breast, grade 3, ER positive/PA negative and HER-2/vickie positive, by clinical evaluation stage IIB (T2, N1, M0). She underwent neoadjuvant chemotherapy with 4 cycles of TCH-P, completed in August 2018 and complicated by a decline in renal function. She then continued Herceptin monotherapy for a full year of treatment. She underwent left modified radical mastectomy on 11/20/2018, and she subsequently began adjuvant hormonal therapy with anastrozole 1 mg daily. During follow-up there has been no evidence of recurrence of the breast cancer. She continues on anastrozole 1 mg daily. 2. Non-small cell lung carcinoma involving the upper lobe of the right lung, stage IIIA (T2a, N2, M0). She completed definitive radiation on 07/29/2019, total dose 7000 cGy. She had subsequent progression to stage IVB (M1c) with biopsy-proven metastatic involvement in the right mandibular lesion and with subsequent PET/CT evidence of metastatic involvement in the right adrenal gland and in multiple subcutaneous sites. She began a trial of immunotherapy with pembrolizumab in November 2019. She has completed 4 cycles of treatment. During treatment she required steroid therapy for an exacerbation of eczema. She otherwise tolerated the treatment well. She had evidence of response by follow-up CT scan. As such, she continued immunotherapy with pembrolizumab. She has now completed 10 cycles of treatment. She has been tolerating it well. In the absence of any evidence of disease progression, she will continue her immunotherapy with pembrolizumab 200 mg by IV infusion. She will return for treatment in 3 weeks and for a follow-up visit in 6 weeks. 3. She is known to have a pancreatic cyst associated with previous pancreatitis. The cyst has previously been drained on numerous occasions at [facility]. Her schedule was interrupted, though, when she was found to have the breast cancer. The cyst has been showing progressive enlargement by CT scan, and she is long overdue to have it drained. At least for now, as long as it is not symptomatic, it will be followed expectantly. 4. She was diagnosed with right lower lobe segmental branch pulmonary embolism by CT pulmonary angiogram on 12/03/2018. She remains on anticoagulation with rivaroxaban. Given the interval from the diagnosis, I will now transition her rivaroxaban to a maintenance dosage of 10 mg daily. Signed By: Wes Feldman M.D. <<Signature on File>>
== END 2020-08-19 23:59 | disposition home or self-care (01) ==
LOC: ONCMED 05:48
PROVIDERS: PCP Electrodiagnostic Medicine; Visit Provider Internal Medicine Medical Oncology
DX: Z51.12 Encounter for antineoplastic immunotherapy (principal); C34.11 Malignant neoplasm of upper lobe, right bronchus or lung; C79.71 Secondary malignant neoplasm of right adrenal gland; C79.51 Secondary malignant neoplasm of bone; C50.812 Malignant neoplasm of overlapping sites of left female breast; Z17.0 Estrogen receptor positive status [ER+]; C77.3 Secondary and unspecified malignant neoplasm of axilla and upper limb lymph nodes; Z90.12 Acquired absence of left breast and nipple; Z86.711 Personal history of pulmonary embolism; Z92.3 Personal history of irradiation; I10 Essential (primary) hypertension; J44.9 Chronic obstructive pulmonary disease, unspecified; K21.9 Gastro-esophageal reflux disease without esophagitis; E03.9 Hypothyroidism, unspecified; M19.90 Unspecified osteoarthritis, unspecified site; Z87.442 Personal history of urinary calculi; N28.1 Cyst of kidney, acquired; K86.2 Cyst of pancreas; Z87.891 Personal history of nicotine dependence; Z79.811 Long term (current) use of aromatase inhibitors; Z79.899 Other long term (current) drug therapy; Z79.01 Long term (current) use of anticoagulants
CPT/HCPCS: 36415; 80053; 84443; 85025; 96413; 99214; J7050; J9271

== ENCOUNTER 2020-08-25 11:47 | Inpatient (IN) | payer MEDICARE, MEDICAID, SELFPAY ==
[2020-08-25] VITALS (12 sets, daily range): BP systolic 99–136; BP diastolic 49–61; PULSE 74–104; RESP 18–24; TEMP 37.3–39.7; O2SAT 80–96; BMI 46.6
--- NOTE | 2020-08-25 12:20 | XRR_ITS ---
PROCEDURE INFORMATION: Exam: XR Chest Exam date and time: 08/25/2020 12:20 PM Age: 74 years old Clinical indication: Cough TECHNIQUE: Imaging protocol: XR of the chest. Views: 1 view. COMPARISON: CT chest abd pel w con* 04/21/2020 1:58 PM FINDINGS: Tubes, catheters and devices: A right central line is present on the right side extending into the jugular vein. Lungs: Interstitial densities seen in the bilateral lower lobes these findings appear increased since prior examination. There is right upper lobe interstitial densities present similar to prior examination. Pleural spaces: Unremarkable. No pleural effusion. No pneumothorax. Heart/Mediastinum: There is cardiomegaly for projection. Bones/joints: Unremarkable. Soft tissues: Metallic surgical clips seen in the left axillary soft tissues. XR/XR chest 1V portable [id number] IMPRESSION: 1. Interstitial densities in the right upper lobe and bilateral lower lobes. 2. Right central line in the jugular vein 3. Metallic clips left axilla
--- NOTE | 2020-08-25 12:23 | ED_ITS ---
HPI - COVID General: Chief Complaint: COVID symptoms Stated Complaint: COVID + Time Seen by Provider: 08/25/20 12:16 Triage information: Has fever, cough or shortness of breath . Exposure to COVID + person last 14 days History of Present Illness: HPI Narrative: This patient is a 74-year-old female with a long history of metastatic lung cancer presents to the emergency department complaint of shortness of breath and cough for the past 3 days. Patient on 3 L by nasal cannula with O2 sat of 91%. Patient states she does not wear oxygen at home. Patient states her grandson and daughter have the same symptoms and is concerned that she has Covid infection. Was brought to the emergency department. Will do medical evaluation treat as needed MD complaint: has COVID symptoms Prior covid testing: no COVID 19 common symptoms: positive cough, non-productive cough and dyspnea; negative fever(s), chills, fatigue, body aches, headache(s), throat pain, nausea or vomiting COVID 19 other sytmptoms: positive pleuritic pain and requiring oxygen; negative chest pain Onset (ago): day(s) Severity: moderate Pertinent comorbid conditions: obesity COVID Results: SARS-CoV-2 Antigen (Rapid) Negative (Negative) 08/25/20 13:30 08/25/20 Review of Systems General: Reports: 10 or more systems reviewed and unremarkable except in HPI and below Const: Denies: fever(s), chills, body aches or fatigue Eyes: Denies: change in vision or blurry vision ENMT: Denies: throat pain, hoarseness or mouth pain Card: Denies: chest pain, palpitations, irregular heart rhythm, edema, swell ing of feet/ankles or lightheadedness Resp: Reports: dyspnea, non-productive cough and chest congestion GI: Denies: abdominal pain, nausea or vomiting : Denies: flank pain, difficulty voiding, dysuria, urinary frequency, urinary urgency or urinary hesitancy Musc: Denies: neck pain, back pain, extremity pain, extremity swelling, joint pain, joint swelling, joint redness, joint warmth or limited range of motion Skin/Breast: Denies: rash, pruritus, erythema or skin tenderness Neuro: Denies: headache(s), numbness in extremities or weakness in extremities Psych: Denies: anxiety or depression PFSH ED PFSH: Medical History (Updated 08/25/20 @ 14:33 by Darryl Keating MD) Breast cancer COPD (chronic obstructive pulmonary disease) Degenerative arthritis GERD (gastroesophageal reflux disease) Hypertension Hypothyroidism (acquired) Lung mass Pancreatic cyst Renal cyst Surgical History H/O cataract removal with insertion of prosthetic lens H/O mastectomy Family History Denies family history of Diabetes CAD (coronary artery disease) Cancer Social History Smoking and tobacco status: former smoker Alcohol intake: former Physical Exam Const: COMMON NORMALS: no acute distress, average body habitus, patient oriented x3, no limitations, healthy appearing, alert and well nourished HENMT: COMMON NORMALS: normocephalic, atraumatic, hearing grossly normal bilaterally, external ears normal, EAC's normal, TM's normal bilaterally, Normal external nose present, Normal nasal mucous membranes and turbinates present, moist oral mucous membranes, oropharynx normal, dentition normal and gingiva normal HEAD & SCALP: normocephalic and atraumatic NOSE: Normal external nose present and Normal nasal mucous membranes and turbinates present EXTERNAL EAR: Yes external ears normal EXTERNAL AUDITORY CANAL: EAC's normal TYMPANIC MEMBRANE: TM's normal bilaterally Neck/C-Spine: COMMON NORMALS: full ROM, no lymphadenopathy, supple, no meningeal signs, no JVD, Thyroid normal and No carotid bruits THYROID: Thyroid normal Chest: COMMONS NORMALS: normal inspection of the chest, normal palpation of entire chest wall, normal inspection of the breasts and normal palpation of the breasts Breast/axilla inspection: Yes normal inspection of the breasts BREAST/AXILLA PALPATION: Yes normal palpation of the breasts Resp: COMMON NORMALS: normal respiratory effort, No retractions, No use of accessory muscles and percussion normal AUSCULTATION: rhonchi and bronchial breath sounds PERCUSSION: percussion normal Cardio: COMMON NORMALS: no JVD, regular rate, regular rhythm, S1 normal heart sound present, S2 normal heart sound present, No gallops present (Cardio), No clicks present (Cardio), No murmurs present (Cardio), No rub (Cardio) and Peripheral pulses 2+ throughout RATE: regular rate RHYTHM: regular rhythm HEART SOUNDS: S1 normal heart sound present and S2 normal heart sound present PERIPHERAL PULSES: Peripheral pulses 2+ throughout GI: COMMON NORMALS: Normal to inspection, nondistended, normoactive bowel sounds present, Soft to palpation, non-tender, No hepatosplenomegaly present, no masses and no bruits PALPATION: Yes Soft to palpation and Yes No hepatosplenomegaly present Back/Pelvis: COMMON NORMALS: thoracic and lumbar spine normal to inspection, no thoracic nor lumbar tenderness, thoraco-lumbar ROM normal and straight leg raise negative bilaterally Extremity: COMMON NORMALS: normal to inspection, full ROM, capillary refill normal, no joint enlargement, no clubbing, cyanosis or edema, no calf tenderness and no pedal edema Neuro: COMMON NORMALS: patient oriented x3 SENSORIUM/ORIENTATION: Yes alert MENINGEAL SIGNS: Yes no meningeal signs Course Reevaluation(s): Reevaluation #1: I did discuss at length with patient and family about findings. Elevated D-dimer concerning for DVT/PE in the presence o f lung cancer. Patient's Covid test was negative. Patient and family state understood Time: 14:30 Consultations: Consultation #1: I discussed at length with Dr. Bradshaw hospitalist. He is accepted this patient for admission. He is aware of VQ scan pending. He is agreeable with Lovenox. He will continue to monitor patient. He will see patient write additional Time: 14:30 Consultation #2: I did discuss at length with Dr. Bain cardiology we did review EKGs together. He states he does not believe this is an acute AZ. He agrees with current treatment plan. He will see patient as consult if needed. Time: 14:48 Vital Signs: Vital signs: Vital Signs Temperature 99.1 F 08/25/20 12:14 Pulse Rate 89 08/25/20 13:31 Respiratory Rate 20 H 08/25/20 13:31 Blood Pressure 112/56 08/25/20 13:31 Pulse Oximetry 94 08/25/20 13:31 MDM - COVID MDM Narrative: Medical decision making narrative: This patient is a 74-year-old female with a long history of metastatic lung cancer presents to the emergency department complaint of shortness of breath and cough for the past 3 days. Patient on 3 L by nasal cannula with O2 sat of 91%. Patient states she does not wear oxygen at home. Patient states her grandson and daughter have the same symptoms and is concerned that she has Covid infection. Was brought to the emergency department. I did discuss at length with patient and family about findings. Elevated D- dimer concerning for DVT/PE in the presence of lung cancer. Patient's Covid test was negative. Patient and family state understood I discussed at length with Dr. Bradshaw hospitalist. He is accepted this patient for admission. He is aware of VQ scan pending. He is agreeable with Lovenox. He will continue to monitor patient. He will see patient write additional Covid negative test here in the emergency department however was a positive test at PCPs office. Will order an outpatient test. Differential Diagnosis: Differential diagnosis: Likely COVID 19, bacterial infection, pneumonia, copd exacerbation, pulmonary embolism and CHF exacerbation Medical Records: Attestation: I reviewed the patient's medical records. Lab Data: Attestation: I reviewed the patient's lab results. Labs: Lab Results 08/25/20 08/25/20 08/25/20 Range/Units 12:50 13:00 13:00 WBC 11.1 H (4.0-10.0) 10^3/ uL RBC 4.56 (4.1-5.3) 10^6/u L Hgb 13.1 (11.5-15.3) g/dL Hct 40.6 (37.0-47.0) % MCV 89.0 (81-99) fL MCH 28.7 (28.0-34.0) pg MCHC 32.3 (30.0-36.0) g/dL RDW 13.9 (12.1-15.1) % Plt Count 204 (130-400) 10^3/c mm MPV 10.9 H (7.4-10.4) fL Neut % (Auto) 87.3 % Lymph % (Auto) 8.2 % Taliaferro % (Auto) 3.7 % Eos % (Auto) 0.0 % Baso % (Auto) 0.2 % Neut # (Auto) 9.66 H (1.8-7.7) 10^3/u L Lymph # (Auto) 0.9 (0.8-4.8) 10^3/u L Taliaferro # (Auto) 0.4 (0.2-0.9) 10^3/u L Eos # (Auto) 0.0 (0.0-0.8) 10^3/u L Baso # (Auto) 0.0 (0.0-0.1) 10^3/u L Nucleated RBC % (a uto) 0 % Nucleated RBCs # 0.0 /100WBC PT 14.60 (12.1-14.9) SECO NDS INR 1.10 (0.8-1.2) APTT 29.8 (23.9-36.7) SECO NDS Fibrinogen 604 H (174-498) mg/dL D-Dimer 2.20 H (0-0.59) ug/mIFE U Specimen Type Arterial Sample Site Radial, left ABG pH 7.47 H (7.35-7.45) ABG pCO2 34.4 L (35-45) mmHg ABG pO2 64.7 L (80.0-100.0) mmH g ABG HCO3 24.9 (22-26) mmol/L ABG Base Excess 1.5 (-2.0-2.0) mmol/ L Rubén Test Pos Hematocrit 41.6 (37-47) % O2 Delivery Device Nc O2 Liters/Min 4.0 % FiO2 36.0 % Stamping Bench Die Maker ID Gd Sodium (136-145) mmol/L Potassium (3.5-5.1) mmol/L Chloride (98-107) mmol/L Carbon Dioxide (22-29) mmol/L Anion Gap (5-19) BUN (8-23) mg/dL Creatinine (0.5-0.9) mg/dL GFR Calculation Glucose (65-115) mg/dL Calculated Osmolal ity (285-295) mOsm/k g Lactic Acid (0.5-2.2) mmol/L Calcium (8.5-10.5) mg/dL Magnesium (1.7-2.3) mg/dL Total Bilirubin (0.15-1.2) mg/dL AST (0-32) U/L ALT (0-33) U/L Alkaline Phosphata se (35-105) IU/L Lactate Dehydrogen ase (135-214) U/L Troponin T Baselin e (0-10) ng/L C-Reactive Protein (0.0-4.9) mg/L Total Protein (6.6-8.7) g/dL Albumin (3.5-5.2) g/dL Globulin (1.3-4.6) g/dL Influenza Type A A g (Negative) Influenza Type B A g (Negative) SARS-CoV-2 Ag (Rap id) (Negative) 08/25/20 08/25/20 08/25/20 Range/Units 13:00 13:00 13:00 WBC (4.0-10.0) 10^3/ uL RBC (4.1-5.3) 10^6/u L Hgb (11.5-15.3) g/dL Hct (37.0-47.0) % MCV (81-99) fL MCH (28.0-34.0) pg MCHC (30.0-36.0) g/dL RDW (12.1-15.1) % Plt Count (130-400) 10^3/c mm MPV (7.4-10.4) fL Neut % (Auto) % Lymph % (Auto) % Taliaferro % (Auto) % Eos % (Auto) % Baso % (Auto) % Neut # (Auto) (1.8-7.7) 10^3/u L Lymph # (Auto) (0.8-4.8) 10^3/u L Taliaferro # (Auto) (0.2-0.9) 10^3/u L Eos # (Auto) (0.0-0.8) 10^3/u L Baso # (Auto) (0.0-0.1) 10^3/u L Nucleated RBC % (a uto) % Nucleated RBCs # /100WBC PT (12.1-14.9) SECO NDS INR (0.8-1.2) APTT (23.9-36.7) SECO NDS Fibrinogen (174-498) mg/dL D-Dimer (0-0.59) ug/mIFE U Specimen Type Sample Site ABG pH (7.35-7.45) ABG pCO2 (35-45) mmHg ABG pO2 (80.0-100.0) mmH g ABG HCO3 (22-26) mmol/L ABG Base Excess (-2.0-2.0) mmol/ L Rubén Test Hematocrit (37-47) % O2 Delivery Device O2 Liters/Min % FiO2 % Stamping Bench Die Maker ID Sodium 134 L (136-145) mmol/L Potassium 3.3 L (3.5-5.1) mmol/L Chloride 92 L (98-107) mmol/L Carbon Dioxide 24 (22-29) mmol/L Anion Gap 21.3 H (5-19) BUN 55 H (8-23) mg/dL Creatinine 2.7 H (0.5-0.9) mg/dL GFR Calculation Not Reportable Glucose 113 (65-115) mg/dL Calculated Osmolal ity 294 (285-295) mOsm/k g Lactic Acid 1.3 (0.5-2.2) mmol/L Calcium 9.1 (8.5-10.5) mg/dL Magnesium 1.6 L (1.7-2.3) mg/dL Total Bilirubin 0.7 (0.15-1.2) mg/dL AST 45 H (0-32) U/L ALT 24 (0-33) U/L Alkaline Phosphata se 57 (35-105) IU/L Lactate Dehydrogen ase 303 H (135-214) U/L Troponin T Baselin e 41 H (0-10) ng/L C-Reactive Protein 197.3 H (0.0-4.9) mg/L Total Protein 6.9 (6.6-8.7) g/dL Albumin 3.7 (3.5-5.2) g/dL Globulin 3.2 (1.3-4.6) g/dL Influenza Type A A g (Negative) Influenza Type B A g (Negative) SARS-CoV-2 Ag (Rap id) (Negative) 08/25/20 08/25/20 Range/Units 13:30 13:30 WBC (4.0-10.0) 10^3/ uL RBC (4.1-5.3) 10^6/u L Hgb (11.5-15.3) g/dL Hct (37.0-47.0) % MCV (81-99) fL MCH (28.0-34.0) pg MCHC (30.0-36.0) g/dL RDW (12.1-15.1) % Plt Count (130-400) 10^3/c mm MPV (7.4-10.4) fL Neut % (Auto) % Lymph % (Auto) % Taliaferro % (Auto) % Eos % (Auto) % Baso % (Auto) % Neut # (Auto) (1.8-7.7) 10^3/u L Lymph # (Auto) (0.8-4.8) 10^3/u L Taliaferro # (Auto) (0.2-0.9) 10^3/u L Eos # (Auto) (0.0-0.8) 10^3/u L Baso # (Auto) (0.0-0.1) 10^3/u L Nucleated RBC % (a uto) % Nucleated RBCs # /100WBC PT (12.1-14.9) SECO NDS INR (0.8-1.2) APTT (23.9-36.7) SECO NDS Fibrinogen (174-498) mg/dL D-Dimer (0-0.59) ug/mIFE U Specimen Type Sample Site ABG pH (7.35-7.45) ABG pCO2 (35-45) mmHg ABG pO2 (80.0-100.0) mmH g ABG HCO3 (22-26) mmol/L ABG Base Excess (-2.0-2.0) mmol/ L Rubén Test Hematocrit (37-47) % O2 Delivery Device O2 Liters/Min % FiO2 % Stamping Bench Die Maker ID Sodium (136-145) mmol/L Potassium (3.5-5.1) mmol/L Chloride (98-107) mmol/L Carbon Dioxide (22-29) mmol/L Anion Gap (5-19) BUN (8-23) mg/dL Creatinine (0.5-0.9) mg/dL GFR Calculation Glucose (65-115) mg/dL Calculated Osmolal ity (285-295) mOsm/k g Lactic Acid (0.5-2.2) mmol/L Calcium (8.5-10.5) mg/dL Magnesium (1.7-2.3) mg/dL Total Bilirubin (0.15-1.2) mg/dL AST (0-32) U/L ALT (0-33) U/L Alkaline Phosphata se (35-105) IU/L Lactate Dehydrogen ase (135-214) U/L Troponin T Baselin e (0-10) ng/L C-Reactive Protein (0.0-4.9) mg/L Total Protein (6.6-8.7) g/dL Albumin (3.5-5.2) g/dL Globulin (1.3-4.6) g/dL Influenza Type A A g Negative (Negative) Influenza Type B A g Negative (Negative) SARS-CoV-2 Ag (Rap id) Negative (Negative) Imaging Data: CXR: Attestation: I personally reviewed and interpreted this imaging study as fo llows: Radiologist's impression: IMPRESSION: 1. Interstitial densities in the right upper lobe and bilateral lower lobes. 2. Right central line in the jugular vein 3. Metallic clips left axilla EKG Data: EKG 1: Attestation: I personally reviewed and interpreted this EKG as follows: EKG interpretation date: 08/25/20 EKG interpretation time: 12:35 Prior EKG tracings: not available for review Interpretation: Sinus rhythm with a right bundle branch block left anterior fascicular block. Heart rate 81. EKG is trying to report an acute AZ do not appreciate any ST elevation will repeat EKG EKG 2: EKG interpretation date: 08/25/20 EKG interpretation time: 14:28 Prior EKG tracings: available for review Interpretation: Unchanged from previous. I still do not appreciate an acute AZ. Patient has no complaints of chest pain. Will have cardiology review EKGs. 2- hour troponin is pending. COVID Results: SARS-CoV-2 Antigen (Rapid) Negative (Negative) 08/25/20 13:30 08/25/20 Discharge Plan Discharge Patient Disposition: Admitted As Inpatient Clinical Impression: Shortness of breath, Lung mass, Close exposure to severe acute respiratory syndrome coronavirus 2 (SARS-CoV-2), Metastatic cancer, Elevated d-dimer, Acute renal failure Condition: Stable Coding Level of Care Code ED Ssrs Report Developer for Chg Fwd Exam Comprehensive
--- NOTE | 2020-08-25 12:48 | ECG_ITS ---
[facility] Test Date: 2020-08-25 Pat Name: Deneen Mendoza Department: Room: Gender: Female [employer]: : 1945 Requested By: Darryl Keating Order Number: [id number] Reading MD: CHANDA DENISE Measurements Intervals [place] Rate: 79 P: 52 [place]: 182 QRS: -80 QRSD: 173 T: 75 QT: 439 QTc: 505 Interpretive Statements SINUS RHYTHM RIGHT BUNDLE BRANCH BLOCK [120+ ms QRS DURATION, UPRIGHT V1, 40+ ms S IN I/aVL/V4/V5/V6] LEFT ANTERIOR FASCICULAR BLOCK [QRS AXIS <= -45, QR IN I, RS IN II] ANTERIOR MYOCARDIAL INFARCTION [40+ ms Q WAVE AND/OR ST/T ABNORMALITY IN V3/V4], PROBABLY RECENT ACUTE [place] Compared to ECG 12/03/2018 11:35:57 Left anterior fascicular block now present Ventricular premature complex(es) no longer present Myocardial infarct finding still present Electronically Signed On 08-25-2020 20:12:15 CDT by CHANDA DENISE [id number]
--- NOTE | 2020-08-25 12:48 | PC.NURSE ---
Patient reports that she was diagnosed with covid today and presented to ER. Patient reports SOB and chest pain that has been present since . Complains of congestion, Rates pain as a 6 on the numeric pain scale and describes as aching.
[2020-08-25 13:09] LABS: ABG PCO2 34.4 mmHg (35-45); ABG PH Result 7.47 (7.35-7.45); Arterial Blood Gas Hematocrit 41.6 % (37-47); Base Excess ABG 1.5 mmol/L (-2.0-2.0); Blood Gas Allen Test Pos; Blood Gas Operator Identificat GD; Blood Gas Sample Site Radial, left; Blood Gas Sample Type Arterial; HCO3 ABG 24.9 mmol/L (22-26); Oxygen Device NC; PO2 ABG 64.7 mmHg (80.0-100.0)
[2020-08-25] MEDS: ipratropium-albuterol 3 mL Neb INHALATION (13:10)
[2020-08-25] MEDS: dexamethasone 4 mg/mL INJ 6 MG IVP (13:20)
[2020-08-25 13:36] LABS: Fibrinogen 604 mg/dL (174-498); Partial Thromboplastin Time 29.8 SECONDS (23.9-36.7)
[2020-08-25 13:42] LABS: Lactic Sepsis W/Reflex 1.3 mmol/L (0.5-2.2)
[2020-08-25 13:43] LABS: Alanine Aminotransferase 24 U/L (0-33); Albumin Level 3.7 g/dL (3.5-5.2); Alkaline Phosphatase 57 IU/L (35-105); Anion Gap 21.3 (5-19); Aspartate Amino Transferase 45 U/L (0-32); Blood Urea Nitrogen 55 mg/dL (8-23); C Reactive Protein 197.3 mg/L (0.0-4.9); Calcium 9.1 mg/dL (8.5-10.5); Carbon Dioxide 24 mmol/L (22-29); Chloride 92 mmol/L (98-107); Globulin 3.2 g/dL (1.3-4.6); Glucose 113 mg/dL (65-115); Lactate Dehydrogenase 303 U/L (135-214); Magnesium 1.6 mg/dL (1.7-2.3); Osmolality Calculated 294 mOsm/kg (285-295); Potassium 3.3 mmol/L (3.5-5.1); Sodium 134 mmol/L (136-145); Total Bilirubin 0.7 mg/dL (0.15-1.2); Total Protein 6.9 g/dL (6.6-8.7)
[2020-08-25 13:46] LABS: Basophils % 0.2 %; Hematocrit 40.6 % (37.0-47.0); Hemoglobin 13.1 g/dL (11.5-15.3); Lymphocytes # 0.9 10^3/uL (0.8-4.8); Lymphocytes % 8.2 %; Mean Corpuscular HGB Conc 32.3 g/dL (30.0-36.0); Mean Corpuscular Hemoglobin 28.7 pg (28.0-34.0); Mean Platelet Volume 10.9 fL (7.4-10.4); Monocytes # 0.4 10^3/uL (0.2-0.9); Monocytes % 3.7 %; Neutrophils # 9.66 10^3/uL (1.8-7.7); Neutrophils % 87.3 %; Nucleated Red Blood Cells % 0 %; Platelet Count 204 10^3/cmm (130-400); Red Blood Count 4.56 10^6/uL (4.1-5.3); Red Cell Distribution Width 13.9 % (12.1-15.1); White Blood Count 11.1 10^3/uL (4.0-10.0)
[2020-08-25 13:53] LABS: Troponin(5th) Baseline 41 ng/L (0-10)
[2020-08-25 14:10] LABS: Influenza A by IFA Negative (Negative); Influenza B by IFA Negative (Negative); SARS Covid-2 Antigen Negative (Negative)
--- NOTE | 2020-08-25 14:48 | ECG_ITS ---
[facility] Test Date: 2020-08-25 Pat Name: Deneen Mendoza Department: Room: Gender: Female [employer]: : 1945 Requested By: Darryl Keating Order Number: [id number] Shady MD: CHANDA DENISE Measurements Intervals [place] Rate: 95 P: 7 [place]: 227 QRS: -79 QRSD: 166 T: 83 QT: 393 QTc: 494 Interpretive Statements SINUS RHYTHM WITH FIRST DEGREE AV BLOCK WITH OCCASIONAL VENTRICULAR PREMATURE COMPLEXES INTRAVENTRICULAR CONDUCTION DELAY [130+ ms QRS DURATION] LEFT VENTRICULAR HYPERTROPHY AND ST-T CHANGE [VOLTAGE CRITERIA PLUS ST/T ABNORMALITY] INFERIOR MYOCARDIAL INFARCTION [40+ ms Q WAVE AND/OR ST/T ABNORMALITY IN II/aVF], POSSIBLY ACUTE ANTEROLATERAL MYOCARDIAL INFARCTION [40+ ms Q WAVE IN I/aVL/V3-V6], PROBABLY RECENT ACUTE MD Compared to ECG 12/03/2018 11:35:57 First degree AV block now present Intraventricular conduction delay now present Left ventricular hypertrophy now present Electronically Signed On 08-25-2020 20:13:40 CDT by CHANDA DENISE [email or web address].[employer]/store/OM/[id number]
[2020-08-25] MEDS: enoxaparin 80 mg/0.8 mL Syringe SUBCUT (15:14)
[2020-08-25] MEDS: sodium chloride 0.9% 1,000 ML 999 ML IV (15:15)
[2020-08-25 15:37] LABS: Troponin 5 2HR 39.87 ng/L (0-10)
[2020-08-25 15:40] LABS: Troponin 5 2HR Delta -1.13 ABS# (0-10)
--- NOTE | 2020-08-25 15:55 | P.HP_ITS ---
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 The tumor was TTF-1 positive, and the neuroendocrine markers were strongly positive ( Due to her marginal performance status and to the decline in her renal function, treatment for the lung cancer was limited to definitive radiation as a single modality. She completed treatment to the right lung/mediastinum on 07/29/2019, total dose 7000 cGy) large pancreatic head mass,mass in the area of the right mandibular torus. 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 Presented today with chief complaint of cough , shortness of breath fever, generalized body pain, diarrhea, started this . She went to her primary care physician with above-mentioned complaint and she was tested for Covid at that point in time rapid COVID-19 testing at the primary care physician was positive, upon arrival in the ER she was worked up for above-mentioned, repeat rapid Covid testing done in the ER was negative, Covid PCR was sent out. Imaging studies: X-ray chest: Interstitial densities seen in the bilateral lower lobes these findings appear increased since prior examination. There is right upper lobe interstitial densities present similar to prior examination. CT chest without contrast: Pertinent labs: WBC count:11.4T, H&H:13/40, platelet count:2.4, serum sodium 134, serum potassium 3.3, BUN/ serum creatinine: 55/ 2.7 , magnesium 1.6, D- dimer: 2.20, troponin baseline 41 2 2 hours: 39.87 , 2-hour delta: -1.13, 6 hours:36, 6-hour delta:-4.98 Review of Systems Const: Denies: change in appetite Card: Denies: palpitations, edema, swelling of feet/ankles or leg pain with exertion Resp: Denies: pain on inspiration GI: Denies: abdominal pain : Denies: flank pain Musc: Denies: extremity pain or extremity swelling Neuro: Denies: headache(s), difficulty walking or confusion Medications/Allergies Home Medications Medication Instructions Recorded Confirmed Last Taken Type albuterol sulfate 90 mcg/actuation 2 puff INHALATION Q6H PRN 04/09/19 08/25/20 08/25/20 History aerosol inhaler anastrozole 1 mg tablet 1 mg PO DAILY 04/09/19 08/25/20 08/22/20 History atenolol 50 mg-chlorthalidone 25 1 tab PO DAILY 04/09/19 08/25/20 08/22/20 History mg tablet levothyroxine 125 mcg capsule 125 mcg PO DAILY 04/09/19 08/25/20 08/22/20 History Vitamin D3 4,000 unit PO DAILY 05/01/19 08/25/20 08/22/20 History rivaroxaban 20 mg tablet 10 mg PO DAILY tab 05/16/19 08/25/20 08/22/20 History alprazolam 0.5 mg PO QID PRN 08/25/20 08/25/20 08/22/20 History azelastine See Rx Instructions .ROUTE .COMPLEX 08/25/20 08/25/20 08/22/20 History levocetirizine 5 mg PO DAILY 08/25/20 08/25/20 08/25/20 History Allergies Allergy/AdvReac Type Severity Reaction Status Date / Time codeine Allergy ADR-Nausea Verified 05/16/19 13:55 egg Allergy ADR-Nausea Verified 05/16/19 13:55 latex Allergy ALGY-Bliste Verified 05/16/19 13:55 r NSAIDS (Non-Steroidal Allergy Unknown Verified 05/16/19 13:55 Anti-Inflamma Penicillins Allergy ALGY-Difficulty Verified 05/16/19 13:55 Swallowing PFSH Acute PFSH: Medical History (Updated 08/25/20 @ 22:01 by Lan Bradshaw MD) Breast cancer COPD (chronic obstructive pulmonary disease) Degenerative arthritis GERD (gastroesophageal reflux disease) Hypertension Hypothyroidism (acquired) Lung mass Pancreatic cyst Renal cyst Surgical History H/O cataract removal with insertion of prosthetic lens H/O mastectomy Family History Denies family history of Diabetes CAD (coronary artery disease) Cancer Social History Smoking and tobacco status: former smoker Alcohol intake: former Vitals/I&O/Wt Last Vital Signs Temp 99.1 F 08/25/20 12:14 Pulse 89 08/25/20 13:31 Resp 20 H 08/25/20 13:31 BP 112/56 08/25/20 13:31 Pulse Ox 94 08/25/20 13:31 Weight last 48 hrs Weight 115.666 kg Physical Exam Const: COMMON NORMALS: patient oriented x3 HENMT: COMMON NORMALS: normocephalic and atraumatic HEAD & SCALP: normocephalic and atraumatic Resp: OTHER: Bilaterally diminished air entry, bilateral coarse breath sounds Cardio: COMMON NORMALS: regular rate, regular rhythm, S1 normal heart sound present, S2 normal heart sound present, No gallops present (Cardio), No murmurs present (Cardio), No rub (Cardio) and Peripheral pulses 2+ throughout RATE: regular rate RHYTHM: regular rhythm HEART SOUNDS: S1 normal heart sound present and S2 normal heart sound present PERIPHERAL PULSES: Peripheral pulses 2+ throughout GI: COMMON NORMALS: Normal to inspection, nondistended, normoactive bowel florentino nds present, Soft to palpation, non-tender, No hepatosplenomegaly present and no masses AUSCULTATION: Yes normoactive bowel sounds PALPATION: Yes Soft to palpation and Yes No hepatosplenomegaly present RECTAL EXAM: deferred Extremity: COMMON NORMALS: no clubbing, cyanosis or edema and no pedal edema Neuro: COMMON NORMALS: patient oriented x3 Data : 08/25/20 13:00 08/25/20 13:00 Micro: Microbiology 08/25/20 13:18 Blood Culture - Preliminary Blood SPECIMEN COLLECTED 08/25/20 13:00 Blood Culture - Preliminary Blood SPECIMEN COLLECTED A&P Assessment and plan (1) Respiratory failure with hypoxia: Acute hypoxic respiratory failure secondary to pneumonia rule out Covid: Currently on COVID Protocol C.T Chest without contrast V/Q Scan D-dimer ESR CRP Ferittin Fibrinigen Remdesivir 5 Day course Dexamethasone 6 mg I.V Daily Eliquis 5 mg po q12 h Daily Advair inhalation Pulmicort inhalation Ascorbic acid po Zinc gluconate po Incentive Spirometry flutter valve Supplemental oxygen Status: Acute (2) Pneumonia: Status: Acute (3) Acute kidney injury superimposed on CKD: TRACEE ON CKD Stage 3 likely prerenal Baseline SCR : 1.2-1.4 Current SCR :2.7 Urine electrolytes Real U/S Avoid Nephrotoxics Ns@75cc/hr Monitor I/0 Monitor BMP Status: Acute (4) Hypokalemia: Status: Acute (5) Metastatic cancer: Status: Acute (6) Hypothyroidism (acquired): Status: Acute (7) Hypertension: Status: Acute (8) COPD (chronic obstructive pulmonary disease): Status: Acute (9) History of pulmonary embolism: Status: Acute Additional A&P Information Code Status :Full code DVT PPX: On Eliquis Attestations Medical Necessity Statement*: Patient needs to be in hospital for the management of Pneumonia.Anticipated LOS Greater then 2 midnights. Coding Level of Care Code Acute Infrastructure Consultant for g Fwd Exam Detailed Diagnoses Respiratory failure with hypoxia J96.91 Pneumonia J18.9 Acute kidney injury superimposed on CKD N17.9; N18.9 Hypokalemia E87.6 Metastatic cancer C79.9 Hypothyroidism (acquired) E03.9 Hypertension I10 COPD (chronic obstructive pulmonary disease) J44.9 History of pulmonary embolism Z86.711
[2020-08-25] MEDS: remdesivir 200 MG in sodium chloride 0.9% (100 ml) 100 ML 100 MG IV (16:06)
[2020-08-25] MEDS: azithromycin 500 MG in sodium chloride 0.9% 250 ML 250 MG IV (17:29)
[2020-08-25] MEDS: potassium chloride oral liq 20 mEq/15 mL UDC 40 MEQ PO (17:30)
--- NOTE | 2020-08-25 18:48 | ECG_ITS ---
[facility] Test Date: 2020-08-25 Pat Name: Deneen Mendoza Department: Room: EDIP Gender: Female Barrel Leveler: : 1945 Requested By: Darryl Keating Order Number: [id number] Shady MD: Monet Browning M.D. Measurements Intervals [place] Rate: 81 P: 45 NE: 173 QRS: -78 QRSD: 169 T: 72 QT: 464 QTc: 540 Interpretive Statements SINUS RHYTHM WITH OCCASIONAL VENTRICULAR PREMATURE COMPLEXES WITH OCCASIONAL SUPRAVENTRICULAR PREMATURE COMPLEXES POSSIBLE LEFT ATRIAL ENLARGEMENT [-0.1mV P WAVE IN V1/V2] MARKED LEFT AXIS DEVIATION [QRS AXIS < -30] RIGHT BUNDLE BRANCH BLOCK [120+ ms QRS DURATION, UPRIGHT V1, 40+ ms S IN I/aVL/V4/V5/V6].POSSIBLE ANTERIOR MYOCARDIAL INFARCTION [30 ms Q WAVE IN V3/V4, OR R < 0.2 mV IN.V4], OF INDETERMINATE AGE WARNING: DATA QUALITY MAY AFFECT INTERPRETATION Compared to ECG 08/25/2020 14:28:25 Ventricular premature complex(es) now present.Left-axis deviation now present Right bundle-branch block now present.First degree AV block no longer present Intraventricular conduction delay no longer present.Left ventricular hypertrophy no longer present.ST (T wave) deviation no longer present Myocardial infarct finding still present Electronically Signed On 08-26-2020 22:56:31 CDT by Monet Browning M.D. [email or web address]
[2020-08-25] MEDS: sodium chloride 0.9% 1,000 ML 75 ML IV (19:43)
[2020-08-25] MEDS: cefTRIAXone 1,000 MG in sodium chloride 0.9% (plus) 50 ML 100 MG IV (19:43)
[2020-08-25 20:27] LABS: Troponin 5 6HR 36.02 ng/L (0-10); Troponin 5 6HR Delta -4.98 ng/L (0-12)
--- NOTE | 2020-08-25 22:18 | CTR_ITS ---
PROCEDURE INFORMATION: Exam: CT Chest Without Contrast; Diagnostic Exam date and time: 08/25/2020 10:18 PM Age: 74 years old Clinical indication: Cough and shortness of breath; Prior surgery; Surgery type: Breast. ; Patient HX: Cough/sob. History of lung cancer. Pending covid pcr test. TECHNIQUE: Imaging protocol: Diagnostic computed tomography of the chest without contrast. Radiation optimization: All CT scans at this facility use at least one of these dose optimization techniques: automated exposure control; mA and/or kV adjustment per patient size (includes targeted exams where dose is matched to clinical indication); or iterative reconstruction. COMPARISON: CT chest abd pel w con* 04/21/2020 1:58 PM RADIATION DOSE METRICS: Total DLP (mGy-cm): 915.68 FINDINGS: Lungs: Geographic ground-glass opacities with crazy paving and consolidation and some air bronchograms consistent with severe bilateral Covid-19 pneumonia versus other viral pneumonia. Pleural spaces: Unremarkable. No pneumothorax. No pleural effusion. Heart: Severe calcified coronary artery disease. Aorta: Unremarkable. No aortic aneurysm. Great vessels off aortic arch: Calcification of the thoracic aorta and/or great vessels consistent with atherosclerotic vessel disease. Lymph nodes: Calcified right hilar nodes and/or mediastinal nodes and/or lung granulomas consistent with old granulomatous disease. Pancreas: Moderate chronic calcific pancreatitis. . Bulky lobulated partially calcified 5.8 x 5.1 x 5.3 cm mass in the head and neck of the pancreas most consistent with pancreatic neoplasm. Kidneys and ureters: Multiple right renal simple cysts with the largest measuring > 1.0 cm . Bones/joints: Severe thoracic spondylosis. Soft tissues: Surgical clips over the left axilla. Absent left breast consistent with previous left mastectomy. CT/CT chest wo con [id number] IMPRESSION: 1. Geographic ground-glass opacities with crazy paving and consolidation and some air bronchograms consistent with severe bilateral Covid-19 pneumonia versus other viral pneumonia. 2. . Bulky lobulated partially calcified 5.8 x 5.1 x 5.3 cm mass in the head and neck of the pancreas most consistent with pancreatic neoplasm. 3. Absent left breast consistent with previous left mastectomy. COMMENTS: Consistent with the [employer]'s Incidental Findings Committee white paper (J Am Alma Radiol 2018): Any incidental renal lesion less than 1 cm or classified as too small to characterize, or any incidental cystic renal lesion characterized as simple-appearing, is likely benign. No follow-up imaging is recommended for these lesions per consensus recommendations based on imaging criteria. Radiation Dose CTDIVOL = (mGy): DLP = 915.68 (mGy-cm)
[2020-08-25] MEDS: acetaminophen 325 mg Tablet 650 MG PO (23:55)
[2020-08-26] VITALS (10 sets, daily range): BP systolic 97–147; BP diastolic 54–83; PULSE 74–93; RESP 18–33; TEMP 36.7–38.4; O2SAT 88–93
[2020-08-26 02:34] LABS: Potassium, Radom Urine 33 mmol/L
[2020-08-26 02:43] LABS: Urine Random Chloride 10 mmol/L; Urine Random Sodium < 10 mmol/L
[2020-08-26] MEDS: apixaban 5 mg Tablet PO ×3 (05:44→18:06)
[2020-08-26] MEDS: acetaminophen 325 mg Tablet 650 MG PO (09:12)
[2020-08-26] MEDS: zinc gluconate 50 mg Tablet PO (09:12)
[2020-08-26] MEDS: pantoprazole DR 40 mg Tablet PO (09:12)
[2020-08-26] MEDS: ascorbic acid 500 mg Tablet PO (09:12)
[2020-08-26 09:33] LABS: Basophils % 0.1 %; Hemoglobin 12.5 g/dL (11.5-15.3); Lymphocytes # 0.6 10^3/uL (0.8-4.8); Lymphocytes % 3.8 %; Mean Corpuscular HGB Conc 32.1 g/dL (30.0-36.0); Mean Corpuscular Hemoglobin 28.4 pg (28.0-34.0); Mean Corpuscular Volume 88.6 fL (81-99); Monocytes # 0.4 10^3/uL (0.2-0.9); Monocytes % 2.4 %; Neutrophils # 14.79 10^3/uL (1.8-7.7); Neutrophils % 92.8 %; Nucleated Red Blood Cells % 0 %; Platelet Count 199 10^3/cmm (130-400); Red Cell Distribution Width 13.9 % (12.1-15.1); White Blood Count 15.9 10^3/uL (4.0-10.0)
[2020-08-26 09:50] LABS: D Dimer 2.09 ug/mIFEU (0-0.59)
[2020-08-26 09:59] LABS: Alanine Aminotransferase 26 U/L (0-33); Albumin Level 3.2 g/dL (3.5-5.2); Alkaline Phosphatase 57 IU/L (35-105); Anion Gap 19.4 (5-19); Aspartate Amino Transferase 58 U/L (0-32); Blood Urea Nitrogen 58 mg/dL (8-23); C Reactive Protein 238.2 mg/L (0.0-4.9); Calcium 8.4 mg/dL (8.5-10.5); Carbon Dioxide 24 mmol/L (22-29); Chloride 96 mmol/L (98-107); Globulin 2.9 g/dL (1.3-4.6); Glucose 111 mg/dL (65-115); Magnesium 1.5 mg/dL (1.7-2.3); Osmolality Calculated 299 mOsm/kg (285-295); Potassium 3.4 mmol/L (3.5-5.1); Sodium 136 mmol/L (136-145); Total Bilirubin 0.6 mg/dL (0.15-1.2); Total Protein 6.1 g/dL (6.6-8.7)
[2020-08-26 10:33] LABS: Erythrocyte Sedimentation Rate 56 mm/hr (0-15)
--- NOTE | 2020-08-26 12:42 | P.PN_ITS ---
Subjective Subjective: Interval history: Patient was seen and examined this morning. Coughing and shortness of breath has somewhat improved. Patient continues to have high-grade temperature spike: Noted T-max is: 103.4 Medications: Reviewed: Yes Vitals/I&O/Wt Last Vital Signs Temp 98.3 F 08/26/20 12:00 Pulse 86 08/26/20 12:00 Resp 19 H 08/26/20 12:00 BP 105/58 08/26/20 12:00 Pulse Ox 92 08/26/20 12:00 08/25/20 08/26/20 08/26/20 22:59 06:59 14:59 Intake Total 1400 / 1400 200 / 1600 1480 / 1480 Balance 1400 / 1400 200 / 1600 1480 / 1480 Weight last 48 hrs Weight 115.666 kg Physical Exam Const: COMMON NORMALS: patient oriented x3 HENMT: COMMON NORMALS: normocephalic and atraumatic HEAD & SCALP: normocephalic and atraumatic Resp: OTHER: Bilaterally diminished air entry, bilateral coarse breath sounds Cardio: COMMON NORMALS: regular rate, regular rhythm, S1 normal heart sound present, S2 normal heart sound present, No gallops present (Cardio), No murmurs present (Cardio), No rub (Cardio) and Peripheral pulses 2+ throughout RATE: regular rate RHYTHM: regular rhythm HEART SOUNDS: S1 normal heart sound present and S2 normal heart sound present PERIPHERAL PULSES: Peripheral pulses 2+ throughout GI: COMMON NORMALS: Normal to inspection, nondistended, normoactive bowel sounds present, Soft to palpation, non-tender, No hepatosplenomegaly present and no masses AUSCULTATION: Yes normoactive bowel sounds PALPATION: Yes Soft to palpation and Yes No hepatosplenomegaly present RECTAL EXAM: deferred Extremity: COMMON NORMALS: no clubbing, cyanosis or edema and no pedal edema Neuro: COMMON NORMALS: patient oriented x3 Data : 08/26/20 08:35 08/26/20 08:35 Micro: Microbiology 08/25/20 13:18 Blood Culture - Preliminary Blood SPECIMEN COLLECTED 08/25/20 13:00 Blood Culture - Preliminary Blood SPECIMEN COLLECTED A&P Assessment and plan (1) Respiratory failure with hypoxia: Acute hypoxic respiratory failure secondary Covid PNA with possible superadded bacterial PNA :Positive COVID PCR Currently on COVID Protocol C.T Chest without contrast : ground-glass opacities with crazy paving and consolidation and some air bronchograms consistent with severe bilateral Covid- 19 pneumonia. V/Q Scan: D-dimer : ESR CRP Ferittin Fibrinigen Procalcitonin : 34 Blood culture Urine culture Sputum culture Remdesivir 5 Day course Dexamethasone 6 mg I.V Daily Eliquis 5 mg po q12 h Daily Advair inhalation Pulmicort inhalation Ascorbic acid po Zinc gluconate po Incentive Spirometry flutter valve Supplemental oxygen Status: Acute (2) Pneumonia: Plan is 1 Status: Acute (3) Acute kidney injury superimposed on CKD: TRACEE ON CKD Stage 3 likely prerenal Baseline SCR : 1.2-1.4 Current SCR :2.7 Urine electrolytes Real U/S Avoid Nephrotoxics Ns@75cc/hr Monitor I/0 Monitor BMP Status: Acute (4) Hypokalemia: Status: Acute (5) Metastatic cancer: Status: Acute (6) Hypothyroidism (acquired): Status: Acute (7) Hypertension: Status: Acute (8) COPD (chronic obstructive pulmonary disease): Status: Acute (9) History of pulmonary embolism: Status: Acute Additional A&P Information Code Status :Full code DVT PPX: On Eliquis Attestations Medical Necessity Statement*: Patient needs to be in the hospital for management of Covid pneumonia. Coding Level of Care Code Acute Material Mover for [facility] Diagnoses Respiratory failure with hypoxia J96.91 Pneumonia J18.9 Acute kidney injury superimposed on CKD N17.9; N18.9 Hypokalemia E87.6 Metastatic cancer C79.9 Hypothyroidism (acquired) E03.9 Hypertension I10 COPD (chronic obstructive pulmonary disease) J44.9 History of pulmonary embolism Z86.711
[2020-08-26 15:12] LABS: Coronavirus Test Green County Detected
[2020-08-26] MEDS: dexamethasone 4 mg/mL INJ 6 MG IVP (16:47)
[2020-08-26] MEDS: cefTRIAXone 1,000 MG in sodium chloride 0.9% (plus) 50 ML 100 MG IV (16:48)
[2020-08-26] MEDS: sodium chloride 0.9% 1,000 ML 30 ML IV (16:48)
[2020-08-26] MEDS: remdesivir 100 MG in sodium chloride 0.9% (100 ml) 100 ML IV (18:06)
[2020-08-26] MEDS: guaiFENesin 100 mg/5 mL UDC 10 mL 200 MG PO ×2 (18:16→21:03)
[2020-08-26] MEDS: azithromycin 500 MG in sodium chloride 0.9% 250 ML 250 MG IV (21:03)
[2020-08-27] VITALS (49 sets, daily range): BP systolic 96–127; BP diastolic 30–84; PULSE 75–110; RESP 18–41; TEMP 36.6–37.1; O2SAT 63–96
--- NOTE | 2020-08-27 06:03 | PC.NURSE ---
nurse was notify of 02 stats being at 84
--- NOTE | 2020-08-27 06:22 | PC.NURSE ---
OXYGEN DECOMPENSATION: THE PATIENT WAS FOUND AT APPROXIMATELY 0545 DURING MORNING VITALS TO HAVE AN OXYGEN SATURATION OF 78-80%. PATIENT WAS THEN TURNED UP TO 15 LITERS HIGH FLOW NASAL CANNULA. RESPIRATORY CONTACTED. THE PATIENT CAME UP TO 85%. THE PATIENT WAS PLACED ON A NON RE-BREATHER WHILE WAITING ON HEATED HIGH FLOW. THE PATIENT WAS PLACED ON 55 LITERS OF OXYGEN AND 80 FiO2. OXYGEN SATURATIONS 89-91%.
[2020-08-27 06:46] LABS: Basophils % 0.1 %; Hematocrit 40.9 % (37.0-47.0); Lymphocytes # 0.5 10^3/uL (0.8-4.8); Lymphocytes % 3.1 %; Mean Corpuscular HGB Conc 31.8 g/dL (30.0-36.0); Mean Corpuscular Hemoglobin 28.5 pg (28.0-34.0); Mean Corpuscular Volume 89.7 fL (81-99); Mean Platelet Volume 10.7 fL (7.4-10.4); Monocytes # 0.3 10^3/uL (0.2-0.9); Monocytes % 1.9 %; Neutrophils # 14.54 10^3/uL (1.8-7.7); Nucleated Red Blood Cells % 0 %; Platelet Count 219 10^3/cmm (130-400); Red Blood Count 4.56 10^6/uL (4.1-5.3); Red Cell Distribution Width 14.2 % (12.1-15.1); White Blood Count 15.5 10^3/uL (4.0-10.0)
[2020-08-27 06:58] LABS: D Dimer 2.03 ug/mIFEU (0-0.59)
[2020-08-27 07:09] LABS: Alanine Aminotransferase 26 U/L (0-33); Albumin Level 3.1 g/dL (3.5-5.2); Alkaline Phosphatase 57 IU/L (35-105); Anion Gap 18.8 (5-19); Aspartate Amino Transferase 62 U/L (0-32); Blood Urea Nitrogen 55 mg/dL (8-23); C Reactive Protein 316.5 mg/L (0.0-4.9); Calcium 8.4 mg/dL (8.5-10.5); Carbon Dioxide 23 mmol/L (22-29); Chloride 104 mmol/L (98-107); Globulin 2.9 g/dL (1.3-4.6); Glucose 113 mg/dL (65-115); Osmolality Calculated 310 mOsm/kg (285-295); Potassium 3.8 mmol/L (3.5-5.1); Sodium 142 mmol/L (136-145); Total Bilirubin 0.4 mg/dL (0.15-1.2)
--- NOTE | 2020-08-27 07:11 | PC.RESP ---
PULMONARY REHAB INFORMATION SENT TO PATIENT.
[2020-08-27 07:12] LABS: Procalcitonin 31.22 ng/mL (0-0.5)
[2020-08-27 08:27] LABS: Erythrocyte Sedimentation Rate 62 mm/hr (0-15)
[2020-08-27] MEDS: apixaban 5 mg Tablet PO ×2 (08:27→16:59)
[2020-08-27] MEDS: ascorbic acid 500 mg Tablet PO (08:27)
[2020-08-27] MEDS: pantoprazole DR 40 mg Tablet PO (08:28)
[2020-08-27] MEDS: zinc gluconate 50 mg Tablet PO (08:28)
--- NOTE | 2020-08-27 08:44 | PC.NUTR ---
Nutrition assessment completed due to MST score of 3. 0% X 3 meals consumed per chart review. Recommend Ensure Plus TID to provide additional kcal/protein. Recommend encouragement and assistance at meals, and to provide meal preferences as available. See RD assessment for further details. [ End ]
[2020-08-27] MEDS: FUROsemide 10 mg/mL SDV 2mL 20 MG IVP ×2 (10:46→18:48)
[2020-08-27] MEDS: ipratropium-albuterol 3 mL Neb INHALATION ×3 (11:29→20:47)
[2020-08-27] MEDS: vancomycin 1,000 MG in sodium chloride 0.9% 250 ML 250 MG IV (12:13)
--- NOTE | 2020-08-27 14:43 | XR_ITS ---
WS: [id number] Portable AP upright chest, 08/27/2020 Clinical Data: SOB Comparison: Portable chest, 08/25/2020 Findings: The bilateral pulmonary opacities have increased. The heart is enlarged. No pneumothorax is present. Right internal jugular venous catheter ends over the medial aspect of the right clavicle. T here are surgical clips in the left axilla. Monitor leads are on the chest wall. XR/XR chest 1V portable [id number] Impression: 1. Increase in bilateral pulmonary opacities. 2. Cardiomegaly.
--- NOTE | 2020-08-27 14:47 | P.PN_ITS ---
Subjective Subjective: Interval history: Patient was seen and examined this morning. Overnight shortness of breath has worsened, she desats with minimal exertion, also complaining of 2 episodes of loose stool. Medications: Reviewed: Yes Vitals/I&O/Wt Last Vital Signs Temp 98.5 F 08/27/20 13:08 Pulse 90 08/27/20 13:20 Resp 30 H 08/27/20 13:20 BP 105/66 08/27/20 13:08 Pulse Ox 88 L 08/27/20 13:20 08/26/20 08/27/20 08/27/20 22:59 06:59 14:59 Intake Total 640 / 2360 770 / 770 Output Total 200 / 200 Balance 640 / 2360 -200 / 2160 770 / 770 Physical Exam Const: COMMON NORMALS: patient oriented x3 HENMT: COMMON NORMALS: normocephalic and atraumatic HEAD & SCALP: normocephalic and atraumatic Resp: OTHER: Bilaterally diminished air entry, bilateral coarse breath sounds,b/l wheezing Cardio: COMMON NORMALS: regular rate, regular rhythm, S1 normal heart sound present, S2 normal heart sound present, No gallops present (Cardio), No murmurs present (Cardio), No rub (Cardio) and Peripheral pulses 2+ throughout RATE: regular rate RHYTHM: regular rhythm HEART SOUNDS: S1 normal heart sound present and S2 normal heart sound present PERIPHERAL PULSES: Peripheral pulses 2+ throughout GI: COMMON NORMALS: Normal to inspection, nondistended, normoactive bowel sounds present, Soft to palpation, non-tender, No hepatosplenomegaly present and no masses AUSCULTATION: Yes normoactive bowel sounds PALPATION: Yes Soft to palpation and Yes No hepatosplenomegaly present RECTAL EXAM: deferred Extremity: COMMON NORMALS: no clubbing, cyanosis or edema and no pedal edema Neuro: COMMON NORMALS: patient oriented x3 Urinary Catheter Management^: Gupta: Cath Placed During This Visit: yes Urinary Catheter Date of Insertion: 08/27/20 Urinary Catheter Time of Insertion: 10:33 Data : 08/27/20 06:28 08/27/20 06:28 Micro: Microbiology 08/25/20 13:18 Blood Culture - Preliminary Blood NEGATIVE TO DATE 08/25/20 13:00 Blood Culture - Preliminary Blood NEGATIVE TO DATE A&P Assessment and plan (1) Respiratory failure with hypoxia: Acute hypoxic respiratory failure secondary Covid PNA with possible superadded bacterial PNA :Positive COVID PCR Currently on COVID Protocol C.T Chest without contrast : ground-glass opacities with crazy paving and consolidation and some air bronchograms consistent with severe bilateral Covid- 19 pneumonia. V/Q Scan: Once Stable D-dimer : ESR CRP Ferittin Fibrinigen Procalcitonin : 34 Blood culture Urine culture Stool studies Sputum culture MRSA PCR:Negative Remdesivir 5 Day course Dexamethasone 6 mg I.V Daily Eliquis 5 mg po q12 h Daily Advair inhalation Pulmicort inhalation Ascorbic acid po Zinc gluconate po Incentive Spirometry flutter valve Supplemental oxygen Status: Acute (2) ARDS (adult respiratory distress syndrome): Severe ARDS 2/2 COVID PNA Status: Acute (3) Acute kidney injury superimposed on CKD: TRACEE ON CKD Stage 3 likely prerenal Baseline SCR : 1.2-1.4 Admission SCR : 2.7 Current SCR :1.8 Urine electrolytes Real U/S Avoid Nephrotoxics Monitor I/0 Monitor BMP Status: Acute (4) Hypokalemia: Status: Acute (5) Metastatic cancer: Status: Acute (6) Hypothyroidism (acquired): Status: Acute (7) Hypertension: Status: Acute (8) COPD (chronic obstructive pulmonary disease): Status: Acute (9) History of pulmonary embolism: Status: Acute Additional A&P Information Code Status :Full code DVT PPX: On Eliquis Attestations Medical Necessity Statement*: Patient needs to be in the hospital for the management of severe ARDS secondary to Covid pneumonia. Critical Care Time: The high probability of a clinically significant, sudden or life threatening deterioration of the patient's [] system(s) required my full and direct attention, intervention and personal management. The critical care time is as shown. This time is in addition to time spent performing any reported procedures but includes the following: [x] Data and vital sign review and interpretation [x] Patient assessment, examination and intervention [x] Documentation [x] Medication orders and management Coding Level of Care Code Acute Foam Caster for [facility] Fwd Exam Detailed Diagnoses Respiratory failure with hypoxia J96.91 ARDS (adult respiratory distress syndrome) J80 Acute kidney injury superimposed on CKD N17.9; N18.9 Hypokalemia E87.6 Metastatic cancer C79.9 Hypothyroidism (acquired) E03.9 Hypertension I10 COPD (chronic obstructive pulmonary disease) J44.9 History of pulmonary embolism Z86.711
[2020-08-27] MEDS: dexamethasone 4 mg/mL INJ 6 MG IVP (16:02)
[2020-08-27] MEDS: remdesivir 100 MG in sodium chloride 0.9% (100 ml) 100 ML IV (16:55)
[2020-08-27] MEDS: LORazepam 2 mg/mL INJ 1 mL IVP (18:48)
--- NOTE | 2020-08-27 22:02 | PC.NURSE ---
2133 Pt arrived to unit via staff, pt on bed. Connected to ICU monitor. Bipap hooked up. 01/25 90%. VSS. O2 sat in upper 80's to low 90's. Gupta cath in place draining clear imelda urine to BSD. Pt AAOx4. Denies any needs at this time. Answers all questions appropriately. Will monitor.
--- NOTE | 2020-08-27 22:03 | PC.NURSE ---
PATIENT TRANSFER: PATIENT TRANSFERRED VIS BED TO ICU BED 6. REPORT CALLED PRIOR TO TRANSPORT TO [facility]. RT PRESENT DURING TRANSFER TO ASSIST WITH BI-PAP.
[2020-08-28] VITALS (100 sets, daily range): BP systolic 78–147; BP diastolic 35–95; PULSE 68–157; RESP 16–52; TEMP 36.7–37.1; O2SAT 72–98
[2020-08-28] MEDS: ipratropium-albuterol 3 mL Neb INHALATION ×6 (00:20→20:06)
--- NOTE | 2020-08-28 00:44 | PC.NURSE ---
Pt had 26 beat run of [facility]. notified.
--- NOTE | 2020-08-28 01:45 | PC.NURSE ---
Pt refused RASHEED hose, educated about risk of VTE. Pt moving feet and legs, pumping feet. Aware of risks. Will monitor.
[2020-08-28 01:52] LABS: Magnesium 1.9 mg/dL (1.7-2.3)
[2020-08-28 04:19] LABS: Basophils % 0.1 %; Hematocrit 39.7 % (37.0-47.0); Hemoglobin 12.4 g/dL (11.5-15.3); Lymphocytes # 0.3 10^3/uL (0.8-4.8); Lymphocytes % 3.5 %; Mean Corpuscular HGB Conc 31.2 g/dL (30.0-36.0); Mean Corpuscular Hemoglobin 28.6 pg (28.0-34.0); Mean Corpuscular Volume 91.5 fL (81-99); Mean Platelet Volume 10.8 fL (7.4-10.4); Monocytes # 0.3 10^3/uL (0.2-0.9); Monocytes % 3.3 %; Neutrophils % 91.1 %; Nucleated Red Blood Cells % 0 %; Platelet Count 248 10^3/cmm (130-400); Red Blood Count 4.34 10^6/uL (4.1-5.3); Red Cell Distribution Width 14.3 % (12.1-15.1); White Blood Count 9.3 10^3/uL (4.0-10.0)
[2020-08-28 04:31] LABS: D Dimer 2.01 ug/mIFEU (0-0.59)
[2020-08-28 04:39] LABS: Anion Gap 18.4 (5-19); Blood Urea Nitrogen 57 mg/dL (8-23); Calcium 8.8 mg/dL (8.5-10.5); Carbon Dioxide 27 mmol/L (22-29); Chloride 104 mmol/L (98-107); Glucose 143 mg/dL (65-115); Magnesium 1.9 mg/dL (1.7-2.3); Osmolality Calculated 320 mOsm/kg (285-295); Phosphorus 3.8 mg/dL (2.5-4.5); Potassium 3.4 mmol/L (3.5-5.1); Sodium 146 mmol/L (136-145)
[2020-08-28 04:40] LABS: Alanine Aminotransferase 20 U/L (0-33); Albumin Level 2.8 g/dL (3.5-5.2); Alkaline Phosphatase 55 IU/L (35-105); Anion Gap 19.4 (5-19); Aspartate Amino Transferase 52 U/L (0-32); Blood Urea Nitrogen 60 mg/dL (8-23); C Reactive Protein 186.5 mg/L (0.0-4.9); Calcium 8.4 mg/dL (8.5-10.5); Carbon Dioxide 26 mmol/L (22-29); Chloride 101 mmol/L (98-107); Globulin 2.7 g/dL (1.3-4.6); Glucose 149 mg/dL (65-115); Osmolality Calculated 316 mOsm/kg (285-295); Potassium 3.4 mmol/L (3.5-5.1); Sodium 143 mmol/L (136-145); Total Bilirubin 0.3 mg/dL (0.15-1.2); Total Protein 5.5 g/dL (6.6-8.7)
[2020-08-28 04:42] LABS: Procalcitonin 26.62 ng/mL (0-0.5)
[2020-08-28 04:43] LABS: NT Pro B Type Natriuretic Pept 1113 pg/mL (0-450)
[2020-08-28 04:52] LABS: ABG PCO2 49.4 mmHg (35-45); ABG PH Result 7.33 (7.35-7.45); Alveolar-Arterial Oxygen Gradi 70.3 mmHg (5-10); Arterial Blood Gas Hematocrit 40.4 % (37-47); Base Excess ABG -0.3 mmol/L (-2.0-2.0); Blood Gas Allen Test Pos; Blood Gas Sample Site Radial, right; Blood Gas Sample Type Arterial; Carboxyhemoglobin 0.4 %THgb (0.4-20.1); HCO3 ABG 26.2 mmol/L (22-26); HGB O2 Sat 92.8 % (95-100); Ionized Calcium Level - ABG 1.2 mmol/L (1.1-1.4); Methemoglobin 0.4 % (0.4-1.5); Oxygen Device BIPAP; Oxygen Saturation ABG 93.6; PO2 ABG 75.2 mmHg (80.0-100.0); Potassium Level - ABG 3.1 mmol/L (3.5-5.0); Total Hemoglobin 13.2 g/dL (12-16)
[2020-08-28 05:21] LABS: Erythrocyte Sedimentation Rate 56 mm/hr (0-15)
[2020-08-28] MEDS: budesonide 0.5 mg/2 mL Neb 0.25 MG INHALATION (08:01)
[2020-08-28] MEDS: apixaban 5 mg Tablet PO ×2 (09:08→19:19)
[2020-08-28] MEDS: zinc gluconate 50 mg Tablet PO (09:08)
[2020-08-28] MEDS: pantoprazole DR 40 mg Tablet PO (09:08)
[2020-08-28] MEDS: ascorbic acid 500 mg Tablet PO (09:08)
[2020-08-28] MEDS: lidocaine 1% 5 ML in potassium chloride premix 100 ML 50 ML IV (09:37)
[2020-08-28] MEDS: LORazepam 2 mg/mL INJ 1 mL IVP (09:37)
[2020-08-28] MEDS: FUROsemide 10 mg/mL SDV 4mL 40 MG IVP ×2 (09:37→20:05)
--- NOTE | 2020-08-28 10:18 | P.PN_ITS ---
Subjective Subjective: Interval history: Patient was seen and examined this morning. Overnight shortness of breath has worsened, currently her supplemental oxygen requirement has been increasing ,she is on BIPAP ( 01/27, FO2:95% ) Medications: Reviewed: Yes Vitals/I&O/Wt Last Vital Signs Temp 98.2 F 08/28/20 04:00 Pulse 86 08/28/20 08:05 Resp 34 H 08/28/20 08:04 BP 105/59 08/28/20 04:20 Pulse Ox 94 08/28/20 08:05 08/27/20 08/28/20 08/28/20 22:59 06:59 14:59 Intake Total 1197.5 / 1967.5 220 / 2187.5 Output Total 600 / 600 625 / 1225 Balance 597.5 / 1367.5 -405 / 962.5 Physical Exam Const: COMMON NORMALS: patient oriented x3 HENMT: COMMON NORMALS: normocephalic and atraumatic HEAD & SCALP: normoceph alic and atraumatic Resp: OTHER: Bilaterally diminished air entry, bilateral coarse breath sounds,b/l wheezing Cardio: COMMON NORMALS: regular rate, regular rhythm, S1 normal heart sound present, S2 normal heart sound present, No gallops present (Cardio), No murmurs present (Cardio), No rub (Cardio) and Peripheral pulses 2+ throughout RATE: regular rate RHYTHM: regular rhythm HEART SOUNDS: S1 normal heart sound present and S2 normal heart sound present PERIPHERAL PULSES: Peripheral pulses 2+ throughout GI: COMMON NORMALS: Normal to inspection, nondistended, normoactive bowel sounds present, Soft to palpation, non-tender, No hepatosplenomegaly present and no masses AUSCULTATION: Yes normoactive bowel sounds PALPATION: Yes Soft to palpation and Yes No hepatosplenomegaly present RECTAL EXAM: deferred Extremity: COMMON NORMALS: no clubbing, cyanosis or edema and no pedal edema Neuro: COMMON NORMALS: patient oriented x3 Urinary Catheter Management^: Gupta: Cath Placed During This Visit: yes Reason for Continuing Indwelling Catheter: Accurate Measurement of Urinary Output in Critically Ill Patients Urinary Catheter Date of Insertion: 08/27/20 Urinary Catheter Time of Insertion: 10:33 Data : 08/28/20 03:25 08/28/20 03:25 Micro: Microbiology 08/27/20 12:30 MRSA Culture - Final Nose A&P Assessment and plan (1) Respiratory failure with hypoxia: Acute hypoxic respiratory failure secondary 2/2 Severe ARDS 2/2 Covid PNA with possible superadded bacterial PNA :Positive COVID PCR Currently on COVID Protocol C.T Chest without contrast : ground-glass opacities with crazy paving and consolidation and some air bronchograms consistent with severe bilateral Covid- 19 pneumonia. V/Q Scan: Once Stable D-dimer : ESR CRP Ferittin Fibrinigen Procalcitonin : 34 Blood culture :NTD Urine culture Stool studies Sputum culture MRSA PCR:Negative Remdesivir 5 Day course Dexamethasone 6 mg I.V Daily Eliquis 5 mg po q12 h Daily S/P 1 DOse toci VANcomycin Imipenam Advair inhalation Pulmicort inhalation Ascorbic acid po Zinc gluconate po Incentive Spirometry flutter valve Supplemental oxygen Status: Acute (2) ARDS (adult respiratory distress syndrome): Severe ARDS 2/2 COVID PNA Status: Acute (3) Acute kidney injury superimposed on CKD: TRACEE ON CKD Stage 3 Likely COVID related renal disease. Baseline SCR : 1.2-1.4 Admission SCR : 2.7 Current SCR :1.8 Urine electrolytes Real U/S Avoid Nephrotoxics Monitor I/0 Monitor BMP Status: Acute (4) Hypokalemia: Status: Acute (5) Metastatic cancer: Status: Acute (6) Hypothyroidism (acquired): Status: Acute (7) Hypertension: Status: Acute (8) COPD (chronic obstructive pulmonary disease): Status: Acute (9) History of pulmonary embolism: Status: Acute Additional A&P Information Code Status :Full code DVT PPX: On Eliquis Attestations Medical Necessity Statement*: Patient needs to be in hospital for the management of Severe ARDS Coding Level of Care Code Acute Dentist for [facility] Fwd Exam Detailed Diagnoses Respiratory failure with hypoxia J96.91 ARDS (adult respiratory distress syndrome) J80 Acute kidney injury superimposed on CKD N17.9; N18.9 Hypokalemia E87.6 Metastatic cancer C79.9 Hypothyroidism (acquired) E03.9 Hypertension I10 COPD (chronic obstructive pulmonary disease) J44.9 History of pulmonary embolism Z86.711
--- NOTE | 2020-08-28 11:22 | PC.SOCIAL ---
IMM Updated Updated pt's grandson on Pg 2 IMM. No questions voiced. Signed, dated, & timed copy in chart.
[2020-08-28] MEDS: dexmedetomidine 400 MCG in sodium chloride 0.9% (100 ml) 100 ML 6.02 MCG IV (14:42)
[2020-08-28] MEDS: vancomycin 1,000 MG in sodium chloride 0.9% 250 ML 250 MG IV (15:07)
--- NOTE | 2020-08-28 19:12 | PC.NURSE ---
Report received. Pt repositioned to R side. FIO2 increased to 100%. Pericare provided. Pt on precedex at 0.5mcg. Dr. [place] aware of o2 sats in low to mid 80's at shift change. Will monitor
[2020-08-28] MEDS: dexamethasone 4 mg/mL INJ 6 MG IVP (19:18)
[2020-08-28] MEDS: remdesivir 100 MG in sodium chloride 0.9% (100 ml) 100 ML IV (19:19)
[2020-08-28] MEDS: dexmedetomidine 400 MCG in sodium chloride 0.9% (100 ml) 100 ML 15.04 MCG IV (20:41)
--- NOTE | 2020-08-28 21:14 | PC.NURSE ---
PT encouraged to not talk and just focus on breathing. Repositioned per staff. Will monitor.
--- NOTE | 2020-08-28 21:45 | PC.NURSE ---
lorazepam not given, wasted with [facility]. bipap mask adjusted. O2 sat remains mid to upper 80's.
[2020-08-29] VITALS (78 sets, daily range): BP systolic 115–164; BP diastolic 64–98; PULSE 34–183; RESP 5–42; TEMP 36.8–37.2; O2SAT 32–95
[2020-08-29] MEDS: ipratropium-albuterol 3 mL Neb INHALATION ×6 (00:35→20:15)
[2020-08-29] MEDS: dexmedetomidine 400 MCG in sodium chloride 0.9% (100 ml) 100 ML 15.04 MCG IV ×3 (04:13→18:23)
[2020-08-29 04:54] LABS: ABG PCO2 44.4 mmHg (35-45); ABG PH Result 7.44 (7.35-7.45); Base Excess ABG 4.9 mmol/L (-2.0-2.0); Blood Gas Allen Test Pos; Blood Gas Sample Type Arterial; Carboxyhemoglobin 0.7 %THgb (0.4-20.1); HCO3 ABG 29.9 mmol/L (22-26); HGB O2 Sat 84.8 % (95-100); Ionized Calcium Level - ABG 1.2 mmol/L (1.1-1.4); Methemoglobin 0.3 % (0.4-1.5); Oxygen Saturation ABG 85.7; PO2 ABG 50.4 mmHg (80.0-100.0); Potassium Level - ABG 3.2 mmol/L (3.5-5.0)
[2020-08-29 04:56] LABS: Alveolar-Arterial Oxygen Gradi 69.7 mmHg (5-10); Blood Gas Sample Site Radial, right; Oxygen Device BIPAP
[2020-08-29 05:10] LABS: Basophils % 0.4 %; Hematocrit 42.4 % (37.0-47.0); Hemoglobin 13.3 g/dL (11.5-15.3); Lymphocytes # 0.3 10^3/uL (0.8-4.8); Lymphocytes % 2.7 %; Mean Corpuscular HGB Conc 31.4 g/dL (30.0-36.0); Mean Corpuscular Hemoglobin 28.1 pg (28.0-34.0); Mean Corpuscular Volume 89.5 fL (81-99); Mean Platelet Volume 10.6 fL (7.4-10.4); Monocytes # 0.4 10^3/uL (0.2-0.9); Monocytes % 3.2 %; Neutrophils # 9.94 10^3/uL (1.8-7.7); Neutrophils % 89.4 %; Nucleated Red Blood Cells % 0 %; Platelet Count 280 10^3/cmm (130-400); Red Blood Count 4.74 10^6/uL (4.1-5.3); Red Cell Distribution Width 14.2 % (12.1-15.1); White Blood Count 11.1 10^3/uL (4.0-10.0)
[2020-08-29 05:37] LABS: NT Pro B Type Natriuretic Pept 665 pg/mL (0-450); Procalcitonin 12.76 ng/mL (0-0.5)
[2020-08-29 05:50] LABS: Blood Urea Nitrogen 61 mg/dL (8-23); Calcium 8.4 mg/dL (8.5-10.5); Carbon Dioxide 26 mmol/L (22-29); Chloride 103 mmol/L (98-107); Glucose 194 mg/dL (65-115); Magnesium 1.8 mg/dL (1.7-2.3); Osmolality Calculated 327 mOsm/kg (285-295); Sodium 147 mmol/L (136-145)
[2020-08-29 05:52] LABS: Anion Gap 21.5 (5-19); Potassium 3.5 mmol/L (3.5-5.1)
--- NOTE | 2020-08-29 06:00 | XRR_ITS ---
PROCEDURE INFORMATION: Exam: XR Chest Exam date and time: 08/29/2020 6:00 AM Age: 74 years old Clinical indication: Shortness of breath; Patient HX: Covid pneumonia. History of lung cancer. On bipap. PT had difficulties laying flat against detector. Best image obtained. ; Additional info: Pna TECHNIQUE: Imaging protocol: XR of the chest. Views: 1 view. COMPARISON: [place] XR chest 1V portable [id number] 08/27/2020 3:36 PM FINDINGS: Tubes, catheters and devices: A right central line is present on the right side extending into the jugular vein. Lungs: Diffuse bilateral airspace opacities, increased compared to prior examination. Findings may be seen with pneumonia or pulmonary edema. Pleural spaces: Unremarkable. No pleural effusion. No pneumothorax. Heart/Mediastinum: Cardiomegaly. Bones/joints: Stable appearance of the bony structures. Soft tissues: Surgical clips noted in the left axillary region. Other findings: Examination is limited by patient positioning. XR/XR chest 1V portable [id number] IMPRESSION: Diffuse bilateral airspace opacities, increased compared to prior examination. Findings may be seen with pneumonia or pulmonary edema.
--- NOTE | 2020-08-29 06:25 | PC.NURSE ---
PT lying on R side. Bipap at 95% fio2. Pt encouraged to leave mask alone as she often pulls on it and causes it to leak around the mask, leading to desats. O2 sat running 90-92% at this time. Precedex infusing at 0.5mcg/kg/h. Gupta cath draining freely to BSD. No other issues noted.
[2020-08-29] MEDS: budesonide 0.5 mg/2 mL Neb 0.25 MG INHALATION (08:21)
[2020-08-29] MEDS: pantoprazole DR 40 mg Tablet PO (08:32)
[2020-08-29] MEDS: ascorbic acid 500 mg Tablet PO (08:32)
[2020-08-29] MEDS: FUROsemide 10 mg/mL SDV 4mL 40 MG IVP ×2 (08:32→20:10)
[2020-08-29] MEDS: guaiFENesin 100 mg/5 mL UDC 10 mL 200 MG PO (08:32)
[2020-08-29] MEDS: zinc gluconate 50 mg Tablet PO (08:32)
[2020-08-29] MEDS: enoxaparin 120 mg/0.8 mL Syringe 110 MG SUBCUT ×2 (08:32→20:10)
[2020-08-29] MEDS: lidocaine 1% 5 ML in potassium chloride premix 100 ML 50 ML IV (08:33)
[2020-08-29 10:50] LABS: Vancomycin Trough < 4.0 ug/mL (10-15)
[2020-08-29] MEDS: vancomycin 1,500 MG/300 ML PIGGYBACK 200 MG IV (11:27)
--- NOTE | 2020-08-29 15:00 | PC.NURSE ---
pt has had increased shortness of breath throughout the day. Dr. Hua notified of finding. Dr hua visited with pt at bedside both pt and Dr. Hua decided a proactive intubation would be necessary. Pt intubated and VSS.
--- NOTE | 2020-08-29 15:10 | XRR_ITS ---
PROCEDURE INFORMATION: Exam: XR Chest Exam date and time: 08/29/2020 3:10 PM Age: 74 years old Clinical indication: Device placement; Ett placement (vent status); Additional info: Et tube, ng tube, central line placement TECHNIQUE: Imaging protocol: XR of the chest. Views: 1 view. COMPARISON: CR (CHEST, ) 08/29/2020 5:16 AM FINDINGS: Tubes, catheters and devices: Endotracheal tube is in satisfactory position. Feeding tube is in satisfactory position. Left IJ approach central line is in satisfactory position, with distal tip in the SVC, approximately 3 cm above the SVC/RA junction. Right IJ approach MediPort is in satisfactory position, with distal tip in the lower right IJ vein, approximately 14 cm above the SVC/RA junction. Surgical clips are seen projecting over the left axillary region. Lungs: Persistent extensive bilateral airspace opacities. No large pleural effusion or pneumothorax. Pleural spaces: See Lungs finding. Heart/Mediastinum: Stable cardiomediastinal silhouette. Bones/joints: Degenerative changes of the spine seen. No acute osseous injury identified. XR/XR chest 1V portable [id number] IMPRESSION: Persistent extensive bilateral airspace opacities.
--- NOTE | 2020-08-29 15:26 | P.PN_ITS ---
Subjective Subjective: Interval history: Patient was seen and examined this morning. Given persistent worsening in SOB , worsening xray chest , and progressively worsening ABG and patient inability to tolerate the BIPAP as well as HHFONC . She was intubated and placed on mechanical ventilation. Medications: Reviewed: Yes Vitals/I&O/Wt Last Vital Signs Temp 98.9 F 08/29/20 12:00 Pulse 88 08/29/20 12:00 Resp 22 H 08/29/20 14:35 BP 131/75 08/29/20 12:00 Pulse Ox 88 L 08/29/20 14:35 08/29/20 08/29/20 08/29/20 06:59 14:59 22:59 Intake Total 324 / 1386.472 754 / 754 Output Total 1250 / 1850 900 / 900 Balance -926 / -463.528 -146 / -146 Physical Exam Const: COMMON NORMALS: patient oriented x3 HENMT: COMMON NORMALS: normocephalic and atraumatic HEAD & SCALP: normocephalic and atraumatic Resp: OTHER: Bilaterally diminished air entry, bilateral coarse breath sounds,b/l wheezing Cardio: COMMON NORMALS: regular rate, regular rhythm, S1 normal heart sound present, S2 normal heart sound present, No gallops present (Cardio), No murmurs present (Cardio), No rub (Cardio) and Peripheral pulses 2+ throughout RATE: regular rate RHYTHM: regular rhythm HEART SOUNDS: S1 normal heart sound present and S2 normal heart sound present PERIPHERAL PULSES: Peripheral pulses 2+ throughout GI: COMMON NORMALS: Normal to inspection, nondistended, normoactive bowel sounds present, Soft to palpation, non-tender, No hepatosplenomegaly present and no masses AUSCULTATION: Yes normoactive bowel sounds PALPATION: Yes Soft to palpation and Yes No hepatosplenomegaly present RECTAL EXAM: deferred Extremity: COMMON NORMALS: no clubbing, cyanosis or edema and no pedal edema Neuro: COMMON NORMALS: patient oriented x3 Urinary Catheter Management^: Gupta: Cath Placed During This Visit: yes Reason for Continuing Indwelling Catheter: Accurate Measurement of Urinary Output in Critically Ill Patients Urinary Catheter Date of Insertion: 08/27/20 Urinary Catheter Time of Insertion: 10:33 Data : 08/29/20 04:43 08/29/20 04:43 A&P Assessment and plan (1) Respiratory failure with hypoxia: Acute hypoxic respiratory failure secondary 2/2 Severe ARDS 2/2 Covid PNA with possible superadded bacterial PNA :Positive COVID PCR Currently on COVID Protocol C.T Chest without contrast : ground-glass opacities with crazy paving and consolidation and some air bronchograms consistent with severe bilateral Covid- 19 pneumonia. D-dimer : ESR CRP Ferittin Fibrinigen Procalcitonin : 34 ---> 12.76 Blood culture :NTD Urine culture Stool studies Sputum culture MRSA PCR:Negative Remdesivir 5 Day course Dexamethasone 6 mg I.V Daily Lovenox 110 mg sc q12 daily S/P 1 DOse toci VANcomycin Imipenam Lasix 40 MG I.V Q12 H Daily Advair inhalation Pulmicort inhalation Ascorbic acid po Zinc gluconate po Currently intubated sedated and placed on mechanical ventilation. Status: Acute (2) ARDS (adult respiratory distress syndrome): Severe ARDS 2/2 COVID PNA Status: Acute (3) Acute kidney injury superimposed on CKD: TRACEE ON CKD Stage 3 Likely COVID related renal disease. Baseline SCR : 1.2-1.4 Admission SCR : 2.7 Current SCR :1.8 Urine electrolytes Real U/S Avoid Nephrotoxics Monitor I/0 Monitor BMP Status: Acute (4) Hypokalemia: Status: Acute (5) Metastatic cancer: Status: Acute (6) Hypothyroidism (acquired): Status: Acute (7) Hypertension: Status: Acute (8) COPD (chronic obstructive pulmonary disease): Status: Acute (9) History of pulmonary embolism: Status: Acute Additional A&P Information Code Status :Full code DVT PPX: On Eliquis Attestations Medical Necessity Statement*: Patient needs to be in hospital for the m anagement of Severe ARDS 2/2 COVID PNA Critical Care Time: The high probability of a clinically significant, sudden or life threatening deterioration of the patient's [] system(s) required my full and direct attention, intervention and personal management. The critical care time is as shown. This time is in addition to time spent performing any reported procedures but includes the following: [x] Data and vital sign review and interpretation [x] Patient assessment, examination and intervention [x] Documentation [x] Medication orders and management Coding Level of Care Code Acute [employer] for Marcelina Marshall Diagnoses Respiratory failure with hypoxia J96.91 ARDS (adult respiratory distress syndrome) J80 Acute kidney injury superimposed on CKD N17.9; N18.9 Hypokalemia E87.6 Metastatic cancer C79.9 Hypothyroidism (acquired) E03.9 Hypertension I10 COPD (chronic obstructive pulmonary disease) J44.9 History of pulmonary embolism Z86.711
[2020-08-29] MEDS: propofol 1,000 MG/100 ML INJ 20.82 MG IV ×2 (15:39→17:29)
[2020-08-29] MEDS: succinylcholine 20 mg/mL SDV 10mL 200 MG IVP (15:43)
--- NOTE | 2020-08-29 15:50 | PM.ACPR ---
Acute Procedures Intubation: Time out performed: Yes Sedative: etomidate Paralytic: succinylcholine Laryngoscope: fiber optic video scope Assist device used: Bougie ET tube size: 8 ET tube uncuffed: Yes Tube secured depth (cm): 23 Tube secured location: lips Tube placement confirmation: visualized tube passing through cords, equal breath sounds bilaterally and color change noted Patient tolerated procedure: well Intubation complications: none
--- NOTE | 2020-08-29 15:51 | PM.ACPR ---
Acute Procedures Central Line Placement^: Left IJ: Time out performed: Yes Patient placed on monitor/pulse ox: Yes MD prep: mask, gown and gloves Central line prep: Chlorhexidine scrub Local anesthesia used: lidocaine 1% Ultrasound used for placement: Yes Central line lumen inserted: triple Post procedure: sutured in place, good blood return and all ports aspirated, flushed, capped Post procedure x-ray: tip of catheter in good position and no pneumothorax seen Patient tolerated procedure: well Complications: none Intubation: Time out performed: Yes
--- NOTE | 2020-08-29 16:25 | PC.NURSE ---
Attempted to contact Pt sales assistants and salespersons Thong Andrews. Was not able to reach him so voicemail was left to return phone call. will monitor.
[2020-08-29] MEDS: dexamethasone 4 mg/mL INJ 6 MG IVP (17:11)
[2020-08-29] MEDS: remdesivir 100 MG in sodium chloride 0.9% (100 ml) 100 ML IV (17:11)
--- NOTE | 2020-08-29 21:43 | PM.ACPR ---
Procedure/Consent Time out: Time Out Performed: No Consent: Consent for Procedure: Emergency procedure Procedure Narrative: Name of the procedure: Left-sided chest tube placement Indication: Pneumothorax during the process of CPR following cardiac arrest Medications: None Consent: Not obtained due to emergency Description of the procedure: The skin, subcutaneous tissue and fascia were cut open with a 10-sized blade. The subcutaneous tissue was spread to expose the chest wall muscle. Using hemostat forcep the muscle was and chest cavity was entered. A 28 [place] chest tube was inserted. Breath sounds return in the left hemithorax following insertion of the chest tube. Complications: None. Acute Procedures Epistaxis Control: Time out performed: No
--- NOTE | 2020-08-29 22:16 | PC.NURSE ---
Per MTS Kimberlyn - pt not a candidate for MTS or [facility]aving Site donation.
--- NOTE | 2020-08-29 23:14 | PC.NURSE ---
Addendum entered by Keli Sutton RN 08/30/20 00:58: 00:42 Gerry Johnson from [facility] ([phone]) at bedside to orange picker body and transport for [facility]. Addendum entered by Keli Sutton RN 08/29/20 23:37: Pt in COVID room, unable to scan emergent medication. Intubation medications 10mg etomidate and 50mg succinylcholine given for ET tube exchanger per MD orders. Code Blue medications also given. Original Note: Code: Pt intubated and requiring pressors to maintain BP. Dr. Bradshaw and Almaz Brantley, RT at bedside to exchange ET tube due to large cuff leak. Pt became bradycardic and low SpOx, all sedation turned off due to bradycardia. Pt continued to patricia down to asystole and code blue called. See Sandra Bee RN, powerhouse electrician apprentice's note for code blue. TOD called at 21:23. Approx 23:00 Family, Henry Rutledge (grandson) cell# [phone] and Kaity Stanford ([email or web address]) viewed Pt through window. 23:13 Per family request called [facility] at [phone], spoke with Babar, he stated he would be here to orange picker body around midnight.
--- NOTE | 2020-08-29 23:36 | PC.RESP ---
Doctor came to bedside to replace ETT do to large cuff leak. Doctor and RN at bedside. Doctor replaced ETT. Pt had decreased SPO2 during the exchange become bradycardic, then developed asystole. Chest compression started and amarjit botello called.
[2020-08-29 23:38] LABS: Glucose Point of Care 157 mg/dL (70-110)
--- NOTE | 2020-08-30 01:47 | PC.NURSE ---
Witnessed Fentanyl waste of 98.083 and versed waste of 86.983 around 2100
--- NOTE | 2020-08-31 11:00 | P.DES_ITS ---
Discharge Providers DDS Date of Admission: 08/25/20 14:35 Date Summary Completed: 09/06/20 Attending Provider at Admission: Lan Bradshaw MD Attending Provider at Discharge: Lan Bradshaw MD Primary Care Provider: DO LAURO Barragan Diagnoses Hospital Diagnoses (1) Patient : (2) Respiratory failure with hypoxia: (3) ARDS (adult respiratory distress syndrome): (4) Acute kidney injury superimposed on CKD: (5) Hypokalemia: (6) Metastatic cancer: (7) Hypothyroidism (acquired): (8) Hypertension: (9) COPD (chronic obstructive pulmonary disease): (10) History of pulmonary embolism: Reason for Visit Reason for Visit: COVID + Summary Summary Summary: 74 year old female with past medical history of COPD on 2 L of oxygen, PE, hypertension hypothyroidism,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 She went to her primary care physician with above-mentioned complaint and she was tested for Covid at that point in time rapid COVID-19 testing at the primary care physician was positive, upon arrival in the ER she was worked up for above-mentioned, repeat rapid Covid testing done in the ER was negative, Covid PCR was positive.She was admitted for the management of Ac hypoxic r/f 2/2 to COVID PNA.Hospital course was complicated by the development of severe ARDS resulting in being placed on intubation and mechanical ventilation when Non invasive ventilation failed to work as the patient was not tolerating it well and supplemental oxygen requirement kept going up.She was being managed as per full COVID Protocol( C.T Chest without contrast : ground-glass opacities with crazy paving and consolidation and some air bronchograms consistent with severe bilateral Covid-19 pneumonia, she was on Remdesivir 5 Day course, received a dose of tocelizumab,was on full dose anticogulation, on broad spectrum abxs, inflammatory markers were trended,procalcitonin was very high,which was down trending with appropriate treatment ).Unfortunately patient needed E.T tube replacement on the night of intubation after being successfully intubated during the day and after appropriate placement of lt I.J CVC , due to leak,even though she had a difficult airway,E.T tube replacement was successfully exchanged over the bougee.Post replacement unfortunately patient became bardycardic and went into asystole likely 2/2 to severe hypoxia due to severe ARDS .Code Blue was called all sedations were turned off, high quality chest compressions were started and full ACLS protocol was followed.During the code 1 shock was delivered as she was in V-Vib briefly,ROSC was also achieved briefly but she went back in PEA ,lt chest tube was also placed during code blue for lt sided tension PTX likely developed as a complication of CPR.Inspite of all these efforts patient could not be revived and code blue was called off at 21:23.Patient was pronounced at 21:23. Additional Data Confirmation of as documented by pronouncing clinician: no pulse, no respirations, no heart sounds and pupils fixed and dilated Additional persons at bedside: nursing staff Attending/PCP notified?: I am attending Was code activated?: Yes Autopsy requested?: No Advance directives?: No Hospice patient?: No Discharge Plan Discharge Patient Disposition: Condition: DS Attestations Time Spent in /Discharge Care*: less than 30 min Quality - AMI: AMI present?: No Quality - Stroke: CVA present?: No Quality - VTE: VTE present?: No Coding Level of Care Code Acute Electrical Products Sales Engineer for g Fwd Diagnoses Patient R99 Respiratory failure with hypoxia J96.91 ARDS (adult respiratory distress syndrome) J80 Acute kidney injury superimposed on CKD N17.9; N18.9 Hypokalemia E87.6 Metastatic cancer C79.9 Hypothyroidism (acquired) E03.9 Hypertension I10 COPD (chronic obstructive pulmonary disease) J44.9 History of pulmonary embolism Z86.711
== END 2020-08-29 21:23 | disposition expired | DRG 208 ==
LOC: ER 16:58 → ICU 18:26 → ER IP 19:01 → MEDSURG 21:54 → ICU 08-27 21:33
PROVIDERS: Hospitalist; Admitting Provider Internal Medicine; Emergency Provider Emergency Medicine; PCP Electrodiagnostic Medicine; Visit Provider Internal Medicine
DX: U07.1 COVID-19 (principal); J95.811 Postprocedural pneumothorax; J12.82 Pneumonia due to coronavirus disease 2019; J15.9 Unspecified bacterial pneumonia; J96.01 Acute respiratory failure with hypoxia; C7A.8 Other malignant neuroendocrine tumors; C7B.8 Other secondary neuroendocrine tumors; N17.9 Acute kidney failure, unspecified; J95.71 Accidental puncture and laceration of a respiratory system organ or structure during a respiratory system procedure; I46.9 Cardiac arrest, cause unspecified; J44.9 Chronic obstructive pulmonary disease, unspecified; Z99.81 Dependence on supplemental oxygen; Z86.711 Personal history of pulmonary embolism; I12.9 Hypertensive chronic kidney disease with stage 1 through stage 4 chronic kidney disease, or unspecified chronic kidney disease; N18.9 Chronic kidney disease, unspecified; E03.9 Hypothyroidism, unspecified; Z85.3 Personal history of malignant neoplasm of breast; Z92.21 Personal history of antineoplastic chemotherapy; Z92.3 Personal history of irradiation; M19.90 Unspecified osteoarthritis, unspecified site; K21.9 Gastro-esophageal reflux disease without esophagitis; N28.1 Cyst of kidney, acquired; Z90.12 Acquired absence of left breast and nipple; Z87.891 Personal history of nicotine dependence; E87.6 Hypokalemia; Y84.8 Other medical procedures as the cause of abnormal reaction of the patient, or of later complication, without mention of misadventure at the time of the procedure
CPT/HCPCS: 36415; 36416; 36600; 51702; 71045; 71250; 80048; 80051; 80053; 80202; 82330; 82436; 82803; 82805; 82962; 83605; 83615; 83735; 83880; 84100; 84133; 84145; 84300; 84484; 85025; 85378; 85384; 85610; 85651; 85730; 86140; 87040; 87070; 87106; 87426; 87635; 87641; 87804; 93005; 94002; 94640; 94660; 94762; 94799; 96372; J0153; J0171; J0282; J0330; J0456; J0696; J0743; J1100; J1200; J1650; J1940; J2001; J2060; J2250; J2704; J3010; J3262; J3370; J3480; J3490; J7030; J7050; J7626